=== PATIENT | male | born 1950 | race Caucasian/White ===

== ENCOUNTER 2020-02-07 01:49 | Outpatient (CLI) | payer MEDICARE, SELFPAY ==
[2020-02-07 20:39] LABS: SARS-CoV-2 RNA PCR Negative
== END 2020-02-07 01:50 | disposition home or self-care (01) ==
LOC: ANHCOVIDDT 01:51
PROVIDERS: PCP Family Medicine; Visit Provider Internal Medicine Critical Care Medicine
DX: Z20.828 Contact with and (suspected) exposure to other viral communicable diseases (principal)
CPT/HCPCS: 87635; C9803; U0003

== ENCOUNTER 2020-02-09 07:35 | Outpatient (CLI) | payer MEDICARE, SELFPAY ==
--- NOTE | 2020-03-09 19:42 | WPDSLEEPSTUD ---
Sleep Study Date of Study: 02/09/20 Ordering Provider: Agustin Christian MD Interpreting Physician: Vanesa Gomez MD Sleep Study Type: Polysomnogram Height: 1.88 m Weight: 133.81 kg Body Mass Index: 37.8 Neck Circumference: 45.72 cm [place]: 1 Reason for Sleep Study large right ventricle, shortness of breath Sleep History Víctor Ballesteros is a 69 yo man with a history of frequent loud snoring, right ventricular enlargement with infrequent chest pressure and shortness of breath. He wakes during the night and in the administrative dietitian hours. He has excessively sweating at night, frequent palpitations, rarely falling asleep in the day, rarely involuntarily, never while driving. He does not have muscle weakness with strong emotion. He denies problems in the daytime due to excessive sleepiness. He does not feel paralyzed on waking or falling asleep, and does not have vivid dreams on waking or falling asleep. He is not afraid to go to sleep, and does not have nightmares. He rarely remembers his dreams. He occasionally has racing thoughts. He rarely feels sad or depressed. He occasionally has anxiety. He rarely has muscular tension or notices parts of his body jerking. He rarely has crawling and aching feelings in his legs at night. Rarely has leg pain at night. He does not have morning jaw pain. He rarely is bothered by pain during the day, rarely awaken by pain at night. He rarely wakes up feeling stiff in the morning with sore or achy muscles or pain in the neck. Has memory problems. He has lost 25 lb in the last year. Normal bedtime is between 8 and 9:00 p.m. taking 15-30 minutes to fall asleep. He typically wakes up 1-4 times at night and while awake stays awake for 30-60 minutes. He wakes up between 3:00 am and 5:00 a.m. He does not take naps. He often feels refreshed in the morning. Habits: Smoked 31 years ago. Caffeine, 1 cup a day. Alcohol once a month. PMH: Hypertension, diabetes. Mild pulmonary hypertension. [facility] Past Medical History Medical History (Updated 03/09/20 @ 20:57 by Vanesa Gomez MD) Diabetes Hyperlipidemia Hypertension Pulmonary hypertension Right ventricular enlargement Social History Social History (Updated 03/09/20 @ 19:57 by Vanesa Gomez MD) Social History: quit 31 years ago, quit 1990 Smoking status: Former smoker Alcohol intake: current Alcohol use details: once a month Medications Medications: metformin 1000 mg glipizide 10 mg pioglitazone 25 mg atorvastatin 20 mg a day cetirizine 10 mg a day quinapril 20 mg a day baby aspirin 81 mg a day Sleep Procedure This test was performed using the [employer] multiple channel system including EOG, EEG, submental EMG, EKG, nasal and oral airflow using thermistors and nasal pressure sensors, chest and abdominal belts for body position data, and pulse oximetry. Video monitoring was also performed. The study was scored using [facility] guidelines. Sleep Architecture The recording time was 418.6 minutes. The sleep time was 127.5 minutes. The sleep efficiency was 30.5%. The sleep latency was 32.3 minutes, prolonged. The REM latency was 346 minutes. He had a long sleep latency, slept for an hour then woke and stayed awake for 3 hours before falling asleep again and ending the night with a REM episode. He wanted to leave the sleep lab when he woke the first time, and decided to stay to complete the study. Respiratory Analysis The AHI was 16.9. There was no supine REM. In non-supine REM, he had 13 obstructive apneas, 1 obstructive hypopnea with an AHI of 56. In supine NON-REM he had 4 obstructive apneas and 4 obstructive hypopneas for an ANI of 7.6. In non-supine NREM he had 14 obstructive apneas for an AHI of 17.1. Supine index is 7.6, nonsupine index is 26.3. Arousals There were 41 arousals for an index of 5.9. There were 4 apneas for an AHI of 0.6, 2 hyoopneas with an index of 0.3, 35 spontaneous arousals for an index of 5. Periodic Limb Mov
[2020-03-09 21:06] VITALS: BMI 37.8
== END 2020-02-09 07:36 | disposition home or self-care (01) ==
LOC: ANHCSM 07:35
PROVIDERS: PCP Family Medicine; Visit Provider Internal Medicine Cardiovascular Disease
DX: G47.33 Obstructive sleep apnea (adult) (pediatric) (principal); G47.10 Hypersomnia, unspecified; I51.7 Cardiomegaly; R06.83 Snoring; I27.20 Pulmonary hypertension, unspecified; Z87.891 Personal history of nicotine dependence; E11.9 Type 2 diabetes mellitus without complications; E78.5 Hyperlipidemia, unspecified; I10 Essential (primary) hypertension
CPT/HCPCS: 95810

== ENCOUNTER → 2021-06-04 10:33 | Outpatient (CLI) | payer MEDICARE, SELFPAY ==
--- NOTE | ~2021-06-04 | MR_ITS ---
. EXAMINATION: MR brain IAC wo/w con DATE: 06/04/2021 12:07 INDICATION: Right-sided tinnitus, sudden hearing loss. TECHNIQUE: Magnetic resonance imaging (MRI) of the brain, brainstem, and internal auditory canals was performed with 20 mL MultiHance intravenous contrast. Sequences included sagittal and axial T1-weigh orly FSE, axial diffusion-weighted FS EPI, axial T2*-weighted GRE, axial T2-weighted FLAIR Propeller, axial T2-weighted Propeller, small wfkux-oo-vuom coronal FIESTA, small ngews-wi-vcqs coronal T1-weigh orly FSE, and small kiifp-mz-dyet axial T1-weighted SPGR. Postcontrast sequences included axial T1-jorje ghted FSE, small fpgrl-ko-xdct coronal T1-weighted FSE, and small pskqg-bq-lrcq axial T1-weighted SPG R. Apparent diffusion coefficient (ADC) maps were created. COMPARISON: None. FINDINGS: There are scattered areas of nonspecific increased T2-weighted signal intensity in the cere bral white matter and guy. There is no intracranial hemorrhage, acute infarction, or abnormal intrac ranial mass lesion. The ventricles are normal in size. There are likely changes of left ocular lens r eplacement surgery. The internal auditory canals and inner and middle ears are normal. There is a sma ll left mastoid effusion. There is mild mucosal thickening in the paranasal sinuses. IMPRESSION: 1. Moderate nonspecific cerebral white matter disease and pontine disease, which likely represents ch ronic small vessel ischemic disease. Reviewed, dictated and finalized at location A. MEASURES ABSTRACTOR IMPRESSION: 1. Moderate nonspecific cerebral white matter disease and pontine disease, whic h likely represents chronic small vessel ischemic disease.
[2021-06-04 11:24] LABS: Estimated Glomerular Filt Rate > 60
== END ==
PROVIDERS: PCP Family Medicine; Visit Provider Otolaryngology
DX: H93.11 Tinnitus, right ear (principal); H91.21 Sudden idiopathic hearing loss, right ear; R90.82 White matter disease, unspecified
CPT/HCPCS: 70553; A9577

== ENCOUNTER 2022-08-04 08:56 | Emergency (ER) | payer MEDICARE, SELFPAY ==
--- NOTE | ~2022-08-04 | XR_ITS ---
EXAMINATION: XR chest 2V DATE: 08/04/2022 09:24 INDICATION: Chest pain. TECHNIQUE: Frontal and lateral views of the chest were obtained. COMPARISON: None. FINDINGS: There is mild atelectasis at the lung bases. No pleural effusion or pneumothorax. The heart size is normal. IMPRESSION: 1. Mild atelectasis at the lung bases. Reviewed, dictated and finalized at location A.
[2022-08-04 09:05] VITALS: BP 138/62; PULSE 87; RESP 20; TEMP 36.1; O2SAT 99
--- NOTE | 2022-08-04 09:06 | ED.GENADULT ---
HPI - General Adult General Chief complaint: Back Pain/Injury Stated complaint: Chest Pain Time Seen by Provider: 08/04/22 08:59 Source: patient Mode of arrival: ambulatory Limitations: no limitations History of Present Illness HPI narrative: 71-year-old male patient presents to the [facility] with complaints of left-sided chest/ rib pain. Patient states that he was fishing last weekend and fell forward onto the dock but states it really did not cause him a lot of pain until recently this past Friday. Patient states he has had a lot of pain to the left upper chest it is reproducible on palpation. Patient denies any shortness of breath but states the pain is increased when taking a deep breath in. Denies any coughing. Patient states he has been taking ibuprofen and feels like it has not been helping. Patient states he has also been using a Randal wrap around the chest. Related Data Home Medications Medication Instructions Recorded Confirmed cetirizine 5 mg tablet 5 mg PO DAILY PRN Allergic Symptoms 03/21/20 08/04/22 glipizide 5 mg tablet 5 mg PO DAILY 03/21/20 08/04/22 multivitamin 1 tablet PO DAILY 03/21/20 08/04/22 atorvastatin 20 mg tablet 20 mg PO DAILY 06/25/22 08/04/22 diphenhydramine HCl 25 mg capsule 25 mg PO QHS PRN sleep 06/25/22 08/04/22 (Benadryl) metformin 1,000 mg tablet 1,000 mg PO BID 06/25/22 08/04/22 metformin 500 mg tablet 500 mg PO BID 06/25/22 08/04/22 pioglitazone 45 mg tablet 45 mg PO DAILY 06/25/22 08/04/22 quinapril 20 mg tablet 20 mg PO DAILY 06/25/22 08/04/22 Allergies Allergy/AdvReac Type Severity Reaction Status Date / Time NKDA Allergy Unknown unk Uncoded 08/04/22 08:58 Review of Systems Review of Systems: CONSTITUTIONAL: Denies fever, chills, or sweats. EYES: Denies visual changes, redness, or discharge. ENT: Denies rhinorrhea, congestion, sore throat, or otalgia. CARDIOVASCULAR: Positive left upper chest pain, denies palpitations, or edema. RESPIRATORY: Denies cough or dyspnea. GASTROINTESTINAL: Denies abdominal pain, nausea, vomiting, or diarrhea. GENITOURINARY: Denies dysuria or hematuria. SKIN: Denies rash or itching. MUSCULOSKELETAL: Denies back pain, joint pain, or myalgia. NEUROLOGIC: Denies headache, numbness, or weakness. PSYCHIATRIC: Denies anxiety or depression. [facility] Past Medical History Medical History Diabetes Hypertension Morbid obesity Pulmonary hypertension Pure hypercholesterolemia, unspecified Right ventricular enlargement Social History Social History Social History: quit 31 years ago, quit 1988 Smoking status: Former smoker Tobacco type: cigarettes Second hand tobacco smoke exposure: No Alcohol intake: current Alcohol use details: once a month Substance use: never Substance use type: does not use Lack of Transportation: No Lack of Food: Never True Current Housing: I Have Housing Concerned About Future Housing: No Difficulty Paying Gas/Electric Bills: No Difficulty Paying for Meds: No Currently Unemployed: No Difficulty w/ Childcare or Family Care: No Living arrangements: with family Occupation/Education: retired Gender identity (if verbalized by the patient): Male Sexual Orientation (if Verbalized by the Patient): Straight or Heterosexual Spiritual care concerns: No Comments At the time of my signature I agree with nursing past medical history, surgical, social, and family history. There is no relevant family history pertinent to the presenting complaint. Exam Narrative: GENERAL: Well-appearing, well-nourished, and in no acute distress. HEAD: Normocephalic, atraumatic. EYES: PERRLA and EOMI. ENT: Nares clear, no rhinorrhea or epistaxis. Mucous membranes moist. NECK: Supple. No lymphadenopathy CHEST: Clear to auscultation. No respiratory distress. patient does have a small bruise noted to t
--- NOTE | 2022-08-04 10:05 | ECG_ITS ---
Measurements Intervals [place] Rate: 78 P: 14 VA: 167 QRS: 14 QRSD: 97 T: -3 QT: 371 QTc: 424 Interpretive Statements SINUS RHYTHM MINIMAL Q WAVES- INFERIOR LEADS BASELINE ARTIFACT- I, II, III, AVR BORDERLINE ECG NO PREVIOUS ECG AVAILABLE FOR COMPARISON Electronically Signed On 08-04-2022 12:55:39 CDT by Gunnar Acevedo D.O.
== END 2022-08-04 09:53 | disposition home or self-care (01) ==
PROVIDERS: Emergency Provider Nurse Practitioner Family; PCP Family Medicine
DX: R07.89 Other chest pain (principal); Z87.891 Personal history of nicotine dependence; E11.9 Type 2 diabetes mellitus without complications; Z79.84 Long term (current) use of oral hypoglycemic drugs; I10 Essential (primary) hypertension; E78.00 Pure hypercholesterolemia, unspecified; E66.01 Morbid (severe) obesity due to excess calories; Z68.38 Body mass index [BMI] 38.0-38.9, adult
CPT/HCPCS: 71046; 93005; 99213; G0463

== ENCOUNTER 2024-07-12 09:17 | Outpatient (CLI) | payer MEDICARE, SELFPAY ==
--- NOTE | ~2024-07-12 | XR_ITS ---
CHEST RADIOGRAPH, PA AND LATERAL CLINICAL HISTORY: R06.02 - Shortness of breath . COMPARISON: 08/04/2022 TECHNIQUE: PA and lateral views of the chest. Examination is limited by patient rotation (towards the patient's left) FINDINGS Interval development of a large left-sided pleural effusion, when compared with previous study. Rounded pleural-based mass is also detected within the lateral margin of the superior segment of the left lower lobe. Infiltrate is noted within the superior segment of the left lower lobe, possibly postobstructive. The cardiomediastinal silhouette is partially obscured. Retrosternal extension of the thyroid gland is also suspected. IMPRESSION: Findings within the left hemithorax for which cross-sectional imaging (preferably contrast-enhanced C T examination of the chest) is recommended. If patient is unable, noncontrast enhanced imaging may also be performed. Reviewed, dictated and finalized at location A. IMPRESSION: Findings within the left hemithorax for which cross-sectional imaging (preferab ly contrast-enhanced CT examination of the chest) is recommended. If patient is unable, noncontrast enhanced imaging may also be performed.
== END 2024-07-12 09:18 | disposition home or self-care (01) ==
PROVIDERS: PCP Family Medicine; Visit Provider Family Medicine
DX: R06.02 Shortness of breath (principal)
CPT/HCPCS: 71046

== ENCOUNTER 2024-07-19 08:05 | Outpatient (CLI) | payer MEDICARE, SELFPAY ==
--- NOTE | ~2024-07-19 | CT_ITS ---
Clinical Indication: Shortness of breath CT Scan of the Chest with Contrast: Technique: Contiguous sections were acquired throughout the chest after intravenous administration of 75 cc of Omnipaque 350. Dose reduction technique was used on this scan by utilizing automated exposu re control and iterative reconstruction technique. The dose-length product (DLP) was 417.47 mGy-cm. Findings: There is no evidence of any significant mediastinal, hilar or axillary lymphadenopathy. There is no f illing defect in the pulmonary arterial tree to suggest pulmonary embolus. There is no evidence of ao rtic dissection or aneurysm. No pericardial effusion. There is small to moderate left pleural effusion, likely chronic, with thickening of pleural lining. There is left-sided volume loss with consolidation at the peripheral left lower lobe and lingula, lik kishore representing atelectasis. Right lung is relatively hyperinflated but clear. Images through the upper abdomen reveal no abnormalities. Impression: Small to moderate chronic left pleural effusion with thickened pleural lining. Left-sided volume loss with peripheral consolidation of the lingula and left lower lobe, likely repre senting atelectasis. Correlate clinically for pneumonia. Right lung relatively hyperinflated but clear. Reviewed, dictated and finalized at location . Impression: Small to moderate chronic left pleural effusion with thickened pleural lining. Left-sided volume loss with peripheral consolidation of the lingula and left lo wer lobe, likely representing atelectasis. Correlate clinically for pneumonia. Right lung relatively hyperinflated but clear.
--- OUTSIDE RECORDS SUMMARY | 2024-07-19 08:30 | XMS_ITS | Clinical Summary ---
Author Organization [facility] [address] Address [address] [place] [address] Care Team Providers Care Hot Header Operator Name Role Phone Tej Sen MD Primary Care Provider [phone] Allergies No known active allergies Medications atorvastatin (LIPITOR) 20 mg tablet 12/21/2019 Active metFORMIN (GLUCOPHAGE) 1,000 mg tablet 12/21/2019 Act evelio pioglitazone (ACTOS) 45 mg tablet 12/21/2019 Active cetirizine (ZyrTEC) 10 mg tablet Take 1 tablet (10 mg total) by mouth daily Active multivitamin capsule Take 1 capsule by mouth daily Active glipiZIDE (GLUCOTROL) 5 mg tablet 06/19/2021 Active lisinopriL (PRINIVIL,ZESTR IL) 20 mg tablet 1 tablet (20 mg total) 03/10/2023 Active magnesium gluconate 200 mg tabletIndicatio ns:hypomagnesem ia 1 tablet (200 mg total) Active melatonin 5 mg tablet Active Active Problems Problem Noted Date Diagnosed Date Impacted cerumen of right ear 05/16/2023 Tinnitus of right ear 05/10/2021 Sudden right hearing loss 05/10/2021 Hyperlipidemia associated with type 2 diabetes m ellitus 06/02/2020 TESHA (obstructive sleep apnea) 02/15/2020 Pulmonary hypertension 01/17/2020 Hypersomnolence 01/17/2020 Hypertension associated with diabetes 01/17/2020 Chest pressure 01/17/2020 MCGARRY (dyspnea on exertion) 01/17/2020 Snoring 01/17/2020 Right ventricular enlargement 01/17/2020 Hyperlipidemia 01/17/2020 Resolved Problems Problem Noted Date Diagnosed Date Resolved Date Morbid obesity with BMI of 40.0-44.9, adult 01/17/2020 02/15/2020 Surgical History Surgery Date Site/Laterality Comments CATARACT EXTRACTION Medical History Medical History Date Comments Hypertension Diabetes mellitus (HCC) Allergic rhinitis HL (hearing loss) Tinnitus Family History Medical History Relation Name Comments Cancer Father Heart disease Father Alzheimer's disease Mother Cancer Other Allergies Sister Relation Name Status Comments Brother Alive Father Mother Alive Other Sister Alive Social History Tobacco Use Types Packs/Day Years Used Date Smoking Tobacco: Former Cigarettes 04 21 Smokeless Tobacco: Never Alcohol Use Standard Drinks/Week Comments Not Currently 0 (1 standard drink = 0.6 oz pur e alcohol) Sex and Gender Information Value Date Recorded Sex Assigned at Not on file Legal Sex Male 11:15 AM CDT Gender Identity Male 01/20/2020 9:35 AM CDT Sexual Orientation Straight 01/20/2020 9: 35 AM CDT Obstetrics History Last Filed Vital Signs Vital Sign Reading Time Taken Comments Blood Pressure 131/61 03/05/2023 3:42 PM RUG TOUCH UP PAINTER Pulse 60 12/08/2020 10:42 AM CDT Temperature 36.1 C (96.9 F) 05/10/2021 8:37 AM RUG TOUCH UP PAINTER Respiratory Rate 18 03/12/2024 9:57 AM RUG TOUCH UP PAINTER Oxygen Saturation 97% 12/08/2020 10:42 AM CDT Inhaled Oxygen Concentration - - Weight 127 kg (280 lb) 03/12/2024 9:57 AM RUG TOUCH UP PAINTER Height 188 cm (6' 2 ) 03/12/2024 9:57 AM RUG TOUCH UP PAINTER Body Mass Index 35.95 03/12/2024 9:57 AM RUG TOUCH UP PAINTER Plan of Treatment Health Maintenance Due Date Last Done Comments Albumin Creatinine Ratio, Urine 1948 Colon Cancer Screening-Colonoscopy 1948 Depression Screening 1948 Hemoglobin A1C 1948 Hepatitis C Screening 1948 eGFR 1948 Dilated Eye Exam 1948 Foot Exam 1948 DTaP/Tdap/Td Vaccine (1 - Tdap) 11/20/1959 Hepatitis B Screening 1966 Zoster Vaccine (1 of 2) 1998 Abdominal Aortic Aneurysm (A AA) Screen 2013 Well Visit 65+ 2013 Fall Risk Assessment 01/16/2021 01/17/2020 Lipid Panel 12/08/2021 12/08/2020, 05/29, 01/17/2020 Influenza Vaccine (#1) 2023 , 12/23/2018, 12/26/2017, Additional history exists Pneumococcal vaccine 65+ Completed 07/22/2017, 0406/2016 Procedures Procedure Name Priority Date/Time Associated Diagnosis Comments POCT LIPID PANEL Routine 12/08/2020 1:11 PM CDT Hyperlipidemia associated with type 2 diabetes mellitus (HCC) from Last 3 Months or Most Recently Relevant to Health Maintenance Results * POCT lipid panel (12/08/2020 1:11 PM CDT) Cholesterol, POC 135 mg/dL HDL, POC 36 mg/dL Triglycerides, POC 57 mg/dL LDL Cholesterol POC 87 mg/dL Chol/HDL Ratio, POC 3.7 Non-HDL Cholesterol, POC 98 mg/dL Cholesterol Total, POC 135 mg/dL Capillary blood 12/08/2020 1 :11 PM CDT David Christian MD POINT OF CARE TEST ORDERA BLES Final Result from Last 3 Months or Most Recently Relevant to Health Maintenance Insurance MEDICARE AD[facility]ANTAGE [facility] MEDIC[facility] Address: [address] [address] [facility] MEDICARE UHC MEDICARE ADVANTAGE [facility] MEDIC[facility] Address: [address] [address] [place] [address] Care Teams Hot Header Operator Relationship Specialty Start Date End Date Tej Sen MD [address] [place] [id number] PCP - General Family Medicine 12/23/19
--- OUTSIDE RECORDS SUMMARY | 2024-07-19 08:30 | XMS_ITS | Referral Summary ---
Author Organization [facility] [address] Address [address] [place] [address] Care Team Providers Care Mill Attendant Name Role Phone Tej Sen MD Primary Care Provider [phone] Allergies No known active allergies Medications atorvastatin [...] with BMI of 40.0-44.9, adult 01/17/2020 02/15/2020 Social History Tobacco Use Types Packs/Day Years Used Date Smoking Tobacco: Former Cigarettes 1 22 Smokeless Tobacco: Never Alcohol Use Standard Drinks/Week Comments Not Currently 0 (1 standard drink = 0.6 oz pur e alcohol) Sex and Gender Information Value Date Recorded Sex Assigned at Not on file Legal Sex Male 11:15 AM CDT Gender Identity Male 01/20/2020 9:35 AM CDT Sexual Orientation Straight 01/20/2020 9: 35 AM CDT Last Filed Vital Signs Vital Sign Reading Time Taken Comments Blood Pressure 131/61 03/05/2023 3:42 PM DEPOT AGENT Pulse 60 12/08/2020 10:42 AM CDT Temperature 36.1 C (96.9 F) 05/10/2021 8:37 AM DEPOT AGENT Respiratory Rate 18 03/12/2024 9:57 AM DEPOT AGENT Oxygen Saturation 97% 12/08/2020 10:42 AM CDT Inhaled Oxygen Concentration - - Weight 127 kg (280 lb) 03/12/2024 9:57 AM DEPOT AGENT Height 188 cm (6' 2 ) 03/12/2024 9:57 AM DEPOT AGENT Body Mass Index 35.95 03/12/2024 9:57 AM DEPOT AGENT Plan of Treatment Not on file Procedures Procedure Name Priority Date/Time Associated Diagnosis [...] Capillary blood 12/08/2020 1 :11 PM CDT us David Christian MD POINT OF CARE TEST ORDERA BLES Final Result from Last 3 Months or Most Recently Relevant to Health Maintenance Insurance [facility] MEDICARE ADVANTAGE [facility] MEDIC[facility] Address: [address] [address] [place] [address] [employer] MEDICARE UHC MEDICARE ADVANTAGE [facility] MEDICARE Address: [address] [address] [place] [address] Care Teams Mill Attendant Relationship Specialty Start Date End Date Tej Sen MD [address] [place] [id number] PCP - General Family Medicine 12/23/19
--- OUTSIDE RECORDS SUMMARY | 2024-07-19 08:30 | XMS_ITS | Continuity of Care Document ---
Author Organization [facility] Address [address] [place] [address] [place] [address] Phone Care Team Providers Care Aircraft Electrician Name Role Phone Francois Foster Unavailable Unavailable Procedures Procedure Date Office/outpatient Visit, Est Office/outpatient Visit, Est Post-op Follow-up Visit Post-op Follow-up Visit Post-op Follow-up Visit Remove Cataract, Insert Lens Presbyopia Correcting IOL Eye Exam & Treatment IOLMaster Eye Exam & Treatment Advance Directives Directive Yes / No Effective Date File Name No Information Encounters Encounter Description Practice Location Reason(s) For Visit Diagnoses Date Provider Providers Copied on Encounter Office/outpa tient Visit, [facility], [address] [place] [address] [address], [place], [place], [id number], [place] tel:[phone] [facility] No Information 0 Wangishnasamy Francois. [address] [facility] [place] [address], [place], [address], [place]. tel:[phone] Office/outpa tient Visit, [facility], [address] [place] [address] [address], [place], [place], [id number], [place] tel:[phone] [facility] No Information 0 Krishnasamy Francois. [address] [facility] [address], [place], [place], [facility][note 3], [place]. tel:[phone] [facility], [id number] [place] [address] [address], [place], [place], [id number], [place] tel:[phone] [place] [address] No Information Nov-0 6-200 9 Krishnasamy Francois. [address] [facility] [address], [place], [place], [facility][note 3], [place]. tel:[phone] [facility], [address] [place] [address] [address], [place], [place], [id number], [place] tel:[phone] [place] [address] No Information Oct-1 6-200 9 Krishnasamy Francois. [address] [facility], [place], [place], [facility][note 3], [place]. tel:[phone] [facility], [address] [place] [address] [address], [place], [place], [id number], [place] tel:[phone] [place] [address] No Information Oct-0 9-200 9 Krishnasamy Francois. [facility], [place], [place], [facility][note 3], [place]. tel:[phone] [facility], [id number] [place] [address] [address], [place], [place], [id number], [place] tel:[phone] [facility] No Information Oct-0 8-200 9 Krishnasamy Francois. [address] [facility] [address], [place], [place], [facility][note 3], [place]. tel:[phone] [facility], [address] [place] [address] [address], [place], [place], [id number], [place] tel:[phone] [facility] No Information Sep-0 4-200 9 Krishnasamy Francois. [address] [facility], [place], [place], [facility][note 3], [place]. tel:[phone] Referring Provider: Francois Foster, [address] [facility] [address], [place], [address]. tel:[phone] [facility], [address], [place], [place], [id number], [place] tel:[phone] [facility] No Information [address] Luisa Calabrese. [address] [facility], [address], [place], [place], [id number], [place]. tel:[phone] Referring Provider: Tej Sen MD, [address] [place], [address]. tel:[phone] Family History Family Member Type Diagnosis Age At Onset No Information Payers Payer name Insurance type Covered democrat ID Kenna sunshine(s) [facility] CI [id number] Social History Type Description Quantity Date Captured Comments Sex Male Smoking Status No Information Chief Complaint And Reason For Visit No Information Reason For Referral Reason For Referral No Information History Of Present Illness Encounter Date Complaint History Of Prese nt Illness No Information Functional Status Date Functional Assessmen t No Information Instructions Date Instruction Additional Infor mation No Information Assessments Type Assessment Date No Information Patient Care Teams Name Effective Dates (start - stop) Status Members No Information
[2024-07-19 08:31] LABS: Estimated Glomerular Filt Rate 49
== END 2024-07-19 08:06 | disposition home or self-care (01) ==
PROVIDERS: PCP Family Medicine; Visit Provider Family Medicine
DX: R91.8 Other nonspecific abnormal finding of lung field (principal); J90 Pleural effusion, not elsewhere classified; J92.9 Pleural plaque without asbestos; J84.09 Other alveolar and parieto-alveolar conditions; J98.4 Other disorders of lung
CPT/HCPCS: 71260; Q9967

== ENCOUNTER 2024-08-03 09:19 | Outpatient (CLI) | payer MEDICARE, SELFPAY ==
[2024-07-22 09:15] VITALS: BMI 34.0
--- NOTE | 2024-07-22 09:19 | PC.NURSE ---
Pre Radiology instructions Report to the outpatient fausto fisher on date __08/03/24___ at time __0930am for procedure Time: _1130 ___ YOU MAY BE MONITORED AT HOSPITAL FOR UP TO 4 HOURS AFTER YOUR PROCEDURE. A visitor will be allowed to accompany the patient into the hospital. You and your visitor will be asked to self-screen and do not enter if you have any COVID symptoms. A mask is OPTIONAL within the hospital. Patients are to have no food or drink 6 hours prior to procedure time Driving will be restricted after the procedure, you must have a person to drive you home. Labs will be drawn in preop area and once reviewed, you will be taken to radiology area for procedure. When the procedure is completed, you will be taken to outpatient where you will be monitored for several hours. You may have one visitor in this area. Other than holding anti-coagulants, patient may take other medication(s) as scheduled. Prior to your appointment date patients are instructed to hold anti-coagulants after discussing with ordering provider to stop. If unable to discontinue anti-coagulants please notify radiologist. ? No aspirin or warfarin (Coumadin) for 7 days prior to the procedure. ? No clopidogrel (Plavix), ticagrelor (Brilinta), prasugrel (Effient) or dabigatran (Pradaxa) for 5 days prior to the procedure. ? No rivaroxaban (Xarelto), apixaban (Eliquis), dipyridamole (Aggrenox or Persantine) or cilostazol (Pletal) for 2 days prior to the procedure. Medications to discontinue per physician: ____None ____ Date to take last dose: ____None Please leave all valuables, including medications, at home the day of procedure. The hospital will not accept responsibility for valuables. Wear comfortable, loose fitting clothing.? Follow any additional instructions given to you from ordering provider. Telephone instructions given to ___wife (Anjana) and asked if any additional questions and then verbalized understanding. Patient advised to call scheduling provider office or registration scheduling [phone] if any additional questions.
[2024-08-03] VITALS (7 sets, daily range): BP systolic 118–144; BP diastolic 62–76; PULSE 76–89; RESP 16–18; TEMP 36.4; O2SAT 99–100; BMI 31.8
--- NOTE | ~2024-08-03 | XR_ITS ---
EXAMINATION: [id number] DATE: 08/03/2024 11:14 INDICATION: Status post left thoracentesis TECHNIQUE: frontal view of the chest was obtained. COMPARISON: Chest CT dated 07/19/2024 FINDINGS: Residual blunting at the left costophrenic angle which could represent a residual very small left ple ural effusion versus pleural parenchymal scarring. Peripheral masslike opacity lateral left lower ethel g zone with appearance on prior CT favoring round atelectasis. Right lung remains clear with no pleur al effusion. No pulmonary edema or pneumothorax. The cardiomediastinal silhouette is normal. IMPRESSION: 1. Blunting at the left costophrenic angle which could represent a small residual pleural effusion ve rsus pleural parenchymal scarring. 2. Masslike opacity at the lateral left lower lung zone with appearance on prior CT favoring round at electasis. Reviewed, dictated and finalized at location A. IMPRESSION: 1. Blunting at the left costophrenic angle which could represent a small residu al pleural effusion versus pleural parenchymal scarring. 2. Masslike opacity at the lateral left lower lung zone with appearance on prio r CT favoring round atelectasis.
--- NOTE | ~2024-08-03 | US_ITS ---
EXAMINATION: US thoracentesis DATE: 08/03/2024 11:30 INDICATION: Left pleural effusion TECHNIQUE: The procedure and its risks and benefits were discussed with the patient. Potential risks discussed included bleeding, infection, and pneumothorax. The patient understood the risks and agreed to proceed. The skin was prepped and draped in sterile fashion. 1% lidocaine was used for local anes thesia. Under ultrasound guidance, a 5 Fr catheter with trochar was advanced into the left pleural ef fusion. Fluid was aspirated. The catheter was removed, and a dressing was applied. There were no imme diate complications. FINDINGS: Ultrasound images demonstrate a small left pleural effusion and the catheter within the fluid. IMPRESSION: 1. Successful ultrasound-guided thoracentesis yielding 250 mL of yellow fluid with slight reddish ti nge at the conclusion of the aspiration. Reviewed, dictated and finalized at location A. IMPRESSION: 1. Successful ultrasound-guided thoracentesis yielding 250 mL of yellow fluid with slight reddish tinge at the conclusion of the aspiration.
--- OUTSIDE RECORDS SUMMARY | 2024-08-03 09:49 | XMS_ITS | Clinical Summary ---
Author Organization [facility] [address] Address [address] [place] [address] Care Team Providers Care Exhibit Technician Name Role Phone Tej Sen MD Primary Care Provider [phone] Allergies No known active allergies Medications atorvastatin [...] Comments Blood Pressure 131/61 03/05/2023 3:42 PM BURIAL NEEDS SALESPERSON Pulse 60 12/08/2020 10:42 AM CDT Temperature 36.1 C (96.9 F) 05/10/2021 8:37 AM BURIAL NEEDS SALESPERSON Respiratory Rate 18 03/12/2024 9:57 AM BURIAL NEEDS SALESPERSON Oxygen Saturation 97% 12/08/2020 10:42 AM CDT Inhaled Oxygen Concentration - - Weight 127 kg (280 lb) 03/12/2024 9:57 AM BURIAL NEEDS SALESPERSON Height 188 cm (6' 2 ) 03/12/2024 9:57 AM BURIAL NEEDS SALESPERSON Body Mass Index 35.95 03/12/2024 9:57 AM BURIAL NEEDS SALESPERSON Plan of Treatment Health Maintenance Due Date [...] Relevant to Health Maintenance Insurance MEDICARE ADVANTAGE [facility] MEDICARE Address: [address] [address] [facility] MEDICARE UHC MEDICARE ADVANTAGE [facility] MEDICARE Address: [address] [address] [place] [address] Care Teams Exhibit Technician Relationship Specialty Start Date End Date Tej Sen MD [address] [place] [id number] PCP - General Family Medicine 12/23/19
--- OUTSIDE RECORDS SUMMARY | 2024-08-03 09:49 | XMS_ITS | Referral Summary ---
Author Organization [facility] [address] Address [address] [place] [address] Care Team Providers Care Pocket Closer Name Role Phone Tej Sen MD Primary Care Provider [phone] Allergies No known active allergies Medications atorvastatin [...] Comments Blood Pressure 131/61 03/05/2023 3:42 PM DESIZING PAD OPERATOR Pulse 60 12/08/2020 10:42 AM CDT Temperature 36.1 C (96.9 F) 05/10/2021 8:37 AM DESIZING PAD OPERATOR Respiratory Rate 18 03/12/2024 9:57 AM DESIZING PAD OPERATOR Oxygen Saturation 97% 12/08/2020 10:42 AM CDT Inhaled Oxygen Concentration - - Weight 127 kg (280 lb) 03/12/2024 9:57 AM DESIZING PAD OPERATOR Height 188 cm (6' 2 ) 03/12/2024 9:57 AM DESIZING PAD OPERATOR Body Mass Index 35.95 03/12/2024 9:57 AM DESIZING PAD OPERATOR Plan of Treatment Not on file Procedures [...] Most Recently Relevant to Health Maintenance Insurance [facility] MEDICARE ADVANTAGE [employer] MEDICARE UHC MEDICARE ADVANTAGE Care Teams Pocket Closer Relationship Specialty Start Date End Date Tej Sen MD [address] [place] [phone] PCP - General Family Medicine 12/23/19
[2024-08-03 10:21] LABS: Prothrombin Time 13.5 Seconds (11.1-14.7)
[2024-08-03 11:26] LABS: Glucose Point of Care 84 mg/dl (65-105)
[2024-08-03 13:52] LABS: Appearance Pleural Fluid Hazy (Clear); Color Pleural Fluid Yellow (Colorless); Lymphocytes Pleural Fluid 97 %; Macrophages Pleural Fluid 3 %; Nucleated Cell Pleural Fluid 1269 /uL (0-1000); Pleural fluid source Pleural fluid; RBC Pleural Fluid < 2000 /uL (0-10000)
[2024-08-06 19:48] LABS: Glucose Pleural Fluid 51 mg/dL; LDH Pleural Fluid 223 U/L; Total Protein Pleural Fluid <3.0 g/dL
== END 2024-08-03 13:04 | disposition home or self-care (01) ==
PROVIDERS: PCP Family Medicine; Referring Provider Family Medicine; Visit Provider Radiology Diagnostic Radiology
DX: R91.8 Other nonspecific abnormal finding of lung field (principal); J90 Pleural effusion, not elsewhere classified
CPT/HCPCS: 32555; 36415; 82945; 82948; 83615; 84157; 85610; 88108; 88305; 89051

== ENCOUNTER 2024-09-01 10:24 | Outpatient (CLI) | payer MEDICARE, SELFPAY ==
--- NOTE | ~2024-09-01 | CT_ITS ---
CT Scan of the Chest without Contrast: Clinical Indication: Pleural effusion Technique: Contiguous sections were acquired throughout the chest without intravenous contrast. Dose reduction technique was used on this scan by utilizing automated exposure control and iterative recon struction technique. The dose-length product (DLP) was 201.36 mGy-cm. COMPARISON: 07/19/2024 Findings: There is no evidence of any significant mediastinal, hilar or axillary lymphadenopathy. The mediastin al soft tissues appear normal. No pericardial effusion. No right pleural effusion. Right lung clear. Stable small, possibly loculated or chronic left pleural effusion with mild thickening of the pleural lining. Stable left basilar atelectasis and relative volume loss in the left hemithorax.. Images through the upper abdomen reveal no abnormalities. Impression: Stable small, possibly loculated or otherwise chronic left pleural effusion with left lung atelectati c change in left-sided relative volume loss. Reviewed, dictated and finalized at [facility]. Impression: Stable small, possibly loculated or otherwise chronic left pleural effusion wit h left lung atelectatic change in left-sided relative volume loss.
--- OUTSIDE RECORDS SUMMARY | 2024-09-01 10:31 | XMS_ITS | Referral Summary ---
Author Organization [facility] [address] Address [address] [place] [address] Care Team Providers Care Back Tender Fourdrinier Name Role Phone Tej Sen MD Primary Care Provider [phone] Encounters Date Type Department Care Team Description 08/27/2024 Orders Only [facility] Surgery [address] [facility] [address] [place] [address] Samir Charles MD Pulmonary hypertension (HCC) (Primary Dx) from Last 3 Months Allergies No known active allergies Medications atorvastatin [...] Comments Blood Pressure 131/61 03/05/2023 3:42 PM MANUFACTURING HELPER Pulse 60 12/08/2020 10:42 AM CDT Temperature 36.1 C (96.9 F) 05/10/2021 8:37 AM MANUFACTURING HELPER Respiratory Rate 18 03/12/2024 9:57 AM MANUFACTURING HELPER Oxygen Saturation 97% 12/08/2020 10:42 AM CDT Inhaled Oxygen Concentration - - Weight 127 kg (280 lb) 03/12/2024 9:57 AM MANUFACTURING HELPER Height 188 cm (6' 2) 03/12/2024 9:57 AM MANUFACTURING HELPER Body Mass Index 35.95 03/12/2024 9:57 AM MANUFACTURING HELPER Plan of Treatment Not on file Procedures [...] Most Recently Relevant to Health Maintenance Insurance UHC MEDICARE ADVANTAGE [employer] MEDICARE UHC MEDICARE ADVANTAGE Care Teams Back Tender Fourdrinier Relationship Specialty Start Date End Date Tej Sen MD [address] [place] [id number] PCP - General Family Medicine 12/23/19
--- OUTSIDE RECORDS SUMMARY | 2024-09-01 10:31 | XMS_ITS | Continuity of Care Document ---
Author Organization [facility] Address [address] [place] [address] [place] [address] Phone Care Team Providers Care Mobile Sales Technician Name Role Phone Francois Foster Unavailable Unavailable [...] Providers Copied on Encounter Office/outpa tient Visit, [facility], [address] [place] [address] [address], [place], [place], [id number], [place] tel:[phone] [facility] No Information 0 Wangishnasamy Francois. [address] [facility] [place] [address], [place], [address], [place]. tel:[phone] Office/outpa tient Visit, [facility], [address] [place] [address] [address], [place], [place], [id number], [place] tel:[phone] [facility] No Information 0 Krishnasamy Francois. [address] [facility] [address], [place], [place], [facility], [place]. tel:[phone] [facility] Eye [facility], [id number] [place] [address] [address], [place], [place], [id number], [place] tel:[phone] [place] [address] No Information Nov-0 6-200 9 Krishnasamy Francois. [address] [facility] [address], [place], [place], [facility], [place]. tel:[phone] [facility], [address] [place] [address] [address], [place], [place], [id number], [place] tel:[phone] [place] [address] No Information Oct-1 6-200 9 Krishnasamy Francois. [address] [facility] [address], [place], [place], [facility], [place]. tel:[phone] [facility] Eye [facility], [id number] [place] [address] [address], [place], [place], [id number], [place] tel:[phone] [place] [address] No Information Oct-0 9-200 9 Krishnasamy Francois. [facility] [address], [place], [place], [facility], [place]. tel:[phone] [facility], [address] [place] [address] [address], [place], [place], [id number], [place] tel:[phone] [facility] No Information Oct-0 8-200 9 Krishnasamy Francois. [address] [facility] [address], [place], [place], [facility], [place]. tel:[phone] [facility] Eye [facility], [address] [place] [address] [address], [place], [place], [id number], [place] tel:[phone] [facility] No Information Sep-0 4-200 9 Krishnasamy Francois. [address] [facility] [address], [place], [place], [facility], [place]. tel:[phone] Referring Provider: Francois Foster, [address] [facility] [address], [address]. tel:[phone] [facility] Eye [facility], [address], [place], [place], [id number], [place] tel:[phone] [facility] No Information 9200 7 Luisa Calabrese. [address] [facility], [address], [place], [place], [id number], [place]. tel:[phone] Referring Provider: Tej Sen MD, [address] [place], [address]. tel:[phone] Family History Family Member Type Diagnosis Age At Onset No Information Payers Payer name Insurance type Covered constitution party ID Kenna sunshine(s) [facility] CI [id number] Social History Type Description Quantity Date Captured [...]
--- OUTSIDE RECORDS SUMMARY | 2024-09-01 10:31 | XMS_ITS | Clinical Summary ---
Author Organization [facility] [address] Address [address] [place] [address] Care Team Providers Care Rough And Truing Machine Operator Name Role Phone Tej Sen MD Primary Care Provider [phone] Allergies No known active allergies Medications atorvastatin [...] with BMI of 40.0-44.9, adult 01/17/2020 02/15/2020 Encounters Date Type Department Care Team Description 08/27/2024 Orders Only [facility] Surgery [address] [facility] [address] [place] [address] Samir Charles MD Pulmonary hypertension (HCC) (Primary Dx) from Last 3 Months Surgical History Surgery Date Site/Laterality Comments CATARACT [...] Comments Blood Pressure 131/61 03/05/2023 3:42 PM VICE PRESIDENT PROCESS Pulse 60 12/08/2020 10:42 AM CDT Temperature 36.1 C (96.9 F) 05/10/2021 8:37 AM VICE PRESIDENT PROCESS Respiratory Rate 18 03/12/2024 9:57 AM VICE PRESIDENT PROCESS Oxygen Saturation 97% 12/08/2020 10:42 AM CDT Inhaled Oxygen Concentration - - Weight 127 kg (280 lb) 03/12/2024 9:57 AM VICE PRESIDENT PROCESS Height 188 cm (6' 2) 03/12/2024 9:57 AM VICE PRESIDENT PROCESS Body Mass Index 35.95 03/12/2024 9:57 AM VICE PRESIDENT PROCESS Plan of Treatment Health Maintenance Due Date [...] Assessment 01/16/2021 01/17/2020 Lipid Panel 12/08/2021 12/08/2020, 03/03/2020, 01/17/2020 Influenza Vaccine (Season Ended) 2024 12/21/2019, 12/23/2018, 12/26/2017, Additional history exists Pneumococcal vaccine 65+ Completed 07/22/2017, 06/2016 Procedures Procedure Name Priority Date/Time Associated Diagnosis [...] Most Recently Relevant to Health Maintenance Insurance [id number] MEDICARE ADVANTAGE [facility] MEDICARE UHC MEDICARE ADVANTAGE Care Teams Rough And Truing Machine Operator Relationship Specialty Start Date End Date Tej Sen MD [address] [place] [address] PCP - General Family Medicine 12/23/19
== END 2024-09-01 10:25 | disposition home or self-care (01) ==
PROVIDERS: PCP Family Medicine; Visit Provider Physician Assistant
DX: J90 Pleural effusion, not elsewhere classified (principal); J98.11 Atelectasis
CPT/HCPCS: 71250

== ENCOUNTER 2024-09-15 08:30 | Outpatient (CLI) | payer MEDICARE, SELFPAY ==
--- NOTE | 2024-09-15 08:36 | ECHO_ITS ---
Patient Info Name: Víctor Ballesteros Age: 73 years : 1950 Gender: Male Ht: 74 in Wt: 235 lbs BSA: 2.38 m2 HR: 98 bpm BP: 102 / 69 mmHg Heart Rhythm: Sinus Rhythm Technical Quality: Fair Exam Date: 09/15/2024 8:45 AM Patient Status: O Admit Date: 09/15/2024 Exam Type: CA echo doppler color flow Complete two-dimensional, color flow and Doppler transthoracic echocardiogram is performed. Tumbler Plater: Tori Matthews Attending Provider: Cynthia US Summary 1. Left ventricular chamber dimension is normal. 2. Left ventricular systolic function is normal, estimated at 55-60. 3. There is mildly increased left ventricular wall thickness. 4. The left ventricular diastolic function is grade I diastolic dysfunction. 5. Right ventricular systolic function is normal. 6. There is mild tricuspid valve regurgitation. 7. Estimated pulmonary arterial systolic pressure is 26 mmHg. Left Ventricle Left ventricular chamber dimension is normal. Left ventricular systolic function is normal, estimated at 55-60. There is mildly increased left ventricular wall thickness. The left ventricular diastolic function is grade I diastolic dysfunction. Right Ventricle Right ventricular chamber dimension is normal. Right ventricular systolic function is normal. Left Atria Left atrial chamber dimension is normal. Right Atria Right atrial chamber dimension is normal. Atrial Septum Intact interatrial septum visualized by color flow imaging. Aortic Valve The aortic valve is trileaflet. There is no aortic valve stenosis. There is no aortic valve regurgitation. There is mild aortic valve calcification. Pulmonic Valve The pulmonic valve is not well visualized. There is trace pulmonic regurgitation. Mitral Valve There is trace mitral valve regurgitation. Tricuspid Valve There is mild tricuspid valve regurgitation. Estimated pulmonary arterial systolic pressure is 26 mmHg. Pericardium/Pleural The pericardium appears epicardial fat pad. There is no pericardial effusion. Inferior Vena Cava Normal inferior vena cava with >50% collapse upon inspiration consistent with normal right atrial pressure, 3 mmHg. Aorta The aortic root size at the sinus of Valsalva is normal. Left Ventricular Outflow Tract Name Value Normal LVOT 2D LVOT Diameter 2.0 cm LVOT Doppler LVOT Peak Velocity 94 cm/s LVOT Peak Gradient 4 mmHg LVOT Mean Gradient 2 mmHg LVOT VTI 16 cm LVOT VTI/AV VTI Ratio 1.0 LVOT Stroke Volume 52 ml LVOT CO 4.4 l/min LVOT CI 1.8 l/min/m2 Pulmonic Valve Name Value Normal RVOT Doppler RVOT Peak Velocity 71 cm/s RVOT Peak Gradient 2 mmHg PV Doppler PV Peak Velocity 143 cm/s PV Peak Gradient 8 mmHg Mitral Valve Name Value Normal MV Diastolic Function MV E Peak Velocity 44 cm/s MV A Peak Velocity 81 cm/s MV E/A 0.5 MV Decel Time (PW) 137 ms MV Annular TDI MV E/e' (Septal) 10.1 MV E/e' (Lateral) 9.6 MV E/e' (Average) 9.9 Tricuspid Valve Name Value Normal TV Regurgitation Doppler TR Peak Velocity 238 cm/s TR Peak Gradient 15 mmHg Estimated PAP/RSVP RA Pressure 3 mmHg <=5 PA Systolic Pressure 26 mmHg <36 RV Systolic Pressure 26 mmHg <36 TV Annular TDI TV Lateral Dede s' Velocity 11.6 cm/s >=9.5 Aorta Name Value Normal Ascending Aorta Ao Root Diameter (MM) 3.5 cm Ao Root Diam Index (MM) 1.5 cm/m2 Aortic Valve Name Value Normal AV Doppler AV Peak Velocity 120 cm/s AV Peak Gradient 6 mmHg AV Mean Gradient 3 mmHg AV VTI 16 cm AV Area (Cont Eq VTI) 3.2 cm2 >=3.0 AV Area (Cont Eq Elías) 2.5 cm2 AV DI (Elías) 0.79 AV Regurgitation 2D LVOT Area 3.2 cm2 Ventricles Name Value Normal LV Dimensions 2D/MM IVS Diastolic Thickness (2D) 1.2 cm 0.6-1.0 LVID Diastole (2D) 4.5 cm 4.2-5.8 LVIW Diastolic Thickness (2D) 1.1 cm 0.6-1.0 LVID Systole (2D) 3.2 cm 2.5-4.0 LVOT Diameter 2.0 cm LV Mass (2D Cubed) 180.92 g 88.00-224.00 LV Mass Index (2D Cubed) 76 g/m2 49-115 Relative Wall Thickness (2D) 0.47 <=0.42 LV Fractional Shortening/Ejection Fraction 2D/MM LV Fractional Shortening (2D) 29 % 25-43 LV EF (2D Teichholz) 56 % LV Diastolic Volume (4C MOD) 79 ml LV EF (4C MOD) 69 % LV Diastolic Volume (2C MOD) 47 ml LV EF (2C MOD) 56 % LV Diastolic Volume (BP MOD) 64 ml 62-150 LV Diastolic Volume Index (BP MOD) 27 ml/m2 34-74 LV Systolic Volume (BP MOD) 23 ml 21-61 LV Systolic Volume Index (BP MOD) 10 ml/m2 11-31 LV EF (BP MOD) 64 % 52-72 LV Diastolic Length (4C) 7.5 cm LV Systolic Length (4C) 5.8 cm LV Stroke Volume (4C MOD) 55 ml Atria Name Value Normal LA Dimensions LA Dimension (MM) 5.0 cm 3.0-4.0 LA Volume (4C A-L) 26 ml LA Volume (BP A-L) 35 ml RA Dimensions RA Systolic Major [place] Length (4C) 4.9 cm 2.1-2.7 RA Area (4C) 17.8 cm2 <=18.0 Report Signatures
--- OUTSIDE RECORDS SUMMARY | 2024-09-15 08:51 | XMS_ITS | Referral Summary ---
Author Organization [facility] [address] [facility] [address] Address [address] [place] [address] Care Team Providers Care Millwright Name Role Phone Tej Sen MD Primary Care Provider Vanesa Gomez MD Unavailable [phone] Encounters Date Type Department Care Team Description 09/14/2024 8:00 AM CDT Pre-Admission Testing [facility] PreAdmission Testing [address] [place] [address] Preop examination (Primary Dx); Pre-op testing; Type 2 diabetes mellitus without complication, without long-term current use of insulin (HCC) 09/09/2024 Telephone [facility] [address] [facility] Floor 5 [place] [address] [place], [place] 09/08/2024 Orders Only [facility] [address] [facility] 8th [place] [address] [place] [address] Merline Thomas NP Pleural effusion (Primary Dx) 09/07/2024 Orders Only [facility] Surgery [address] [facility] [address] [place] [address] Merline Thomas NP 09/06/2024 1:30 PM CDT - 09/06/2024 11:59 PM CDT Hospital Encounter [facility] ([place], [place] MOB 1 DIAG IMG [address] [place], [place] [id number] Pulmonary hypertension (HCC) Discharge Disposition: Discharge to home or self care 09/06/2024 2:15 PM CDT Office Visit [facility] Surgery [address] [place] [address] [address] [place] [address] Samir Charles MD Pleural effusion exudative (Primary Dx); Pleural effusion 09/03/2024 11:28 AM CDT - 09/03/2024 11:59 PM CDT Hospital Encounter [facility] [address] [place] [address] Discharge Disposition: Discharge to home or self care 09/02/2024 8:59 AM CDT - 09/02/2024 11:59 PM CDT Hospital Encounter [facility] [address] [place] [address] Discharge Disposition: Discharge to home or self care 08/27/2024 Orders Only [facility] Surgery [address] [place] [address] [place] [phone] Samir Charles MD Pulmonary hypertension (HCC) (Primary Dx) from Last 3 Months Allergies No known active allergies Medications atorvastatin (LIPITOR) 20 mg tablet Take 1 tablet (20 mg total) by mouth nightly 0 Active metFORMIN (GLUCOPHAGE) 1,000 mg tablet Take 1 tablet (1,000 mg total) by mouth 2 (two) times a day with meals 0 Active cetirizine (ZyrTEC) 10 mg tablet Take 1 tablet (10 mg total) by mouth daily Active multivitamin tablet Take 1 tablet by mouth daily Active lisinopriL (PRINIVIL,ZESTR IL) 20 mg tablet Take 1 tablet (20 mg total) by mouth daily 3 Active MAGNESIUM ORALIndications :hypomagnesemia Take 250 mg by mouth daily Active chlorhexidine (PERIDEX) 0.12 % oral rinseIndication s:Postoperative pneumonia prevention Swish and spit 15 mL 3 (three) times a day for 5 days Lyon teeth three times daily. After brushing teeth, swish solution in mouth for 30 seconds and then spit out. Do not rinse mouth, eat, or drink for 1 hour after using. 225 mL 5 09/23/19 Active OneTouch Delica Plus Lancet 30 gauge misc USE TO CHECK BLOOD SUGAR DAILY 5 Active tirzepatide (MOUNJARO) 7.5 mg/0.5 mL pen injector injection Inject 0.5 mL (7.5 mg total) under the skin once a week 5 Active diphenhydrAMINE HCL 25 mg tablet,disinteg rating Take 1 tablet by mouth nightly Active lisinopriL (PRINIVIL,ZESTR IL) 5 mg tablet Take 1 tablet (5 mg total) by mouth daily Active pioglitazone (ACTOS) 45 mg tablet 0 09/15/19 Discontinu ed(Therapy completed) glipiZIDE (GLUCOTROL) 5 mg tablet 2 09/15/19 Discontinu ed(Therapy completed) melatonin 5 mg tablet 09/15/19 Discontinu ed(Therapy completed) Active Problems Patient Care Coordination No te Formatting of this note migh t be different from the original. Merline Thomas, RAJ 09/01/2024 1327 This is a 73-year-old male patient presenting to the clinic today in consultation for a pleural effusion. He was referred to the clinic by Dr. Gomez. He has a past medical history significant for diabetes mellitus, hypertension, and tinnitus. He is a former pack per day smoker times 22 years. Patient was last seen in Dr. Gomez's office on 08/16/2024 by MAGEN Tamayo. At which point the decision was made for a CT surgery consult due to a chronic pleural effusion and shortness of breath. Patient underwent a thoracentesis on 08/03/2024 yielding 250 mL of yellow fluid with blood tinge which was found to be negative for malignancy. He underwent a CT chest on 07/19/2024 at [facility] which reveals: Small to moderate chronic left effusion with thickened pleura lining. Left-sided volume loss with peripheral consolidation of the lingula and left lower lobe, likely representing atelectasis. Correlate clinically for pneumonia. Right lung relatively hyperinflated but clear. He underwent an ultrasound-guided thoracentesis on 08/03/2024 with 250 mL of fluid obtained. He also underwent a chest x-ray status post thoracentesis on 08/03/2024 [facility] which reveals: Blunting at the left costophrenic angle which could represent a small residual pleural effusion versus pleural parenchymal scarring. Masslike opacity at the lateral left lung zone with the appearance on prior CT favoring round atelectasis. He is scheduled for a two-view chest x-ray prior to his appointment today. All imaging available on file for review. He is here for further surgical evaluation and discussion. Problem Noted Date Diagnosed Date Exudative pleural effusion 09/07/2024 Pleural effusion exudative 09/06/2024 Impacted cerumen of right ear 05/16/2023 Tinnitus [...] Former Cigarettes 1 22 Smokeless Tobacco: Never Tobacco Cessation:Counseling Given: Not Answered Alcohol Use Standard Drinks/Week Comments Not Currently 0 (1 standard drink = 0.6 oz pur e alcohol) AUDIT-C Answer Date Recorded Q1: How often do you have a drink containing alc ohol? Monthly or less 09/14/2024 Q2: How many drinks containi ng alcohol do you have on a typical day when you are drinking? 1 or 2 09/14/2024 Q3: How often do you have si x or more drinks on one occasion? Never 09/14/2024 Personal Safety Answer Date Recorded Have you ever been in or are you currently in a harmful physical or emotional relationship or is someone making you feel afraid or unsafe? Denies 09/14/2024 Sex and Gender Information Value Date Recorded Sex Assigned at Not on file Legal Sex Male 11:15 AM CDT Gender Identity Male 01/20/2020 9:35 AM CDT Sexual Orientation Straight 01/20/2020 9: 35 AM CDT Last Filed Vital Signs Vital Sign Reading Time Taken Comments Blood Pressure 98/66 09/14/2024 9:04 AM CDT Pulse 83 09/14/2024 8:00 AM CDT Temperature 36.4 C (97.6 F) 09/14/2024 8:00 AM CDT Respiratory Rate 16 09/14/2024 8:00 AM CDT Oxygen Saturation 99% 09/14/2024 8:00 AM CDT Inhaled Oxygen Concentration - - Weight 108.2 kg (238 lb 9.6 oz) 09/14/2024 8:00 AM CDT Height 188 cm (6' 2) 09/14/2024 8:00 AM CDT Body Mass Index 30.63 09/14/2024 8:00 AM CDT Plan of Treatment Upcoming Encounters Date Type Department Care Team (Latest Contact Info) Description 09/22/2024 11:35 AM CDT Hospital Encounter [facility] [address] [place] [id number] Samir Charles MD [address] [facility] [id number] [place] [address] 09/22/2024 11:35 AM CDT Anesthesia Event [facility] [address] [place] [address] Zoe Caballero, DISTRIBUTION OPERATION SUPERVISOR [address] [place] [address] 09/22/2024 11:35 AM CDT - 09/22/2024 2:15 PM CDT Surgery [facility] [address] [place] [address] Samir Charles MD [address] [facility] [id number] [place] [address] Left VIDEO ASSISTED THORACIC SURGERY with pleural biopsies and possible decortication Scheduled Procedures Name Priority Associated Diagnoses Date/Ti or VIDEO-ASSISTED THORACIC SURGERY Exudative pleural effusion 09/22/2024 11:35 AM CDT Procedures Procedure Name Priority Date/Time Associated Diagnosis Comments EGFR Routine 09/14/2024 7:54 AM CDT Pre-op testing DIFFERENTIAL AUTO Routine 09/14/2024 7:5 4 AM CDT Pre-op testing ANTIBODY SCREEN Routine 09/14/2024 7:54 AM CDT Pre-op testing ABO/RH Routine 09/14/2024 7:54 AM CDT Pre-op testing COMPREHENSIVE METABOLIC PANEL Routine 09/14/2024 7:54 AM CDT Pre-op testing HEMOGLOBIN A1C Routine 09/14/2024 7:54 AM CDT Pre-op testing Type 2 diabetes mellitus without complication, without long-term current use of insulin (HCC) CBC WITH AUTO DIFFERENTIAL Routine 09/14/2024 7:54 AM CDT Pre-op testing TYPE AND SCREEN 14 DAY Routine 09/14/2024 7:54 AM CDT Pre-op testing ECG 12-LEAD Routine 09/14/2024 7:46 AM CDT Preop examination XR CHEST PA LATERAL 2 VIEWS Schedule Routine, Read Routine (OP Routine) 09/06/2024 1:38 PM CDT Pulmonary hypertension (HCC) CT BODY OUTSIDE REFERENCE Routine 09/03/2024 11:[address] BODY OUTSIDE REFERENCE Routine 09/02/2024 8:59 AM CDT POCT LIPID PANEL Routine 12/08/2020 1:11 PM CDT Hyperlipidemia associated with type 2 diabetes mellitus (HCC) from Last 3 Months or Most Recently Relevant to Health Maintenance Results * (ABNORMAL) eGFR (09/14/2024 7:54 AM CDT) [facility] Signature eGFR 55(L) >=60 mL/min/1. 73 m2 Comment: Interpretive Data Reference Interval Normal >/= 90 mL/min/1.73m2 Mildly decreased* 60 - 89 mL/min/1.73m2 Mildly to moderately decreased 45 - 59 mL/min/1.73m2 Moderately to severely decreased 30 - 44 mL/min/1.73m2 Severely decreased 15 - 29 mL/min/1.73m2 Kidney Failure < 15 mL/min/1.73m2 *Relative to young adult level Estimated glomerular filtration rate is determined by the 2020 CKD-EPI equation recommended by the National Kidney Foundation (A Unifying Approach to GFR Estimation: Recommendations of the NKF-ASK Task Force on Reassessing the Inclusion of Race in Diagnosing Kidney Disease, JASN 2020). The CKD-EPI equation should not be used for patients with unstable renal function and has not been validated in children and those over 70. Current interpretive data was last reviewed 2021. Blood 09/14/2024 7:54 AM CDT 09/14/2024 7:59 AM CDT us Merline Thomas NP LAB BLOOD ORDERABLES Final Result [place] [id number] [facility] [place] [address] * (ABNORMAL) Differential, auto (09/14/2024 7:54 AM CDT) Pathologist [facility] Neutrophil abs 4.78 1.50 - 6.50 K/cumm Imm gran abs 0.05 0.00 - 0.10 K/cumm [facility] Lymphocyte abs 1.13 0.80 - 3.30 K/cumm [facility] Monocyte abs 0.61 0.20 - 0.80 K/cumm [facility] Eosinophil abs 0.59(H) 0.00 - 0.50 K/cumm [facility] Basophil abs 0.05 0.00 - 0.10 K/cumm [facility] Neutrophil pct 66.2 % [facility] Comment: Interpretive Data Percent cell count reference ranges are not reported, since discordance with absolute values may lead to misinterpretation of CBC data. Current Interpretive Data was last revised on 2017. Imm gran pct 0.7 % [facility] Comment: Interpretive Data Percent cell count reference ranges are not reported, since discordance with absolute values may lead to misinterpretation of CBC data. Current Interpretive Data was last revised on 2017. Lymphocyte pct 15.7 % [facility] Comment: Interpretive Data Percent cell count reference ranges are not reported, since discordance with absolute values may lead to misinterpretation of CBC data. Current Interpretive Data was last revised on 2017. Monocyte pct 8.5 % [facility] Comment: Interpretive Data Percent cell count reference ranges are not reported, since discordance with absolute values may lead to misinterpretation of CBC data. Current Interpretive Data was last revised on 2017. Eosinophil pct 8.2 % [facility] Comment: Interpretive Data Percent cell count reference ranges are not reported, since discordance with absolute values may lead to misinterpretation of CBC data. Current Interpretive Data was last revised on 2017. Basophil pct 0.7 % [facility] Comment: Interpretive Data Percent cell count reference ranges are not reported, since discordance with absolute values may lead to misinterpretation of CBC data. Current Interpretive Data was last revised on 2017. Blood 09/14/2024 7:54 AM CDT 09/14/2024 7:59 AM CDT us Merline Thomas DISTRIBUTION OPERATION SUPERVISOR LAB BLOOD ORDERABLES Final Result [facility] [address] [facility] [place] [address] * (ABNORMAL) CBC with auto differential (09/14/2024 7:54 AM CDT) WBC 7.21 3.80 - 9.90 K/cumm Hgb 13.2 13.0 - 17.5 g/dL [facility] Hct 40.6 38.9 - 50.3 % [facility] Plt 358 150 - 400 K/cumm [facility] MPV 8.8(L) 9.1 - 12.3 fL [facility] RBC 4.41 4.30 - 5.80 M/cumm [facility] MCV 92.1 81.3 - 96.4 fL [facility] MCH 29.9 27.1 - 33.3 pg [facility] MCHC 32.5 32.3 - 35.7 g/dL [facility] RDW CV 14.5 11.1 - 14.9 % [facility] RDW SD 48.4(H) 35.7 - 48.1 fL [facility] NRBC abs 0.00 0.00 - 0.01 K/cumm [facility] Blood 09/14/2024 7:54 AM CDT 09/14/2024 7:59 AM CDT Merline Thomas NP LAB BLOOD ORDERABLES Final Result Performing Organization Address [facility] de Phone Number [address] [email or web address] [address] * ABO/Rh (09/14/2024 7:54 AM CDT) Pathologist [facility] ABO/Rh O Positive Blood 09/14/2024 7:54 AM CDT 09/14/2024 7:59 AM CDT Narrative [facility] - 09/14/2024 9:03 AM CDT Is this test being ordered in advance for a procedure?->Yes Expected date of procedure:->09/22/24 Has the patient been transfused in the past 3 months?->No Merline Thomas NP LAB BLOOD BANK TEST ORDERA BLES Final Result Performing Organization Address [facility] Co de Phone Number [address] [email or web address] [address] * Antibody screen (09/14/2024 7:54 AM CDT) Josefina, indirect, Gel Interpretation Negative ABSC Blood 09/14/2024 7:54 AM CDT 09/14/2024 7:59 AM CDT Narrative [facility] - 09/14/2024 9:03 AM CDT Is this test being ordered in advance for a procedure?->Yes Expected date of procedure:->09/22/24 Has the patient been transfused in the past 3 months?->No Merline Thomas NP LAB BLOOD BANK TEST ORDERA BLES Final Result Performing Organization Address [facility] de Phone Number RUFINO [address] [address] * (ABNORMAL) Hemoglobin A1c (09/14/2024 7:54 AM CDT) [facility] Hgb A1C 6.3(H) 4.0 - 5.6 % Estimated Average Glucose 134 mg/dL [facility] Comment: The ADA recommends reporting an estimated Average Glucose (eAG) with all Hemoglobin A1c results using the equation derived from a study of 507 normal and diabetic adults. Minority populations were underrepresented and children were not included. (Diabetes Care 31:7642-4643, 2008). The eAG is not equivalent to a fasting glucose. Blood 09/14/2024 7:54 AM CDT 09/14/2024 7:59 AM CDT Merline Thomas NP LAB BLOOD ORDERABLES Final Result Performing Organization Address [facility] de Phone Number RUFINO [address] [address] * (ABNORMAL) Comprehensive metabolic panel (09/14/2024 7:54 AM CDT) [facility] Sodium 134(L) 135 - 145 mmol/L Potassium, pl 4.7 3.3 - 4.9 mmol/L [facility] Chloride 99 97 - 110 mmol/L [facility] CO2 24 22 - 32 mmol/L [facility] Anion gap 11 2 - 15 mmol/L [facility] BUN 17 6 - 25 mg/dL [facility] Creatinine 1.35(H) 0.80 - 1.30 mg/dL [facility] Glucose 123 70 - 199 mg/dL [facility] Comment: Interpretive Data Fasting glucose >/= 126 mg/dl is diagnostic for diabetes. Fasting is defined as no caloric intake for at least 8 hours. Fasting glucose between 100 mg/dl to 125 mg/dl is diagnostic of prediabetes. In a patient with classic symptoms of hyperglycemia or hyperglycemic crisis, a random glucose >/= 200 mg/dl is diagnostic for diabetes. In the absence of unequivocal hyperglycemia, results should be confirmed by repeat testing. The classification and Diagnosis of Diabetes Diabetes Care 2021; 46: S19-S40. Current interpretive data was last revised 2022. Calcium 8.8 8.5 - 10.3 mg/dL [facility] Bilirubin, total 0.5 0.1 - 1.2 mg/dL [facility] Protein, pl 6.8 6.5 - 8.5 g/dL [facility] Albumin 3.4(L) 3.5 - 5.0 g/dL [facility] Alk phos 112 40 - 130 Units/L [facility] ALT 10 7 - 55 Units/L [facility] AST 20 10 - 50 Units/L [facility] Blood 09/14/2024 7:54 AM CDT 09/14/2024 7:59 AM CDT Merline Thomas NP LAB BLOOD ORDERABLES Final Result [place] [address] [facility] [place] [address] * ECG 12 lead (09/14/2024 7:46 AM CDT) Pathologist [facility] Ventricular Rate EKG/Min 79 BPM [facility] Atrial Rate 79 BPM [facility] WY-Interval (MSEC) 166 ms [facility] QRS-Interval (MSEC) 84 ms [facility] QT-Interval (MSEC) 372 ms [facility] QTc 426 ms [facility] P [employer] 57 degrees [facility] R [employer] 98 degrees [facility] T [employer] 55 degrees [facility] Diagnosis Normal sinus rhythm Rightward axis Low voltage QRS No previous ECGs available Confirmed by SULTAN RICHEY M.D. ([id number]) on 09/14/2024 6:08:51 PM [facility] 09/14/2024 7:46 AM CDT 09/14/2024 6:08 PM CDT us Zoe Lam Ada DISTRIBUTION OPERATION SUPERVISOR ECG ORDERABLES Catalina marshall Result [facility] * XR Chest Pa Lateral 2 Views (09/06/2024 1:38 PM CDT) Anatomical Region Laterality Modality Body, Chest N/A Computed Radiogr aphy 09/09/2024 4:38 PM CDT Narrative 09/09/2024 4:39 PM CDT EXAM DESCRIPTION: XR CHEST PA LATERAL 2 VIEWS REASON FOR STUDY: plural effusion Shortness of breath for a while, pt states he had fluid drained from lung 3-4 weeks ago TECHNIQUE: Frontal and lateral radiographic views of the chest were acquired. COMPARISON: CT 09/01/2024 FINDINGS: LUNGS/PLEURA: Moderate left pleural effusion. Atelectasis and or infiltrate left lung base. Right lung clear. HEART/MEDIASTINUM: The heart size is normal. Normal mediastinal and hilar contours. LINES/TUBES: None. BONES: No acute findings. OTHER: No other significant finding. IMPRESSION: 1. Moderate left pleural effusion. Atelectasis and or infiltrate left lung base. THIS IS AN ELECTRONICALLY VERIFIED FINAL REPORT 09/09/2024 4:39 PM - Electronically signed by Pradeep Ventura M.D. RW: HIRO Report ID: [id number] Reading Location: [id number] Procedure Note Pradeep Ventura MD - 09/09/2024 EXAM DESCRIPTION: XR CHEST PA LATERAL 2 VIEWS REASON FOR STUDY: plural effusion Shortness of breath for a while, pt states he had fluid drained from lung3-4 weeks ago TECHNIQUE: Frontal and lateral radiographic views of the chest wereacquired. COMPARISON: CT 09/01/2024 FINDINGS: LUNGS/PLEURA: Moderate left pleural effusion. Atelectasis andor infiltrate left lung base. Right lung clear. HEART/MEDIASTINUM: The heart size is normal. Normal mediastinal and hilar contours. LINES/TUBES: None. BONES: No acute findings. OTHER: No other significant finding. IMPRESSION: 1. Moderate left pleural effusion. Atelectasis and or infiltrate leftlung base. THIS IS AN ELECTRONICALLY VERIFIED FINAL REPORT 09/09/2024 4:39 PM - Electronically signed by Pradeep Ventura M.D. RW: HIRO Report ID: [id number] Reading Location: [place] [address] Samir Charles MD IMG XR PROCEDURES Final Resul t * CT Body Outside Reference (09/03/2024 11:28 AM CDT) Impressions [facility] - 09/03/2024 11:28 AM CDT These images are for Reference purposes only and have not been reviewed by [facility]. There will be no report generated by a [facility] Radiologist. Narrative [facility] - 09/03/2024 11:28 AM CDT EXAMINATION: Images For Reference Purposes Only Samir Charles MD IMG CT PROCEDURES Final Resul t Performing Organization Address [facility] Co de Phone Number [email or web address] * CT Body Outside Reference (09/02/2024 8:59 AM CDT) Impressions [facility] - 09/02/2024 8:59 AM CDT These images are for Reference purposes only and have not been reviewed by [facility]. There will be no report generated by a [facility] Radiologist. Narrative [facility] - 09/02/2024 8:59 AM CDT EXAMINATION: Images For Reference Purposes Only Samir Charles MD IM CT PROCEDURES Final Resul t Performing Organization Address City/[facility]/ZIP Co de Phone Number [email or web address] * POCT lipid panel (12/08/2020 1:11 PM [...] Most Recently Relevant to Health Maintenance Insurance [employer] MEDICARE Advance Directives For more information, please contact: [phone] Documents on File Type Date Recorded Patient Life Science Research Assistant Expl anation ADVANCE DIRECTIVE 09/14/2024 8:45 AM Jigna larkin [facility] Care Teams Millwright Relationship Specialty Start Date End Date Tej Sen MD [address] [place] [address] PCP - General Family Medicine 12/23/19 Vanesa Gomez MD [address] [place] [address] Consulting Physician Critical Care Med 09/06/24
--- OUTSIDE RECORDS SUMMARY | 2024-09-15 08:51 | XMS_ITS | Clinical Summary ---
Author Organization [facility] [address] [place] [address] Care Team Providers Care Electric Motor Analyst Name Role Phone Tej Sen MD Primary Care Provider [phone] Vanesa Gomez MD Unavailable Allergies No known active allergies Medications atorvastatin [...] (three) times a day for 5 days Marshall teeth three times daily. After brushing teeth, swish solution in mouth for 30 seconds and then spit out. Do not rinse mouth, eat, or drink for 1 hour after using. 225 mL 5 09/23/19 25 Active OneTouch Delica Plus Lancet 30 gauge [...] pioglitazone (ACTOS) 45 mg tablet 0 09/15/19 25 Discontinu ed(Therapy completed) glipiZIDE (GLUCOTROL) 5 mg tablet 2 09/15/19 25 Discontinu ed(Therapy completed) melatonin 5 mg tablet 09/15/19 Discontinu ed(Therapy completed) Active Problems Patient Care Coordination No te Formatting of this note migh t be different from the original. Merline Thomas NP 09/01/2024 1327 This is a 73-year-old male [...] underwent a CT chest on 07/19/2024 at [facility] which reveals: Small to moderate chronic left effusion with thickened pleura lining. Left-sided volume loss with peripheral consolidation of the lingula and left lower lobe, likely representing atelectasis. Correlate clinically for pneumonia. Right lung relatively hyperinflated but clear. He underwent an ultrasound-guided thoracentesis on 08/03/2024 with 250 mL of fluid obtained. He also underwent a chest x-ray status post thoracentesis on 08/03/2024 [facility] which reveals: Blunting at the left costophrenic [...] with type 2 diabetes m ellitus 06/02/2020 TESAH (obstructive sleep apnea) 02/15/2020 Pulmonary hypertension 01/17/2020 Hypersomnolence 01/17/2020 Hypertension associated with diabetes 01/17/2020 Chest pressure 01/17/2020 MCGARRY (dyspnea on exertion) 01/17/2020 Snoring 01/17/2020 Right ventricular enlargement 01/17/2020 Hyperlipidemia 01/17/2020 Resolved Problems Problem Noted Date Diagnosed Date Resolved Date Morbid obesity with BMI of 40.0-44.9, adult 01/17/2020 02/15/2020 Encounters Date Type Department Care Team Description 09/14/2024 8:00 AM CDT Pre-Admission Testing [facility] PreAdmission Testing [facility] [place] [address] Preop examination (Primary Dx); Pre-op testing; Type 2 diabetes mellitus without complication, without long-term current use of insulin (HCC) 09/09/2024 Telephone [facility] [address] [facility] Floor 5 [place] [address] Alisa Kimbrough MA 09/08/2024 Orders Only [facility] Advanced Medicine 8th [place] [address] [place] [address] Merline Thomas, RAJ Pleural effusion (Primary Dx) 09/07/2024 Orders Only [facility] [address] [place] [address] [address] [place] [address] Merline Thomas, RAJ 09/06/2024 2:15 PM CDT Office Visit [facility] [address] [place] [address] [address] [place] [id number] Samir Charles MD Pleural effusion exudative (Primary Dx); Pleural effusion 09/06/2024 1:30 PM CDT - 09/06/2024 11:59 PM CDT Hospital Encounter [facility] MOB 1 DIAG IMG [address] [place] [address] Pulmonary hypertension (HCC) Discharge Disposition: Discharge to home or self care 09/03/2024 11:28 AM CDT - 09/03/2024 11:59 PM CDT Hospital Encounter [facility] ([facility] [address] [place] [address] Discharge Disposition: Discharge to home or self care 09/02/2024 8:59 AM CDT - 09/02/2024 11:59 PM CDT Hospital Encounter [facility] ([facility]) [address] [place] [address] Discharge Disposition: Discharge to home or self care 08/27/2024 Orders Only [facility] [address] [facility] [address] [place] [address] Samir Charles MD Pulmonary hypertension (HCC) (Primary Dx) from Last 3 Months Surgical History Surgery Date Site/Laterality Comments CATARACT EXTRACTION 03/31/2008 - 03/30/2009 Left THORACENTESIS 07/29/2024 - 08/28/2024 Yielding 250 mL of yellow fluid with blood tinge which was found to be negative for malignancy. Medical History Medical History Date Comments Hypertension Diabetes mellitus (HCC) Allergic rhinitis HL (hearing loss) Tinnitus Pleural effusion exudative Pulmonary hypertension (HCC) SOB (shortness of breath) States unless sitting completely still, he gets so SOB that he gets lightheaded. Cannot perform some ADLS without getting completely worn out. Type 2 diabetes mellitus (HCC) Family History Medical History Relation Name Comments [...] Description 09/22/2024 11:35 AM CDT Hospital Encounter [facility] [place] [address] [place] [address] Samir Charles MD [id number] [place] [address] 09/22/2024 11:35 AM CDT Anesthesia Event [address] [address] Zoe Caballero NP [address] [place] [address] [place] [address] 09/22/2024 11:35 AM CDT - 09/22/2024 2:15 PM CDT Surgery [facility] OR [address] [place] [address] Samir Charles MD [id number] [place] [address] Left VIDEO ASSISTED THORACIC SURGERY with pleural biopsies and possible decortication Scheduled Procedures Name Priority Associated Diagnoses Date/Ti me VIDEO-ASSISTED THORACIC SURGERY Exudative pleural effusion 09/22/2024 11:35 AM CDT Health Maintenance Due Date Last Done Comments Albumin Creatinine Ratio, Urine 1950 Colon Cancer Screening-Colonoscopy 1948 Depression Screening 1948 Hepatitis C Screening 1950 Dilated Eye Exam 1948 Foot Exam 1948 DTaP/Tdap/Td Vaccine (1 - Tdap) 11/20/1959 Hepatitis B Screening 1966 Zoster Vaccine (1 of 2) 1998 Abdominal Aortic Aneurysm (A AA) Screen 2013 Well Visit 65+ 2013 Lipid Panel 12/08/2021 12/08/2020, 0303/2020, 01/17/2020 Influenza Vaccine (Season Ended) 2024 12/21/2019, 12/23/2018, 12/26/2017, Additional history exists Hemoglobin A1C 03/16/2025 09/14/2024 Fall Risk Assessment 09/14/2025 09/14/2024, 01/17/20 20 eGFR 09/14/2025 09/14/2024 Pneumococcal vaccine 65+ Completed 07/22/2017, 06/2016 Procedures [...] * (ABNORMAL) eGFR (09/14/2024 7:54 AM CDT) eGFR 55(L) >=60 mL/min/1. 73 m2 Comment: [...] Thomas NP LAB BLOOD ORDERABLES Final Result [place] [id number] [facility] Department of Laboratories [place], [place] [id number] * (ABNORMAL) Differential, auto (09/14/2024 7:54 AM CDT) Neutrophil abs 4.78 1.50 - 6.50 K/cumm Imm gran abs 0.05 0.00 - 0.10 K/cumm [facility] Lymphocyte abs 1.13 0.80 - 3.30 K/cumm [facility] Monocyte abs 0.61 0.20 - 0.80 K/cumm [facility] Eosinophil abs 0.59(H) 0.00 - 0.50 K/cumm [facility] Basophil abs 0.05 0.00 - 0.10 K/cumm [facility] Neutrophil pct 66.2 % [facility] Comment: Interpretive Data Percent cell count reference ranges are not reported, since discordance with absolute values may lead to misinterpretation of CBC data. Current Interpretive Data was last revised on 2017. Imm gran pct 0.7 % [facility] Comment: Interpretive Data Percent cell count reference ranges are not reported, since discordance with absolute values may lead to misinterpretation of CBC data. Current Interpretive Data was last revised on 2017. Lymphocyte pct 15.7 % [facility] Comment: Interpretive Data Percent cell count reference ranges are not reported, since discordance with absolute values may lead to misinterpretation of CBC data. Current Interpretive Data was last revised on 2017. Monocyte pct 8.5 % [facility] Comment: Interpretive Data Percent cell count reference ranges are not reported, since discordance with absolute values may lead to misinterpretation of CBC data. Current Interpretive Data was last revised on 2017. Eosinophil pct 8.2 % [facility] Comment: Interpretive Data Percent cell count reference ranges are not reported, since discordance with absolute values may lead to misinterpretation of CBC data. Current Interpretive Data was last revised on 2017. Basophil pct 0.7 % [facility] Comment: Interpretive Data Percent cell count reference ranges are not reported, since discordance with absolute values may lead to misinterpretation of CBC data. Current Interpretive Data was last revised on 2017. Blood 09/14/2024 7:54 AM CDT 09/14/2024 7:59 AM CDT Merline Thomas SEWING MACHINE OPERATOR LAB BLOOD ORDERABLES Final Result [facility] [address] [facility] [place] [address] * (ABNORMAL) CBC with auto differential (09/14/2024 7:54 AM CDT) WBC 7.21 3.80 - 9.90 K/cumm Hgb 13.2 13.0 - 17.5 g/dL [facility] Hct 40.6 38.9 - 50.3 % [facility] Plt 358 150 - 400 K/cumm [facility] MPV 8.8(L) 9.1 - 12.3 fL [facility] RBC 4.41 4.30 - 5.80 M/cumm [facility] MCV 92.1 81.3 - 96.4 fL [facility] MCH 29.9 27.1 - 33.3 pg [facility] MCHC 32.5 32.3 - 35.7 g/dL [facility] RDW CV 14.5 11.1 - 14.9 % [facility] RDW SD 48.4(H) 35.7 - 48.1 fL [facility] NRBC abs 0.00 0.00 - 0.01 K/cumm [facility] Blood 09/14/2024 7:54 AM CDT 09/14/2024 7:59 AM CDT Merline Thomas SEWING MACHINE OPERATOR LAB BLOOD ORDERABLES Final Result Performing Organization Address [facility] de Phone Number [address] [place] [address] * ABO/Rh (09/14/2024 7:54 AM CDT) ABO/Rh O Positive Blood 09/14/2024 7:54 AM CDT 09/14/2024 7:59 AM CDT Narrative [facility] - 09/14/2024 9:03 AM CDT Is this test being ordered in advance for a procedure?->Yes Expected date of procedure:->09/22/24 Has the patient been transfused in the past 3 months?->No Merline Thomas SEWING MACHINE OPERATOR LAB BLOOD BANK TEST ORDERA BLES Final Result Performing Organization Address [facility] de Phone Number [address] [place] [address] * Antibody screen (09/14/2024 7:54 AM CDT) Josefina, indirect, Gel Interpretation Negative ABSC Blood 09/14/2024 7:54 AM CDT 09/14/2024 7:59 AM CDT Narrative [facility] - 09/14/2024 9:03 AM CDT Is this test being ordered in advance for a procedure?->Yes Expected date of procedure:->09/22/24 Has the patient been transfused in the past 3 months?->No Merline Thomas SEWING MACHINE OPERATOR LAB BLOOD BANK TEST ORDERA BLES Final Result Performing Organization Address [facility] de Phone Number [address] [place] [address] * (ABNORMAL) Hemoglobin A1c (09/14/2024 7:54 AM CDT) Hgb A1C 6.3(H) 4.0 - 5.6 % Estimated Average Glucose 134 mg/dL [facility] Comment: The ADA recommends reporting an estimated Average Glucose (eAG) with all Hemoglobin A1c results using the equation derived from a study of 507 normal and diabetic adults. Minority populations were underrepresented and children were not included. (Diabetes Care 31:0856-4178, 2008). The eAG is not equivalent to a fasting glucose. Blood 09/14/2024 7:54 AM CDT 09/14/2024 7:59 AM CDT Merline Thomas NP LAB BLOOD ORDERABLES Final Result [facility] [address] [facility] Department [place] [address] * (ABNORMAL) Comprehensive metabolic panel (09/14/2024 7:54 AM CDT) Sodium 134(L) 135 - 145 mmol/L Potassium, pl 4.7 3.3 - 4.9 mmol/L [facility] Chloride 99 97 - 110 mmol/L [facility] CO2 24 22 - 32 mmol/L [facility] Anion gap 11 2 - 15 mmol/L [facility] BUN 17 6 - 25 mg/dL [facility] Creatinine 1.35(H) 0.80 - 1.30 mg/dL [facility] Glucose 123 70 - 199 mg/dL [facility] Comment: Interpretive Data Fasting glucose >/= 126 [...] classification and Diagnosis of Diabetes Diabetes Care 202; 46: S19-S40. Current interpretive data was last revised 2022. Calcium 8.8 8.5 - 10.3 mg/dL [facility] Bilirubin, total 0.5 0.1 - 1.2 mg/dL [facility] Protein, pl 6.8 6.5 - 8.5 g/dL [facility] Albumin 3.4(L) 3.5 - 5.0 g/dL [facility] Alk phos 112 40 - 130 Units/L [facility] ALT 10 7 - 55 Units/L [facility] AST 20 10 - 50 Units/L [facility] Blood 09/14/2024 7:54 AM CDT 09/14/2024 7:59 AM CDT Merline Thomas SEWING MACHINE OPERATOR LAB BLOOD ORDERABLES Final Result Performing Organization Address City/[facility]/ZIP Co de Phone Number [facility] [address] [facility] Department [place] [address] * ECG 12 lead (09/14/2024 7:46 AM CDT) Pathologist [facility] Ventricular Rate EKG/Min 79 BPM [facility] Atrial Rate 79 BPM [facility] AK-Interval (MSEC) 166 ms [facility] QRS-Interval (MSEC) 84 ms [facility] QT-Interval (MSEC) 372 ms [facility] QTc 426 ms [facility] P Hawks 57 degrees [facility] R Hawks 98 degrees [facility] T Hawks 55 degrees [facility] Diagnosis Normal sinus rhythm Rightward axis Low voltage QRS No previous ECGs available Confirmed by SULTAN RICHEY M.D. ([id number]) on 09/14/2024 6:08:51 PM [facility] 09/14/2024 7:46 AM CDT 09/14/2024 6:08 PM CDT Zoe Caballero SEWING MACHINE OPERATOR ECG ORDERABLES Catalina l Result Performing Organization Address City/[facility]/ZIP Co de Phone Number [facility] * XR Chest Pa Lateral 2 Views [...] Pradeep Ventura M.D. RW: HIRO Report ID: [id number] Reading Location: [id number] Procedure Note Pradeep Ventura MD - 09/09/2024 [...] Pradeep Ventura M.D. RW: HIRO Report ID: [id number] Reading Location: [id number] Samir Charles MD IMG XR PROCEDURES Final Resul t * CT Body Outside Reference (09/03/2024 11:28 AM CDT) Impressions [facility] - 09/03/2024 11:28 AM CDT These images are for Reference purposes only and have not been reviewed by [facility]. There will be no report generated by a [facility] Radiologist. Narrative [facility] - 09/03/2024 11:28 AM CDT EXAMINATION: Images For Reference Purposes Only Samir Charles MD IMG CT PROCEDURES Final Resul t Performing Organization Address [facility] Co de Phone Number [email or web address] * CT Body Outside Reference (09/02/2024 8:59 AM CDT) Impressions [facility] - 09/02/2024 8:59 AM CDT These images are for Reference purposes only and have not been reviewed by [facility]. There will be no report generated by a [facility] Radiologist. Narrative [facility] - 09/02/2024 8:59 AM CDT EXAMINATION: Images For Reference Purposes Only Samir Charles MD IM CT PROCEDURES Final Resul t Performing Organization Address [facility] Co de Phone Number [email or web address] * POCT [...] Most Recently Relevant to Health Maintenance Insurance [facility] MEDICARE [employer] MEDICARE Advance Directives For more information, please contact: [phone] Documents on File Type Date Recorded Patient Multi Care Technician Expl anation ADVANCE DIRECTIVE 09/14/2024 8:45 AM Jigna larkin [facility] Care Teams Electric Motor Analyst Relationship Specialty Start Date End Date Tej Sen MD [address] [place] [address] PCP - General Family Medicine 12/23/19 Vanesa Gomez MD [address] [id number] [address] [place] [address] Consulting Physician Critical Care Med 09/06/24
--- OUTSIDE RECORDS SUMMARY | 2024-09-15 08:51 | XMS_ITS | Encounter Summary ---
Author Organization [facility] Address [address] [place] [address] Care Team Providers Care Applications Support Lead Name Role Phone Tej Sen MD Primary Care Provider [phone] Vanesa Gomez MD Unavailable [phone] Reason for Referral * Cardiology (Routine) - Authorized Specialty Diagnoses / Procedures Referred By Contac t Referred To Contact Diagnoses Preop examination Procedures ECG 12 lead Zoe Caballero NP [address] [place] [address] Phone: tel: fax: [address] [phone] Referral ID Status Reason Start Date Expiration Date V isits Requested Visits Authorized [id number] Authorized 09/08/2024 10/08/2025 1 1 Encounter Details Date Type Department Care Team (Latest Contact Info) Description 09/14/2024 8:00 AM CDT Pre-Admission Testing [facility] PreAdmission Testing [address] [place] [id number] Preop examination (Primary Dx); Pre-op testing; Type 2 diabetes mellitus without complication, without long-term current use of insulin (HCC) Anesthesia Record Procedure Summary Procedure Name Responsible Anesthesiologist Anesthesia Start Time Anesthesia Stop Time Left VIDEO ASSISTED THORACIC SURGERY with pleural biopsies and possible decortication (Left: Chest) Events No events on file. Meds * Agents No agents on file. * Blood No blood administrations on file. Lines, Drains, and Airways No LDAs on file. documented in this encounter Social History Tobacco Use Types Packs/Day Years Used Date Smoking Tobacco: Former Cigarettes 04 21 Smokeless Tobacco: Never Tobacco Cessation:Counseling Given: Not [...] Orientation Straight 01/20/2020 9: 35 AM CDT documented as of this encounter Last Filed Vital Signs Vital Sign Reading [...] Mass Index 30.63 09/14/2024 8:00 AM CDT documented in this encounter Functional Status * Audit-C Score Answer Date of Assessment Author 1 09/14/2024 8:38 AM CDT Guicho Greenwood RN * Question Answer Date of Assessment Author Q1: How often do you have a drink containing alcohol? Monthly or less 09/14/2024 8:38 AM CDT Dotty Greenwood RN Q2: How many drinks containing alcohol do you have on a typical day when you are drinking? 1 or 2 09/14/2024 8:38 AM CDT Dotty Greenwood RN Q3: How often do you have six or more drinks on one occasion? Never 09/14/2024 8:38 AM CDT Dotty Greenwood RN documented as of this encounter Miscellaneous Notes * Perioperative Nursing Note - Dotty Greenwood RN - 09/14/2024 8:00 AM CDT Images from the original note were not included. Pre Anesthesia Testing Perioperative Nursing Note In-Person Preoperative Evaluation - [facility] Date: 09/14/24 PAT RN completed assessment with the patient. Víctor Ballesteros is a 73 y.o. male Left VIDEO ASSISTED THORACIC SURGERY with pleural biopsies and possible decortication (Left: Chest) Pre-Op Diagnosis Codes: * Exudative pleural effusion [J90] Vitals: 09/14/24 0800 09/14/24 0801 09/14/24 0904 BP: 94/62 91/57 98/66 Pulse: 83 Resp: 16 Temp: 36.4 ??C (97.6 ??F) SpO2: 99% Weight: 108.2 kg (238 lb 9.6 oz) Height: 188 cm (6' 2) Social History Tobacco Use Smoking Status Former Current packs/day: 1.00 Average packs/day: 1 pack/day for 22.0 years (22.0 ttl pk-yrs) Types: Cigarettes Smokeless Tobacco Never Substance and Sexual Activity Drug Use Never Types: Alcohol Alcohol Use Q1: How often do you have a drink containing alcohol?: Monthly or less Q2: How many drinks containing alcohol do you have on a typical day when you are drinking?: 1 or 2 Q3: How often do you have six or more drinks on one occasion?: Never Past Medical History: Diagnosis Date Allergic rhinitis Diabetes mellitus (HCC) HL (hearing loss) Hypertension Pleural effusion exudative Pulmonary hypertension (HCC) SOB (shortness of breath) States unless sitting completely still, he gets so SOB that he gets lightheaded. Cannot perform some ADLS without getting completely worn out. Tinnitus Type 2 diabetes mellitus (HCC) Past Surgical History: Procedure Laterality Date CATARACT EXTRACTION Left 2008 THORACENTESIS 07/2024 Yielding 250 mL of yellow fluid with blood tinge which was found to be negative for malignancy. No Known Allergies CURRENT MEDICATIONS Taking? Last Dose Start Date End Date Provider atorvastatin (LIPITOR) 20 mg tablet -- 12/21/19 -- Tawana Diamond MD cetirizine (ZyrTEC) 10 mg tablet -- -- -- Tawana Diamond MD chlorhexidine (PERIDEX) 0.12 % oral rinse -- 09/17/24 09/22/24 Merline Thomas NP Swish and spit 15 mL 3 (three) times a day for 5 days [place] teeth three times daily. After brushingteeth, swish solution in mouth for 30 seconds and then spit out. Do not rinse mouth, eat, or drink for 1 hour after using. diphenhydrAMINE HCL 25 mg tablet,disintegrating -- -- -- Tawana Diamond MD lisinopriL (PRINIVIL,ZESTRIL) 20 mg tablet -- 03/10/23 -- Tawana Diamond MD MAGNESIUM ORAL -- -- -- Tawana Diamond MD metFORMIN (GLUCOPHAGE) 1,000 mg tablet -- 12/21/19 -- Tawana Diamond MD multivitamin tablet -- -- -- Tawana Diamond MD OneTouch Deljessica Plus Lancet 30 gauge misc -- 08/22/24 -- Tawana Diamond MD tirzepatide (MOUNJARO) 7.5 mg/0.5 mL pen injector injection -- 07/14/24 -- Tawana Diamond MD -- -- -- Implants No active implants to display in this view. TRAVEL/EXPOSURE SCREENINGS Barker Fall Risk Score (Score >= 45 places fall precaution order) : 40 Functional screening questions Demonstrates difficulty with ADL?: Yes Demonstrates difficulty communicating needs?: No Demonstrates difficulty with mobility?: No Self care- no restrictions: Yes Needs Total care: No Have you ever been in or are you currently in a harmful physical or emotional relationship or is someone making you feel afraid or unsafe?: Denies NUTRITION PATIENT CARE PLANNING Advance Directives (For Healthcare) Have you reviewed your Advance Directive and is it valid for this stay?: Yes Advance Directive: Patient has advance directive, copy in chart Type of Healthcare Directive: Living will Discharge Planning Type of Residence: Private residence Living Arrangements: Spouse/significant other Support Systems: Spouse/significant other Patient expects to be discharged to: Private residence ADDITIONAL COMMENTS/ FOLLOW UP * Perioperative Nursing Note - Valeri Del Cid RN - 09/14/2024 8:00 AM CDT Pt called stating that he spoke with his PCP and they decreased his Lisinopril to 5mg daily d/t hypotension. Noted in chart and notified RAJ Enriquez * Pre-Procedure Instructions - Dotty Greenwood RN - 09/14/2024 8:00 AM CDT Images from the original note were not included. [place] [address] Surgery Reminder Checklist: Please arrive to [facility] for scheduled surgery on 09/22/24 at 9:30 am. If the surgeon's office tells you to arrive at a different time after we have given you instructions, please follow their instructions. (Please have your phone available on the day of surgery in case your procedure is moved up and Outpatient Surgery needs you to arrive at an earlier time) Please use Entrance A also known as [facility], then follow the signs for OutpatientSurgery. ONE - TWO WEEKS BEFORE YOUR PROCEDURE You may take TYLENOL (ACETAMINOPHEN) as needed for pain. PLEASE FOLLOW YOUR SURGEON'S GUIDELINES REGARDING ASPIRIN, IBUPROFEN, ALEVE, MULTIVITAMINS, HERBAL SUPPLEMENTS, FISH OIL AND VITAMIN E. YOU MAY BE REQUIRED TO TO HOLD THESE FOR 1-2 WEEKS BEFORE SURGERY. PLEASE HOLD MULTIVITAMIN FROM NOW UNTIL AFTER SURGERY. FIVE DAYS BEFORE YOUR PROCEDURE: THIS BEGINS ON 09/16/24. EVENING BEFORE YOUR PROCEDURE Shower with Antibacterial soap followed by Hibiclens OR Chlorhexidine soap the evening before your surgery. After showering, do not apply any hair products, lotions, colognes, oils, deodorant, powder, or make-up. Antibacterial Soap Examples: Dial or Safeguard. DO NOT eat after midnight (this includes food, gum, mints, hard candy, and chewable antacids). MORNING OF YOUR PROCEDURE May have clear liquids up until 7:30 AM. This includes, Water, Apple Juice, Gatorade, Black Coffee or Sprite. (NO Dairy, Milk Products, Creamer, Red Gatorade or Jordan Juice) Nothing by mouth the 4 hours prior to your procedure, NOT EVEN WATER. [place] your teeth morning of procedure. Use mouth wash if available. Do not swallow any liquids whencleansing your mouth. Shower with Antibacterial soap followed by Hibiclens OR Chlorhexidine soap. After showering, do notapply any hair products, lotions, colognes, oils, deodorant, powder, or make-up. Expect to remove wigs, dentures/partials, contact lenses, piercings, hearing aids, and prostheses before surgery. Do not wear jewelry to the hospital on the day of surgery. Bring glasses and hearing aids (with cases for both), inhalers, and CPAP/BiPAP machine day of surgery. If you will be admitted to the hospital after surgery, feel free to bring a toiletry bag. ONLY TAKE THE FOLLOWING MEDICATIONS MORNING OF SURGERY: (you may take your medications with enough water to safely swallow them) cetirizine (ZyrTEC) MEDICATION HOLD INSTRUCTIONS: DO NOT TAKE MOUNJARO, LISINOPRIL (PRINIVIL,ZESTRIL), OR METFORMIN (GLUCOPHAGE) MORNING OF 09/22/24. VISITOR POLICY Patients in outpatient/surgical settings may have 2 dedicated visitors; children may be permitted as one of the 2 visitors, provided they are accompanied by a caregiver as the second visitor. Children can not be left unattended in the hospital setting. GENERAL INSTRUCTIONS: Please call us with any new prescriptions that were not discussed during your Pretesting Phone Call/Visit so that we can give you appropriate pre op instructions. DO NOT drink alcohol, smoke cigarettes/vapes/e-cigarettes during the 12 hours prior to your surgery. DO NOT use marijuana for 3 days prior to surgery. DO NOT take illicit/illegal drugs of any kind for 7 days prior to surgery. Arrange for a friend or family member to pick you up from the hospital, drive you home, and assist you if necessary. You will not be allowed to drive home. NO non-medical transport services (buses, taxis, etc.) allowed. A responsible adult must be with you for 24 hours after your procedure. Call your surgeon if you develop a rash, wound or open area near the operative site, fever, cold, or any other signs/symptoms of infection prior to surgery. You must call your surgeon if you have signs or symptoms of COVID or FLU. If someone in your home tests positive for COVID please call your surgeon. Your surgery may need to be postponed. MORNING OF SURGERY PLEASE BRING: Photo ID, Insurance card. Any questions/concerns, please call Admission and Testing Center at [phone]. Morning of surgery question/concerns, please call Outpatient Surgery at [phone]. Thank You for choosing [facility]'s Surgery department! documented in this encounter Plan of Treatment Upcoming Encounters Date Type Department Care Team (Latest Contact Info) Description 09/22/2024 11:35 AM CDT Hospital Encounter [facility] OR [address] [place] [address] Samir Charles MD [id number] [place] [address] 09/22/2024 11:35 AM CDT Anesthesia Event [facility] OR [address] [place] [address] Zoe Caballero NP [address] [place] [address] 09/22/2024 11:35 AM CDT - 09/22/2024 2:15 PM CDT [facility] [address] [address] Samir Charles MD [id number] [place] [address] Left VIDEO ASSISTED THORACIC SURGERY with pleural biopsies and possible decortication Scheduled Procedures Name Priority Associated Diagnoses Date/Ti in VIDEO-ASSISTED THORACIC SURGERY Exudative pleural effusion 09/22/2024 11:35 AM CDT documented as of this encounter Procedures Procedure Name Priority Date/Time Associated Diagnosis Comments TYPE AND SCREEN 14 DAY Routine 7:54 AM CDT Pre-op testing EGFR Routine 09/14/2024 7:54 AM CDT Pre-op testing DIFFERENTIAL AUTO Routine 09/14/2024 7:5 4 AM CDT Pre-op testing CBC WITH AUTO DIFFERENTIAL Routine 09/14/2024 7:54 AM CDT Pre-op testing ABO/RH Routine 09/14/2024 7:54 AM CDT Pre-op testing ANTIBODY SCREEN Routine 09/14/2024 7:54 AM CDT Pre-op testing HEMOGLOBIN A1C Routine 09/14/2024 7:54 AM CDT Pre-op testing Type 2 diabetes mellitus without complication, without long-term current use of insulin (HCC) COMPREHENSIVE METABOLIC PANEL Routine 09/14/2024 7:54 AM CDT Pre-op testing ECG 12-LEAD Routine 09/14/2024 7:46 AM CDT Preop examination documented in this encounter Results * (ABNORMAL) eGFR (09/14/2024 7:54 AM CDT) Pathologist [facility] eGFR 55(L) >=60 mL/min/1. 73 m2 Comment: [...] CDT 09/14/2024 7:59 AM CDT Merline Thomas CLAY DRY PRESS OPERATOR LAB BLOOD ORDERABLES Final Result [facility] [address] [facility] Department [place] [address] * (ABNORMAL) Differential, auto (09/14/2024 7:54 AM [...] [facility] Neutrophil pct 66.2 % [facility] Comment: Interpretive Data Percent cell count reference ranges are not reported, since discordance with absolute values may lead to misinterpretation of CBC data. Current Interpretive Data was last revised on 2017. Imm gran pct 0.7 % [facility] Comment: Interpretive Data Percent cell count reference [...] CDT 09/14/2024 7:59 AM CDT Merline Thomas CLAY DRY PRESS OPERATOR LAB BLOOD ORDERABLES Final Result Performing Organization Address [facility] de Phone Number [facility] [address] [facility] Department [place] [address] * Antibody screen (09/14/2024 7:54 AM CDT) Josefina, indirect, Gel Interpretation Negative ABSC Blood 09/14/2024 7:54 AM CDT 09/14/2024 7:59 AM CDT [facility]ative [facility] 09/14/2024 9:03 AM CDT Is this test being ordered in advance for a procedure?->Yes Expected date of procedure:->09/22/24 Has the patient been transfused in the past 3 months?->No Merline Thomas CLAY DRY PRESS OPERATOR LAB BLOOD BANK TEST ORDERA BLES Final Result Performing Organization Address [facility]/ZIP Co de Phone Number [facility] [address] [facility] [place] [address] * ABO/Rh (09/14/2024 7:54 AM CDT) [facility] ABO/Rh O Positive Blood 09/14/2024 7:54 AM CDT 09/14/2024 7:59 AM CDT [facility] - 09/14/2024 9:03 AM CDT Is this test being ordered in advance for a procedure?->Yes Expected date of procedure:->09/22/24 Has the patient been transfused in the past 3 months?->No Merline Thomas LAB BLOOD BANK TEST ORDERA BLES Final Result [place] [id number] [facility] [place] [address] * (ABNORMAL) Comprehensive metabolic panel (09/14/2024 7:54 AM CDT) [facility] Sodium 134(L) 135 - 145 mmol/L Potassium, [...] BLOOD ORDERABLES Final Result Performing Organization Address [facility] de Phone Number [address] [place] [address] * (ABNORMAL) Hemoglobin A1c (09/14/2024 7:54 AM CDT) [facility] Hgb A1C 6.3(H) 4.0 - 5.6 % Estimated Average Glucose 134 mg/dL [facility] Comment: The ADA recommends reporting an estimated Average Glucose (eAG) with all Hemoglobin A1c results using the equation derived from a study of 507 normal and diabetic adults. Minority populations were underrepresented and children were not included. (Diabetes Care 31:2976-1946, 2008). The eAG is not equivalent to a fasting glucose. Blood 09/14/2024 7:54 AM CDT 09/14/2024 7:59 AM CDT Merline Thomas CLAY DRY PRESS OPERATOR LAB BLOOD ORDERABLES Final Result Performing Organization Address [facility] Co de Phone Number [address] [place] [address] * (ABNORMAL) CBC with auto differential (09/14/2024 7:54 AM CDT) [facility] WBC 7.21 3.80 - 9.90 K/cumm Hgb [...] CDT 09/14/2024 7:59 AM CDT Merline Thomas CLAY DRY PRESS OPERATOR LAB BLOOD ORDERABLES Final Result Performing Organization Address [facility] de Phone Number [facility] [address] [facility] Department [place] [address] * ECG 12 lead (09/14/2024 7:46 AM CDT) Pathologist [facility] Ventricular Rate EKG/Min 79 BPM [facility] Atrial Rate 79 BPM [facility] WA-Interval (MSEC) 166 ms [facility] QRS-Interval (MSEC) 84 ms [facility] QT-Interval (MSEC) 372 ms [facility] QTc 426 ms [facility] P Acme 57 degrees [facility] R Acme 98 degrees [facility] T Acme 55 degrees [facility] Diagnosis Normal sinus rhythm Rightward axis Low voltage QRS No previous ECGs available Confirmed by SULTAN RICHEY M.D. ([id number]) on 09/14/2024 6:08:51 PM [facility] 09/14/2024 7:46 AM CDT 09/14/2024 6:08 PM CDT Zoe Caballero CLAY DRY PRESS OPERATOR ECG ORDERABLES [place] l Result Performing Organization Address [facility]/ZIP Co de Phone Number [facility] documented in this encounter Visit Diagnoses Diagnosis Exudative pleural effusion- Primary Unspecified pleural effusion Preop examination- Primary Unspecified pre-operative examination Pre-op testing Unspecified pre-operative examination Type 2 diabetes mellitus without complication, without long-term current use of insulin (HCC) Exudative pleural effusion Unspecified pleural effusion documented in this encounter Historical Medications * This list may reflect changes made after this encounter. lisinopriL (PRINIVIL,ZESTRIL ) 5 mg tablet Take 1 tablet (5 mg total) by mouth daily tirzepatide (MOUNJARO) 7.5 mg/0.5 mL pen injector injection Inject 0.5 mL (7.5 mg total) under the skin once a week 07/14/2024 OneTouch Delica Plus Lancet 30 gauge misc USE TO CHECK BLOOD SUGAR DAILY 08/22/2024 added in this encounter Care Teams Applications Support Lead Relationship Specialty Start Date End Date Tej Sen MD [address] [place] [address] PCP - General Family Medicine 12/23/19 Vanesa Gomez MD [address] [facility] [address] [place] [address] Consulting Physician Critical Care Med 09/06/24 documented as of this encounter
--- OUTSIDE RECORDS SUMMARY | 2024-09-15 08:51 | XMS_ITS | Encounter Summary ---
Author Organization [facility] Address [address] [place] [address] Phone Care Team Providers Care Slubber Tender Name Role Phone Tej Sen MD Primary Care Provider [phone] Vanesa Gomez MD Unavailable [phone] Encounter Details Date Type Department Care Team (Late st Contact Info) Description 09/09/2024 Telephone [facility] Surgery [facility] Floor [address] [place] [address] Alisa Kimbrough MA Social History Tobacco Use Types Packs/Day Years [...] AM CDT documented as of this encounter Miscellaneous Notes * Telephone Encounter - Alisa Kimbrough MA - 09/09/2024 10:46 AM CDT Spoke with patient who provided me his primary care team's fax number [phone] to send his recent imaging results to. I informed him they are not yet released but I will do so once they become available. documented in this encounter Plan of Treatment Upcoming Encounters Date Type Department Care Team (Latest Contact Info) Description 09/22/2024 11:35 AM CDT Hospital Encounter [facility] OR [address] [place] [address] Samir Charles MD [address] [facility] [id number] [place] [address] 09/22/2024 11:35 AM CDT Anesthesia Event [facility] OR [address] [place] [address] Zoe Caballero NP [address] [place] [address] 09/22/2024 11:35 AM CDT - 09/22/2024 2:15 PM CDT Surgery [facility] OR [address] [place] [address] Samir Charles MD [address] [facility] [id number] [place] [address] Left VIDEO ASSISTED THORACIC SURGERY with pleural biopsies and possible decortication Scheduled Procedures Name Priority Associated Diagnoses Date/Ti in VIDEO-ASSISTED THORACIC SURGERY Exudative pleural effusion 09/22/2024 11:35 AM CDT documented as of this encounter Visit Diagnoses Not on filedocumented in this encounter Care Teams Slubber Tender Relationship Specialty Start Date End Date Tej Sen MD [address] [place] [address] PCP - General Family Medicine 12/23/19 Vanesa Gomez MD [address] [address] Consulting Physician Critical Care Med 09/06/24 documented as of this encounter
--- OUTSIDE RECORDS SUMMARY | 2024-09-15 08:51 | XMS_ITS | Continuity of Care Document ---
Author Organization [facility] Address [address] [place] [address] [place] [address] Phone Care Team Providers Care Cotton Roll Packer Name Role Phone Francois Foster Unavailable Unavailable [...] Providers Copied on Encounter [place]/out[place], [facility] [address] [place] [address] [address], [place], [place], [id number], [place] tel:[phone] [facility] No Information 0 Wangishnasamy Francois. [address] [place] [address], [place], [address], [place]. tel:[phone] Office/outpa [place], [facility] [address] [place] [address] [address], [place], [place], [id number], [place] tel:[phone] [facility] No Information 0 Krishnasamy Francois. [address] [facility], [place], [place], [facility], [place]. tel:[phone] [facility], [id number] [place] [address] [address], [place], [place], [id number], [place] tel:[phone] [place] [address] No Information Nov-0 6-200 9 Krishnasamy Francois. [address] [facility], [place], [facility], [place]. tel:[phone] [facility], [address] [place] [address] [address], [place], [place], [id number], [place] tel:[phone] [place] [address] No Information Oct-1 6-200 9 Krishnasamy Francois. [address] [facility], [place], [facility], [place]. tel:[phone] [facility], [address] [place] [address] [address], [place], [place], [id number], [place] tel:[phone] [place] [address] No Information Oct-0 9-200 9 Krishnasamy Francois. [facility], [place], [facility], [place]. tel:[phone] [facility], [address] [place] [address] [address], [place], [place], [id number], [place] tel:[phone] [facility] No Information Oct-0 8-200 9 Krishnasamy Francois. [address] [facility], [place], [facility], [place]. tel:[phone] [facility], [address] [place] [address] [address], [place], [place], [id number], [place] tel:[phone] [facility] No Information Sep-0 4-200 9 Krishnasamy Francois. [address] [facility], [place], [facility], [place]. tel:[phone] Referring Provider: Francois Foster, [address] [facility] [address], [address]. tel:[phone] [facility], [address], [place], [place], [id number], [place] tel:[phone] [facility] No Information 9200 7 Luisa Calabrese. [address] [facility], [address], [place], [place], [id number], [place]. tel:[phone] Referring Provider: Tej Sen MD, [address] [place], [address]. tel:[phone] Family History Family Member Type Diagnosis Age At Onset No Information Payers Payer name Insurance type Covered libertarian ID Kenna sunshine(s) [facility] CI [id number] Social History Type Description Quantity Date Captured [...]
== END 2024-09-15 08:31 | disposition home or self-care (01) ==
PROVIDERS: PCP Family Medicine; Visit Provider Physician Assistant
DX: I27.20 Pulmonary hypertension, unspecified (principal); J90 Pleural effusion, not elsewhere classified; G47.33 Obstructive sleep apnea (adult) (pediatric); I50.30 Unspecified diastolic (congestive) heart failure; I07.1 Rheumatic tricuspid insufficiency
CPT/HCPCS: 93306

== ENCOUNTER 2025-02-15 09:57 | Observation (INO) | payer MEDICARE, SELFPAY ==
[2025-02-15] VITALS (16 sets, daily range): BP systolic 107–152; BP diastolic 55–94; PULSE 69–91; RESP 14–20; TEMP 36.4–36.7; O2SAT 97–100; BMI 29.9
--- NOTE | ~2025-02-15 | CT_ITS ---
EXAM/PROCEDURE: CT chest abdomen pelvis wo con HISTORY: eval pleural effusion, back and hip pain COMPARISON: September 01, 2024 TECHNIQUE: Noncontrast enhanced CT of the chest abdomen and pelvis performed. FINDINGS: CHEST CT: Small loculated appearing left pleural effusion with mild pleural thickening similar to the previous exam. Borderline cardiomegaly with no significant pericardial effusion or bulky lymphadenopathy. No thoracic aneurysm/dissection. Right lung is clear. Central and large airways are patent. Bones appear intact. ABDOMEN AND PELVIS CT: The bowel gas pattern is nonobstructive with no free air free fluid or pneumatosis seen. No hydronephrosis, AAA or gross CT evidence of cholecystitis or pancreatitis. Liver spleen adrenal glands pancreas and stomach appear stable for technique. Urinary bladder is unopacified and nondistended but appears grossly normal. Moderate amount of stool in the rectal vault with moderate amount extending to the cecal region. No grossly inflamed appendix. No AAA. Prostate borderline enlarged. Small fat-containing inguinal hernias. Extra peritoneal soft tissues within the field of view appear grossly stable. Diffuse degenerative changes throughout the bones with possible spinal canal stenosis at L3-4 and L4-5. IMPRESSION: Directed noncontrast exam demonstrating no significant interval change in loculated appearing left pleural effusion and mild pleural thickening. No acute surgical abnormality identified. Several other chronic appearing findings as above. Reviewed, dictated and finalized at location A. L MEDICINE SPECIALIST IMPRESSION: Directed noncontrast exam demonstrating no significant interval change in locul ated appearing left pleural effusion and mild pleural thickening. No acute surg ical abnormality identified. Several other chronic appearing findings as above.
--- NOTE | ~2025-02-15 | XR_ITS ---
EXAMINATION: XR chest 1V portable DATE: 02/16/2025 14:38 INDICATION: Pleural effusion TECHNIQUE: A single frontal view of the chest was obtained. COMPARISON: August 03, 2024 FINDINGS: Moderate size left base effusion has developed/increased with patchy infiltrative changes in the left lower lung field. The right lung is clear. Heart shadow normal in size. No pneumothorax or subphrenic free air seen. IMPRESSION: 1. Moderate-sized left base effusion with atelectatic and probably consolidative changes as well. Reviewed, dictated and finalized at location A. UCE WRAPPER IMPRESSION: 1. Moderate-sized left base effusion with atelectatic and probably consolidativ e changes as well.
--- NOTE | 2025-02-15 13:06 | ED_ITS ---
HPI - General Adult General Chief complaint: Extremity Injury, Lower Stated complaint: R leg weak x several mos Time Seen by Provider: 02/15/25 10:24 History of Present Illness HPI narrative: 74-year-old male present to the emergency department for evaluation after having a fall while trying to get to his house. Patient has had extensive issues with physical deconditioning. Patient has had extensive follow-up with pulmonology with a previous thoracentesis. Patient does also had a recent MRI of his brain and lower back. Patient has had multiple rounds of physical therapy and patient continues to have a physical decline. Family and patient are concerned about his fall risk and feel that he would benefit from inpatient rehab. Related Data Home Medications ?Medication ?Instructions ?Recorded ?Confirmed ?Last Taken ?Type cetirizine 5 mg tablet 5 mg PO DAILY PRN Allergic S ymptoms 03/21/20 02/04/25 Unknown History multivitamin 1 tablet PO DAILY 03/21/20 1 04/06/24 Unknown History soluble corn fiber-inulin 2 gram tablet PO 11/19/24 Unknown History chewable tablet (Benefiber (inulin-corn fiber)) [place] Probiotic 10 strains 1 cap PO DAILY 10/3002/04/25 Unknown History 10 billion polyethylene glycol 3350 17 17 g PO DAILY 12/20/2410/22 Unknown History gram/dose oral powder (Miralax) magnesium 200 mg tablet 200 mg PO DAILY 02/04/2510/22 Unknown History Allergies Allergy/AdvReac Type Severity Reaction Status Date / Time No Known Allergies Allergy Verified 02/15/25 10:11 Review of Systems 2 Review of Systems: All systems reviewed & are unremarkable except as noted in HPI and below PMFSH Past Medical History Medical History Pleural effusion, left Obstructive sleep apnea (~01/2020) Morbid obesity Right ventricular enlargement Pure hypercholesterolemia, unspecified Diabetes Pulmonary hypertension Hypertension Surgical History Surgical History History of video-assisted thoracoscopic surgery (VATS) 09/22/2024 Social History Social History Social History: quit 31 years ago, quit 1988 Smoking status: Former smoker Tobacco type: cigarettes Second hand tobacco smoke exposure: No Alcohol intake: current Alcohol use details: once a month Substance use: never Substance use type: does not use Do You Feel Safe in your Home?: Yes Lack of Transportation: No Lack of Food: Never True Current Housing: I Have Housing Concerned About Future Housing: No Difficulty Paying Gas/Electric Bills: No Difficulty Paying for Meds: No Currently Unemployed: No Difficulty w/ Childcare or Family Care: No Living arrangements: with family Occupation/Education: retired Gender identity (if verbalized by the patient): Male Sexual Orientation (if Verbalized by the Patient): Straight or Heterosexual Spiritual care concerns: No Exam 2 Narrative: APPEARANCE: No acute distress HEAD: normocephalic, atraumatic. EYES: PERRLA/EOMI, conjunctivae clear. NOSE: Normal no drainage EARS:TMS clear with good light reflex. THROAT: Pharynx clear, no exudate. NECK: Supple. No adenopathy, no masses. RESPIRATORY: Airway patent, respirations nonlabored. Clear to auscultation bilaterally, no rales, rhonchi, wheezing. CARDIOVASCULAR: Regular rate and rhythm without murmurs rubs or gallops. ABDOMINAL: Soft, nontender, nondistended, normal bowel sounds MUSCULOSKELETAL: Moves all extremities. Strength/ROM intact, No edema, No calf tenderness. NEURO: Alert. Cranial nerves II through XII intact. Good gait. Good coordination SKIN: Warm, dry. Normal Color Course Vital Signs Vital signs: Vital Signs Temperature 97.6 F 02/15/25 09:58 Pulse Rate 75 02/15/25 09:58 Respiratory Rate 15 02/15/25 09:58 Blood Pressure 114/94 H 02/15/25 09:58 Pulse Oximetry 100 02/15/25 09:58 Oxygen Delivery Room Air 02/15/25 09:58 Temperature 97.6 F 02/15/25 09:58 Pulse Rate 91 02/15/25 18:01 Respiratory Rate 15 02/15/25 18:01 Blood Pressure 150/69 H 02/15/25 18:01 Pulse Oximetry 100 02/15/25 18:01 Oxygen Delivery Room Air 02/15/25 09:58 Medical Decision Making [facility] Narrative Medical decision making narrative: 74-year-old male presents emergency department for evaluation for worsening physical deconditioning. Patient did have a ground level fall today and was complaining of worsened chronic lower back pain. Patient denies any recent illnesses but does report generalized fatigue that has been worsening. Patient is currently afebrile with no leukocytosis hemoglobin of 12.5. Patient's INR is 1.0. Patient has no acute abnormalities on his CMP UA was negative for infection. Patient had CT of chest to evaluate for potential worsening pleural effusion and CT of back to evaluate for acute fracture or injury from the fall. Both were negative for acute findings. Pain patient was requesting placement into a rehab facility. Care coordination was involved and was not able to secure placement. PTT was able to give their evaluation but OT was not. Patient will need to be admitted for the OT evaluation. Care coordination felt that placement into [facility] would be likely tomorrow. Differential Diagnosis Differential Diagnosis: Pleural effusion, pelvic fracture, back fracture, physical conditioning, COVID, RSV, influenza, UTI Vital Signs Vital Signs: Vital Signs Temperature 97.6 F 02/15/25 09:58 Pulse Rate 75 02/15/25 09:58 Respiratory Rate 15 02/15/25 09:58 Blood Pressure 114/94 H 02/15/25 09:58 Pulse Oximetry 100 02/15/25 09:58 Oxygen Delivery Room Air 02/15/25 09:58 Temperature 97.6 F 02/15/25 09:58 Pulse Rate 91 02/15/25 18:01 Respiratory Rate 15 02/15/25 18:01 Blood Pressure 150/69 H 02/15/25 18:01 Pulse Oximetry 100 02/15/25 18:01 Oxygen Delivery Room Air 02/15/25 09:58 Lab Data Lab results reviewed: Yes I reviewed the patient's lab results. 02/15/25 13:04 02/15/25 13:04 Labs: Lab Results 02/15/25 Range/Units 13:04 WBC 6.5 (4.5-10.0) K/mm3 RBC 4.10 L (4.6-6.20) M/mm3 Hgb 12.5 L (14.0-18.0) g/dL Hct 38.8 L (42.0-52.0) % MCV 94.6 (80-100) fl MCH 30.5 (26-34) pg MCHC 32.2 (32-36) g/dl RDW 15.4 H (11.5-14.5) % Plt Count 257 (150-375) k/mm3 MPV 9.0 (7.4-10.4) fl Immature Gran % (Auto) 0.3 (0-0.5) % Neut % (Auto) 71.0 (45.5-73.1) % Lymph % (Auto) 17.6 L (18.3-44.2) % Castro % (Auto) 9.7 H (2.6-8.5) % Eos % (Auto) 0.8 (0-4.4) % Baso % (Auto) 0.6 (0.2-1.2) % Lymph # (Auto) 1.15 (0.9-3.2) K/mm3 [place] # (Auto) 0.6 (0.1-0.6) K/mm3 Eos # (Auto) 0.1 (0-0.3) K/mm3 Baso # (Auto) 0.0 (0.0-0.1) K/mm3 Abs Immat Gran (auto) 0.02 (0.00-0.031) K/mm3 Absolute Neuts (auto) 4.6 (1.3-6.7) K/mm3 Absolute Nucleated RBC 0.000 (0.0-0.012) K/mm3 Nucleated RBC % 0.0 (0.0-0.2) % PT 13.0 (11.1-14.7) Seconds INR 1.0 APTT 31.6 (22.3-36.8) Seconds Sodium 136 L (137-145) mmol/L Potassium 4.0 (3.4-5.0) mmol/L Chloride 100 (98-107) mmol/L Carbon Dioxide 28 (22-30) mmol/L Anion Gap 8 (4-12) mmol/L BUN 31 H (9-20) mg/dL Creatinine 0.96 (0.7-1.3) mg/dL Estim Creat Clear Calc 75 ml/min Estimated GFR > 60 (59 - ) Glucose 128 H (65-110) mg/dL Calcium 8.8 (8.4-10.2) mg/dL Total Bilirubin 0.5 (0.2-1.3) mg/dL AST 35 (17-59) U/L ALT 20 (6-50) U/L Alkaline Phosphatase 109 (38-126) U/L Total Protein 6.7 (6.3-8.2) g/dL Albumin 3.6 (3.5-5.1) g/dL Urine Color Yellow (Yellow) Urine Appearance Clear (Clear) Urine pH 7.0 (5.0-9.0) Ur Specific [place] 1.027 (1.001-1.035) Urine Protein 1+ H (Negative) mg/dL Urine Glucose (UA) Negative (Negative) mg/dL Urine Ketones Trace H (Negative) mg/dL Ur Blood (Man) Negative (Negative) Urine Nitrate Negative (Negative) Urine Bilirubin Negative (Negative) Urine Urobilinogen 1.0 (<2.0) mg/dL Leukocyte Esterase Rfl Negative (Negative) MORAIMA/UL Urine RBC 0-2 (0-2) /hpf Urine WBC 0-5 (0-3) /hpf Ur Squamous Epith Cells None seen (Few) /hpf Urine Bacteria None seen /hpf Urine Casts 0-2 Imaging Data Radiologist's impression: Impressions Chest/Abdomen/Pelvis CT 02/15/25 13:41 IMPRESSION: Directed noncontrast exam demonstrating no significant interval change in loculated appearing left pleural effusion and mild pleural thickening. No acute surgical abnormality identified. Several other chronic appearing findings as above. Discharge Plan Discharge Clinical Impression: Adult failure to thrive, Chronic low back pain, Right leg weakness Patient Disposition: Still a Patient Condition: Stable
[2025-02-15 13:14] LABS: Hematocrit 38.8 % (42.0-52.0); Hemoglobin 12.5 g/dL (14.0-18.0); Immature Granulocyte Percent A 0.3 % (0-0.5); Lymphocytes Absolute Auto 1.15 K/mm3 (0.9-3.2); Mean Corpuscular HGB Conc 32.2 g/dl (32-36); Mean Corpuscular Hemoglobin 30.5 pg (26-34); Mean Corpuscular Volume 94.6 fl (80-100); Nucleated Red Blood Cells Absolute Auto 0.000 K/mm3 (0.0-0.012); Nucleated Red Blood Cells Perc 0.0 % (0.0-0.2); Platelet Count Result 257 k/mm3 (150-375); Red Blood Count 4.10 M/mm3 (4.6-6.20); White Blood Count 6.5 K/mm3 (4.5-10.0)
[2025-02-15 13:25] LABS: Alanine Aminotransferase 20 U/L (6-50); Albumin Level 3.6 g/dL (3.5-5.1); Alkaline Phosphatase 109 U/L (38-126); Anion Gap 8 mmol/L (4-12); Aspartate Amino Transferase 35 U/L (17-59); Bilirubin,Total 0.5 mg/dL (0.2-1.3); Blood Urea Nitrogen 31 mg/dL (9-20); Calcium 8.8 mg/dL (8.4-10.2); Carbon Dioxide 28 mmol/L (22-30); Chloride 100 mmol/L (98-107); Estimated CRCL calculation 75 ml/min; Estimated Glomerular Filt Rate > 60; Glucose 128 mg/dL (65-110); Potassium 4.0 mmol/L (3.4-5.0); Sodium 136 mmol/L (137-145); Total Protein 6.7 g/dL (6.3-8.2)
[2025-02-15 13:26] LABS: Add Urine Microscopic? YES; Appearance Urine Clear (Clear); Glucose Urine UA Negative (Negative); INR 1.0; Leukocyte Esterase Ur Negative LEU/UL (Negative); Nitrate Urine Negative (Negative); Non Pathogenic Casts 0-2; Prothrombin Time 13.0 Seconds (11.1-14.7); Specific Grav Ur 1.027 (1.001-1.035)
[2025-02-15 13:27] LABS: Partial Thromboplastin Time 31.6 Seconds (22.3-36.8)
--- NOTE | 2025-02-15 16:17 | PM.IMHP ---
H&P: HPI History of Present Illness Date/Time: 02/15/25 16:17 Chief Complaint: R Leg Weakness Narrative: 74 y/o M with PMH of DM, pulmonary HTN, HTN, loculated plueral effusion s/p VATS 08/[address] surgery, and TESHA presents here with R leg weakness and fall. The patient presents here from home via EMS on 02/15 for further evaluation of right leg weakness. The patient has had ongoing right leg weakness for some time that he has undergone 6 weeks of physical therapy for. He reports the weakness initially started over last winter but became more significant/required therapy starting after a fishing tournament in May of 2024 and again worsened after a second tournament in June of 2024. Recently had follow-up with his PCP on 02/04/2025 for the same issue. At that time he did report some associated right lower back pain. Some improvement with ibuprofen use. Continue to report some weakness with lifting his leg such as going up the stairs or getting into the car. He has previously underwent a brain MRI which showed no acute/recent infarction, chronic lacunar infarctions, chronic microvascular ischemic type white matter changes and a lumbar XR which showed spondylosis and degenerative disc disease of the lumbar spine. MRI of the lumbar spine was ordered and completed today which showed [id number] lumbar degenerative changes, hearing degrees of bilateral neural foraminal stenosis, STIR hyperintense spinal along the posterior paraspinal soft tissues of the lumbar spine and nonspecific lower thoracic spine and sacrum could reflect strain or myositis in the proper clinical scenario. After his MRI was completed while he was trying to get back into his house he sustained a ground level fall. He reports the fall was to his chronic right lower extremity weakness. He denies LOC or head strike. He is not on anticoagulation. in the patient now concerned that he is not safe to be home due to the further reduction in his mobility. Initial VS at presentation: 97.6? F, HR 75, RR 15, 14/94, and 100% on RA. ED workup showed: No leukocytosis, hemoglobin 12.5, normal coags, no significant electrolyte derangements, creatinine 0.96 and GFR >60, glucose 128, UA showed 1+ protein/trace ketones otherwise unremarkable. CT of the chest/abdomen/pelvis showed no significant interval change in the loculated appearing left pleural effusion and mild pleural thickening, no acute surgical abnormality identified, several other chronic appearing findings noted. Review of Systems Review of Systems: All systems reviewed & are unremarkable except as noted in HPI and below [facility] Past Medical History Medical History Pleural effusion, left Obstructive sleep apnea (~01/2020) Morbid obesity Right ventricular enlargement Pure hypercholesterolemia, unspecified Diabetes Pulmonary hypertension Hypertension Surgical History Surgical History History of video-assisted thoracoscopic surgery (VATS) 09/22/2024 Social History Social History Social History: quit 31 years ago, quit 1988 Smoking status: Former smoker Tobacco type: cigarettes Second hand tobacco smoke exposure: No Alcohol intake: current Alcohol use details: once a month Substance use: never Substance use type: does not use Do You Feel Safe in your Home?: Yes Lack of Transportation: No Lack of Food: Never True Current Housing: I Have Housing Concerned About Future Housing: No Difficulty Paying Gas/Electric Bills: No Difficulty Paying for Meds: No Currently Unemployed: No Difficulty w/ Childcare or Family Care: No Living arrangements: with family Occupation/Education: retired Gender identity (if verbalized by the patient): Male Sexual Orientation (if Verbalized by the Patient): Straight or Heterosexual Spiritual care concerns: No Meds Home Medications and Allergies Home Medications ?Medication ?Instructions ?Recorded ?Confirmed ?Type cetirizine 5 mg tablet 5 mg PO DAILY PRN Allergic Symptoms 03/21/20 02/04/25 History multivitamin 1 tablet PO DAILY 03/21/20 02/04/25 History pioglitazone 45 mg tablet 45 mg PO DAILY #90 tabs 01/20/24 02/04/25 Rx blood sugar diagnostic (OneTouch #100 ea 05/26/24 11/19/24 Rx Ultra Test strips) blood-glucose meter (OneTouch #1 ea 05/26/24 11/19/24 Rx Ultra2 Meter) lancets 30 gauge (Onetouch Delica #100 ea 05/26/24 11/19/24 Rx Safety Lancet) atorvastatin 20 mg tablet 20 mg PO DAILY #90 tabs 11/08/24 02/04/25 Rx soluble corn fiber-inulin 2 gram tablet PO 11/19/24 02/04/25 History chewable tablet (Benefiber (inulin-corn fiber)) [place] Probiotic 10 strains 1 cap PO DAILY 11/24/24 02/04/25 History 10 billion lisinopril 5 mg tablet 5 mg PO DAILY #90 tabs 11/24/24 02/04/25 Rx polyethylene glycol 3350 17 17 g PO DAILY 12/20/24 02/04/25 History gram/dose oral powder (Miralax) magnesium 200 mg tablet 200 mg PO DAILY 02/04/25 02/04/25 History Allergies Allergy/AdvReac Type Severity Reaction Status Date / Time No Known Allergies Allergy Verified 02/15/25 10:11 Vital Signs Vital Signs - 24 hr 02/15/25 09:58 02/15/25 10:31 02/15/25 11:01 Temperature 97.6 F Pulse Rate 75 78 69 Respiratory Rate 15 14 15 Blood Pressure 114/94 H 129/62 141/66 H Pulse Oximetry 100 100 97 Oxygen Delivery Room Air 02/15/25 11:31 02/15/25 12:01 02/15/25 12:31 Temperature Pulse Rate 74 71 81 Respiratory Rate 20 19 18 Blood Pressure 124/66 143/74 H 140/71 Pulse Oximetry 100 100 100 Oxygen Delivery 02/15/25 13:01 Temperature Pulse Rate 75 Respiratory Rate 17 Blood Pressure 152/66 H Pulse Oximetry 99 Oxygen Delivery Exam Const: General: comfortable and no acute distress Other: , male, nontoxic appearance HENMT: Face/Nose/Sinus: Normal nares present Mouth: Yes moist mucous membranes Eyes: General: appearance normal, both eyes and all related structures Sclera: sclerae normal Pupils: Equal, round and reactive pupils present EOM: EOMs intact bilaterally Resp: Effort & Inspection: normal respiratory effort Other: Absent/diminished in the left base. Cardio: Rate: regular rate Rhythm: regular rhythm Other: S1-S2 present without murmur, rub, ectopy GI: Other: Abdomen soft, nondistended, nontender. Normoactive bowel sounds in all quadrants. Skin: General skin exam: normal color and no rashes or lesions noted Wounds: no wounds Neuro: Speech: normal speech Sensory Exam: normal sensation Other: A&O x4. Plantar flexion of the bilateral lower extremities +5 and symmetric. However patient having difficulty lifting the right lower extremity off of the bed or lifting leg to bend at the knee due to weakness. Asymmetric compared to the left lower extremity. Extrem: General: normal to inspection Psych: Mental Status: mental status grossly normal Affect: normal affect Other: A&O x4 H&P: Results Labs Labs: Short CBC 02/15/25 Range/Units 13:04 WBC 6.5 (4.5-10.0) K/mm3 Hgb 12.5 L (14.0-18.0) g/dL Hct 38.8 L (42.0-52.0) % Plt Count 257 (150-375) k/mm3 BMP 02/15/25 13:04 Sodium 136 L Potassium 4.0 Chloride 100 Carbon Dioxide 28 BUN 31 H Creatinine 0.96 Glucose 128 H Calcium 8.8 Liver Function 02/15/25 Range/Units 13:04 Total Bilirubin 0.5 (0.2-1.3) mg/dL AST 35 (17-59) U/L ALT 20 (6-50) U/L Alkaline Phosphatase 109 (38-126) U/L Albumin 3.6 (3.5-5.1) g/dL Urine 02/15/25 Range/Units 13:04 Urine Color Yellow (Yellow) Urine Appearance Clear (Clear) Urine pH 7.0 (5.0-9.0) Ur Specific [place] 1.027 (1.001-1.035) Urine Protein 1+ H (Negative) mg/dL Urine Glucose (UA) Negative (Negative) mg/dL Assessment and Plan Assessment and plan (1) Right leg weakness: Code(s): R29.898 - Other symptoms and signs involving the musculoskeletal system Status: Acute Assessment and Plan: Right lower extremity weakness has been chronic/present since May of 2024, no significant rapid progression, acute spinal cord compression/high-grade stenosis on MRI. Symptoms consistent with chronic from renal stenosis in deconditioning. Will need outpatient referral to Neurosurgery at discharge. Has previously completed 6 weeks of outpatient physical therapy. Now has had some modest progression and caused a ground level fall with no loss of consciousness or head strike. Feels he is no longer able to safely care for himself home due to his mobility issues due to the weakness. Admitted for PT/OT evaluation and treatment and care coordination for acute rehab. - lumbar XR, 12/31/2024: Spondylosis and degenerative disc disease of the lumbar spine. - brain MRI WO contrast, 12/31/2024: 1. No acute/recent infarction. 2. Chronic lacunar infarction, chronic microvascular ischemic type white matter changes and other findings as above. 3. Previous imaging studies are not available for comparison. - lumbar MRI WO contrast, 02/15/2025: 1. Eifm-zp-gzixksuu lumbar degenerative changes as described above, no high-grade spinal canal stenosis. 2. Pain degrees of bilateral neural foraminal stenosis other findings as above. 3. STIR hypertense signal along the posterior paraspinal soft tissues of the lumbar spine, image lower thoracic spine and sacrum is nonspecific and could reflect strain or myositis in the proper clinical scenario. - PT/OT eval and treatment - care coordination consulted for acute rehab placement - fall precautions - will need outpatient referral to neurosurgery at discharge (2) Adult failure to thrive: Code(s): R62.7 - Adult failure to thrive Status: Acute Assessment and Plan: - see above (3) Hypertension: Qualifiers: Hypertension type: primary hypertension Qualified Code(s): I10 - Essential (primary) hypertension Code(s): I10 - Essential (primary) hypertension Status: Chronic Assessment and Plan: - chronic, currently 152/66, stable. - continue home medications - monitor (4) Diabetes: Qualifiers: Diabetes mellitus complication status: without complication Diabetes mellitus terminal supervisor insulin use: without penitentiary use Diabetes mellitus type: type 2 Qualified Code(s): E11.9 - Type 2 diabetes mellitus without complications Code(s): E11.9 - Type 2 diabetes mellitus without complications Status: Chronic Assessment and Plan: - hypoglycemia protocol - POC blood glucose ACHS - home medication: hold pioglitazone - correct regimen ordered - low dose TIDWM, based off TDD - A1C 5.6% on 11/17/2024 (5) Obstructive sleep apnea: Onset Date: ~01/2020 Code(s): G47.33 - Obstructive sleep apnea (adult) (pediatric) Status: Chronic Assessment and Plan: - continue home CPAP Plan Diet: diabetic GI Prophylaxis: n/a DVT Prophylaxis: SCDs IV fluids: none Lines/Tubes: peripheral IV Code Status: full code Quality VTE Prophylaxis VTE prophylaxis: mechanical ordered Hospitalist [facility] Advance Care Plan I have confirmed that the patient's Advanced Care Plan is present, code status is documented, or surrogate decision maker is listed in patient medical record.: Yes Medication Reconciliation I have utilized all available resources to obtain, update and review the patients current medications (includes all prescriptions, OTC, herbals, cannabis, and nutritional supplements).: Yes
--- NOTE | 2025-02-15 17:20 | PCCCNOTE ---
1430: Called to the ED to speak with the pt. and his Anjana about inpatient therapy. They would like to go to [facility] if at all possible. Referral was sent to [facility]. They do not have a bed today, potentially will tomorrow. Call placed to PT lead, unable to do the OT evaluation today. They will get to her PT and OT tomorrow. Faxed the pt.'s information to [facility] and let het know that the PT/OT eval will come tomorrow. Pasrr is completed and pt. does not require a level 2 evaluation. Pt. and his have no further questions at this time. Pt will be admitted.
--- NOTE | 2025-02-15 18:22 | WPCEDHO ---
ED Hand Off Checklist All vitals saved: yes IV Site documented: yes All med administrations documented: yes Triage Note Triage Note pt to ED from home via [facility] 02/15/25 09:58 for c/o R leg weakness. pt reports he was walking into his house when he fell due to his chronic R leg weakness. pt says today is leg weakness got worse than normal and now its difficult to walk. pt has seen his PCP for this. EMS reports no blood thinners, no LOC, not hitting his head. EMS got a BG of 182. pt is A&OX4 Allergies No Known Allergies Allergy (Verified 02/15/25 10:11) Active Medications including assessments/comments Insulin Aspart (Insulin Aspart (*Bkc) 100 Units/Ml) 2 - 5 units SUB-Q TIDWM STEPHEN; Protocol Last Admin: 02/15/25 17:26 Dose: Not Given Documented By: JAY Non-Admin Reason: No Dose Required MAR Blood Glucose Document 02/15/25 17:26 LDD (Rec: 02/15/25 17:27 LDD [id number]) Bedside Glucose Verified Glucose Results Yes Verified Notes 02/15/25 17:20 Care Coordination Note by Garima Kelly 1430: Called to the ED to speak with the pt. and his Anjana about inpatient therapy. They would like to go to [facility] if at all possible. Referral was sent to [facility]. They do not have a bed today, potentially will tomorrow. Call placed to PT lead, unable to do the OT evaluation today. They will get to her PT and OT tomorrow. Faxed the pt.'s information to [facility] and let het know that the PT/OT eval will come tomorrow. Pasrr is completed and pt. does not require a level 2 evaluation. Pt. and his have no further questions at this time. Pt will be admitted. Initialized on 02/15/25 17:20 - END OF NOTE Interventions/Assessments IV / Saline Lock, Insert Start: 02/15/25 09:52 Freq: Status: Active Protocol: Document 02/15/25 13:10 LDD (Rec: 02/15/25 13:10 LDD [id number]) IV Assessment Peripheral Access Left Antecubital IV Catheter Access Initiated Before Arrival IV Insertion Date 11/18/25 Catheter Gauge 20 IV Site Assessment WNL IV Care and WNL Maintenance Last Vital Signs Temperature 97.6 F 02/15/25 09:58 Pulse Rate 91 02/15/25 18:01 Respiratory Rate 15 02/15/25 18:01 Pulse Oximetry 100 02/15/25 18:01 Blood Pressure 150/69 H 02/15/25 18:01 Blood Pressure Mean 92 02/15/25 18:01 Blood Pressure Position Sitting 02/15/25 09:58 Oxygen Delivery Room Air 02/15/25 09:58 Weight 107.9 kg 02/15/25 09:58 Last Result - Abnormals Only RBC 4.10 M/mm3 (4.6-6.20) L 02/15/25 13:04 Hgb 12.5 g/dL (14.0-18.0) L 02/15/25 13:04 Hct 38.8 % (42.0-52.0) L 02/15/25 13:04 RDW 15.4 % (11.5-14.5) H 02/15/25 13:04 Lymph % (Auto) 17.6 % (18.3-44.2) L 02/15/25 13:04 [place] % (Auto) 9.7 % (2.6-8.5) H 02/15/25 13:04 Sodium 136 mmol/L (137-145) L 02/15/25 13:04 BUN 31 mg/dL (9-20) H 02/15/25 13:04 Glucose 128 mg/dL (65-110) H 02/15/25 13:04 POC Capillary Glucose 137 mg/dl (65-105) H 02/15/25 17:09 Urine Protein 1+ mg/dL (Negative) H 02/15/25 13:04 Urine Ketones Trace mg/dL (Negative) H 02/15/25 13:04 Most Recent Suicide Severity Rating Suicide Severity Rating NO RISK INDICATED 02/15/25 09:58
--- NOTE | 2025-02-15 19:00 | ADMGEN ---
This patient, Víctor Ballesteros, was admitted to Medical Room 255-. Patient/family oriented to hospital policies and general routines including ID bracelet, bed and alarms, visiting hours, pain management, procedures, bathroom and other care routines, personal items, smoking policy, room service/diet, and visiting hours. Information on how to activate the Rapid Response Team has been discussed. Patient/Family are encouraged to report perceived risks to care and to ask questions if they do not understand what they are told or what they should do.
[2025-02-16 04:18] VITALS: BP 139/60; PULSE 76; RESP 16; TEMP 36.8; O2SAT 98
--- NOTE | 2025-02-16 08:20 | PM.IMPN ---
Progress Note: A&P Assessment and Plan (1) Right leg weakness: Code(s): R29.898 - Other symptoms and signs involving the musculoskeletal system Status: Acute Assessment and Plan: Right lower extremity weakness has been chronic/present since May of 2024, no significant rapid progression, acute spinal cord compression/high-grade stenosis on MRI. Symptoms consistent with chronic from renal stenosis in deconditioning. Will need outpatient referral to Neurosurgery at discharge. Has previously completed 6 weeks of outpatient physical therapy. Now has had some modest progression and caused a ground level fall with no loss of consciousness or head strike. Feels he is no longer able to safely care for himself home due to his mobility issues due to the weakness. Admitted for PT/OT evaluation and treatment and care coordination for acute rehab. - lumbar XR, 12/31/2024: Spondylosis and degenerative disc disease of the lumbar spine. - brain MRI WO contrast, 12/31/2024: 1. No acute/recent infarction. 2. Chronic lacunar infarction, chronic microvascular ischemic type white matter changes and other findings as above. 3. Previous imaging studies are not available for comparison. - lumbar MRI WO contrast, 02/15/2025: 1. [id number] lumbar degenerative changes as described above, no high-grade spinal canal stenosis. 2. Pain degrees of bilateral neural foraminal stenosis other findings as above. 3. STIR hypertense signal along the posterior paraspinal soft tissues of the lumbar spine, image lower thoracic spine and sacrum is nonspecific and could reflect strain or myositis in the proper clinical scenario. - PT/OT eval and treatment - care coordination consulted for acute rehab placement - fall precautions - will need outpatient referral to neurosurgery at discharge (2) Adult failure to thrive: Code(s): R62.7 - Adult failure to thrive Status: Acute Assessment and Plan: - see above (3) Hypertension: Qualifiers: Hypertension type: primary hypertension Qualified Code(s): I10 - Essential (primary) hypertension Code(s): I10 - Essential (primary) hypertension Status: Chronic Assessment and Plan: - chronic, currently 152/66, stable. 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 use Diabetes mellitus type: type 2 Qualified Code(s): E11.9 - Type 2 diabetes mellitus without complications Code(s): E11.9 - Type 2 diabetes mellitus without complications Status: Chronic Assessment and Plan: - hypoglycemia protocol - POC blood glucose ACHS - home medication: hold pioglitazone - correct regimen ordered - low dose TIDWM, based off TDD - A1C 5.6% on 11/17/2024 (5) Obstructive sleep apnea: Onset Date: ~01/2020 Code(s): G47.33 - Obstructive sleep apnea (adult) (pediatric) Status: Chronic Assessment and Plan: - continue home CPAP Plan Diet: diabetic GI Prophylaxis: n/a DVT Prophylaxis: SCDs IV fluids: none Lines/Tubes: peripheral IV Code Status: full code Time Spent With Patient Time with patient: 25 - 35 minutes Subjective Date/time seen: 02/16/25 08:20 Interval history: 74 y/o M with PMH of DM, pulmonary HTN, HTN, loculated pleural effusion s/p VATS 08/[address] surgery, and TESHA presents here with R leg weakness and fall. Pt is seen and examined. He still reports SOB with any exertion. Working with PT/OT. Review of Systems Review of Systems: All systems reviewed & are unremarkable except as noted in HPI and below Exam Const: General: comfortable and no acute distress Other: , male, nontoxic appearance HENMT: Face/Nose/Sinus: Normal nares present Mouth: Yes moist mucous membranes Eyes: General: appearance normal, both eyes and all related structures Sclera: sclerae normal Pupils: Equal, round and reactive pupils present EOM: EOMs intact bilaterally Resp: Effort & Inspection: normal respiratory effort Other: Absent/diminished in the left base. Cardio: Rate: regular rate Rhythm: regular rhythm Other: S1-S2 present without murmur, rub, ectopy GI: Other: Abdomen soft, nondistended, nontender. Normoactive bowel sounds in all quadrants. Skin: General skin exam: normal color and no rashes or lesions noted Wounds: no wounds Neuro: Cranial nerves: Yes Equal, round and reactive pupils present Speech: normal speech Sensory Exam: normal sensation Other: A&O x4. Plantar flexion of the bilateral lower extremities +5 and symmetric. However patient having difficulty lifting the right lower extremity off of the bed or lifting leg to bend at the knee due to weakness. Asymmetric compared to the left lower extremity. Extrem: General: normal to inspection Psych: Mental Status: mental status grossly normal Affect: normal affect Other: A&O x4 Objective Data Vital Signs Vital Signs: Vital Signs - 24 hr 02/15/25 09:58 02/15/25 10:31 02/15/25 11:01 Temperature 97.6 F Pulse Rate 75 78 69 Respiratory Rate 15 14 15 Blood Pressure 114/94 H 129/62 141/66 H Pulse Oximetry 100 100 97 Oxygen Delivery Room Air 02/15/25 11:31 02/15/25 12:01 02/15/25 12:31 Temperature Pulse Rate 74 71 81 Respiratory Rate 20 19 18 Blood Pressure 124/66 143/74 H 140/71 Pulse Oximetry 100 100 100 Oxygen Delivery 02/15/25 13:01 02/15/25 15:14 02/15/25 15:31 Temperature Pulse Rate 75 78 80 Respiratory Rate 17 15 15 Blood Pressure 152/66 H 107/73 141/72 H Pulse Oximetry 99 100 99 Oxygen Delivery 02/15/25 16:01 02/15/25 16:31 02/15/25 17:01 Temperature Pulse Rate 74 77 76 Respiratory Rate 18 15 16 Blood Pressure 140/81 149/74 H 149/69 H Pulse Oximetry 100 100 100 Oxygen Delivery 02/15/25 17:31 02/15/25 18:01 02/15/25 19:41 Temperature 98.0 F Pulse Rate 87 91 76 Respiratory Rate 17 15 16 Blood Pressure 130/70 150/69 H 135/55 L Pulse Oximetry 100 100 97 Oxygen Delivery 02/15/25 20:00 02/16/25 04:18 02/16/25 07:42 Temperature 98.2 F Pulse Rate 76 76 Respiratory Rate 16 16 Blood Pressure 139/60 Pulse Oximetry 97 98 Oxygen Delivery Room Air Room Air Intake/Output Intake/Output: Intake & Output 02/13/25 02/14/25 02/15/25 02/16/25 23:59 23:59 23:59 23:59 Intake Total 200 Output Total 300 Balance -100 Meds/Results Medications: Active Medications Generic Name Dose Route Start Last Admin Trade Name Freq PRN Reason Stop Dose Admin Dextrose 12.5 gm 02/15/25 16:43 Dextrose 50% 25 Gm/50 Ml Syringe IV PUSH PRN PRN Hypoglycemia Protocol Glucagon 1 mg 02/15/25 16:43 Glucagon For Inj 1 Mg Vial IM PRN PRN Hypoglycemia Protocol Glucose 15 gm 02/15/25 16:43 Glucose Oral Gel 15 Gm Of Glucse In 37.5 Gm Tube PO PRN PRN Hypoglycemia Protocol Dextrose 1,000 mls @ 100 mls/hr 02/15/25 16:43 Dextrose 5% 1,000 Ml IVPB PRN PRN Hypoglycemia Protocol Insulin Aspart 2 - 5 units 02/15/25 17:00 02/16/25 08:10 Insulin Aspart (*Bkc) 100 Units/Ml SUB-Q Not Given TIDWM STEPHEN Protocol Radiology Results: ITS Impressions Chest/Abdomen/Pelvis CT 02/15/25 13:41 IMPRESSION: Directed noncontrast exam demonstrating no significant interval change in loculated appearing left pleural effusion and mild pleural thickening. No acute surgical abnormality identified. Several other chronic appearing findings as above. Labs Labs: Laboratory Results - last 24 hr 02/15/25 02/15/25 02/15/25 13:04 17:09 19:40 WBC 6.5 RBC 4.10 L Hgb 12.5 L Hct 38.8 L MCV 94.6 MCH 30.5 MCHC 32.2 RDW 15.4 H Plt Count 257 MPV 9.0 Immature Gran % (Auto) 0.3 Neut % (Auto) 71.0 Lymph % (Auto) 17.6 L [place] % (Auto) 9.7 H Eos % (Auto) 0.8 Baso % (Auto) 0.6 Lymph # (Auto) 1.15 [place] # (Auto) 0.6 Eos # (Auto) 0.1 Baso # (Auto) 0.0 Abs Immat Gran (auto) 0.02 Absolute Neuts (auto) 4.6 Absolute Nucleated RBC 0.000 Nucleated RBC % 0.0 PT 13.0 INR 1.0 APTT 31.6 Sodium 136 L Potassium 4.0 Chloride 100 Carbon Dioxide 28 Anion Gap 8 BUN 31 H Creatinine 0.96 Estim Creat Clear Calc 75 Estimated GFR > 60 Glucose 128 H POC Capillary Glucose 137 H 129 H Calcium 8.8 Total Bilirubin 0.5 AST 35 ALT 20 Alkaline Phosphatase 109 Total Protein 6.7 Albumin 3.6 Urine Color Yellow Urine Appearance Clear Urine pH 7.0 Ur Specific [place] 1.027 Urine Protein 1+ H Urine Glucose (UA) Negative Urine Ketones Trace H Ur Blood (Man) Negative Urine Nitrate Negative Urine Bilirubin Negative Urine Urobilinogen 1.0 Leukocyte Esterase Rfl Negative Urine RBC 0-2 Urine WBC 0-5 Ur Squamous Epith Cells None seen Urine Bacteria None seen Urine Casts 0-2 02/16/25 07:56 WBC RBC Hgb Hct MCV MCH MCHC RDW Plt Count MPV Immature Gran % (Auto) Neut % (Auto) Lymph % (Auto) [place] % (Auto) Eos % (Auto) Baso % (Auto) Lymph # (Auto) [place] # (Auto) Eos # (Auto) Baso # (Auto) Abs Immat Gran (auto) Absolute Neuts (auto) Absolute Nucleated RBC Nucleated RBC % PT INR APTT Sodium Potassium Chloride Carbon Dioxide Anion Gap BUN Creatinine Estim Creat Clear Calc Estimated GFR Glucose POC Capillary Glucose 129 H Calcium Total Bilirubin AST ALT Alkaline Phosphatase Total Protein Albumin Urine Color Urine Appearance Urine pH Ur Specific [place] Urine Protein Urine Glucose (UA) Urine Ketones Ur Blood (Man) Urine Nitrate Urine Bilirubin Urine Urobilinogen Leukocyte Esterase Rfl Urine RBC Urine WBC Ur Squamous Epith Cells Urine Bacteria Urine Casts Quality VTE Prophylaxis VTE prophylaxis: mechanical ordered
[2025-02-16] MEDS: ACETAMINOPHEN 325 MG TABLET 650 MG PO ×2 (09:34→22:11)
[2025-02-16] MEDS: MAGNESIUM OXIDE 200 MG TABLET PO (09:35)
[2025-02-16] MEDS: MULTIVITAMINS THERAPEUTIC TAB (*BKC) 1 TABLET PO (09:35)
[2025-02-16] MEDS: ATORVASTATIN 20 MG TABLET PO (09:35)
[2025-02-16] MEDS: PSYLLIUM POWDER PACKET 1 PACKET BY MOUTH (09:38)
[2025-02-16] MEDS: IBUPROFEN 200 MG TABLET PO (12:32)
[2025-02-16 13:58] VITALS: BP 136/71; PULSE 83; RESP 18; TEMP 36.4; O2SAT 100
[2025-02-16 19:38] VITALS: BP 127/62; PULSE 70; RESP 16; TEMP 36.4; O2SAT 97
[2025-02-17 04:22] VITALS: BP 140/59; PULSE 85; RESP 16; TEMP 36.4; O2SAT 99
[2025-02-17 05:15] LABS: Hematocrit 41.2 % (42.0-52.0); Hemoglobin 12.9 g/dL (14.0-18.0); Mean Corpuscular HGB Conc 31.3 g/dl (32-36); Mean Corpuscular Hemoglobin 29.9 pg (26-34); Mean Corpuscular Volume 95.6 fl (80-100); Platelet Count Result 275 k/mm3 (150-375); Red Blood Count 4.31 M/mm3 (4.6-6.20); White Blood Count 5.8 K/mm3 (4.5-10.0)
[2025-02-17 05:41] LABS: Alanine Aminotransferase 25 U/L (6-50); Albumin Level 3.9 g/dL (3.5-5.1); Alkaline Phosphatase 112 U/L (38-126); Anion Gap 9 mmol/L (4-12); Aspartate Amino Transferase 46 U/L (17-59); Bilirubin,Total 0.7 mg/dL (0.2-1.3); Blood Urea Nitrogen 22 mg/dL (9-20); Calcium 8.7 mg/dL (8.4-10.2); Carbon Dioxide 27 mmol/L (22-30); Chloride 100 mmol/L (98-107); Estimated CRCL calculation 67 ml/min; Estimated Glomerular Filt Rate > 60; Glucose 126 mg/dL (65-110); Potassium 3.4 mmol/L (3.4-5.0); Sodium 136 mmol/L (137-145); Total Protein 7.3 g/dL (6.3-8.2)
[2025-02-17] MEDS: IBUPROFEN 200 MG TABLET PO (06:39)
[2025-02-17] MEDS: SIMETHICONE 80 MG TAB.CHEW PO ×2 (06:39→09:13)
[2025-02-17] MEDS: MAGNESIUM OXIDE 200 MG TABLET PO (09:13)
[2025-02-17] MEDS: MULTIVITAMINS THERAPEUTIC TAB (*BKC) 1 TABLET PO (09:13)
[2025-02-17] MEDS: ATORVASTATIN 20 MG TABLET PO (09:13)
[2025-02-17] MEDS: INSULIN ASPART (*BKC) 100 UNITS/ML SUB-Q (12:15)
--- NOTE | 2025-02-17 13:27 | PM.DS ---
DS: Admitting Diagnosis Discharge Date 02/17 Admitting Diagnosis weakness DS: Discharge Diagnosis Discharge Diagnosis (1) Right leg weakness: Code(s): R29.898 - Other symptoms and signs involving the musculoskeletal system Status: Acute (2) Adult failure to thrive: Code(s): R62.7 - Adult failure to thrive Status: Acute (3) Hypertension: Qualifiers: Hypertension type: primary hypertension Qualified Code(s): I10 - Essential (primary) hypertension Code(s): I10 - Essential (primary) hypertension Status: Chronic (4) Diabetes: Qualifiers: Diabetes mellitus complication status: without complication Diabetes mellitus longterm insulin use: without longterm use Diabetes mellitus type: type 2 Qualified Code(s): E11.9 - Type 2 diabetes mellitus without complications Code(s): E11.9 - Type 2 diabetes mellitus without complications Status: Chronic (5) Obstructive sleep apnea: Onset Date: ~01/2020 Code(s): G47.33 - Obstructive sleep apnea (adult) (pediatric) Status: Chronic DS: Summary Hospital Course Hospital Course: 74 y/o M with PMH of DM, pulmonary HTN, HTN, loculated pleural effusion s/p VATS 08/[address] surgery, and TESHA presents here with R leg weakness and fall. Right lower extremity weakness has been chronic/present since May of 2024, no significant rapid progression, acute spinal cord compression/high-grade stenosis on MRI. Symptoms consistent with chronic from renal stenosis in deconditioning. Will need outpatient referral to Neurosurgery at discharge. Has previously completed 6 weeks of outpatient physical therapy. Now has had some modest progression and caused a ground level fall with no loss of consciousness or head strike. Feels he is no longer able to safely care for himself home due to his mobility issues due to the weakness. Admitted for PT/OT evaluation and treatment and care coordination for acute rehab. - lumbar XR, 12/31/2024: Spondylosis and degenerative disc disease of the lumbar spine. - brain MRI WO contrast, 12/31/2024: 1. No acute/recent infarction. 2. Chronic lacunar infarction, chronic microvascular ischemic type white matter changes and other findings as above. 3. Previous imaging studies are not available for comparison. - lumbar MRI WO contrast, 02/15/2025: 1. [id number] lumbar degenerative changes as described above, no high-grade spinal canal stenosis. 2. Pain degrees of bilateral neural foraminal stenosis other findings as above. 3. STIR hypertense signal along the posterior paraspinal soft tissues of the lumbar spine, image lower thoracic spine and sacrum is nonspecific and could reflect strain or myositis in the proper clinical scenario. - PT/OT eval and treatment - care coordination consulted for acute rehab placement - fall precautions - pt is to f/u with neurosurgery at discharge # Hypertension: - chronic, currently 152/66, stable. - continue home medications- no changes # Diabetes: - hypoglycemia protocol - POC blood glucose ACHS - home medication: hold pioglitazone - correct regimen ordered - low dose TIDWM, based off TDD - A1C 5.6% on 11/17/2024 # Obstructive sleep apnea: - continue home CPAP Status at Discharge Functional status at discharge: uses cane/walker Overall status at discharge: patient is progressing back to baseline Time Spent with Patient Time attestation: Total time spent providing and/or coordinating discharge services: Time spent: Greater than 30 minutes Exam Const: General: comfortable and no acute distress Other: , male, nontoxic appearance HENMT: Face/Nose/Sinus: Normal nares present Mouth: Yes moist mucous membranes Eyes: General: appearance normal, both eyes and all related structures Sclera: sclerae normal Pupils: Equal, round and reactive pupils present EOM: EOMs intact bilaterally Resp: Effort & Inspection: normal respiratory effort Other: Absent/diminished in the left base. Cardio: Rate: regular rate Rhythm: regular rhythm Other: S1-S2 present without murmur, rub, ectopy GI: Other: Abdomen soft, nondistended, nontender. Normoactive bowel sounds in all quadrants. Skin: General skin exam: normal color and no rashes or lesions noted Wounds: no wounds Neuro: Cranial nerves: Yes Equal, round and reactive pupils present Speech: normal speech Sensory Exam: normal sensation Other: A&O x4. Plantar flexion of the bilateral lower extremities +5 and symmetric. However patient having difficulty lifting the right lower extremity off of the bed or lifting leg to bend at the knee due to weakness. Asymmetric compared to the left lower extremity. Extrem: General: normal to inspection Psych: Mental Status: mental status grossly normal Affect: normal affect Other: A&O x4 DS: Data Data Completed and Pending Labs on day of discharge: Labs from last 24 hours 02/17/25 02/17/25 02/17/25 11:59 07:17 04:23 WBC 5.8 RBC 4.31 L Hgb 12.9 L Hct 41.2 L MCV 95.6 MCH 29.9 MCHC 31.3 L RDW 15.2 H Plt Count 275 MPV 9.0 Sodium 136 L Potassium 3.4 Chloride 100 Carbon Dioxide 27 Anion Gap 9 BUN 22 H Creatinine 0.96 Estim Creat Clear Calc 67 Estimated GFR > 60 Glucose 126 H POC Capillary Glucose 205 H 191 H Calcium 8.7 Total Bilirubin 0.7 AST 46 ALT 25 Alkaline Phosphatase 112 Total Protein 7.3 Albumin 3.9 02/16/25 02/16/25 19:40 17:08 WBC RBC Hgb Hct MCV MCH MCHC RDW Plt Count MPV Sodium Potassium Chloride Carbon Dioxide Anion Gap BUN Creatinine Estim Creat Clear Calc Estimated GFR Glucose POC Capillary Glucose 128 H 146 H Calcium Total Bilirubin AST ALT Alkaline Phosphatase Total Protein Albumin Discharge Plan Discharge Attending physician on discharge: Oscar Everett Discharging Clinician: Lillie Swenson Patient Disposition: Other Activity: may shower Diet: heart healthy Discharge Instructions: Please make an ric with neurosurgery as soon as you are discharged. Work with PT/OT. Patient Instructions: Antibiotic Form Patient Language: Ukrainian Stand Alone Forms: General Discharge Information Follow-up/Referrals: Tej Sen MD [Primary Care Provider, [facility]] - 2 Weeks Discharge Medications: New lidocaine [Lidoderm] 5 % Adhesive Patch,Medicated 1 patch transdermal DAILY Qty: 10 0RF Continued cetirizine 5 mg tablet 5 mg PO DAILY PRN (Reason: Allergic Symptoms) multivitamin Tablet 1 tablet PO DAILY Benefiber (inulin-corn fiber) 2 gram tablet,chewable 1 tablet PO DAILY polyethylene glycol 3350 [Miralax] 17 gram/dose powder 17 g PO DAILY Kathryn Probiotic 10 strains 10 billion capsule 1 cap PO DAILY lisinopril 5 mg tablet 5 mg PO DAILY Qty: 90 1RF magnesium 200 mg tablet 200 mg PO DAILY ibuprofen [Addaprin] 200 mg tablet 200 mg PO TID PRN (Reason: pain) pioglitazone 45 mg tablet 45 mg PO DAILY Qty: 90 1RF (DME) blood-glucose meter [Evisors Ultra2 Meter] Misc See Rx Instructions .Route Qty: 1 0RF Rx Instructions: Use to check blood sugar once a day (DME) OneTouch Ultra Test Strip See Rx Instructions .Route Qty: 100 3RF Rx Instructions: Use to check blood sugar once a day (DME) lancets [Onetouch Delica Safety Lancet] 30 gauge misc See Rx Instructions .Route Qty: 100 3RF Rx Instructions: use to check blood sugar once a day atorvastatin 20 mg tablet 20 mg PO DAILY Qty: 90 1RF Date of admission: 02/15/25 16:17 Primary Care Provider: Tej Sen Admitting Provider: Malick Harris Attending physician on admission: Malick Harris Condition: Stable Quality VTE Prophylaxis VTE prophylaxis: mechanical ordered Hospitalist MIPS Heart Failure (Exclusion) Patient has history of Heart Transplant or Left Ventricular Assistive Device?: No IF YES, STOP HERE Heart Failure (Qualifier) Patient has current or prior documentation of LVEF less than or equal to 40%, or mod/servere depressed LVSF?: No IF NO, STOP HERE
[2025-02-17 13:49] VITALS: BP 138/69; PULSE 62; RESP 16; TEMP 36.9; O2SAT 98
[2025-02-17] MEDS: LIDOCAINE 5% PATCH 1 PATCH TRANSDERM (15:14)
== END 2025-02-17 15:30 ==
LOC: ANHED 14:08 → ANH3MEDSUR 18:22 → ANH2MED 18:58
PROVIDERS: Admitting Provider Internal Medicine; Emergency Provider Emergency Medicine; PCP Family Medicine; Visit Provider Nurse Practitioner
DX: R29.898 Other symptoms and signs involving the musculoskeletal system (principal); W18.30XA Fall on same level, unspecified, initial encounter; R62.7 Adult failure to thrive; Z68.30 Body mass index [BMI] 30.0-30.9, adult; M54.50 Low back pain, unspecified; G89.29 Other chronic pain; Z87.891 Personal history of nicotine dependence; E11.9 Type 2 diabetes mellitus without complications; I10 Essential (primary) hypertension; E78.00 Pure hypercholesterolemia, unspecified; Z79.84 Long term (current) use of oral hypoglycemic drugs; G47.33 Obstructive sleep apnea (adult) (pediatric); Z99.89 Dependence on other enabling machines and devices
CPT/HCPCS: 36415; 71045; 71250; 74176; 80053; 81001; 82948; 85025; 85027; 85610; 85730; 97110; 97162; 97166; 97530; 97535; 99285; A9270; G0378; J1815

== ENCOUNTER 2025-03-15 17:43 | Emergency (ER) | payer MEDICARE, SELFPAY ==
[2025-03-15] VITALS (33 sets, daily range): BP systolic 110–151; BP diastolic 59–114; PULSE 76–104; RESP 11–29; TEMP 36.4–36.8; O2SAT 94–100
--- NOTE | ~2025-03-15 | CT_ITS ---
CT diagnostic chest wo con HISTORY:further characterize effusion/consolidation COMPARISON: None. TECHNIQUE: Axial images of the chest were obtained without infusion of intravenous contrast. Dose optimization technique was utilized. FINDINGS: The examination demonstrates chronic loculated left pleural effusion stable. There are pleural base nodular opacities within the lingula measuring 12.9 x 19 mm increase since previous study. There is rounded atelectasis at the left lung base. Right lung is clear. Cardiac size and mediastinal configuration are normal in appearance. No hilar or mediastinal lymphadenopathy is seen. The thoracic aorta is normal in caliber. Osseous structures are intact. IMPRESSION: Loculated left pleural effusion is stable. There is a pleural-based nodule in the lingula measuring [address] abdomen pelvis wo con INDICATION:further characterize effusion/consolidation . COMPARISON: None. TECHNIQUE: Axial 2.5 mm images of the abdomen were obtained without IV or oral contrast. Diagnostic sensitivity is limited due to lack of IV contrast. FINDINGS: The lung bases are clear. The liver parenchyma is unremarkable. No intrahepatic mass or ductal dilatation is evident. The gallbladder is unremarkable. The pancreas and spleen are normal in appearance. The adrenal glands are symmetric in size. The kidneys are unremarkable. No intrarenal stones are noted. There is no hydronephrosis. Evaluation of the stomach and bowel loops are limited due to lack of oral contrast. The bladder and rectum are normal. No free intraperitoneal fluid or air is evident. There is no significant retroperitoneal lymphadenopathy. The aorta, visceral vessels and renal arteries demonstrate normal caliber. The lower thoracic and lumbar vertebrae are in normal alignment. IMPRESSION: No acute abnormality is noted in the abdomen and pelvis. All CT scans at this facility are performed using low dose modulation techniques as appropriate to perform exam including the following: automated exposure control; use of iterative reconstruction technique; adjustment of the mA and/or kV according to patient size (this includes techniques or standardized protocols for targeted exams where dose is matched to indication/reason for exam). Reviewed, dictated and finalized at location S. NER SCHEDULER IMPRESSION: Loculated left pleural effusion is stable. There is a pleural-based nodule in the lingula measuring [address] abdomen pelvis wo con INDICATION:further characterize effusion/consolidation . COMPARISON: None. TECHNIQUE: Axial 2.5 mm images of the abdomen were obtained without IV or oral contrast. Diagnostic sensitivity is limited due to lack of IV contrast. FINDINGS: The lung bases are clear. The liver parenchyma is unremarkable. No intrahepatic mass or ductal dilatation is evident. The gallbladder is unremarkable. The pancreas and spleen are nelly l in appearance. The adrenal glands are symmetric in size. The kidneys are unremarkable. No intrarenal stones are noted. There is no hyd ronephrosis. Evaluation of the stomach and bowel loops are limited due to lack of oral contr ast. The bladder and rectum are normal. No free intraperitoneal fluid or air is evid ent. There is no significant retroperitoneal lymphadenopathy. The aorta, visceral vessels and renal arteries demonstrate normal caliber. The lower thoracic and lumbar vertebrae are in normal alignment. IMPRESSION: No acute abnormality is noted in the abdomen and pelvis. All CT scans at this facility are performed using low dose modulation techniqu es as appropriate to perform exam including the following: automated exposure c ontrol; use of iterative reconstruction technique; adjustment of the mA and/or kV according to patient size (this includes techniques or standardized protocol s for targeted exams where dose is matched to indication/reason for exam).
--- NOTE | ~2025-03-15 | XR_ITS ---
XR chest 1V portable INDICATION:shortness of breath . REFERENCE: 02/16/2025 FINDINGS: A single AP of the chest demonstrates normal heart size. There is stable left pleural effusion. There is atelectasis and consolidation within the left lower lobe. IMPRESSION: Left pleural effusion with atelectasis and consolidation in the left lower lobe. Reviewed, dictated and finalized at location S. NG BENDER IMPRESSION: Left pleural effusion with atelectasis and consolidation in the left lower lobe .
--- NOTE | 2025-03-15 17:51 | ED.SOB ---
HPI - SOB/Dyspnea General Chief Complaint: Shortness of Breath/Dyspnea Stated Complaint: SOB, URI sx Time Seen by Provider: 03/15/25 17:44 Source: patient and EMS Mode of arrival: EMS Limitations: no limitations History of Present Illness HPI Narrative: This is a 74-year-old male with history of diabetes hypertension, pulmonary hypertension, ALS who presents to the ED for shortness of breath. Patient states that in the last few weeks he was diagnosed with ALS Rees. He was just discharged last week after admission for a fall and subsequent diagnosis of the LS. He reports that for the past day or so he has been having a nasal congestion. He states that today he has been having shortness of breath prompting him to call EMS. He denies chest pain, nausea vomiting, fevers, chills. He is not on any steroids at this time. Related Data Home Medications ?Medication ?Instructions ?Recorded ?Confirmed ?Last Taken ?Type cetirizine 5 mg tablet 5 mg PO DAILY PRN Allergic Symptoms 03/21/20 02/15/25 Unknown History multivitamin 1 tablet PO DAILY 03/21/20 02/15/25 Unknown History soluble corn fiber-inulin 2 gram 1 tablet PO DAILY 11/19/24 02/15/25 Unknown History chewable tablet (Benefiber (inulin-corn fiber)) [place] Probiotic 10 strains 1 cap PO DAILY 11/24/24 02/15/25 Unknown History 10 billion polyethylene glycol 3350 17 17 g PO DAILY 12/20/24 02/15/25 Unknown History gram/dose oral powder (Miralax) magnesium 200 mg tablet 200 mg PO DAILY 02/04/25 02/15/25 Unknown History ibuprofen 200 mg tablet (Addaprin) 200 mg PO TID PRN pain 02/15/25 02/15/25 Unknown History Allergies Allergy/AdvReac Type Severity Reaction Status Date / Time No Known Allergies Allergy Verified 02/15/25 20:15 Review of Systems Review of Systems: Gen.: Denies fevers or chills Eyes: Denies eye pain or visual change ENT: As per HPI Respiratory: As per HPI CV: Denies chest pain or palpitations GI: Denies abdominal pain nausea, emesis or diarrhea denies burning, urgency, frequency or hematuria Musculoskeletal: Denies back pain or muscle pain Neuro: Denies numbness, tingling, weakness or focal weakness Skin: Denies rash Except as documented, all other systems reviewed and negative [facility] Past Medical History Medical History Pleural effusion, left Obstructive sleep apnea (~01/2020) Morbid obesity Right ventricular enlargement Pure hypercholesterolemia, unspecified Diabetes Pulmonary hypertension Hypertension Surgical History Surgical History History of video-assisted thoracoscopic surgery (VATS) 09/22/2024 Social History Social History Social History: quit 31 years ago, quit 1988 Smoking packs per day: 2 Smoking cigarettes per day: 40.0 Years smoked: 22 Smoking pack-years: 44.00 Smoking status: Former smoker Second hand tobacco smoke exposure: No Alcohol intake: current Alcohol use details: once a month Substance use: never Substance use type: does not use Lack of Transportation: No Lack of Food: Never True Current Housing: I Have Housing Concerned About Future Housing: No Difficulty Paying Gas/Electric Bills: No Difficulty Paying for Meds: No Currently Unemployed: No Education: Bachelor's Degree Difficulty w/ Childcare or Family Care: No Living arrangements: with family Occupation/Education: retired Gender identity (if verbalized by the patient): Male Sexual Orientation (if Verbalized by the Patient): Straight or Heterosexual Spiritual care concerns: No Exam Narrative: APPEARANCE: No acute distress, nontoxic, resting in bed EYES: EOMI HEENT: Normocephalic, atraumatic, OMM RESPIRATORY: Some accessory muscle use noted. Clear to auscultation bilaterally with no rhonchi wheezing or rales. CARDIOVASCULAR: Regular rate and rhythm without murmurs rubs or gallops. ABDOMINAL: Soft, nontender, nondistended, no rebound or guarding MUSCULOSKELETAl: Moves all extremities. No clubbing, cyanosis or edema. NEURO: Awake and alert. Following commands, speech normal, no focal deficits SKIN:: Warm, dry. No rashes lesions or abrasions PSYCHIATRIC: Normal affect/mood, Course Vital Signs Vital signs: Vital Signs Temperature 98.3 F 03/15/25 17:50 Pulse Rate 104 H 03/15/25 17:50 Respiratory Rate 20 03/15/25 17:50 Blood Pressure 151/67 H 03/15/25 17:50 Pulse Oximetry 97 03/15/25 17:50 Oxygen Delivery Room Air 03/15/25 17:50 Temperature 98.3 F 03/15/25 17:50 Pulse Rate 104 H 03/15/25 17:50 Respiratory Rate 20 03/15/25 17:50 Blood Pressure 151/67 H 03/15/25 17:50 Pulse Oximetry 97 03/15/25 17:52 Oxygen Delivery Room Air 03/15/25 17:52 [facility] MDM Narrative Medical decision making narrative: 74-year-old male Presenting for cough and shortness of breath. On initial evaluation patient was in no acute distress afebrile, hemodynamic stable. Differentials include but are not limited to: ACS, CHF Exacerbation, COPD exacerbation, PE, PNA, PTX, bronchitis, viral syndrome Notable exam findings: Heart and lungs clear. I personally reviewed the patient's lab result. Notable lab findings: CBC without significant abnormalities. Mild hyponatremia at 1:33 a.m. remaining CMP without significant abnormalities. COVID/flu/RSV negative. Chest x-ray showed a left pleural effusion with possible consolidation. CT chest was obtained for further elucidation which did reveal a loculated left pleural effusion. After further discussion with the patient and further review of records, this does seem stable it has already been evaluated and received VATS by thoracic surgery at [facility]. I personally reviewed the patient's EKGs: Sinus rhythm with frequent PVCs, normal axis, normal intervals, no acute ST or T-wave changes No evidence of a new pulmonary pathology at this time. Suspect that the patient does have a viral URI that he is having some mild difficulty clearing his mucus. He has been stable since he got here and does feel better. He is already on Zyrtec and nasal saline spray. He will also be given a prescription for Flonase. He was advised follow-up with his PCP in the next week for re-evaluation. Patient and family were agreeable to this plan. Given strict return precautions. Differential Diagnosis Differential Diagnosis: ACS, CHF Exacerbation, COPD exacerbation, PE, PNA, PTX, bronchitis, viral syndrome Lab Data 03/15/25 18:05 03/15/25 18:05 Labs: Lab Results 03/15/25 03/15/25 Range/Units 18:05 19:10 WBC 7.2 (4.5-10.0) K/mm3 RBC 4.41 L (4.6-6.20) M/mm3 Hgb 13.8 L (14.0-18.0) g/dL Hct 41.8 L (42.0-52.0) % MCV 94.8 (80-100) fl MCH 31.3 (26-34) pg MCHC 33.0 (32-36) g/dl RDW 14.8 H (11.5-14.5) % Plt Count 303 (150-375) k/mm3 MPV 8.5 (7.4-10.4) fl Immature Gran % (Auto) 0.3 (0-0.5) % Neut % (Auto) 74.0 H (45.5-73.1) % Lymph % (Auto) 13.9 L (18.3-44.2) % [place] % (Auto) 9.3 H (2.6-8.5) % Eos % (Auto) 2.1 (0-4.4) % Baso % (Auto) 0.4 (0.2-1.2) % Lymph # (Auto) 1.00 (0.9-3.2) K/mm3 [place] # (Auto) 0.7 H (0.1-0.6) K/mm3 Eos # (Auto) 0.2 (0-0.3) K/mm3 Baso # (Auto) 0.0 (0.0-0.1) K/mm3 Abs Immat Gran (auto) 0.02 (0.00-0.031) K/mm3 Absolute Neuts (auto) 5.3 (1.3-6.7) K/mm3 Absolute Nucleated RBC 0.000 (0.0-0.012) K/mm3 Nucleated RBC % 0.0 (0.0-0.2) % Sodium 133 L (137-145) mmol/L Potassium 4.5 (3.4-5.0) mmol/L Chloride 96 L (98-107) mmol/L Carbon Dioxide 30 (22-30) mmol/L Anion Gap 7 (4-12) mmol/L BUN 31 H (9-20) mg/dL Creatinine 0.94 (0.7-1.3) mg/dL Estim Creat Clear Calc 65 ml/min Estimated GFR > 60 (59 - ) Glucose 150 H (65-110) mg/dL Calcium 9.3 (8.4-10.2) mg/dL Total Bilirubin 0.5 (0.2-1.3) mg/dL AST 39 (17-59) U/L ALT 34 (6-50) U/L Alkaline Phosphatase 127 H (38-126) U/L Troponin I < 0.012 (0.000-0.034) ng/mL Total Protein 7.4 (6.3-8.2) g/dL Albumin 3.9 (3.5-5.1) g/dL Influenza A (RT-PCR) Negative (Negative) Influenza B (RT-PCR) Negative (Negative) RSV (RT-PCR) Negative (Negative) SARS-CoV-2 RNA (RT-PCR) Negative (Negative) Imaging Data Radiologist's impression: ITS Impressions Chest X-Ray 03/15/25 19:03 IMPRESSION: Left pleural effusion with atelectasis and consolidation in the left lower lobe. Chest CT 03/15/25 20:14 IMPRESSION: Loculated left pleural effusion is stable. There is a pleural-based nodule in the lingula measuring [address] abdomen pelvis wo con INDICATION:further characterize effusion/consolidation . COMPARISON: None. TECHNIQUE: Axial 2.5 mm images of the abdomen were obtained without IV or oral contrast. Diagnostic sensitivity is limited due to lack of IV contrast. FINDINGS: The lung bases are clear. The liver parenchyma is unremarkable. No intrahepatic mass or ductal dilatation is evident. The gallbladder is unremarkable. The pancreas and spleen are normal in appearance. The adrenal glands are symmetric in size. The kidneys are unremarkable. No intrarenal stones are noted. There is no hydronephrosis. Evaluation of the stomach and bowel loops are limited due to lack of oral contrast. The bladder and rectum are normal. No free intraperitoneal fluid or air is evident. There is no significant retroperitoneal lymphadenopathy. The aorta, visceral vessels and renal arteries demonstrate normal caliber. The lower thoracic and lumbar vertebrae are in normal alignment. IMPRESSION: No acute abnormality is noted in the abdomen and pelvis. All CT scans at this facility are performed using low dose modulation techniques as appropriate to perform exam including the following: automated exposure control; use of iterative reconstruction technique; adjustment of the mA and/or kV according to patient size (this includes techniques or standardized protocols for targeted exams where dose is matched to indication/reason for exam). Discharge Plan Discharge Clinical Impression: Upper respiratory infection, viral, ALS (amyotrophic lateral sclerosis) Patient Disposition: Home Condition: Stable Instructions: Antibiotic Form, Upper Respiratory Infection (ED) Additional Instructions: Continue to take Zyrtec and nasal saline as previously prescribed your given a prescription for Flonase to take this as prescribed. Follow-up with your PCP in the next week for re-evaluation. Continue to follow-up with your neurologist as scheduled. Return to the ED for any new or worsening symptoms. Patient Language: Cameroonian Prescriptions: New fluticasone propionate [Flonase Allergy Relief] 50 mcg/actuation spray,suspension 1 spray intranasal DAILY Qty: 16 0RF Rx Instructions: administer into each nostril No Action cetirizine 5 mg tablet 5 mg PO DAILY PRN (Reason: Allergic Symptoms) multivitamin Tablet 1 tablet PO DAILY Benefiber (inulin-corn fiber) 2 gram tablet,chewable 1 tablet PO DAILY polyethylene glycol 3350 [Miralax] 17 gram/dose powder 17 g PO DAILY [place] Probiotic 10 strains 10 billion capsule 1 cap PO DAILY lisinopril 5 mg tablet 5 mg PO DAILY Qty: 90 1RF magnesium 200 mg tablet 200 mg PO DAILY ibuprofen [Addaprin] 200 mg tablet 200 mg PO TID PRN (Reason: pain) lidocaine [Lidoderm] 5 % Adhesive Patch,Medicated 1 patch transdermal DAILY Qty: 10 0RF pioglitazone 45 mg tablet 45 mg PO DAILY Qty: 90 1RF (DME) blood-glucose meter [OneTouch Ultra2 Meter] Misc See Rx Instructions .Route Qty: 1 0RF Rx Instructions: Use to check blood sugar once a day (DME) OneTouch Ultra Test Strip See Rx Instructions .Route Qty: 100 3RF Rx Instructions: Use to check blood sugar once a day (DME) lancets [Onetouch Delica Safety Lancet] 30 gauge misc See Rx Instructions .Route Qty: 100 3RF Rx Instructions: use to check blood sugar once a day atorvastatin 20 mg tablet 20 mg PO DAILY Qty: 90 1RF Follow-up/Referrals: Tej Sen MD [Primary Care Provider, Family Practice]
[2025-03-15 18:10] LABS: Hematocrit 41.8 % (42.0-52.0); Hemoglobin 13.8 g/dL (14.0-18.0); Immature Granulocyte Percent A 0.3 % (0-0.5); Lymphocytes Absolute Auto 1.00 K/mm3 (0.9-3.2); Mean Corpuscular HGB Conc 33.0 g/dl (32-36); Mean Corpuscular Hemoglobin 31.3 pg (26-34); Mean Corpuscular Volume 94.8 fl (80-100); Nucleated Red Blood Cells Absolute Auto 0.000 K/mm3 (0.0-0.012); Nucleated Red Blood Cells Perc 0.0 % (0.0-0.2); Platelet Count Result 303 k/mm3 (150-375); Red Blood Count 4.41 M/mm3 (4.6-6.20); White Blood Count 7.2 K/mm3 (4.5-10.0)
[2025-03-15 18:22] LABS: Alanine Aminotransferase 34 U/L (6-50); Albumin Level 3.9 g/dL (3.5-5.1); Alkaline Phosphatase 127 U/L (38-126); Anion Gap 7 mmol/L (4-12); Aspartate Amino Transferase 39 U/L (17-59); Bilirubin,Total 0.5 mg/dL (0.2-1.3); Blood Urea Nitrogen 31 mg/dL (9-20); Calcium 9.3 mg/dL (8.4-10.2); Carbon Dioxide 30 mmol/L (22-30); Chloride 96 mmol/L (98-107); Estimated CRCL calculation 65 ml/min; Estimated Glomerular Filt Rate > 60; Glucose 150 mg/dL (65-110); Potassium 4.5 mmol/L (3.4-5.0); Sodium 133 mmol/L (137-145); Total Protein 7.4 g/dL (6.3-8.2)
[2025-03-15 18:32] LABS: Troponin I < 0.012 ng/mL (0.000-0.034)
--- OUTSIDE RECORDS SUMMARY | 2025-03-15 18:39 | XMS_ITS | Clinical Summary ---
Author Organization [facility] [place] [address] Address [address] [place] [address] Care Team Providers Care Driver Name Role Phone Tej Sen MD Primary Care Provider [phone] Vanesa Gomez MD Unavailable [phone] Allergies No known active allergies Medications OneTouch Delica Plus Lancet 30 gauge misc USE TO CHECK BLOOD SUGAR DAILY 08/23/19 25 Active lisinopriL (PRINIVIL,ZEST RIL) 5 mg tablet Take 1 tablet (5 mg total) by mouth daily Active pioglitazone (ACTOS) 45 mg tablet Take 1 tablet (45 mg total) by mouth daily 01/20/20 24 Active polyethylene glycol (MIRALAX) 17 gram/dose bulk powderIndicati ons:constipati on Take 17 g by mouth daily 02/27/20 25 025 Active senna-docusate (PERICOLACE) 8.6-50 mg Take 1 tablet by mouth 2 (two) times a day 02/27/20 25 Active aspirin 81 mg enteric coated tablet Take 1 tablet (81 mg total) by mouth daily 02/27/20 25 025 Active atorvastatin (LIPITOR) 40 mg tablet Take 1 tablet (40 mg total) by mouth daily 02/27/20 25 025 Active cyanocobalamin (Vitamin B-12) 1,000 mcg tablet Take 1 tablet (1,000 mcg total) by mouth daily 02/27/20 25 025 Active multivitamin tablet Take 1 tablet by mouth daily 02/27/20 25 Active atorvastatin (LIPITOR) 20 mg tablet Take 1 tablet (20 mg total) by mouth nightly 12/21/19 Discontinued metFORMIN (GLUCOPHAGE) 1,000 mg tablet Take 1 tablet (1,000 mg total) by mouth 2 (two) times a day with meals 12/21/19 Discontinued cetirizine (ZyrTEC) 10 mg tablet Take 1 tablet (10 mg total) by mouth daily Discontinued(St op Taking at Discharge) multivitamin tablet Take 1 tablet by mouth daily Discontinued MAGNESIUM ORAL Take 250 mg by mouth daily Discontinued(St op Taking at Discharge) tirzepatide (MOUNJARO) 7.5 mg/0.5 mL pen injector injection Inject 0.5 mL (7.5 mg total) under the skin once a week 07/15/19 Discontinued diphenhydrAMIN E HCL 25 mg tablet,disinte grating Take 1 tablet by mouth nightly Discontinued(St op Taking at Discharge) gabapentin (NEURONTIN) 100 mg capsuleIndicat ions:Postopera tive Acute Pain Take 1 capsule (100 mg total) by mouth 3 (three) times a day for 15 days 45 capsule 10/19/19 Discontinued aspirin 81 mg enteric coated tablet Take 1 tablet (81 mg total) by mouth daily 30 tablet 02/25/20 025 Discontinued cyanocobalamin (Vitamin B-12) 1,000 mcg tablet Take 1 tablet (1,000 mcg total) by mouth daily 30 tablet 02/25/20 025 Discontinued atorvastatin (LIPITOR) 20 mg tablet Take 2 tablets (40 mg total) by mouth nightly 60 tablet 02/25/20 025 Discontinued(St op Taking at Discharge) atorvastatin (LIPITOR) 40 mg tablet Take 1 tablet (40 mg total) by mouth daily 30 tablet 02/25/20 Discontinued oxyCODONE (ROXICODONE) 5 mg immediate release tabletIndicati ons:Pain Take 1 tablet (5 mg total) by mouth every 6 (six) hours as needed for pain for up to 7 days 02/27/20 025 Active Problems Patient Care Coordination No te [...] underwent a CT chest on 07/19/2024 at [facility] which reveals: Small to moderate chronic left effusion with thickened pleura lining. Left-sided volume loss with peripheral consolidation of the lingula and left lower lobe, likely representing atelectasis. Correlate clinically for pneumonia. Right lung relatively hyperinflated but clear. He underwent an ultrasound-guided thoracentesis on 08/03/2024 with 250 mL of fluid obtained. He also underwent a chest x-ray status post thoracentesis on 08/03/2024 [facility] which reveals: Blunting at the left [...] and discussion. Problem Noted Date Diagnosed Date Constipation 02/24/2025 Assessment & Plan (02/26/2025 9:47 AM GM VIDEO): No BM since last Friday. No abdominal pain. KUB ordered to assess stool burden. Resolved with one time mag citrate - Miralax and senna scheduled Assessment & Plan (02/25/2025 10:10 AM GM VIDEO): No BM since last Jonathan. No abdominal pain. KUB ordered to assess stool burden. Resolved with one time mag citrate - Miralax and senna scheduled Assessment & Plan (02/24/2025 9:38 AM GM VIDEO): No BM since last Friday. No abdominal pain. - KUB ordered to assess stool burden - Miralax and senna scheduled Shortness of breath 02/22/2025 Assessment & Plan (02/26/2025 9:47 AM GM VIDEO): Reports weeks-months SOB on exertion and intermittent short episode chest pain that is pressure like. Unclear etiology. Work-up -TTE with EF 60% G1DD -Trop negative on admit. EKG with initially concern for possibly Q in V1-V3 but unclear, pending cards input. -CTA chest negative for PE but detail does mention multi vessel coronary artery disease, similar to before L pleural thickening and loculated L pleural effusion, and new small L anterior pneumothorax. PLAN -repeat CXR 02/22: stable small left pneumothorax. Mild cardiomegaly, similar prior. -telemetry and continuous pulse ox -sat well on room air consistently since admit -will hold off on pulm consult as repeat CXR is stable -cardiology consult - Current symptoms do not align with cardiac etiology of CP/SOB and are more likely related to chronic pleural effusions - ASA 81 daily and atorva 40 to target LDL <70 - CPAP Assessment & Plan (02/25/2025 7:40 AM GM VIDEO): Reports weeks-months SOB on exertion and intermittent short episode chest pain that is pressure like. Unclear etiology. Work-up -TTE with EF 60% G1DD -Trop negative on admit. EKG with initially concern for possibly Q in V1-V3 but unclear, pending cards input. -CTA chest negative for PE but detail does mention multi vessel coronary artery disease, similar to before L pleural thickening and loculated L pleural effusion, and new small L anterior pneumothorax. PLAN -repeat CXR 02/22: stable small left pneumothorax. Mild cardiomegaly, similar prior. -telemetry and continuous pulse ox -sat well on room air consistently since admit -will hold off on pulm consult as repeat CXR is stable -cardiology consult - Current symptoms do not align with cardiac etiology of CP/SOB and are more likely related to chronic pleural effusions - ASA 81 daily and atorva 40 to target LDL <70 - CPAP Assessment & Plan (02/24/2025 9:53 AM GM VIDEO): Reports weeks-months SOB on exertion and intermittent short episode chest pain that is pressure like. Unclear etiology. Work-up -TTE with EF 60% G1DD -Trop negative on admit. EKG with initially concern for possibly Q in V1-V3 but unclear, pending cards input. -CTA chest negative for PE but detail does mention multi vessel coronary artery disease, similar to before L pleural thickening and loculated L pleural effusion, and new small L anterior pneumothorax. PLAN -repeat CXR 02/22: stable small left pneumothorax. Mild cardiomegaly, similar prior. -telemetry and continuous pulse ox -sat well on room air consistently since admit -will hold off on pulm consult as repeat CXR is stable -cardiology consult - Current symptoms do not align with cardiac etiology of CP/SOB and are more likely related to chronic pleural effusions - ASA 81 daily and atorva 40 to target LDL <70 - CPAP Assessment & Plan (02/23/2025 8:22 AM GM VIDEO): Reports weeks-months SOB on exertion and intermittent short episode chest pain that is pressure like. Unclear etiology. Work-up -TTE with EF 60% G1DD -Trop negative on admit. EKG with initially concern for possibly Q in V1-V3 but unclear, pending cards input. -CTA chest negative for PE but detail does mention multi vessel coronary artery disease, similar to before L pleural thickening and loculated L pleural effusion, and new small L anterior pneumothorax. PLAN -repeat CXR 02/22: stable small left pneumothorax. Mild cardiomegaly, similar prior. -telemetry and continuous pulse ox -sat well on room air consistently since admit -will hold off on pulm consult as repeat CXR is stable -cardiology consult - Current symptoms do not align with cardiac etiology of CP/SOB and are more likely related to chronic pleural effusions - ASA 81 daily and atorva 40 to target LDL <70, will restart on discharge - CPAP Assessment & Plan (02/22/2025 1:22 PM GM VIDEO): Reports weeks-months SOB on exertion and intermittent short episode chest pain that is pressure like. Unclear etiology. Work-up -TTE with EF 60% G1DD -Trop negative on admit. EKG with initially concern for possibly Q in V1-V3 but unclear, pending cards input. -CTA chest negative for PE but detail does mention multi vessel coronary artery disease, similar to before L pleural thickening and loculated L pleural effusion, and new small L anterior pneumothorax. PLAN -repeat CXR 02/22: stable small left pneumothorax. Mild cardiomegaly, similar prior. -telemetry and continuous pulse ox -sat well on room air consistently since admit -will hold off on pulm consult as repeat CXR is stable -cardiology consult - Current symptoms do not align with cardiac etiology of CP/SOB and are more likely related to chronic pleural effusions - ASA 81 daily and atorva 40 to target LDL <70, will restart on discharge - CPAP Assessment & Plan (02/22/2025 12:53 AM GM VIDEO): Reports weeks-months SOB on exertion and intermittent short episode chest pain that is pressure like. Unclear etiology. Work-up -TTE with EF 60% G1DD -Trop negative on admit. EKG with initially concern for possibly Q in V1-V3 but unclear, pending cards input. -CTA chest negative for PE but detail does mention multi vessel coronary artery disease, similar to before L pleural thickening and loculated L pleural effusion, and new small L anterior pneumothorax. PLAN -repeat CXR tomorrow morning -telemetry and continuous pulse ox -sat well on room air consistently since admit -need pulm consult tomorrow for Pneumothorax -cardiology consult -discuss with neuro tomorrow regarding if this could be part of the same etiology as the R leg Chest pain 02/22/2025 Assessment & Plan (02/26/2025 9:47 AM GM VIDEO): Reports weeks-months SOB on exertion and intermittent short episode chest pain that is pressure like. Unclear etiology. Work-up -TTE with EF 60% G1DD -Trop negative on admit. EKG with initially concern for possibly Q in V1-V3 but unclear, pending cards input. -CTA chest negative for PE but detail does mention multi vessel coronary artery disease, similar to before L pleural thickening and loculated L pleural effusion, and new small L anterior pneumothorax. PLAN -repeat CXR 02/22: stable small left pneumothorax. Mild cardiomegaly, similar prior. -telemetry and continuous pulse ox -sat well on room air consistently since admit -will hold off on pulm consult as repeat CXR is stable -cardiology consult - Current symptoms do not align with cardiac etiology of CP/SOB and are more likely related to chronic pleural effusions - ASA 81 daily and atorva 40 to target LDL <70 - CPAP Assessment & Plan (02/25/2025 7:40 AM GM VIDEO): Reports weeks-months SOB on exertion and intermittent short episode chest pain that is pressure like. Unclear etiology. Work-up -TTE with EF 60% G1DD -Trop negative on admit. EKG with initially concern for possibly Q in V1-V3 but unclear, pending cards input. -CTA chest negative for PE but detail does mention multi vessel coronary artery disease, similar to before L pleural thickening and loculated L pleural effusion, and new small L anterior pneumothorax. PLAN -repeat CXR 02/22: stable small left pneumothorax. Mild cardiomegaly, similar prior. -telemetry and continuous pulse ox -sat well on room air consistently since admit -will hold off on pulm consult as repeat CXR is stable -cardiology consult - Current symptoms do not align with cardiac etiology of CP/SOB and are more likely related to chronic pleural effusions - ASA 81 daily and atorva 40 to target LDL <70 - CPAP Assessment & Plan (02/24/2025 9:53 AM GM VIDEO): Reports weeks-months SOB on exertion and intermittent short episode chest pain that is pressure like. Unclear etiology. Work-up -TTE with EF 60% G1DD -Trop negative on admit. EKG with initially concern for possibly Q in V1-V3 but unclear, pending cards input. -CTA chest negative for PE but detail does mention multi vessel coronary artery disease, similar to before L pleural thickening and loculated L pleural effusion, and new small L anterior pneumothorax. PLAN -repeat CXR 02/22: stable small left pneumothorax. Mild cardiomegaly, similar prior. -telemetry and continuous pulse ox -sat well on room air consistently since admit -will hold off on pulm consult as repeat CXR is stable -cardiology consult - Current symptoms do not align with cardiac etiology of CP/SOB and are more likely related to chronic pleural effusions - ASA 81 daily and atorva 40 to target LDL <70 - CPAP Assessment & Plan (02/23/2025 8:22 AM GM VIDEO): Reports weeks-months SOB on exertion and intermittent short episode chest pain that is pressure like. Unclear etiology. Work-up -TTE with EF 60% G1DD -Trop negative on admit. EKG with initially concern for possibly Q in V1-V3 but unclear, pending cards input. -CTA chest negative for PE but detail does mention multi vessel coronary artery disease, similar to before L pleural thickening and loculated L pleural effusion, and new small L anterior pneumothorax. PLAN -repeat CXR 02/22: stable small left pneumothorax. Mild cardiomegaly, similar prior. -telemetry and continuous pulse ox -sat well on room air consistently since admit -will hold off on pulm consult as repeat CXR is stable -cardiology consult - Current symptoms do not align with cardiac etiology of CP/SOB and are more likely related to chronic pleural effusions - ASA 81 daily and atorva 40 to target LDL <70, will restart on discharge - CPAP Assessment & Plan (02/22/2025 1:22 PM GM VIDEO): Reports weeks-months SOB on exertion and intermittent short episode chest pain that is pressure like. Unclear etiology. Work-up -TTE with EF 60% G1DD -Trop negative on admit. EKG with initially concern for possibly Q in V1-V3 but unclear, pending cards input. -CTA chest negative for PE but detail does mention multi vessel coronary artery disease, similar to before L pleural thickening and loculated L pleural effusion, and new small L anterior pneumothorax. PLAN -repeat CXR 02/22: stable small left pneumothorax. Mild cardiomegaly, similar prior. -telemetry and continuous pulse ox -sat well on room air consistently since admit -will hold off on pulm consult as repeat CXR is stable -cardiology consult - Current symptoms do not align with cardiac etiology of CP/SOB and are more likely related to chronic pleural effusions - ASA 81 daily and atorva 40 to target LDL <70, will restart on discharge - CPAP Assessment & Plan (02/22/2025 12:53 AM GM VIDEO): Reports weeks-months SOB on exertion and intermittent short episode chest pain that is pressure like. Unclear etiology. Work-up -TTE with EF 60% G1DD -Trop negative on admit. EKG with initially concern for possibly Q in V1-V3 but unclear, pending cards input. -CTA chest negative for PE but detail does mention multi vessel coronary artery disease, similar to before L pleural thickening and loculated L pleural effusion, and new small L anterior pneumothorax. PLAN -repeat CXR tomorrow morning -telemetry and continuous pulse ox -sat well on room air consistently since admit -need pulm consult tomorrow for Pneumothorax -cardiology consult -discuss with neuro tomorrow regarding if this could be part of the same etiology as the R leg Pneumothorax 02/22/2025 Assessment & Plan (02/26/2025 9:47 AM GM VIDEO): Reports weeks-months SOB on exertion and intermittent short episode chest pain that is pressure like. Unclear etiology. Work-up -TTE with EF 60% G1DD -Trop negative on admit. EKG with initially concern for possibly Q in V1-V3 but unclear, pending cards input. -CTA chest negative for PE but detail does mention multi vessel coronary artery disease, similar to before L pleural thickening and loculated L pleural effusion, and new small L anterior pneumothorax. PLAN -repeat CXR 02/22: stable small left pneumothorax. Mild cardiomegaly, similar prior. -telemetry and continuous pulse ox -sat well on room air consistently since admit -will hold off on pulm consult as repeat CXR is stable -cardiology consult - Current symptoms do not align with cardiac etiology of CP/SOB and are more likely related to chronic pleural effusions - ASA 81 daily and atorva 40 to target LDL <70 - CPAP Assessment & Plan (02/25/2025 7:40 AM GM VIDEO): Reports weeks-months SOB on exertion and intermittent short episode chest pain that is pressure like. Unclear etiology. Work-up -TTE with EF 60% G1DD -Trop negative on admit. EKG with initially concern for possibly Q in V1-V3 but unclear, pending cards input. -CTA chest negative for PE but detail does mention multi vessel coronary artery disease, similar to before L pleural thickening and loculated L pleural effusion, and new small L anterior pneumothorax. PLAN -repeat CXR 02/22: stable small left pneumothorax. Mild cardiomegaly, similar prior. -telemetry and continuous pulse ox -sat well on room air consistently since admit -will hold off on pulm consult as repeat CXR is stable -cardiology consult - Current symptoms do not align with cardiac etiology of CP/SOB and are more likely related to chronic pleural effusions - ASA 81 daily and atorva 40 to target LDL <70 - CPAP Assessment & Plan (02/24/2025 9:53 AM GM VIDEO): Reports weeks-months SOB on exertion and intermittent short episode chest pain that is pressure like. Unclear etiology. Work-up -TTE with EF 60% G1DD -Trop negative on admit. EKG with initially concern for possibly Q in V1-V3 but unclear, pending cards input. -CTA chest negative for PE but detail does mention multi vessel coronary artery disease, similar to before L pleural thickening and loculated L pleural effusion, and new small L anterior pneumothorax. PLAN -repeat CXR 02/22: stable small left pneumothorax. Mild cardiomegaly, similar prior. -telemetry and continuous pulse ox -sat well on room air consistently since admit -will hold off on pulm consult as repeat CXR is stable -cardiology consult - Current symptoms do not align with cardiac etiology of CP/SOB and are more likely related to chronic pleural effusions - ASA 81 daily and atorva 40 to target LDL <70 - CPAP Assessment & Plan (02/23/2025 8:22 AM GM VIDEO): Reports weeks-months SOB on exertion and intermittent short episode chest pain that is pressure like. Unclear etiology. Work-up -TTE with EF 60% G1DD -Trop negative on admit. EKG with initially concern for possibly Q in V1-V3 but unclear, pending cards input. -CTA chest negative for PE but detail does mention multi vessel coronary artery disease, similar to before L pleural thickening and loculated L pleural effusion, and new small L anterior pneumothorax. PLAN -repeat CXR 02/22: stable small left pneumothorax. Mild cardiomegaly, similar prior. -telemetry and continuous pulse ox -sat well on room air consistently since admit -will hold off on pulm consult as repeat CXR is stable -cardiology consult - Current symptoms do not align with cardiac etiology of CP/SOB and are more likely related to chronic pleural effusions - ASA 81 daily and atorva 40 to target LDL <70, will restart on discharge - CPAP Assessment & Plan (02/22/2025 1:22 PM GM VIDEO): Reports weeks-months SOB on exertion and intermittent short episode chest pain that is pressure like. Unclear etiology. Work-up -TTE with EF 60% G1DD -Trop negative on admit. EKG with initially concern for possibly Q in V1-V3 but unclear, pending cards input. -CTA chest negative for PE but detail does mention multi vessel coronary artery disease, similar to before L pleural thickening and loculated L pleural effusion, and new small L anterior pneumothorax. PLAN -repeat CXR 02/22: stable small left pneumothorax. Mild cardiomegaly, similar prior. -telemetry and continuous pulse ox -sat well on room air consistently since admit -will hold off on pulm consult as repeat CXR is stable -cardiology consult - Current symptoms do not align with cardiac etiology of CP/SOB and are more likely related to chronic pleural effusions - ASA 81 daily and atorva 40 to target LDL <70, will restart on discharge - CPAP Assessment & Plan (02/22/2025 12:53 AM GM VIDEO): Reports weeks-months SOB on exertion and intermittent short episode chest pain that is pressure like. Unclear etiology. Work-up -TTE with EF 60% G1DD -Trop negative on admit. EKG with initially concern for possibly Q in V1-V3 but unclear, pending cards input. -CTA chest negative for PE but detail does mention multi vessel coronary artery disease, similar to before L pleural thickening and loculated L pleural effusion, and new small L anterior pneumothorax. PLAN -repeat CXR tomorrow morning -telemetry and continuous pulse ox -sat well on room air consistently since admit -need pulm consult tomorrow for Pneumothorax -cardiology consult -discuss with neuro tomorrow regarding if this could be part of the same etiology as the R leg Generalized weakness 02/19/2025 Assessment & Plan (02/26/2025 10:57 AM GM VIDEO): Presented with worsening generalized weakness and severe right lower extremity weakness for 1 year, worsened over the last month. Painless and sensation intact. Unclear etiology but there is concern posibly ALS or multiple level polyradiculopathy based on EMG. Work-up -MRI lumbar spine wo c 02/15 that showed STIR hyperintense signal along the posterior paraspinal soft tissues of the lumbar spine, image lower thoracic spine and sacrum is nonspecific and could reflect a strain or myositis in the proper clinical scenario. -CK 238, CRP 2.7, ESR 31. -TATO 1:320 -SSA, SSB, Bethany-1, SHIPPING AND RECEIVING ASSOCIATE negative -ANCA: indeterminate -TSH wnl -B12 200, repleating -C3, C4 wnl -KELLY negative -vitamin D normal, folate normal -HIV, hepatitis C negative -A1c 7.3 - MRI C/T spine wo (02/23): Mild degenerative changes in the cervical spine. No high-grade spinal canal or neural foraminal stenosis at any level. Heterogeneous bone marrow signal, which may be due to osteopenia. No definitive cord signal change in the cervical and thoracic spine. - NIF: -50, FVC: 1.39, 1.68, 1.72 PLAN -f/u SPEP/BPEP, aldolase, vitamin E, zinc, copper -consulted neuro: EMG with concern for possible ALS - Vitamin E, Zinc, Copper levels - ALS genetic testing: swab obtained 02/22 - Started B12 supplement - F/u motor neuropathy panel - F/u with [facility] clinic, will prescribe riluzole in outpatient setting - f/u rheum - PT/OT: IPR - Resumed statin 02/24 - fall precaution Assessment & Plan (02/25/2025 7:40 AM GM VIDEO): Presented with worsening generalized weakness and severe right lower extremity weakness for 1 year, worsened over the last month. Painless and sensation intact. Unclear etiology but there is concern posibly ALS or multiple level polyradiculopathy based on EMG. Work-up -MRI lumbar spine wo c 02/15 that showed STIR hyperintense signal along the posterior paraspinal soft tissues of the lumbar spine, image lower thoracic spine and sacrum is nonspecific and could reflect a strain or myositis in the proper clinical scenario. -CK 238, CRP 2.7, ESR 31. -TATO 1:320 -SSA, SSB, Bethany-1, SHIPPING AND RECEIVING ASSOCIATE negative -ANCA: indeterminate -TSH wnl -B12 200, repleating -C3, C4 wnl -KELLY negative -vitamin D normal, folate normal -HIV, hepatitis C negative -A1c 7.3 - MRI C/T spine wo (02/23): Mild degenerative changes in the cervical spine. No high-grade spinal canal or neural foraminal stenosis at any level. Heterogeneous bone marrow signal, which may be due to osteopenia. No definitive cord signal change in the cervical and thoracic spine. - NIF: -50, FVC: 1.39, 1.68, 1.72 PLAN -f/u SPEP/BPEP, aldolase, vitamin E, zinc, copper -consulted neuro: EMG with concern for possible ALS - Vitamin E, Zinc, Copper levels - ALS genetic testing: swab obtained 02/22 - Started B12 supplement - F/u motor neuropathy panel - F/u with [facility] clinic, will prescribe riluzole in outpatient setting - Swallow study: Speech at next level of care (pending further work up/diagnosis). If ALS, consider OP QUARTER INSPECTOR for voice banking and ongoing assessment of dysphagia. - f/u rheum - PT/OT: IPR - Resumed statin 02/24 - fall precaution Assessment & Plan (02/24/2025 9:53 AM GM VIDEO): Presented with worsening generalized weakness and severe right lower extremity weakness for 1 year, worsened over the last month. Painless and sensation intact. Unclear etiology but there is concern posibly ALS or multiple level polyradiculopathy based on EMG. Work-up -MRI lumbar spine wo c 02/15 that showed STIR hyperintense signal along the posterior paraspinal soft tissues of the lumbar spine, image lower thoracic spine and sacrum is nonspecific and could reflect a strain or myositis in the proper clinical scenario. -CK 238, CRP 2.7, ESR 31. -TATO 1:320 -SSA, SSB, Bethany-1, SHIPPING AND RECEIVING ASSOCIATE negative -ANCA: indeterminate -TSH wnl -B12 200, repleating -C3, C4 wnl -KELLY negative -vitamin D normal, folate normal -HIV, hepatitis C negative -A1c 7.3 - MRI C/T spine wo (02/23): Mild degenerative changes in the cervical spine. No high-grade spinal canal or neural foraminal stenosis at any level. Heterogeneous bone marrow signal, which may be due to osteopenia. No definitive cord signal change in the cervical and thoracic spine. - NIF: -50, FVC: 1.39, 1.68, 1.72 PLAN -f/u SPEP/BPEP, aldolase, vitamin E, zinc, copper -consulted neuro: EMG with concern for possible ALS - Vitamin E, Zinc, Copper levels - ALS genetic testing: swab obtained 02/22 - Started B12 supplement - F/u motor neuropathy panel - F/u with [facility], will prescribe riluzole in outpatient setting - Swallow study: Speech at next level of care (pending further work up/diagnosis). If ALS, consider OP QUARTER INSPECTOR for voice banking and ongoing assessment of dysphagia. - f/u rheum - PT/OT: IPR - Resumed statin 02/24 - fall precaution Assessment & Plan (02/23/2025 12:36 PM GM VIDEO): Presented with worsening generalized weakness and severe right lower extremity weakness for 1 year, worsened over the last month. Painless and sensation intact. Unclear etiology but there is concern posibly ALS or multiple level polyradiculopathy based on EMG. Work-up -MRI lumbar spine wo c 02/15 that showed STIR hyperintense signal along the posterior paraspinal soft tissues of the lumbar spine, image lower thoracic spine and sacrum is nonspecific and could reflect a strain or myositis in the proper clinical scenario. -CK 238, CRP 2.7, ESR 31. -TATO 1:320 -SSA, SSB, Bethany-1, SHIPPING AND RECEIVING ASSOCIATE negative -ANCA: indeterminate -TSH wnl -B12 200, repleating -C3, C4 wnl -KELLY negative -vitamin D normal, folate normal -HIV, hepatitis C negative -A1c 7.3 PLAN -f/u SPEP/BPEP, aldolase, vitamin E, zinc, copper -consulted neuro: EMG with concern for possible ALS - MRI C/T spine noncontrast - NIF: -50, FVC: 1.39, 1.68, 1.72 - Vitamin E, Zinc, Copper levels - ALS genetic testing: swab obtained 02/22 - Started B12 supplement - F/u motor neuropathy panel - F/u with [facility] clinic - Swallow study: Speech at next level of care (pending further work up/diagnosis). If ALS, consider OP QUARTER INSPECTOR for voice banking and ongoing assessment of dysphagia. - f/u rheum - PT/OT: IPR - Hold atorvastatin - fall precaution Assessment & Plan (02/22/2025 2:07 PM GM VIDEO): Presented with worsening generalized weakness and severe right lower extremity weakness for 1 year, worsened over the last month. Painless and sensation intact. Unclear etiology but there is concern posibly ALS or multiple level polyradiculopathy based on EMG. Work-up -MRI lumbar spine wo c 02/15 that showed STIR hyperintense signal along the posterior paraspinal soft tissues of the lumbar spine, image lower thoracic spine and sacrum is nonspecific and could reflect a strain or myositis in the proper clinical scenario. -CK 238, CRP 2.7, ESR 31. -TATO 1:320 -SSA, SSB, Bethany-1, SHIPPING AND RECEIVING ASSOCIATE negative -TSH wnl -B12 200 -C3, C4 wnl -KELLY negative -vitamin D normal, folate normal -HIV, hepatitis C negative -A1c 7.3 PLAN -f/u ANCA, SPEP/BPEP -consulted neuro: EMG with concern for possible ALS MRI C/T spine noncontrast PFT - will try again tomorrow NIF/FVC Swallow study Vitamin E, Zinc, Copper levels They will arrange for ALS genetic testing Started B12 supplement F/u motor neuropathy panel F/u in 1 month with [facility] - f/u rheum - PT/OT - Hold atorvastatin - fall precaution Assessment & Plan (02/22/2025 12:53 AM GM VIDEO): Presented with worsening generalized weakness and severe right lower extremity weakness for 1 year, worsened over the last month. Painless and sensation intact. Unclear etiology but there is concern posibly ALS based on EMG. Work-up -MRI lumbar spine wo c 02/15 that showed STIR hyperintense signal along the posterior paraspinal soft tissues of the lumbar spine, image lower thoracic spine and sacrum is nonspecific and could reflect a strain or myositis in the proper clinical scenario. -CK 238, CRP 2.7, ESR 31. -TATO 1:320 -SSA, SSB, Bethany-1, SHIPPING AND RECEIVING ASSOCIATE negative -TSH wnl -B12 200 -C3, C4 wnl -KELLY negative -vitamin D normal, folate normal -HIV, hepatitis C negative -A1c 7.3 PLAN -f/u ANCA, SPEP/BPEP -consulted neuro: EMG with concern for possible ALS Check MRI C/T spine noncontrast No need for repeat PFT, had one 08/2024 Swallow study Vitamin E, Zinc, Copper levels They will arrange for ALS genetic testing Start B12 supplement F/u motor neuropathy panel F/u in 1 month with [facility] - f/u rheum - PT/OT - Hold atorvastatin - fall precaution Assessment & Plan (02/20/2025 8:58 PM GM VIDEO): Presented with worsening generalized weakness and severe right lower extremity weakness for 1 year, worsened over the last month. MRI lumbar spine 02/15 that showed STIR hyperintense signal along the posterior paraspinal soft tissues of the lumbar spine, image lower thoracic spine and sacrum is nonspecific and could reflect a strain or myositis in the proper clinical scenario. CK 238, CRP 2.7, ESR 31. Patient takes atorvastatin for lifelong. - consult neuro - consult rheum - PT/OT - Pain control with Tylenol, ibuprofen PRN - Follow TATO, Bethany 1 antibody, Anca - Vitamin D, folate, B12,TSH, A1c, lipid panel, SPEP/UPEP, HIV, Hep C, aldolase, LDH, Ro/SSA, SHIPPING AND RECEIVING ASSOCIATE (normal CK, TSH, vitamin D). Does have vitamin B12 mild deficiency. Elevated aldolase and LDH. - Check echo - Hold atorvastatin - fall precaution Assessment & Plan (02/19/2025 11:04 PM GM VIDEO): Presented with worsening generalized weakness and severe right lower extremity weakness for 1 year, worsened over the last month. MRI lumbar spine 02/15 that showed STIR hyperintense signal along the posterior paraspinal soft tissues of the lumbar spine, image lower thoracic spine and sacrum is nonspecific and could reflect a strain or myositis in the proper clinical scenario. CK 238, CRP 2.7, ESR 31. Patient takes atorvastatin for lifelong. - Neurology evaluation in a.m. for EMG? +/- rheum (biopsy?) - PT/OT - Pain control with Tylenol, ibuprofen PRN - Follow TATO, Bethany 1 antibody, Anca - Vitamin D, folate, B12,TSH, A1c, lipid panel, SPEP/UPEP, HIV, Hep C, aldolase, LDH, Ro/SSA, SHIPPING AND RECEIVING ASSOCIATE, - Check echo - Hold atorvastatin DM2 (diabetes mellitus, type 2) 02/19/2025 Assessment & Plan (02/26/2025 10:57 AM GM VIDEO): History of type 2 diabetes, takes Actos. Sliding scale while inpatient. Assessment & Plan (02/25/2025 7:40 AM GM VIDEO): History of type 2 diabetes, takes Actos. Sliding scale while inpatient. Assessment & Plan (02/24/2025 7:42 AM GM VIDEO): History of type 2 diabetes, takes Actos. Sliding scale while inpatient. Assessment & Plan (02/23/2025 8:22 AM GM VIDEO): History of type 2 diabetes, takes Actos. Sliding scale while inpatient. Assessment & Plan (02/22/2025 8:31 AM GM VIDEO): History of type 2 diabetes, takes Actos. Sliding scale while inpatient. Assessment & Plan (02/22/2025 12:06 AM GM VIDEO): History of type 2 diabetes, takes Actos. Sliding scale while inpatient. Assessment & Plan (02/20/2025 8:58 PM GM VIDEO): History of type 2 diabetes, takes Actos. Sliding scale while inpatient. Assessment & Plan (02/19/2025 11:04 PM GM VIDEO): History of type 2 diabetes, takes Actos. Sliding scale while inpatient. Dehydration 09/24/2024 Hypotension due to hypovolemia 09/24/2024 S/P video-assisted thoracoscopic surgery (VATS) 09/22/2024 Echocardiogram shows left ventricular diastolic dysfunction 09/22/2024 Pleural effusion 09/16/2024 Exudative pleural effusion 09/07/2024 Pleural effusion exudative 09/06/2024 Impacted cerumen of right ear 05/16/2023 Tinnitus of right ear 05/10/2021 Sudden right hearing loss 05/10/2021 Hyperlipidemia associated with type 2 diabetes m ellitus 06/02/2020 TESHA (obstructive sleep apnea) 02/15/2020 Pulmonary hypertension 01/17/2020 Overview (09/22/2024): Mild pulmonary hypertension based on right ventricular systolic pressure. Estimated peak RVSP is 35-40 mmHg. Mild tricuspid regurgitation Hypersomnolence 01/17/2020 HTN (hypertension) 01/17/2020 Assessment & Plan (02/26/2025 10:57 AM GM VIDEO): History high blood pressure: Continued home lisinopril Assessment & Plan (02/25/2025 7:40 AM GM VIDEO): History high blood pressure: Continue home lisinopril Assessment & Plan (02/24/2025 7:42 AM GM VIDEO): History high blood pressure: Continue home lisinopril Assessment & Plan (02/23/2025 8:22 AM GM VIDEO): History high blood pressure: Continue home lisinopril Assessment & Plan (02/22/2025 8:31 AM GM VIDEO): History high blood pressure: Continue home lisinopril Assessment & Plan (02/22/2025 12:06 AM GM VIDEO): History high blood pressure: Continue home lisinopril Assessment & Plan (02/20/2025 8:58 PM GM VIDEO): History high blood pressure: Continue home lisinopril Assessment & Plan (02/19/2025 11:04 PM GM VIDEO): History high blood pressure: Continue home lisinopril Chest pressure 01/17/2020 MCGARRY (dyspnea on exertion) 01/17/2020 Snoring 01/17/2020 Right ventricular enlargement 01/17/2020 Overview (09/22/2024): Mild pulmonary hypertension based on right ventricular systolic pressure. Estimated peak RVSP is 35-40 mmHg. Mild tricuspid regurgitation Hyperlipidemia 01/17/2020 Resolved Problems Problem Noted Date Diagnosed Date Resolved Date Morbid obesity with BMI of 40.0-44.9, adult 01/17/2020 02/15/2020 Encounters Date Type Department Care Team Description 03/07/2025 Orders Only [facility] [phone] Unknown, Notinfile 03/04/2025 Telephone [facility] Medicine Neuro Muscle [address] [place] [address] Fabiola Toussaint DC 02/28/2025 Telephone [facility] Medicine Neuro Muscle [address] [place] [address] Ayla Mckeon, MYRON 02/28/2025 Documentation [facility] Medicine Neuro Muscle [address] [place] [address] Fabiola Toussaint DC 02/28/2025 Orders Only [facility] [phone] Unknown, Notinfile 02/22/2025 Documentation [facility] Medicine Neuro Muscle [address] [place] [address] Fabiola Toussaint DC 02/21/2025 11:59 PM GM VIDEO Hospital Encounter [facility] Medicine Neuromuscle [address] [place] [phone] Discharge Disposition: Discharge to home or self care 02/19/2025 3:08 PM GM VIDEO - 02/26/2025 2:00 PM GM VIDEO Hospital Encounter [facility] [address] [place] [address] Rubén Lan MD Morgan, Zachary A., MD Yu, Tong, MD Patel, Saira Prieto MD Generalized weakness (Primary Dx); Right leg weakness; Shortness of breath; S/P video-assisted thoracoscopic surgery (VATS); Pulmonary hypertension (HCC); Myositis of right thigh, unspecified myositis type Discharge Disposition: Discharge to an IP Rehab facility 02/15/2025 7:15 AM GM VIDEO - 02/15/2025 11:59 PM GM VIDEO Hospital Encounter [place] [id number] Radiculopathy, lumbar region; Other symptoms and signs involving the musculoskeletal system Discharge Disposition: Discharge to home or self care 12/31/2024 1:35 PM CDT - 12/31/2024 11:59 PM CDT [place] [address] Other symptoms and signs involving the musculoskeletal system Discharge Disposition: Discharge to home or self care 12/31/2024 1:34 PM CDT - 12/31/2024 11:59 PM CDT Hospital Encounter [place] [facility] [id number] Dorsalgia, unspecified; Other chronic pain Discharge Disposition: Discharge to home or self care from Last 3 Months Surgical History Surgery Date Site/Laterality Comments CATARACT EXTRACTION 03/31/2008 - 03/30/2009 Left THORACENTESIS 07/29/2024 - 08/28/2024 Yielding 250 mL of yellow fluid with blood tinge which was found to be negative for malignancy. Medical History Medical History Date Comments Hypertension Diabetes mellitus Allergic rhinitis HL (hearing loss) Tinnitus Pleural effusion exudative Pulmonary hypertension (HCC) SOB (shortness of breath) States unless sitting completely still, he gets so SOB that he gets lightheaded. Cannot perform some ADLS without getting completely worn out. Type 2 diabetes mellitus Family History Medical History Relation Name Comments [...] drink = 0.6 oz pur e alcohol) [facility] Utilities Answer Date Recorded In the past 12 months has [employer], gas, oil, or water [employer] threatened to shut off services in your home? No 09/23/2024 Social Connection and Isolation Panel Answer Date Recorded In a typical week, how many times do you talk on the phone with family, friends, or neighbors? More than three times a week 09/23/2024 How often do you get togethe r with friends or relatives? More than three times a week 09/23/2024 How often do you attend chur ch or jewish services? 1 to 4 times per year 09/23/2024 Do you belong to any clubs o r organizations such as mormonism groups, unions, fraternal or athletic groups, or school groups? No 09/23/2024 How often do you attend meet ings of the clubs or organizations you belong to? Never 09/23/2024 Are you , , di vorced, , never , or living with a partner? 09/23/2024 AUDIT-C Answer Date Recorded Q1: How often do you have a drink containing alc ohol? Monthly or less 09/14/2024 Q2: How many drinks containi ng alcohol do you have on a typical day when you are drinking? 1 or 2 09/14/2024 Q3: How often do you have si x or more drinks on one occasion? Never 09/14/2024 Overall Financial Resource Strain (CARDIA) Answe r Date Recorded How hard is it for you to pa y for the very basics like food, housing, medical care, and heating? Not very hard 09/23/2024 Hunger Vital Sign Answer Date Recorded Within the past 12 months, y ou worried that your food would run out before you got the money to buy more. Never true 09/24/19 25 Within the past 12 months, t he food you bought just didn't last and you didn't have money to get more. Never true 09/23/2024 PRAPARE - Transportation Answer Date Re corded In the past 12 months, has l ack of transportation kept you from medical appointments or from getting medications? No 08/30 In the past 12 months, has l ack of transportation kept you from meetings, work, or from getting things needed for daily living? No 09/23/2024 Housing Stability Vital Sign Answer Steven e Recorded In the last 12 months, was t here a time when you were not able to pay the mortgage or rent on time? No 09/23/2024 In the past 12 months, how m any times have you moved where you were living? 0 09/23/2024 At any time in the past 12 m [facility], were you homeless or living in a snf (including now)? No 09/23/2024 Personal Safety Answer Date Recorded Have you ever been in or are you currently in a harmful physical or emotional relationship or is someone making you feel afraid or unsafe? Denies 02/19/2025 Sex and Gender Information Value Date Recorded Sex Assigned at Not on file Legal Sex Male 11:15 AM CDT Gender Identity Male 01/20/2020 9:35 AM CDT Sexual Orientation Straight 01/20/2020 9: 35 AM CDT Last Filed Vital Signs Vital Sign Reading Time Taken Comments Blood Pressure 128/60 02/26/2025 1:28 PM GM VIDEO Pulse 82 02/26/2025 1:28 PM GM VIDEO Temperature 36.5 C (97.7 F) 02/26/2025 11:35 AM GM VIDEO Respiratory Rate 18 02/26/2025 1:28 PM GM VIDEO Oxygen Saturation 100% 02/26/2025 1:28 PM GM VIDEO Inhaled Oxygen Concentration - - Weight 99.9 kg (220 lb 3.8 oz) 02/23/2025 5:27 A M GM VIDEO Height 188 cm (6' 2.02) 02/20/2025 12:53 AM GM VIDEO Body Mass Index 28.26 02/20/2025 12:53 AM GM VIDEO Plan of Treatment Health Maintenance Due Date Last Done Comments Albumin Creatinine Ratio, Urine 1948 Depression Screening 1950 Dilated Eye Exam 1948 Foot Exam 1948 DTaP/Tdap/Td Vaccine (1 - Tdap) 11/20/1959 Hepatitis B Screening 1966 Abdominal Aortic Aneurysm (A AA) Screen 2013 Well Visit 65+ 2013 Hemoglobin A1C 08/20/2025 02/20/2025, 09/14/2024 Lipid Panel 02/20/2026 02/20/2025, 11/29, 06/08/2020, Additional history exists Fall Risk Assessment 02/26/2026 02/26/2025, 01/17/20 20 eGFR 03/07/2026 03/07/2025, 1203/2024, 02/24/2025, Additional history exists Pneumococcal vaccine 65+ Completed 07/22/2017, 06/2016 Zoster Vaccine Completed 04/22/2022, 02/25/2022 Influenza Vaccine Completed 12/20/2024, , 01/30/2023, Additional history exists Hepatitis C Screening Completed 02/20/2025 Procedures Procedure Name Priority Date/Time Associated Diagnosis Comments EGFR Routine 03/07/2025 6:40 AM GM VIDEO COMPREHENSIVE METABOLIC PANEL Routine 03/07/2025 6:40 AM GM VIDEO DIFFERENTIAL AUTO Routine 03/07/2025 6:4 0 AM GM VIDEO CBC WITH AUTO DIFFERENTIAL Routine 03/07/2025 6:40 AM GM VIDEO EGFR Routine 02/28/2025 5:10 AM GM VIDEO COMPREHENSIVE METABOLIC PANEL Routine 02/28/2025 5:10 AM GM VIDEO DIFFERENTIAL AUTO Routine 02/28/2025 5:1 0 AM GM VIDEO CBC WITH AUTO DIFFERENTIAL Routine 02/28/2025 5:10 AM GM VIDEO POCT GLUCOSE DEVICE Routine 02/26/2025 11:35 AM GM VIDEO INFECTION PREVENTION JANNET AURIS PCR, SURVEILLANCE Routine 02/26/2025 11:05 AM GM VIDEO POCT GLUCOSE DEVICE Routine 02/26/2025 7 :19 AM GM VIDEO POCT GLUCOSE DEVICE Routine 02/25/2025 8 :43 PM GM VIDEO POCT GLUCOSE DEVICE Routine 02/25/2025 5 :01 PM GM VIDEO POCT GLUCOSE DEVICE Routine 02/25/2025 12:03 PM GM VIDEO POCT GLUCOSE DEVICE Routine 02/25/2025 7 :34 AM GM VIDEO POCT GLUCOSE DEVICE Routine 02/24/2025 8 :10 PM GM VIDEO POCT GLUCOSE DEVICE Routine 02/24/2025 6 :42 PM GM VIDEO POCT GLUCOSE DEVICE Routine 02/24/2025 11:50 AM GM VIDEO XR ABDOMEN AP 1 VIEW ED Urgent/IP Urgent 02/24/2025 9:50 AM GM VIDEO POCT GLUCOSE DEVICE Routine 02/24/2025 7 :46 AM GM VIDEO EGFR Routine 02/24/2025 1:21 AM GM VIDEO DIFFERENTIAL AUTO Routine 02/24/2025 1:2 1 AM GM VIDEO CBC WITH AUTO DIFFERENTIAL Routine 02/24/2025 1:21 AM GM VIDEO BASIC METABOLIC PANEL Routine 02/24/2025 1:21 AM GM VIDEO HEPATIC FUNCTION PANEL Routine 02/24/2025 1:21 AM GM VIDEO COPPER, SERUM Routine 02/24/2025 1:21 AM GM VIDEO ZINC Routine 02/24/2025 1:21 AM GM VIDEO POCT GLUCOSE DEVICE Routine 02/23/2025 9 :23 PM GM VIDEO MRI SPINE CERVICAL THORACIC WO CONTRAST IP Routine 02/23/2025 8:45 PM GM VIDEO POCT GLUCOSE DEVICE Routine 02/23/2025 5 :21 PM GM VIDEO POCT GLUCOSE DEVICE Routine 02/23/2025 12:39 PM GM VIDEO RPR Routine 02/23/2025 9:59 AM GM VIDEO POCT GLUCOSE DEVICE Routine 02/23/2025 7 :44 AM GM VIDEO EGFR Routine 02/22/2025 9:15 PM GM VIDEO DIFFERENTIAL AUTO Routine 02/22/2025 9:1 5 PM GM VIDEO ALDOLASE Routine 02/22/2025 9:15 PM GM VIDEO CREATINE KINASE (CK), TOTAL Routine 02/22/2025 9:15 PM GM VIDEO COPPER, SERUM Routine 02/22/2025 9:15 PM GM VIDEO ZINC Routine 02/22/2025 9:15 PM GM VIDEO VITAMIN E Routine 02/22/2025 9:15 PM GM VIDEO CBC WITH AUTO DIFFERENTIAL Routine 02/22/2025 9:15 PM GM VIDEO BASIC METABOLIC PANEL Routine 02/22/2025 9:15 PM GM VIDEO HEPATIC FUNCTION PANEL Routine 02/22/2025 9:15 PM GM VIDEO POCT GLUCOSE DEVICE Routine 02/22/2025 8 :41 PM GM VIDEO ALDOLASE Routine 02/22/2025 3:19 PM GM VIDEO CREATINE KINASE (CK), TOTAL Routine 02/22/2025 3:19 PM GM VIDEO INSPIRATORY FORCE / LUNG MECHANICS Routine 02/22/2025 2:06 PM GM VIDEO POCT GLUCOSE DEVICE Routine 02/22/2025 2 :04 PM GM VIDEO IMMUNOFIXATION, URINE Timed 02/22/2025 11:45 AM GM VIDEO VOLUME AND PERIOD, URINE, 24 HOUR Timed 02/22/2025 11:45 AM GM VIDEO PROTEIN ELECTROPHORESIS, URINE, 24 HOUR RESULT Timed 02/22/2025 11:45 AM GM VIDEO PROTEIN ELECTROPHORESIS, URINE, 24 HOUR WITH IMMUNOFIXATION Timed 02/22/2025 11:45 AM GM VIDEO QUARTER INSPECTOR EVALUATE AND TREAT Routine 02/22/2025 10:50 AM GM VIDEO XR CHEST 1 VIEW Timed 02/22/2025 8:17 AM GM VIDEO POCT GLUCOSE DEVICE Routine 02/22/2025 7 :44 AM GM VIDEO EGFR Routine 02/21/2025 9:01 PM GM VIDEO DIFFERENTIAL AUTO Routine 02/21/2025 9:0 1 PM GM VIDEO CBC WITH AUTO DIFFERENTIAL Routine 02/21/2025 9:01 PM GM VIDEO BASIC METABOLIC PANEL Routine 02/21/2025 9:01 PM GM VIDEO HEPATIC FUNCTION PANEL Routine 02/21/2025 9:01 PM GM VIDEO POCT GLUCOSE DEVICE Routine 02/21/2025 7 :[address] CHEST PE W CONTRAST IP Routine 02/21/2025 5:34 PM GM VIDEO TRANSTHORACIC ECHO (TTE) COMPLETE W DOPPLER/CF W CONTRAST Routine 02/21/2025 3:55 PM GM VIDEO POCT GLUCOSE DEVICE Routine 02/21/2025 12:13 PM GM VIDEO PRO B-TYPE NATRIURETIC PEPTIDE Timed 02/21/2025 11:58 AM GM VIDEO EGFR Timed 02/21/2025 11:58 AM GM VIDEO DIFFERENTIAL AUTO Timed 02/21/2025 11:58 AM GM VIDEO COMPREHENSIVE METABOLIC PANEL Timed 02/21/2025 11:58 AM GM VIDEO CBC WITH AUTO DIFFERENTIAL Timed 02/21/2025 11:58 AM GM VIDEO PROTEIN ELECTROPHORESIS, WITH REFLEX, SERUM Timed 02/21/2025 11:58 AM GM VIDEO C4 COMPLEMENT Timed 02/21/2025 11:58 AM GM VIDEO C3 COMPLEMENT Timed 02/21/2025 11:58 AM GM VIDEO NEUROMUSCULAR SPECIMEN TRACKING INPATIENT STAT 02/21/2025 11:58 AM GM VIDEO POCT GLUCOSE DEVICE Routine 02/21/2025 8 :02 AM GM VIDEO POCT GLUCOSE DEVICE Routine 02/20/2025 8 :40 PM GM VIDEO POCT GLUCOSE DEVICE Routine 02/20/2025 4 :39 PM GM VIDEO POCT GLUCOSE DEVICE Routine 02/20/2025 12:25 PM GM VIDEO INFECTION PREVENTION JANNET AURIS PCR, SURVEILLANCE Routine 02/20/2025 11:19 AM GM VIDEO POCT GLUCOSE DEVICE Routine 02/20/2025 7 :31 AM GM VIDEO FOLATE STAT 02/20/2025 6:43 AM GM VIDEO ALDOLASE STAT 02/20/2025 6:43 AM GM VIDEO ALDOLASE STAT 02/20/2025 12:18 AM GM VIDEO FOLATE STAT 02/20/2025 12:18 AM GM VIDEO HEMOGLOBIN A1C STAT 02/20/2025 12:18 AM GM VIDEO LACTATE DEHYDROGENASE STAT 02/20/2025 12:18 AM GM VIDEO LIPID PANEL STAT 02/20/2025 12:18 AM GM VIDEO SHIPPING AND RECEIVING ASSOCIATE ANTIBODIES STAT 02/20/2025 12:18 AM GM VIDEO SJOGRENS SYNDROME-A ANTIBODY STAT 02/20/2025 12:18 AM GM VIDEO SJOGRENS SYNDROME-B ANTIBODY STAT 02/20/2025 12:18 AM GM VIDEO TSH STAT 02/20/2025 12:18 AM GM VIDEO VITAMIN B12 STAT 02/20/2025 12:18 AM GM VIDEO VITAMIN D 25 HYDROXY STAT 02/20/2025 12:18 AM GM VIDEO HEPATITIS C ANTIBODY STAT 02/20/2025 12:18 AM GM VIDEO HIV 1/2 ANTIBODY PLUS P24 ANTIGEN STAT 02/20/2025 12:18 AM GM VIDEO NEUROMUSCULAR TESTING STAT 02/20/2025 12:00 AM GM VIDEO POCT GLUCOSE DEVICE Routine 02/19/2025 11:55 PM GM VIDEO TROPONIN I HIGH-SENSITIVITY 2-HOUR Timed 02/19/2025 6:26 PM GM VIDEO URINALYSIS, MICROSCOPIC ONLY STAT 02/19/2025 5:55 PM GM VIDEO URINALYSIS AND REFLEX TO MICROSCOPIC AND CULTURE STAT 02/19/2025 5:55 PM GM VIDEO XR CHEST 1 VIEW ED 02/19/2025 4:20 PM GM VIDEO ECG 12-LEAD Routine 02/19/2025 4:12 PM GM VIDEO MYELOPEROXIDASE ANTIBODY Routine 02/19/2025 4:11 PM GM VIDEO PROTEINASE-3 ANTIBODY Routine 02/19/2025 4:11 PM GM VIDEO ANTI-NEUTROPHILIC CYTOPLASMIC ANTIBODY (ANCA) WITH REFLEX TO MPO AND PR3 ABS Routine 02/19/2025 4:11 PM GM VIDEO BETHANY-1 ANTIBODY STAT 02/19/2025 4:11 PM GM VIDEO TATO QUALITATIVE WITH REFLEX TO TATO QUANTITATIVE STAT 02/19/2025 4:11 PM GM VIDEO EGFR STAT 02/19/2025 3:53 PM GM VIDEO DIFFERENTIAL AUTO STAT 02/19/2025 3:5 3 PM GM VIDEO CRP (ACUTE PHASE) STAT 02/19/2025 3:5 3 PM GM VIDEO ERYTHROCYTE SEDIMENTATION RATE STAT 02/19/2025 3:53 PM GM VIDEO GAMMA GT STAT 02/19/2025 3:53 PM GM VIDEO CREATINE KINASE (CK), TOTAL STAT 02/19/2025 3:53 PM GM VIDEO PRO B-TYPE NATRIURETIC PEPTIDE STAT 02/19/2025 3:53 PM GM VIDEO TROPONIN I HIGH-SENSITIVITY SERIES (BASELINE, 2HR, 4HR, 6HR) STAT 02/19/2025 3:53 PM GM VIDEO PHOSPHORUS STAT 02/19/2025 3:53 PM GM VIDEO MAGNESIUM STAT 02/19/2025 3:53 PM GM VIDEO COMPREHENSIVE METABOLIC PANEL STAT 02/19/2025 3:53 PM GM VIDEO CBC WITH AUTO DIFFERENTIAL STAT 02/19/2025 3:53 PM GM VIDEO MRI LUMBAR SPINE WO CONTRAST Schedule Routine, Read Routine (OP Routine) 02/15/2025 8:10 AM GM VIDEO Radiculopathy, lumbar region Other symptoms and signs involving the musculoskeletal system MRI BRAIN WO CONTRAST Schedule Routine, Read Routine (OP Routine) 12/31/2024 2:26 PM CDT Other symptoms and signs involving the musculoskeletal system XR SPINE LUMBAR 2 OR 3 VIEWS Schedule Routine, Read Routine (OP Routine) 12/31/2024 1:50 PM CDT Dorsalgia, unspecified Other chronic pain from Last 3 Months Results * eGFR (03/07/2025 6:40 AM GM VIDEO) eGFR 89 >=60 mL/min/1. 73 m2 RUFINO PEREZ Comment: Interpretive Data Reference Interval Normal >/= [...] Current interpretive data was last reviewed 2021. Testing performed by: [address] [address] Blood 03/07/2025 6:40 AM GM VIDEO 03/07/2025 8:30 AM GM VIDEO us Notinfile Unknown LAB BLOOD ORDERABLES Final Res ult RUFINO [address] [facility] Department of Laboratories [place], [place] [id number] * Differential, auto (03/07/2025 6:40 AM GM VIDEO) Neutrophil abs 3.66 1.50 - 6.50 K/cumm RUFINO PEREZ Comment:Testing performed by : [address] [address] Imm gran abs 0.02 0.00 - 0.10 K/cumm RUFINO PEREZ Comment:Testing performed by : [address] [address] Lymphocyte abs 0.90 0.80 - 3.30 K/cumm RUFINO PEREZ Comment:Testing performed by : [address] [address] Monocyte abs 0.57 0.20 - 0.80 K/cumm [facility] Comment:Testing performed by : [address] [address] Eosinophil abs 0.11 0.00 - 0.50 K/cumm [facility] Comment:Testing performed by : [address], [place]., [address] Basophil abs 0.03 0.00 - 0.10 K/cumm [facility] Comment:Testing performed by : [address] [address] Neutrophil pct 69.1 % [facility] Comment: Interpretive Data Percent cell count reference ranges are not reported, since discordance with absolute values may lead to misinterpretation of CBC data. Current Interpretive Data was last revised on 2017. Testing performed by: [address] [address] Imm gran pct 0.4 % [facility] Comment: Interpretive Data Percent cell count reference ranges are not reported, since discordance with absolute values may lead to misinterpretation of CBC data. Current Interpretive Data was last revised on 2017. Testing performed by: [address] [address] Lymphocyte pct 17.0 % [facility] Comment: Interpretive Data Percent cell count reference ranges are not reported, since discordance with absolute values may lead to misinterpretation of CBC data. Current Interpretive Data was last revised on 2017. Testing performed by: [address] [address] Monocyte pct 10.8 % [facility] Comment: Interpretive Data Percent cell count reference ranges are not reported, since discordance with absolute values may lead to misinterpretation of CBC data. Current Interpretive Data was last revised on 2017. Testing performed by: [address] [address] Eosinophil pct 2.1 % [facility] Comment: Interpretive Data Percent cell count reference ranges are not reported, since discordance with absolute values may lead to misinterpretation of CBC data. Current Interpretive Data was last revised on 2017. Testing performed by: [address] [address] Basophil pct 0.6 % RUFINO PEREZ Comment: Interpretive Data Percent cell count reference ranges are not reported, since discordance with absolute values may lead to misinterpretation of CBC data. Current Interpretive Data was last revised on 2017. Testing performed by: [address] [address] Blood 03/07/2025 6:40 AM GM VIDEO 03/07/2025 8:30 AM GM VIDEO us Notinfile Unknown LAB BLOOD ORDERABLES Final Res ult RUFINO PEREZ [facility]0 [facility] [place] [address] * (ABNORMAL) CBC with auto differential (03/07/2025 6:40 AM GM VIDEO) WBC 5.29 3.80 - 9.90 K/cumm RUFINO PEREZ Comment:Testing performed by : [address] [address] Hgb 12.6(L) 13.0 - 17.5 g/dL RUFINO PEREZ Comment:Testing performed by : [address] [address] Hct 38.5(L) 38.9 - 50.3 % RUFINO PEREZ Comment:Testing performed by : [address] [address] Plt 307 150 - 400 K/cumm RUFINO PEREZ Comment:Testing performed by : [address] [address] MPV 9.0(L) 9.1 - 12.3 fL RUFINO PEREZ Comment:Testing performed by : [address] [address] RBC 4.08(L) 4.30 - 5.80 M/cumm RUFINO PEREZ Comment:Testing performed by : [address] [address] MCV 94.4 81.3 - 96.4 fL RUFINO PEREZ Comment:Testing performed by : [address] [address] MCH 30.9 27.1 - 33.3 pg RUFINO PEREZ Comment:Testing performed by : [address] [address] MCHC 32.7 32.3 - 35.7 g/dL RUFINO PEREZ Comment:Testing performed by : [address] [address] RDW CV 15.1(H) 11.1 - 14.9 % [facility]FINO PEREZ Comment:Testing performed by : [address] [address] RDW SD 52.7(H) 35.7 - 48.1 fL RUFINO PEREZ Comment:Testing performed by : [address] [address] NRBC abs 0.00 0.00 - 0.01 K/cumm RUFINO PEREZ Comment:Testing performed by : [address] [address] Blood 03/07/2025 6:40 AM GM VIDEO 03/07/2025 8:30 AM GM VIDEO us Notinfile Unknown LAB BLOOD ORDERABLES Final Res ult RUFINO [facility]0 [facility] Department of Laboratories [place], [place] [id number] * (ABNORMAL) Comprehensive metabolic panel (03/07/2025 6:40 AM GM VIDEO) Sodium 133(L) 135 - 145 mmol/L RUFINO PEREZ Comment:Testing performed by : [address] [address] Potassium, pl 4.8 3.3 - 4.9 mmol/L RUFINO PEREZ Comment:Testing performed by : [address] [address] Chloride 97 97 - 110 mmol/L RUFINO PEREZ Comment:Testing performed by : [address] [address] CO2 29 22 - 32 mmol/L RUFINO Comment:Testing performed by : [address] [address] Anion gap 7 2 - 15 mmol/L RUFINO Comment:Testing performed by : [address] [address] BUN 19 6 - 25 mg/dL RUFINO Comment:Testing performed by : [address], [place]., [address] Creatinine 0.90 0.80 - 1.30 mg/dL RUFINO Comment:Testing performed by : [address] [address] Glucose 142 70 - 199 mg/dL [facility] Comment: Interpretive Data Fasting glucose >/= 126 [...] Current interpretive data was last revised 2022. Testing performed by: [address] [address] Calcium 9.0 8.5 - 10.3 mg/dL RUFINO Comment:Testing performed by : [address] [address] Bilirubin, total 0.3 0.1 - 1.2 mg/dL RUFINO Comment:Testing performed by : [address] [address] Protein, pl 6.1(L) 6.5 - 8.5 g/dL RUFINO Comment:Testing performed by : [address] [address] Albumin 3.4(L) 3.5 - 5.0 g/dL RUFINO Comment:Testing performed by : [address] [address] Alk phos 107 40 - 130 Units/L RUFINO PEREZ Comment:Testing performed by : [facility], [address] [place] [address]., [address] ALT 21 7 - 55 Units/L RUFINO PEREZ Comment:Testing performed by : [address] [address] AST 24 10 - 50 Units/L RUFINO PEREZ Comment:Testing performed by : [address] [address] Blood 03/07/2025 6:40 AM GM VIDEO 03/07/2025 8:30 AM GM VIDEO us Notinfile Unknown LAB BLOOD ORDERABLES Final Res ult RUFINO PEREZ [address] [facility] Department [place] [address] * eGFR (02/28/2025 5:10 AM GM VIDEO) eGFR 78 >=60 mL/min/1. 73 m2 RUFINO PEREZ Comment: Interpretive Data Reference Interval Normal >/= [...] Current interpretive data was last reviewed 2021. Testing performed by: [address] [address] Blood 02/28/2025 5:10 AM GM VIDEO 02/28/2025 8:18 AM GM VIDEO us Notinfile Unknown LAB BLOOD ORDERABLES Final Res ult RUFINO 45[address] [facility] Department [place] [address] * Differential, auto (02/28/2025 5:10 AM GM VIDEO) Neutrophil abs 4.34 1.50 - 6.50 K/cumm RUFINO Comment:Testing performed by : [address] [address] Imm gran abs 0.01 0.00 - 0.10 K/cumm RUFINO Comment:Testing performed by : [address] [address] Lymphocyte abs 1.14 0.80 - 3.30 K/cumm RUFINO Comment:Testing performed by : [address] [address] Monocyte abs 0.67 0.20 - 0.80 K/cumm RUFINO Comment:Testing performed by : [address] [address] Eosinophil abs 0.11 0.00 - 0.50 K/cumm RUFINO Comment:Testing performed by : [address] [address] Basophil abs 0.05 0.00 - 0.10 K/cumm RUFINO Comment:Testing performed by : [address] [address] Neutrophil pct 68.7 % RUFINO Comment: Interpretive Data Percent cell count reference ranges are not reported, since discordance with absolute values may lead to misinterpretation of CBC data. Current Interpretive Data was last revised on 2017. Testing performed by: [address] [address] Imm gran pct 0.2 % RUFINO Comment: Interpretive Data Percent cell count reference ranges are not reported, since discordance with absolute values may lead to misinterpretation of CBC data. Current Interpretive Data was last revised on 2017. Testing performed by: [address] [address] Lymphocyte pct 18.0 % RUFINO Comment: Interpretive Data Percent cell count reference ranges are not reported, since discordance with absolute values may lead to misinterpretation of CBC data. Current Interpretive Data was last revised on 2017. Testing performed by: [address] [address] Monocyte pct 10.6 % RUFINO Comment: Interpretive Data Percent cell count reference ranges are not reported, since discordance with absolute values may lead to misinterpretation of CBC data. Current Interpretive Data was last revised on 2017. Testing performed by: [address] [address] Eosinophil pct 1.7 % RUFINO Comment: Interpretive Data Percent cell count reference ranges are not reported, since discordance with absolute values may lead to misinterpretation of CBC data. Current Interpretive Data was last revised on 2017. Testing performed by: [address] [address] Basophil pct 0.8 % RUFINO Comment: Interpretive Data Percent cell count reference ranges are not reported, since discordance with absolute values may lead to misinterpretation of CBC data. Current Interpretive Data was last revised on 2017. Testing performed by: [address] [address] Blood 02/28/2025 5:10 AM GM VIDEO 02/28/2025 8:18 AM GM VIDEO us Notinfile Unknown LAB BLOOD ORDERABLES Final Res ult RUFINO 0[address] [facility] Department [place] [address] * (ABNORMAL) CBC with auto differential (02/28/2025 5:10 AM GM VIDEO) WBC 6.32 3.80 - 9.90 K/cumm RUFINO Comment:Testing performed by : [address] [address] Hgb 12.8(L) 13.0 - 17.5 g/dL RUFINO PEREZ Comment:Testing performed by : [address] [place] [address] Hct 38.5(L) 38.9 - 50.3 % RUFINO Comment:Testing performed by : [address], [address] Plt 277 150 - 400 K/cumm RUFINO Comment:Testing performed by : [address], [address] MPV 9.4 9.1 - 12.3 fL RUFINO Comment:Testing performed by : [address], [address] RBC 4.08(L) 4.30 - 5.80 M/cumm RUFINO Comment:Testing performed by : [address], [address] MCV 94.4 81.3 - 96.4 fL RUFINO Comment:Testing performed by : [address], [address] MCH 31.4 27.1 - 33.3 pg RUFINO Comment:Testing performed by : [address], [address] MCHC 33.2 32.3 - 35.7 g/dL RUFINO Comment:Testing performed by : [address], [address] RDW CV 15.1(H) 11.1 - 14.9 % RUFINO Comment:Testing performed by : [address], [address] RDW SD 52.3(H) 35.7 - 48.1 fL RUFINO Comment:Testing performed by : [address], [address] NRBC abs 0.00 0.00 - 0.01 K/cumm RUFINO Comment:Testing performed by : [address], [address] Blood 02/28/2025 5:10 AM GM VIDEO 02/28/2025 8:18 AM GM VIDEO us Notinfile Unknown LAB BLOOD ORDERABLES Final Res ult RUFINO 45[address] [facility] Department [place] [address] * (ABNORMAL) Comprehensive metabolic panel (02/28/2025 5:10 AM GM VIDEO) Sodium 134(L) 135 - 145 mmol/L RUFINO Comment:Testing performed by : [address] [address] Potassium, pl 4.8 3.3 - 4.9 mmol/L RUFINO Comment:Testing performed by : [address], [place]., [address] Chloride 99 97 - 110 mmol/L RUFINO Comment:Testing performed by : [address] [address] CO2 28 22 - 32 mmol/L RUFINO Comment:Testing performed by : [address] [address] Anion gap 7 2 - 15 mmol/L RUFINO Comment:Testing performed by : [address] [address] BUN 25 6 - 25 mg/dL RUFINO Comment:Testing performed by : [address] [address] Creatinine 1.00 0.80 - 1.30 mg/dL RUFINO Comment:Testing performed by : [address] [address] Glucose 157 70 - 199 mg/dL RUFINO Comment: Interpretive Data Fasting glucose >/= 126 [...] Current interpretive data was last revised 2022. Testing performed by: [address] [address] Calcium 9.2 8.5 - 10.3 mg/dL RUFINO Comment:Testing performed by : [address], [address] Bilirubin, total 0.4 0.1 - 1.2 mg/dL RUFINO Comment:Testing performed by : [address] [address] Protein, pl 6.2(L) 6.5 - 8.5 g/dL RUFINO Comment:Testing performed by : [address], [address] Albumin 3.3(L) 3.5 - 5.0 g/dL RUFINO Comment:Testing performed by : [address], [address] Alk phos 106 40 - 130 Units/L RUFINO Comment:Testing performed by : [address], [address] ALT 30 7 - 55 Units/L RUFINO Comment:Testing performed by : [address], [address] AST 34 10 - 50 Units/L RUFINO Comment:Testing performed by : [address], [address] Blood 02/28/2025 5:10 AM GM VIDEO 02/28/2025 8:18 AM GM VIDEO Notinfile Unknown LAB BLOOD ORDERABLES Final Res ult Performing Organization Address City/[facility]/ZIP Co de Phone Number RUFINO 97[address] [facility] [place] [address] * POCT glucose (02/26/2025 11:35 AM GM VIDEO) Glucose, POC 162 70 - 199 mg/dL Blood 02/26/2025 11:3 5 AM GM VIDEO 02/26/2025 11:35 AM GM VIDEO Saira Robles MD LAB POCT ORDERABLES - DEVICE Final Result Performing Organization Address City/[facility]/ZIP Co de Phone Number RUFINO [facility] [place] [address] * Infection Prevention Jannet auris PCR, surveillance Axilla/Groin (02/26/2025 11:05 AM GM VIDEO) Jannet auris DNA Not Detected Not Detected [facility] Comment: Interpretive Data Testing performed by [facility]ious Disease [facility] using the Arian tj 6800 Jannet auris assay. This assay detects DNA from Jannet auris using Real-Time PCR. This assay is laboratory developed and is not cleared by the [place] Food and Drug Administration. The performance characteristics have been verified by the [facility] Infectious Disease [facility]. Axilla/Groin 02/26/2025 11:0 5 AM GM VIDEO 02/26/2025 12:26 PM GM VIDEO Narrative [facility] - 02/27/2025 12:48 PM GM VIDEO Order placed by [facility] due to ring surveillance. us Instant Order Generic Provider LAB MICROBIOLOGY - GENER[place] [address] [facility] * POCT glucose (02/26/2025 7:19 AM GM VIDEO) Glucose, POC 132 70 - 199 mg/dL Blood 02/26/2025 7:19 AM GM VIDEO 02/26/2025 7:19 AM GM VIDEO us Saira Robles MD LAB POCT ORDERABLES - [place] [address] * POCT glucose (02/25/2025 8:43 PM GM VIDEO) Glucose, POC 159 70 - 199 mg/dL Blood 02/25/2025 8:43 PM GM VIDEO 02/25/2025 8:43 PM GM VIDEO us Saira Robles MD LAB POCT ORDERABLES - DEVICE Final Result Performing Organization Address [facility] de Phone Number [facility] [address] [place] [address] * (ABNORMAL) POCT glucose (02/25/2025 5:01 PM GM VIDEO) Glucose, POC 201(H) 70 - 199 mg/dL Blood 02/25/2025 5:01 PM GM VIDEO 02/25/2025 5:01 PM GM VIDEO us Saira Robles MD LAB POCT ORDERABLES - DEVICE Final Result Performing Organization Address [facility] Phone Number [facility] [place] [place] [address] * POCT glucose (02/25/2025 12:03 PM GM VIDEO) Glucose, POC 153 70 - 199 mg/dL Blood 02/25/2025 12:0 3 PM GM VIDEO 02/25/2025 12:03 PM GM VIDEO us Saira Robles MD LAB POCT ORDERABLES - DEVICE Final Result Performing Organization Address [facility] de Phone Number [facility] [place] [place] [address] * POCT glucose (02/25/2025 7:34 AM GM VIDEO) Glucose, POC 145 70 - 199 mg/dL Blood 02/25/2025 7:34 AM GM VIDEO 02/25/2025 7:34 AM GM VIDEO us Saira Robles MD LAB POCT ORDERABLES - DEVICE Final Result Performing Organization Address [facility] Co de Phone Number [facility] [place] [place] [address] * POCT glucose (02/24/2025 8:10 PM GM VIDEO) Glucose, POC 156 70 - 199 mg/dL Blood 02/24/2025 8:10 PM GM VIDEO 02/24/2025 8:10 PM GM VIDEO Saira Robles MD LAB POCT ORDERABLES - DEVICE Final Result Performing Organization Address [facility] [place] [address] * POCT glucose (02/24/2025 6:42 PM GM VIDEO) Glucose, POC 185 70 - 199 mg/dL Blood 02/24/2025 6:42 PM GM VIDEO 02/24/2025 6:42 PM GM VIDEO us Saira Robles MD LAB POCT ORDERABLES - DEVICE Final Result Performing Organization Address [facility] Co de Phone Number [facility] [place] [place] [address] * POCT glucose (02/24/2025 11:50 AM GM VIDEO) Glucose, POC 187 70 - 199 mg/dL Blood 02/24/2025 11:5 0 AM GM VIDEO 02/24/2025 11:50 AM GM VIDEO us Saira Robles MD LAB POCT ORDERABLES - DEVICE Final Result Performing Organization Address [facility] Co de Phone Number [facility] [place] [place] [address] * XR Abdomen Ap 1 Vw (02/24/2025 9:50 AM GM VIDEO) Anatomical Region Laterality Modality Body, Abdomen N/A Computed Radiogr aphy 02/25/2025 8:04 AM GM VIDEO Impressions 02/25/2025 8:04 AM GM VIDEO Moderate amount of stool seen within the ascending, transverse and upper descending colon. Normal gas pattern. Some mottling in the right hemiabdomen favored to represent stool. Small left pleural effusion with atelectasis. Electronically signed by: Lachelle Brewer M.D. Narrative 02/25/2025 8:04 AM GM VIDEO EXAMINATION: Abdomen, one view. HISTORY: Constipation COMPARISON: None Procedure Note Lachelle Brewer MD - 02/25/2025 EXAMINATION: Abdomen, one view. HISTORY: Constipation COMPARISON: None IMPRESSION: Moderate amount of stool seen within the ascending, transverse and upper descending colon. Normal gas pattern. Some mottling in the right hemiabdomen favored to represent stool. Small left pleural effusion with atelectasis. Electronically signed by: Lachelle Brewer M.D. Saira Robles MD IMG XR PROCEDURES Fin al Result * POCT glucose (02/24/2025 7:46 AM GM VIDEO) Glucose, POC 153 70 - 199 mg/dL Blood 02/24/2025 7:46 AM GM VIDEO 02/24/2025 7:46 AM GM VIDEO Saira Robles MD LAB POCT ORDERABLES - DEVICE Final Result RUFINO [facility] [place] [address] * eGFR (02/24/2025 1:21 AM GM VIDEO) eGFR 65 >=60 mL/min/1. 73 m2 Comment: Interpretive Data [...] interpretive data was last reviewed 2021. Blood 02/24/2025 1:21 AM GM VIDEO 02/24/2025 2:33 AM GM VIDEO Dm Matthews MD LAB BLOOD ORDERABLES Final Resul t [facility] Department [place] [address] * Differential, auto (02/24/2025 1:21 AM GM VIDEO) Neutrophil abs 3.37 1.50 - 6.50 K/cumm Imm gran abs 0.03 0.00 - 0.10 K/cumm [facility] Lymphocyte abs 1.69 0.80 - 3.30 K/cumm [facility] Monocyte abs 0.70 0.20 - 0.80 K/cumm [facility] Eosinophil abs 0.14 0.00 - 0.50 K/cumm [facility] Basophil abs 0.04 0.00 - 0.10 K/cumm [facility] Neutrophil pct 56.5 % [facility] Comment: Interpretive Data Percent cell count reference ranges are not reported, since discordance with absolute values may lead to misinterpretation of CBC data. Current Interpretive Data was last revised on 2017. Imm gran pct 0.5 % [facility] Comment: Interpretive Data Percent cell count reference ranges are not reported, since discordance with absolute values may lead to misinterpretation of CBC data. Current Interpretive Data was last revised on 2017. Lymphocyte pct 28.3 % [facility] Comment: Interpretive Data Percent cell count reference ranges are not reported, since discordance with absolute values may lead to misinterpretation of CBC data. Current Interpretive Data was last revised on 2017. Monocyte pct 11.7 % [facility] Comment: Interpretive Data Percent cell count reference ranges are not reported, since discordance with absolute values may lead to misinterpretation of CBC data. Current Interpretive Data was last revised on 2017. Eosinophil pct 2.3 % [facility] Comment: Interpretive Data Percent cell count reference ranges are not reported, since discordance with absolute values may lead to misinterpretation of CBC data. Current Interpretive Data was last revised on 2017. Basophil pct 0.7 % [facility] Comment: Interpretive Data Percent cell count reference ranges are not reported, since discordance with absolute values may lead to misinterpretation of CBC data. Current Interpretive Data was last revised on 2017. Blood 02/24/2025 1:21 AM GM VIDEO 02/24/2025 2:33 AM GM VIDEO Dm Matthews MD LAB BLOOD ORDERABLES Final Resul t [facility] Department [place] [address] * (ABNORMAL) CBC with auto differential (02/24/2025 1:21 AM GM VIDEO) WBC 5.97 3.80 - 9.90 K/cumm Hgb 12.5(L) 13.0 - 17.5 g/dL [facility] Hct 38.0(L) 38.9 - 50.3 % [facility] Plt 295 150 - 400 K/cumm [facility] MPV 9.6 9.1 - 12.3 fL [facility] RBC 4.08(L) 4.30 - 5.80 M/cumm [facility] MCV 93.1 81.3 - 96.4 fL [facility] MCH 30.6 27.1 - 33.3 pg [facility] MCHC 32.9 32.3 - 35.7 g/dL [facility] RDW CV 15.2(H) 11.1 - 14.9 % [facility] RDW SD 51.7(H) 35.7 - 48.1 fL [facility] NRBC abs 0.00 0.00 - 0.01 K/cumm [facility] Blood 02/24/2025 1:21 AM GM VIDEO 02/24/2025 2:33 AM GM VIDEO us Dm Matthews MD LAB BLOOD ORDERABLES Final Resul t Performing Organization Address City/[facility]/ZIP Co de Phone Number [facility] [place] [address] * Copper, serum (02/24/2025 1:21 AM GM VIDEO) Copper 108 73 - 129 mcg/dL [facility] Comment: ADDITIONAL INFORMATION This test was developed and its performance characteristics determined by [facility] in a manner consistent with CLIA requirements. This test has not been cleared or approved by the [place].S. Food and Drug Administration. Test Performed by: [facility] [place] [address] Crude Unit Operator: Agustín Sherman Ph.D.; CLIA# [id number] Blood 02/24/2025 1:21 AM GM VIDEO 02/24/2025 2:31 AM GM VIDEO us Saira Robles MD LAB BLOOD ORDERABLES Final Result [facility] [employer] [place], [place] [id number] [facility] * Zinc (02/24/2025 1:21 AM GM VIDEO) Zinc 68 60 - 106 mcg/dL [facility] Comment: ADDITIONAL INFORMATION This test was developed and its performance characteristics determined by [facility] in a manner consistent with CLIA requirements. This test has not been cleared or approved by the [place].S. Food and Drug Administration. Test Performed by: [facility] - [facility] [address] [place] [address] Crude Unit Operator: Agustín Sherman Ph.D.; CLIA# [id number] Blood 02/24/2025 1:21 AM GM VIDEO 02/24/2025 2:31 AM GM VIDEO Saira Robles MD LAB BLOOD ORDERABLES Final Result Performing Organization Address [facility] [facility] Co de Phone Number [facility] [address] [place] [address] [facility] * (ABNORMAL) Hepatic function panel (02/24/2025 1:21 AM GM VIDEO) Bilirubin, total 0.4 0.1 - 1.2 mg/dL Bilirubin, direct <0.2 0.1 - 0.3 mg/dL [facility] Protein, pl 6.4(L) 6.5 - 8.5 g/dL [facility] Albumin 3.6 3.5 - 5.0 g/dL [facility] Alk phos 99 40 - 130 Units/L [facility] ALT 28 7 - 55 Units/L [facility] AST 38 10 - 50 Units/L [facility] Blood 02/24/2025 1:21 AM GM VIDEO 02/24/2025 2:33 AM GM VIDEO us Dm Matthews MD LAB BLOOD ORDERABLES Final Resul t Performing Organization Address City/[facility]/ZIP Co de Phone Number [facility] [address] [place] [address] * Basic metabolic panel (02/24/2025 1:21 AM GM VIDEO) Sodium 138 135 - 145 mmol/L Potassium, pl 3.9 3.3 - 4.9 mmol/L [facility] Chloride 100 97 - 110 mmol/L [facility] CO2 28 22 - 32 mmol/L [facility] Anion gap 10 2 - 15 mmol/L [facility] BUN 20 6 - 25 mg/dL [facility] Creatinine 1.16 0.80 - 1.30 mg/dL [facility] Glucose 133 70 - 199 mg/dL [facility] Comment: Interpretive Data Fasting glucose >/= 126 [...] 2022. Calcium 8.8 8.5 - 10.3 mg/dL [facility] Blood 02/24/2025 1:21 AM GM VIDEO 02/24/2025 2:33 AM GM VIDEO us Dm Matthews MD LAB BLOOD ORDERABLES Final Resul t Performing Organization Address City/[facility]/ZIP Co de Phone Number [facility] Department [place] [address] [place] [address] * POCT glucose (02/23/2025 9:23 PM GM VIDEO) Glucose, POC 192 70 - 199 mg/dL Blood 02/23/2025 9:23 PM GM VIDEO 02/23/2025 9:23 PM GM VIDEO us Saira Robles MD LAB POCT ORDERABLES - DEVICE Final Result Performing Organization Address City/[facility]/ZIP Co de Phone Number [facility] Department [place] [address] [place] [address] * MRI Spine Cervical and Thoracic WO Contrast (02/23/2025 8:45 PM GM VIDEO) Anatomical Region Laterality Modality Spine N/A Magnetic Resonan ce 02/23/2025 9:25 PM GM VIDEO Impressions 02/23/2025 10:13 PM GM VIDEO 1. Mild degenerative changes in the cervical spine. No high-grade spinal canal or neural foraminal stenosis at any level. Heterogeneous bone marrow signal, which may be due to osteopenia. 2. No definitive cord signal change in the cervical and thoracic spine. 3. Partially imaged left pleural effusion. Dictated by: Julia Whittaker M.D. The radiology attending physician has personally reviewed this study, and had reviewed and/or edited this written report and agrees with it. Electronically signed by: Hugo Mcgee MD, PhD Narrative 02/23/2025 10:13 PM GM VIDEO EXAMINATION: 1. Magnetic resonance imaging (MRI) of the cervical spine without contrast 2. Magnetic resonance imaging (MRI) of the thoracic spine without contrast HISTORY: Concern for ALS. TECHNIQUE: Multiplanar multi-weighted MRI of the cervical spine was performed without intravenous contrast using the standard protocol. Multiplanar multi-weighted MRI of the thoracic spine was performed without intravenous contrast using the standard protocol. COMPARISON: None Available. FINDINGS: CERVICAL SPINE: The alignment of the cervical spine is normal. Vertebral bodies demonstrate heterogeneous signal intensity on all sequences. No acute fracture is identified. The craniocervical junction is normal. The visualized portions of the skull base and the posterior fossa are normal. The spinal cord demonstrates normal signal intensity on all sequences. Multilevel disc desiccation with loss of normal disc height and signal. There are no annular fissures identified. No soft tissue abnormality is identified. Normal signal voids are present in the vertebral arteries. Posterior disc osteophyte complexes from C3-4 to C5-C6 level causing mild spinal canal stenosis. Uncovertebral and facet joint hypertrophy causing varying degrees of neural foramen stenosis, severe on the left side at C4-5 level and moderate bilaterally at C5-C6 level. THORACIC SPINE: The alignment of the thoracic spine is normal. Heterogeneous marrow signal. Schmorl's node inferior endplate of T7 vertebra. Small hemangiomas in multiple thoracic vertebrae, with largest in T12 vertebra. There are no compression fractures. The spinal cord demonstrates normal signal intensity on all sequences. Bibasal atelectasis. Small left pleural effusion.. The aorta is normal. Paraspinal muscle atrophy. Partially visualized left pleural effusion. Multilevel disc desiccation. No high-grade spinal canal or neural foramen stenosis. Procedure Note Hugo Mcgee MD PhD - 02/23/2025 EXAMINATION: 1. Magnetic resonance imaging (MRI) of the cervical spine without contrast 2. Magnetic resonance imaging (MRI) of the thoracic spine without contrast HISTORY: Concern for ALS. TECHNIQUE: Multiplanar multi-weighted MRI of the cervical spine was performed without intravenous contrast using the standard protocol. Multiplanar multi-weighted MRI of the thoracic spine was performed without intravenous contrast using the standard protocol. COMPARISON: None Available. FINDINGS: CERVICAL SPINE: The alignment of the cervical spine is normal. Vertebral bodies demonstrate heterogeneous signal intensity on all sequences. No acute fracture is identified. The craniocervical junction is normal. The visualized portions of the skull base and the posterior fossa are normal. The spinal cord demonstrates normal signal intensity on all sequences. Multilevel disc desiccation with loss of normal disc height and signal. There are no annular fissures identified. No soft tissue abnormality is identified. Normal signal voids are present in the vertebral arteries. Posterior disc osteophyte complexes from C3-4 to C5-C6 level causing mild spinal canal stenosis. Uncovertebral and facet joint hypertrophy causing varying degrees of neural foramen stenosis, severe on the left side at C4-5 level and moderate bilaterally at C5-C6 level. THORACIC SPINE: The alignment of the thoracic spine is normal. Heterogeneous marrow signal. Schmorl's node inferior endplate of T7 vertebra. Small hemangiomas in multiple thoracic vertebrae, with largest in T12 vertebra. There are no compression fractures. The spinal cord demonstrates normal signal intensity on all sequences. Bibasal atelectasis. Small left pleural effusion.. The aorta is normal. Paraspinal muscle atrophy. Partially visualized left pleural effusion. Multilevel disc desiccation. No high-grade spinal canal or neural foramen stenosis. IMPRESSION: 1. Mild degenerative changes in the cervical spine. No high-grade spinal canal or neural foraminal stenosis at any level. Heterogeneous bone marrow signal, which may be due to osteopenia. 2. No definitive cord signal change in the cervical and thoracic spine. 3. Partially imaged left pleural effusion. Dictated by: Julia Whittaker M.D. The radiology attending physician has personally reviewed this study, and had reviewed and/or edited this written report and agrees with it. Electronically signed by: Hugo Mcgee MD, PhD us Dm Matthews MD IMG MRI PROCEDURES Final Result * POCT glucose (02/23/2025 5:21 PM GM VIDEO) Glucose, POC 166 70 - 199 mg/dL Blood 02/23/2025 5:21 PM GM VIDEO 02/23/2025 5:21 PM GM VIDEO us Saira Robles MD LAB POCT ORDERABLES - DEVICE Final Result Performing Organization Address [facility] de Phone Number [facility] Department [place] [address] * POCT glucose (02/23/2025 12:39 PM GM VIDEO) Glucose, POC 153 70 - 199 mg/dL Blood 02/23/2025 12:3 9 PM GM VIDEO 02/23/2025 12:39 PM GM VIDEO us Saira Robles MD LAB POCT ORDERABLES - DEVICE Final Result Performing Organization Address [facility] de Phone Number [facility] Department [place] [address] * RPR Blood (02/23/2025 9:59 AM GM VIDEO) RPR Nonreactive Nonreactive Blood 02/23/2025 9:59 AM GM VIDEO 02/23/2025 10:38 AM GM VIDEO us Saira Robles MD LAB MICROBIOLOGY - GE NERAL ORDERABLES Final Result Performing Organization Address [facility] Co de Phone Number [facility] [place] [address] [place] [address] * POCT glucose (02/23/2025 7:44 AM GM VIDEO) Glucose, POC 125 70 - 199 mg/dL Blood 02/23/2025 7:44 AM GM VIDEO 02/23/2025 7:44 AM GM VIDEO us Saira Robles MD LAB POCT ORDERABLES - DEVICE Final Result Performing Organization Address City/[facility]/ZIP [place] [address] * eGFR (02/22/2025 9:15 PM GM VIDEO) eGFR 80 >=60 mL/min/1. 73 m2 Comment: Interpretive Data [...] interpretive data was last reviewed 2021. Blood 02/22/2025 9:15 PM GM VIDEO 02/22/2025 9:59 PM GM VIDEO us Dm Matthews MD LAB BLOOD ORDERABLES Final Resul t Performing Organization Address City/[facility]/ZIP Co de Phone Number [facility] [place] [address] [place] [address] * Differential, auto (02/22/2025 9:15 PM GM VIDEO) Neutrophil abs 3.57 1.50 - 6.50 K/cumm Imm gran abs 0.02 0.00 - 0.10 K/cumm [facility] Lymphocyte abs 1.19 0.80 - 3.30 K/cumm [facility] Monocyte abs 0.63 0.20 - 0.80 K/cumm [facility] Eosinophil abs 0.12 0.00 - 0.50 K/cumm [facility] Basophil abs 0.05 0.00 - 0.10 K/cumm [facility] Neutrophil pct 63.9 % [facility] Comment: Interpretive Data Percent cell count reference ranges are not reported, since discordance with absolute values may lead to misinterpretation of CBC data. Current Interpretive Data was last revised on 2017. Imm gran pct 0.4 % [facility] Comment: Interpretive Data Percent cell count reference ranges are not reported, since discordance with absolute values may lead to misinterpretation of CBC data. Current Interpretive Data was last revised on 2017. Lymphocyte pct 21.3 % [facility] Comment: Interpretive Data Percent cell count reference ranges are not reported, since discordance with absolute values may lead to misinterpretation of CBC data. Current Interpretive Data was last revised on 2017. Monocyte pct 11.3 % [facility] Comment: Interpretive Data Percent cell count reference ranges are not reported, since discordance with absolute values may lead to misinterpretation of CBC data. Current Interpretive Data was last revised on 2017. Eosinophil pct 2.2 % [facility] Comment: Interpretive Data Percent cell count reference ranges are not reported, since discordance with absolute values may lead to misinterpretation of CBC data. Current Interpretive Data was last revised on 2017. Basophil pct 0.9 % [facility] Comment: Interpretive Data Percent cell count reference ranges are not reported, since discordance with absolute values may lead to misinterpretation of CBC data. Current Interpretive Data was last revised on 2017. Blood 02/22/2025 9:15 PM GM VIDEO 02/22/2025 9:59 PM GM VIDEO Dm Matthews MD LAB BLOOD ORDERABLES Final Resul t Performing Organization Address City/[facility]/ZIP Co de Phone Number [facility] Department [place] [address] * (ABNORMAL) CBC with auto differential (02/22/2025 9:15 PM GM VIDEO) Pathologist [facility] WBC 5.58 3.80 - 9.90 K/cumm Hgb 11.3(L) 13.0 - 17.5 g/dL [facility] Hct 34.1(L) 38.9 - 50.3 % [facility] Plt 248 150 - 400 K/cumm [facility] MPV 9.5 9.1 - 12.3 fL [facility] RBC 3.68(L) 4.30 - 5.80 M/cumm [facility] MCV 92.7 81.3 - 96.4 fL [facility] MCH 30.7 27.1 - 33.3 pg [facility] MCHC 33.1 32.3 - 35.7 g/dL [facility] RDW CV 15.0(H) 11.1 - 14.9 % [facility] RDW SD 50.7(H) 35.7 - 48.1 fL [facility] NRBC abs 0.00 0.00 - 0.01 K/cumm [facility] Blood 02/22/2025 9:15 PM GM VIDEO 02/22/2025 9:59 PM GM VIDEO Dm Matthews MD LAB BLOOD ORDERABLES Final Resul t Performing Organization Address [facility]/ZIP Co de Phone Number [facility] Department [place] [address] * Copper, serum (02/22/2025 9:15 PM GM VIDEO) Copper 97 73 - 129 mcg/dL [facility] Comment: ADDITIONAL INFORMATION This test was developed and its performance characteristics determined by [facility] in a manner consistent with CLIA requirements. This test has not been cleared or approved by the U.S. Food and Drug Administration. Test Performed by: [place] [address] Crude Unit Operator: Agustín Sherman Ph.D.; CLIA# [id number] Blood 02/22/2025 9:15 PM GM VIDEO 02/22/2025 10:10 PM GM VIDEO Janice Leon MD LAB BLOOD ORDERABLES Final Result Performing Organization Address City/[facility] Co de Phone Number [facility] [place] [address] [facility] * (ABNORMAL) Zinc (02/22/2025 9:15 PM GM VIDEO) Zinc 53(L) 60 - 106 mcg/dL [facility] Comment: ADDITIONAL INFORMATION This test was developed and its performance characteristics determined by [facility] in a manner consistent with CLIA requirements. This test has not been cleared or approved by the U.S. Food and Drug Administration. Test Performed by: [facility] [place] [address] Crude Unit Operator: Agustín Sherman Ph.D.; CLIA# [id number] Blood 02/22/2025 9:15 PM GM VIDEO 02/22/2025 10:10 PM GM VIDEO Janice Leon MD LAB BLOOD ORDERABLES Final Result Performing Organization Address City/[facility] Co de Phone Number [facility] [place] [address] [facility] * (ABNORMAL) Aldolase (02/22/2025 9:15 PM GM VIDEO) Aldolase 8.4(H) 0.1 - 8.0 Units/L Comment:Reviewed Blood 02/22/2025 9:15 PM GM VIDEO 02/22/2025 9:59 PM GM VIDEO Janice Leon MD LAB BLOOD ORDERABLES Final Result Performing Organization Address [facility] de Phone Number [facility] [place] [address] * Vitamin E (02/22/2025 9:15 PM GM VIDEO) Pathologist [facility] Tocopherol (Vit E) 8.7 5.5 - 17.0 mg/L [facility] Comment: ADDITIONAL INFORMATION This test was developed and its performance characteristics determined by [facility] in a manner consistent with CLIA requirements. This test has not been cleared or approved by the U.S. Food and Drug Administration. Test Performed by: [facility] [place] [facility] [address] [place] [address] Crude Unit Operator: Agustín Sherman Ph.D.; CLIA# [id number] Blood 02/22/2025 9:15 PM GM VIDEO 02/22/2025 10:15 PM GM VIDEO Janice Leon MD LAB BLOOD ORDERABLES Final Result Performing Organization Address [facility] Co de Phone Number [facility] [place] [address] [place] [address] [facility] * Creatine kinase (CK), total (02/22/2025 9:15 PM GM VIDEO) [facility] Signature CK 235 40 - 300 Units/L Blood 02/22/2025 9:15 PM GM VIDEO 02/22/2025 9:59 PM GM VIDEO Janice Leon MD LAB BLOOD ORDERABLES Final Result Performing Organization Address [facility] Co de Phone Number [facility] Department [place] [address] * (ABNORMAL) Hepatic function panel (02/22/2025 9:15 PM GM VIDEO) Bilirubin, total 0.4 0.1 - 1.2 mg/dL Bilirubin, direct <0.2 0.1 - 0.3 mg/dL [facility] Protein, pl 6.1(L) 6.5 - 8.5 g/dL [facility] Albumin 3.0(L) 3.5 - 5.0 g/dL [facility] Alk phos 90 40 - 130 Units/L [facility] ALT 25 7 - 55 Units/L [facility] AST 34 10 - 50 Units/L [facility] Blood 02/22/2025 9:15 PM GM VIDEO 02/22/2025 9:59 PM GM VIDEO Dm Matthews MD LAB BLOOD ORDERABLES Final Resul t Performing Organization Address [facility] Co de Phone Number [facility] Department [place] [address] * Basic metabolic panel (02/22/2025 9:15 PM GM VIDEO) [facility] Sodium 135 135 - 145 mmol/L Potassium, pl 4.0 3.3 - 4.9 mmol/L [facility] Chloride 101 97 - 110 mmol/L [facility] CO2 26 22 - 32 mmol/L [facility] Anion gap 8 2 - 15 mmol/L [facility] BUN 18 6 - 25 mg/dL [facility] Creatinine 0.98 0.80 - 1.30 mg/dL [facility] Glucose 131 70 - 199 mg/dL [facility] Comment: Interpretive Data Fasting glucose >/= 126 [...] interpretive data was last revised 2022. Calcium 8.7 8.5 - 10.3 mg/dL [facility] Blood 02/22/2025 9:15 PM GM VIDEO 02/22/2025 9:59 PM GM VIDEO Dm Matthews MD LAB BLOOD ORDERABLES Final Resul t Performing Organization Address [facility] Co de Phone Number [facility] [place] [address] [place] [address] * POCT glucose (02/22/2025 8:41 PM GM VIDEO) Glucose, POC 142 70 - 199 mg/dL Blood 02/22/2025 8:41 PM GM VIDEO 02/22/2025 8:41 PM GM VIDEO Saira Robles MD LAB POCT ORDERABLES - DEVICE Final Result Performing Organization Address [facility] Phone Number [facility] Department [place] [place] [address] * Aldolase (02/22/2025 3:19 PM GM VIDEO) Aldolase See Comment 0.1 - 8.0 Units/L Comment: Credited; Hemolyzed Specimen Telephone report made to: ALESHA Meng on 02/22/2025 16:42:56 GM VIDEO by SO . Blood 02/22/2025 3:19 PM GM VIDEO 02/22/2025 4:08 PM GM VIDEO Saira Robles MD LAB BLOOD ORDERABLES Final Result Performing Organization Address [facility] Co de Phone Number [facility] Department [place] [place] [address] * Creatine kinase (CK), total (02/22/2025 3:19 PM GM VIDEO) CK 219 40 - 300 Units/L Blood 02/22/2025 3:19 PM GM VIDEO 02/22/2025 4:08 PM GM VIDEO Saira Robles MD LAB BLOOD ORDERABLES Final Result Performing Organization Address [facility] Co de Phone Number [facility] [place] [address] * POCT glucose (02/22/2025 2:04 PM GM VIDEO) Glucose, POC 160 70 - 199 mg/dL Blood 02/22/2025 2:04 PM GM VIDEO 02/22/2025 2:04 PM GM VIDEO Saira Robles MD LAB POCT ORDERABLES - DEVICE Final Result Performing Organization Address [facility] de Phone Number [facility] [place] [address] * Volume and period, urine, 24 hour (02/22/2025 11:45 AM GM VIDEO) Volume, ur 1,175 mL Period, Urine Collection 1,440 min [facility] Urine 02/22/2025 11:4 5 AM GM VIDEO 02/22/2025 1:31 PM GM VIDEO Dm Matthews MD LAB URINE ORDERABLES Final Resul t Performing Organization Address [facility] de Phone Number [facility] [place] [address] * Protein electrophoresis, urine, 24 hour (02/22/2025 11:45 AM GM VIDEO) Protein, ur, quant 12.2 mg/dL Comment:No reference range e stablished. Albumin, Ur No Protein Visible % [facility] Comment:No reference range e stablished. Alpha-1 globulin, Ur No Protein Visible % [facility] Comment:No reference range e stablished. Alpha-2 globulin, Ur No Protein Visible % [facility] Comment:No reference range e stablished. Beta globulin, Ur No Protein Visible % [facility] Comment:No reference range e stablished. Gamma globulin, Ur No Protein Visible % [facility] Comment:No reference range e stablished. UPEP interp Please see comment [facility] Comment: No apparent monoclonal peak No protein visible See immunofixation for further information Urine concentrated Reviewed and signed by Rebekah Lopez MD, PhD 02/25/2025 Protein, 24 hr, ur 143 1 - 150 mg/24H [facility] Urine 02/22/2025 11:4 5 AM GM VIDEO 02/22/2025 1:31 PM GM VIDEO Dm Matthews MD LAB URINE ORDERABLES Final Resul t Performing Organization Address City/[facility] Co de Phone Number [facility] Department [place] [address] * Immunofixation, urine with interpretation (02/22/2025 11:45 AM GM VIDEO) Immunofixation, Ur Please see comment Comment:NO PARAPROTEIN DETEC MATT Reviewed and signed by Rebekah Lopez MD, PhD 02/25/2025 Urine 02/22/2025 11:4 5 AM GM VIDEO 02/22/2025 1:31 PM GM VIDEO Dm Matthews MD LAB URINE ORDERABLES Final Resul t Performing Organization Address City/[facility] Co de Phone Number [facility] Department [place] [address] * QUARTER INSPECTOR Evaluation and Treatment (02/22/2025 10:50 AM GM VIDEO) Narrative Gem Hartman SLP - 02/22/2025 10:50 AM GM VIDEO Gem Hartman SLP 02/22/2025 12:17 PM Speech-Language Pathology: Clinical Bedside Swallow HPI/PMH HPI/PMH:74 y.o. male with past medical history of HTN, HLD, DM2, chronic pleuraleffusion (s/p VATS 08/2024) presented with generalized weakness and severe right lower extremity weakness Presented with worsening generalized weakness and severe right lower extremity weakness for 1 year, worsened over the last month. Painless and sensation intact. Unclear etiology but there is concern for ALS or multiple level polyradiculopathy based on EMG. Reports weeks-months SOB on exertion and intermittent short episode chest pain that is pressure like. Unclear etiolog Respiratory/Intubation Status: room air Imaging: CT Chest PE 02/21 Chronic left pleural thickening and loculated left pleural effusion with areas of adjacent round atelectasis are similar in appearance compared to prior. There is a small left anterior pneumothorax which is new compared to prior examination. The right lung is clear. No right pleural effusion or pneumothorax. MRI brain 12/31 1. No acute/recent infarction. 2. Chronic lacunar infarctions, chronic microvascular ischemic type white-matter changes Precautions: fall, TESHA Current Diet Order: regular Baseline Diet: regular General Information Mansoor Chirinoson 02/22/25 General Observations: present. Pt alert, oriented. Reports occasional globus sensation with food that readily clears with a drink. Endorses some trouble coughing up phlegm (such as when he wakes up in the morning) due to weak cough. Incentive spirometer at bedside. Otherwise, denies any dysphagia symptoms. Pain Score: 0 - No pain If pain >4, was RN notified? N/A Patient Stated Goal/Comments: none generated Clinical Impression & Professional Recommendations Diet Solids Recommendation: Regular Diet Liquids Recommendations: Thin/regular Recommended Form of Medications: As tolerated Compensatory Strategies/Modifications: Slow rate, Small bites, Single sips Postural Recommendations: Upright Assistance with feeding/swallowing: Setup only Specialty Instructions: oral care 2-3x/day Dysphagia Diagnosis: Oral-pharyngeal function appears WFL Overall Clinical Impression/Additional Information: Oral mechanism grossly intact. Weak cough. Self-fed PO trials thin water by straw, puree, and hard solids. Adequate mastication, full oral clearance. No overt signs of aspiration across numerous trials and all consistencies. Denies any globus sensation and voice was clear. Do not suspect dysphagia at this time. Education provided to pt and that, depending on further work up/diagnosis, swallow function may worsen over time if it is a progressive disease. Education provided on general aspiration precautions and when to call doctor/get QUARTER INSPECTOR referral. They verbalized understanding. Assessment Details & Results Consistencies Administered: Thin liquids, Purees, Solids MASA: Head Assessment of Swallowing Ability (MASA) Alertness: Alert Cooperation: Cooperative Auditory Comprehension: No abnormality detected Respiration: Chest clear Respiratory Rate (for swallow): Able to control breath rate for swallow Aphasia: No abnormality detected Apraxia: No abnormality detected Dysarthria: No abnormality detected Saliva: No abnormality detected Lip Seal: No abnormality detected Tongue Movement: Full range of motion Tongue Strength: No abnormality detected Tongue Coordination: No abnormality detected Gag: No gag (did not assess) Palate: No abnormality detected Cough Reflex: Weak reflexive cough Voluntary Cough: Attempt, inadequate Voice: No abnormality detected Trach: No trach Oral Preparation: No deficits noted Bolus Clearance: Fully cleared Oral Transit: No deficits noted Pharyngeal Phase: Immediate laryngeal elevation Pharyngeal Response: No deficits noted MASA Score: 189 Dysphagia: No dysphagia detected (178-200) Aspiration Risk: No aspiration risk (170-200) Plan QUARTER INSPECTOR Frequency of Services during current admission: One-time visit (Discharge from this service) QUARTER INSPECTOR Recommendation (Add'l Services): Other (No further QUARTER INSPECTOR at this time. QUARTER INSPECTOR at next level of care pending further work up/diagnosis) Further Assessment/Follow up Indicated: Recommendations: Speech at next level of care (pending further work up/diagnosis). If ALS, consider OP QUARTER INSPECTOR for voice banking and ongoing assessment of dysphagia. Next Visit Plan:No further ST warranted at this time Additional Referrals: no Please reference care plan for treatment goals, if indicated. Discharge Summary Statement If this is the last swallow therapy visit, this serves as the discharge summary. Dm Matthews MD QUARTER INSPECTOR ORDERABLES Final Result * XR Chest 1 View (02/22/2025 8:17 AM GM VIDEO) Anatomical Region Laterality Modality Body, Chest N/A Computed Radiogr aphy 02/22/2025 9:04 AM GM VIDEO Impressions 02/22/2025 9:41 AM GM VIDEO The current study is compared with the prior radiograph dated 02/19/2025. Stable small left pneumothorax. Mild cardiomegaly, similar prior. Basilar atelectasis. Obscuration of the left costophrenic angle. Dictated by: Beth Palacios M.D. The radiology attending physician has personally reviewed this study, and had reviewed and/or edited this written report and agrees with it. Electronically signed by: Padmini Matthews M.D. Narrative 02/22/2025 9:41 AM GM VIDEO EXAMINATION: 1 view chest radiograph Procedure Note Padmini Matthews MD - 02/22/2025 EXAMINATION: 1 view chest radiograph IMPRESSION: The current study is compared with the prior radiograph dated 02/19/2025. Stable small left pneumothorax. Mild cardiomegaly, similar prior. Basilar atelectasis. Obscuration of the left costophrenic angle. Dictated by: Beth Palacios M.D. The radiology attending physician has personally reviewed this study, and had reviewed and/or edited this written report and agrees with it. Electronically signed by: Padmini Matthews M.D. us Dm Matthews MD IMG XR PROCEDURES Final Result * POCT glucose (02/22/2025 7:44 AM GM VIDEO) [facility] Glucose, POC 118 70 - 199 mg/dL Blood 02/22/2025 7:44 AM GM VIDEO 02/22/2025 7:44 AM GM VIDEO us Saira Robles MD LAB POCT ORDERABLES - DEVICE Final Result [facility] Department [place] [address] * eGFR (02/21/2025 9:01 PM GM VIDEO) [facility] eGFR 84 >=60 mL/min/1. 73 m2 Comment: Interpretive Data [...] interpretive data was last reviewed 2021. Blood 02/21/2025 9:01 PM GM VIDEO 02/21/2025 9:31 PM GM VIDEO us Dm Matthews MD LAB BLOOD ORDERABLES Final Resul t [facility] Department [place] [address] * Differential, auto (02/21/2025 9:01 PM GM VIDEO) Neutrophil abs 3.44 1.50 - 6.50 K/cumm Imm gran abs 0.01 0.00 - 0.10 K/cumm [facility] Lymphocyte abs 1.18 0.80 - 3.30 K/cumm [facility] Monocyte abs 0.61 0.20 - 0.80 K/cumm [facility] Eosinophil abs 0.10 0.00 - 0.50 K/cumm [facility] Basophil abs 0.03 0.00 - 0.10 K/cumm [facility] Neutrophil pct 63.9 % [facility] Comment: Interpretive Data Percent cell count reference ranges are not reported, since discordance with absolute values may lead to misinterpretation of CBC data. Current Interpretive Data was last revised on 2017. Imm gran pct 0.2 % [facility] Comment: Interpretive Data Percent cell count reference ranges are not reported, since discordance with absolute values may lead to misinterpretation of CBC data. Current Interpretive Data was last revised on 2017. Lymphocyte pct 22.0 % [facility] Comment: Interpretive Data Percent cell count reference ranges are not reported, since discordance with absolute values may lead to misinterpretation of CBC data. Current Interpretive Data was last revised on 2017. Monocyte pct 11.4 % [facility] Comment: Interpretive Data Percent cell count reference ranges are not reported, since discordance with absolute values may lead to misinterpretation of CBC data. Current Interpretive Data was last revised on 2017. Eosinophil pct 1.9 % [facility] Comment: Interpretive Data Percent cell count reference ranges are not reported, since discordance with absolute values may lead to misinterpretation of CBC data. Current Interpretive Data was last revised on 2017. Basophil pct 0.6 % [facility] Comment: Interpretive Data Percent cell count reference ranges are not reported, since discordance with absolute values may lead to misinterpretation of CBC data. Current Interpretive Data was last revised on 2017. Blood 02/21/2025 9:01 PM GM VIDEO 02/21/2025 9:31 PM GM VIDEO us Dm Matthews MD LAB BLOOD ORDERABLES Final Resul t [facility] Department [place] [address] * (ABNORMAL) CBC with auto differential (02/21/2025 9:01 PM GM VIDEO) WBC 5.37 3.80 - 9.90 K/cumm Hgb 11.7(L) 13.0 - 17.5 g/dL [facility] Hct 34.0(L) 38.9 - 50.3 % [facility] Plt 262 150 - 400 K/cumm [facility] MPV 9.6 9.1 - 12.3 fL [facility] RBC 3.80(L) 4.30 - 5.80 M/cumm [facility] MCV 89.5 81.3 - 96.4 fL [facility] MCH 30.8 27.1 - 33.3 pg [facility] MCHC 34.4 32.3 - 35.7 g/dL [facility] RDW CV 15.2(H) 11.1 - 14.9 % [facility] RDW SD 49.2(H) 35.7 - 48.1 fL [facility] NRBC abs 0.00 0.00 - 0.01 K/cumm [facility] Blood 02/21/2025 9:01 PM GM VIDEO 02/21/2025 9:31 PM GM VIDEO Dm Matthews MD LAB BLOOD ORDERABLES Final Resul t Performing Organization Address City/[facility] Co de Phone Number [facility] Department [place] [address] * (ABNORMAL) Hepatic function panel (02/21/2025 9:01 PM GM VIDEO) Bilirubin, total 0.4 0.1 - 1.2 mg/dL Bilirubin, direct <0.2 0.1 - 0.3 mg/dL [facility] Protein, pl 6.1(L) 6.5 - 8.5 g/dL [facility] Albumin 3.3(L) 3.5 - 5.0 g/dL [facility] Alk phos 83 40 - 130 Units/L [facility] ALT 24 7 - 55 Units/L [facility] AST 40 10 - 50 Units/L [facility] Blood 02/21/2025 9:01 PM GM VIDEO 02/21/2025 9:31 PM GM VIDEO Dm Matthews MD LAB BLOOD ORDERABLES Final Resul t Performing Organization Address [facility] Co de Phone Number [facility] Department [place] [address] * (ABNORMAL) Basic metabolic panel (02/21/2025 9:01 PM GM VIDEO) Sodium 135 135 - 145 mmol/L Potassium, pl 4.3 3.3 - 4.9 mmol/L [facility] Chloride 99 97 - 110 mmol/L [facility] CO2 28 22 - 32 mmol/L [facility] Anion gap 8 2 - 15 mmol/L [facility] BUN 18 6 - 25 mg/dL [facility] Creatinine 0.94 0.80 - 1.30 mg/dL [facility] Glucose 168 70 - 199 mg/dL [facility] Comment: Interpretive Data Fasting glucose >/= 126 [...] interpretive data was last revised 2022. Calcium 8.4(L) 8.5 - 10.3 mg/dL [facility] Blood 02/21/2025 9:01 PM GM VIDEO 02/21/2025 9:31 PM GM VIDEO Dm Matthews MD LAB BLOOD ORDERABLES Final Resul t Performing Organization Address City/[facility]/ZIP Co de Phone Number [facility] [place] [place] [address] * POCT glucose (02/21/2025 7:44 PM GM VIDEO) Glucose, POC 167 70 - 199 mg/dL Blood 02/21/2025 7:44 PM GM VIDEO 02/21/2025 7:44 PM GM VIDEO Dm Matthews MD LAB POCT ORDERABLES - DEVICE Fin al Result Performing Organization Address [facility] Co de Phone Number [facility] [place] [place] [address] * CT Chest PE (CTA) W Contrast (02/21/2025 5:34 PM GM VIDEO) Anatomical Region Laterality Modality Body N/A Computed Tomogra phy 02/21/2025 6:36 PM GM VIDEO Impressions 02/21/2025 7:47 PM GM VIDEO 1. No evidence of acute pulmonary embolism. 2. New small left anterior pneumothorax. Dictated by: Rebecca Wilkerson MD The radiology attending physician has personally reviewed this study, and had reviewed and/or edited this written report and agrees with it. Electronically signed by: Bri Fuentes M.D. Narrative 02/21/2025 7:47 PM GM VIDEO EXAMINATION: CT CHEST PE (CTA) W CONTRAST HISTORY: Shortness of breath and chest pain TECHNIQUE: Computed tomographic images were acquired using a chest angiographic protocol optimized for pulmonary embolism. Contrast enhanced transaxial images were obtained following the intravenous administration of 90 ml of nonionic contrast. Multiplanar reformatted images and three-dimensional images were obtained on the 3-D workstation and sent to the PACS archival system. COMPARISON: Noncontrast CT 09/02/2023, CT chest with contrast 07/19/2024 FINDINGS: No acute pulmonary embolism. No supraclavicular, axillary, mediastinal or hilar adenopathy. Volume loss within the left hemithorax is unchanged. Chronic left pleural thickening and loculated left pleural effusion with areas of adjacent round atelectasis are similar in appearance compared to prior. There is a small left anterior pneumothorax which is new compared to prior examination. The right lung is clear. No right pleural effusion or pneumothorax. The heart is mildly enlarged, unchanged. No pericardial effusion. Multivessel coronary artery disease. The thoracic aorta is normal in caliber. No acute process identified within the imaged upper abdomen. No suspicious osseous lesion. Procedure Note Bri Fuentes MD - 02/21/2025 EXAMINATION: CT CHEST PE (CTA) W CONTRAST HISTORY: Shortness of breath and chest pain TECHNIQUE: Computed tomographic images were acquired using a chest angiographic protocol optimized for pulmonary embolism. Contrast enhanced transaxial images were obtained following the intravenous administration of 90 ml of nonionic contrast. Multiplanar reformatted images and three-dimensional images were obtained on the 3-D workstation and sent to the [employer] archival system. COMPARISON: Noncontrast CT 09/02/2023, CT chest with contrast 07/19/2024 FINDINGS: No acute pulmonary embolism. No supraclavicular, axillary, mediastinal or hilar adenopathy. Volume loss within the left hemithorax is unchanged. Chronic left pleural thickening and loculated left pleural effusion with areas of adjacent round atelectasis are similar in appearance compared to prior. There is a small left anterior pneumothorax which is new compared to prior examination. The right lung is clear. No right pleural effusion or pneumothorax. The heart is mildly enlarged, unchanged. No pericardial effusion. Multivessel coronary artery disease. The thoracic aorta is normal in caliber. No acute process identified within the imaged upper abdomen. No suspicious osseous lesion. IMPRESSION: 1. No evidence of acute pulmonary embolism. 2. New small left anterior pneumothorax. Dictated by: Rebecca Wilkerson MD The radiology attending physician has personally reviewed this study, and had reviewed and/or edited this written report and agrees with it. Electronically signed by: Bri Fuentes M.D. Dm Matthews MD IMG CT PROCEDURES Final Result * TRANSTHORACIC ECHO (TTE) COMPLETE W DOPPLER/CF W CONTRAST (02/21/2025 3:55 PM GM VIDEO) EF Mod BP 60 % CONS SCIMAGE Anatomical Region Laterality Modality Ultrasound 02/21/2025 3:04 PM GM VIDEO Narrative 02/21/2025 4:06 PM GM VIDEO [facility] [place] [address] Transthoracic Echocardiographic Report Patient Name: MANSOOR MIDDLETON R : 1950 (74y 3m) Sex: M Study Date: 02/21/2025 03:04:27 PM Ht(Inch): 74 Wt(Lb): 225.97 BSA: 2.29 Rotary Drill Operator Helper: Shea Peterson RDCS [facility] NETWORKMaryanne Location: [id number] Order Provider: AGUSTIN LOZADA Heart Rate: 69 BMI: 29.01 BP: 127 / 59 Ref Provider: AGUSTIN LOZADA PROCEDURES: Echocardiographic Report: Transthoracic complete echo with strain imaging and contrast, 2D, spectral and tissue Doppler, color flow Doppler, M-mode. Contrast: Contrast Enhancement was Employed: After initial imaging due to sub- optimal quality related to co-morbidity defined by patient's body habitus. 0.4 ml Optison Administered, (2.6 ml wasted). Technically difficult study due to: Poor acoustic windows. INDICATIONS: Shortness of breath. CONCLUSIONS: 1. Normal left ventricular size based on volume index. Concentric LV remodeling. Normal left ventricular systolic function. The Ejection Fraction (Amador's) is measured at 60 %. Grade I diastolic dysfunction (normal LA pressure). 2. Normal right ventricular size. Normal right ventricular systolic function. 3. There is no significant valvular heart disease. 4. Normal pericardium without pericardial effusion. 5. Normal aortic root. 6. IVC not visualized due to poor acoustic windows. 7. The Estimated PASP is : 21mmHg+RA pressure. ATTESTATION: I have personally reviewed and interpreted this study without fellow or resident. DISCLAIMER: The study images and the final report will be retained in the patient chart by the Echo Laboratory for the legally required time period. This chart constitutes the legal record of any testing performed. FINDINGS: Left Ventricle: Normal left ventricular size based on volume index. Concentric LV remodeling. Normal left ventricular systolic function. The Ejection Fraction (Amador's) is measured at 60 %. Grade I diastolic dysfunction (normal LA pressure). Right Ventricle: Normal right ventricular size. Normal right ventricular systolic function. Left Atrium: The left atrium is normal in size. Right Atrium: The right atrium is normal in size. Mitral Valve: Normal mitral valve structure. No mitral regurgitation. No stenosis present. The mean transmitral gradient is: 1 mmHg. Aortic Valve: Normal trileaflet aortic valve. No aortic regurgitation. No aortic valve stenosis. The mean transaortic gradient is 3 mmHg. The aortic valve area by the continuity equation (using VTI) is 4.3 cm2. Aortic valve dimensionless index is 0.95. Tricuspid Valve: Normal tricuspid valve structure. No tricuspid regurgitation. No tricuspid valve stenosis. Pulmonic Valve: Normal pulmonic valve structure. No pulmonic regurgitation. No pulmonic valve stenosis present. Pericardium: Normal pericardium without pericardial effusion. Aorta: Normal aortic root. IVC: IVC not visualized due to poor acoustic windows. PASP: The Estimated PASP is : 21+rap mmHg. MEASUREMENTS: 2D/MM Value Range Doppler Value Range LVIDd 2D 5.2 cm [ 4.2 - 5.8 ] AV Peak Elías 1.2 m/s [ 1.0 - 1.7 ] LVIDs 2D 3.0 cm [ 2.5 - 4.0 ] AV Peak PG 6 mmHg IVSd 2D 1.2 cm [ 0.6 - 1.0 ] AV Mean PG 3 mmHg LVPWd 2D 1.2 cm [ 0.6 - 1.0 ] AV VTI 20 cm LV Thickness Ratio 1.0 LVOT Peak Elías 0.9 m/s [ 0.7 - 1.1 ] LV FS 2D 41.88 % [ 25.00 - 43.00 ] LVOT Peak PG 3 mmHg LV Mass 2D 253.34 g LVOT Mean PG 2 mmHg LV Mass Index 2D 110.69 g/m2 LVOT VTI 19 cm RWT 0.46 LVOT Diam 2.4 cm EDV Mod BP 104 ml [ 62 - 150 ] LILI VTI 4.3 cm2 LV EDV Index 45 ml/m2 LVOT/AV VTI 0.95 - Dimensionless index (DVI) ESV Mod BP 42 ml [ 21 - 61 ] MV E Peak Elías 0.58 m/s [ 0.60 - 1.30 ] EF Mod BP 60 % [ 52 - 72 ] MV A Peak Elías 0.74 m/s [ 1.00 - 1.20 ] LA Length 4C 7.2 cm MV E/A 0.8 ratio [ 0.8 - 1.5 ] RV Base Dimen 2D 3.9 cm [ 2.5 - 4.2 ] MV Peak Elías 0.9 m/s RV ED Area 27 cm2 [ 10 - 24 ] MV Peak PG 3 mmHg RV ES Area 17 cm2 [ 3 - 15 ] MV Mean PG 1 mmHg TAPSE 3.1 cm [ 1.7 - 5.0 ] MV VTI 24 cm RA Volume 50 ml MV Decel Steuben 246 RA Volume Index 22 ml/m2 MV Decel Time 238 msec [ 104 - 258 ] AoR Diam 2D 3.7 cm [ 3.1 - 3.7 ] Med E` Elías 3.7 cm/sec [ 8.0 - 25.0 ] Ao Root Index 1.6 cm/m2 [ 1.0 - 2.0 ] Lat E` Elías 3.1 cm/sec [ 10.0 - 25.0 ] Asc Ao Diam 2D 3.7 cm Average E/E` 17 Asc Ao Index 1.6 cm/m2 RV S` 17.0 cm/sec TR Peak Elías 2.3 m/s [ 1.0 - 2.8 ] TR Peak PG 21 mmHg PV Peak Elías 1.0 m/s [ 0.4 - 0.8 ] PV Peak PG 4 mmHg Electronically Signed By: Eloy Hinton MD 02/21/2025 4:06:09 PM GM VIDEO Procedure Note Eloy Hinton MD - 02/21/2025 [facility] [place] [address] Transthoracic Echocardiographic Report Patient Name: MANSOOR MIDDLETON R : 1950 (74y 3m) Sex: M Study Date: 02/21/2025 03:04:27 PM Ht(Inch): 74 Wt(Lb): 225.97 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 Contrast: Contrast Enhancement was Employed: After initial imaging due tosub- optimal quality related to co-morbidity defined by patient's body habitus. 0.4 mlOptison Administered, (2.6 ml wasted). Technically difficult study due to: Poor acoustic windows. INDICATIONS: Shortness of breath. CONCLUSIONS: 1. Normal left ventricular size based on volume index. Concentric LVremodeling. Normal left ventricular systolic function. The Ejection Fraction (Amador's) ismeasured at 60 %. Grade I diastolic dysfunction (normal LA pressure). 2. Normal right ventricular size. Normal right ventricular systolicfunction. 3. There is no significant valvular heart disease. 4. Normal pericardium without pericardial effusion. 5. Normal aortic root. 6. IVC not visualized due to poor acoustic windows. 7. The Estimated PASP is : 21mmHg+RA pressure. ATTESTATION: I have personally reviewed and interpreted this study without fellow orresident. DISCLAIMER: The study images and the final report will be retained in the patientchart by the Echo Laboratory for the legally required time period. This chart constitutesthe legal record of any testing performed. FINDINGS: Left Ventricle: Normal left ventricular size based on volume index.Concentric LV remodeling. Normal left ventricular systolic function. The EjectionFraction (Amador's) is measured at 60 %. Grade I diastolic dysfunction (normal LA pressure). Right Ventricle: Normal right ventricular size. Normal right ventricularsystolic function. Left Atrium: The left atrium is normal in size. Right Atrium: The right atrium is normal in size. Mitral Valve: Normal mitral valve structure. No mitral regurgitation. Nostenosis present. The mean transmitral gradient is: 1 mmHg. Aortic Valve: Normal trileaflet aortic valve. No aortic regurgitation. Noaortic valve stenosis. The mean transaortic gradient is 3 mmHg. The aortic valve areaby the continuity equation (using VTI) is 4.3 cm2. Aortic valve dimensionlessindex is 0.95. Tricuspid Valve: Normal tricuspid valve structure. No tricuspidregurgitation. No tricuspid valve stenosis. Pulmonic Valve: Normal pulmonic valve structure. No pulmonicregurgitation. No pulmonic valve stenosis present. Pericardium: Normal pericardium without pericardial effusion. Aorta: Normal aortic root. IVC: IVC not visualized due to poor acoustic windows. PASP: The Estimated PASP is : 21+rap mmHg. MEASUREMENTS: 2D/MM Value Range DopplerValue Range LVIDd 2D 5.2 cm [ 4.2 - 5.8 ] AV Peak Vel1.2 m/s [ 1.0 - 1.7 ] LVIDs 2D 3.0 cm [ 2.5 - 4.0 ] AV Peak PG6 mmHg IVSd 2D 1.2 cm [ 0.6 - 1.0 ] AV Mean PG3 mmHg LVPWd 2D 1.2 cm [ 0.6 - 1.0 ] AV VTI20 cm LV Thickness Ratio 1.0 LVOT Peak Vel0.9 m/s [ 0.7 - 1.1 ] LV FS 2D 41.88 % [ 25.00 - 43.00 ] LVOT Peak PG3 mmHg LV Mass 2D 253.34 g LVOT Mean PG2 mmHg LV Mass Index 2D 110.69 g/m2 LVOT VTI19 cm RWT 0.46 LVOT Diam2.4 cm EDV Mod BP 104 ml [ 62 - 150 ] LILI VTI4.3 cm2 LV EDV Index 45 ml/m2 LVOT/AV VTI0.95 - Dimensionless index (DVI) ESV Mod BP 42 ml [ 21 - 61 ] MV E Peak Vel0.58 m/s [ 0.60 - 1.30 ] EF Mod BP 60 % [ 52 - 72 ] MV A Peak Vel0.74 m/s [ 1.00 - 1.20 ] LA Length 4C 7.2 cm MV E/A0.8 ratio [ 0.8 - 1.5 ] RV Base Dimen 2D 3.9 cm [ 2.5 - 4.2 ] MV Peak Vel0.9 m/s RV ED Area 27 cm2 [ 10 - 24 ] MV Peak PG3 mmHg RV ES Area 17 cm2 [ 3 - 15 ] MV Mean PG1 mmHg TAPSE 3.1 cm [ 1.7 - 5.0 ] MV VTI24 cm RA Volume 50 ml MV Decel [id number] RA Volume Index 22 ml/m2 MV Decel [id number] msec [ 104 - 258 ] AoR Diam 2D 3.7 cm [ 3.1 - 3.7 ] Med E` Vel3.7 cm/sec [ 8.0 - 25.0 ] Ao Root Index 1.6 cm/m2 [ 1.0 - 2.0 ] Lat E` Vel3.1 cm/sec [ 10.0 - 25.0 ] Asc Ao Diam 2D 3.7 cm Average E/E`17 Asc Ao Index 1.6 cm/m2 RV S`17.0 cm/sec TR Peak Elías 2.3 m/s [ 1.0 - 2.8 ] TR Peak PG 21 mmHg PV Peak Elías 1.0 m/s [ 0.4 - 0.8 ] PV Peak PG 4 mmHg Electronically Signed By: Eloy Hinton MD 02/21/2025 4:06:09 PM GM VIDEO Agustin Lozada MD CV ECHO PROCEDU RES Final Result * POCT glucose (02/21/2025 12:13 PM GM VIDEO) Glucose, POC 150 70 - 199 mg/dL Blood 02/21/2025 12:1 3 PM GM VIDEO 02/21/2025 12:13 PM GM VIDEO Dm Matthews MD LAB POCT ORDERABLES - DEVICE Fin al Result [facility] Department [place] [address] * Neuromuscular Specimen Tracking Inpatient Blood (02/21/2025 11:58 AM GM VIDEO) Blood 02/21/2025 11:5 8 AM GM VIDEO 02/21/2025 11:59 AM GM VIDEO Narrative [facility] - 02/21/2025 11:59 AM GM VIDEO Blood draw complete Dm Matthews MD LAB BLOOD ORDERABLES Final Resul t [facility] Department [place] [address] * eGFR (02/21/2025 11:58 AM GM VIDEO) Pathologist [facility] eGFR 86 >=60 mL/min/1. 73 m2 Comment: Interpretive Data [...] interpretive data was last reviewed 2021. Blood 02/21/2025 11:5 8 AM GM VIDEO 02/21/2025 12:32 PM GM VIDEO us Dm Matthews MD LAB BLOOD ORDERABLES Final Resul t RUFINO NICHOLSON [facility] Department [place] [address] * Differential, auto (02/21/2025 11:58 AM GM VIDEO) Pathologist [facility] Neutrophil abs 3.54 1.50 - 6.50 K/cumm Imm gran abs 0.01 0.00 - 0.10 K/cumm [facility] Lymphocyte abs 0.86 0.80 - 3.30 K/cumm [facility] Monocyte abs 0.49 0.20 - 0.80 K/cumm [facility] Eosinophil abs 0.04 0.00 - 0.50 K/cumm [facility] Basophil abs 0.04 0.00 - 0.10 K/cumm [facility] Neutrophil pct 71.1 % [facility] Comment: Interpretive Data Percent cell count reference ranges are not reported, since discordance with absolute values may lead to misinterpretation of CBC data. Current Interpretive Data was last revised on 2017. Imm gran pct 0.2 % [facility] Comment: Interpretive Data Percent cell count reference ranges are not reported, since discordance with absolute values may lead to misinterpretation of CBC data. Current Interpretive Data was last revised on 2017. Lymphocyte pct 17.3 % [facility] Comment: Interpretive Data Percent cell count reference ranges are not reported, since discordance with absolute values may lead to misinterpretation of CBC data. Current Interpretive Data was last revised on 2017. Monocyte pct 9.8 % [facility] Comment: Interpretive Data Percent cell count reference ranges are not reported, since discordance with absolute values may lead to misinterpretation of CBC data. Current Interpretive Data was last revised on 2017. Eosinophil pct 0.8 % [facility] Comment: Interpretive Data Percent cell count reference ranges are not reported, since discordance with absolute values may lead to misinterpretation of CBC data. Current Interpretive Data was last revised on 2017. Basophil pct 0.8 % [facility] Comment: Interpretive Data Percent cell count reference ranges are not reported, since discordance with absolute values may lead to misinterpretation of CBC data. Current Interpretive Data was last revised on 2017. Blood 02/21/2025 11:5 8 AM GM VIDEO 02/21/2025 12:33 PM GM VIDEO Dm Matthews MD LAB BLOOD ORDERABLES Final Resul t [facility] Department [place] [address] * C4 complement (02/21/2025 11:58 AM GM VIDEO) Complement C4 21.4 10.0 - 40.0 mg/dL Blood 02/21/2025 11:5 8 AM GM VIDEO 02/21/2025 12:32 PM GM VIDEO us Dm Matthews MD LAB BLOOD ORDERABLES Final Resul t Performing Organization Address City/[facility] Co de Phone Number [facility] Department [place] [address] * Pro B-type natriuretic peptide (02/21/2025 11:58 AM GM VIDEO) NT-proBNP 69 <=450 pg/mL Comment: Interpretive Comments: A. Dyspnea in Acute Care Setting All Ages: < 300 pg/ml, acute heart failure unlikely. < 50 yrs: 300 - 450 pg/ml, further investigation warranted. > 450 pg/ml, acute heart failure likely. 50 - 74 yrs: 300 - 900 pg/ml, further investigation warranted. > 900 pg/ml, acute heart failure likely . > or = 75 yrs: 450 - 1800 pg/ml, further investigation warranted. > 1800 pg/ml, acute heart failure likely. B. Non-acute Setting < 75 yrs < 125 pg/ml, rules out heart failure. > or = 125 pg/ml, further investigation warranted. > or = 75 yrs < 450 pg/ml, rules out heart failure. > or = 450 pg/ml, further investigation warranted. - Knowledge of each individual patient's NT-proBNP range may be more useful than using similar cut-points for every patient. Please note that marked elevations in NT-proBNP levels may be observed in state other than Left Ventricular Congestive Failure, including: acute coronary syndromes, right heart strain/failure (including pulmonary embolism and cor pulmonale), critical illness, renal failure, as well as advanced age. - References: 1. Boogie MEDEIROS et.al. Eur Heart J. 2006:27:330-337. 2. Joanne RW, Anders AM. J. AM Ridge Cardiol: Cardiovasc Imag. 2009;2: 216- 225. Interpretive Data Last Revised Date: 2017. Blood 02/21/2025 11:5 8 AM GM VIDEO 02/21/2025 12:32 PM GM VIDEO Dm Matthews MD LAB BLOOD ORDERABLES Final Resul t Performing Organization Address [facility] Co de Phone Number [facility] Department [place] [address] * (ABNORMAL) CBC with auto differential (02/21/2025 11:58 AM GM VIDEO) Pathologist [facility] WBC 4.98 3.80 - 9.90 K/cumm Hgb 12.2(L) 13.0 - 17.5 g/dL [facility] Hct 36.5(L) 38.9 - 50.3 % [facility] Plt 273 150 - 400 K/cumm [facility] MPV 9.5 9.1 - 12.3 fL [facility] RBC 4.04(L) 4.30 - 5.80 M/cumm [facility] MCV 90.3 81.3 - 96.4 fL [facility] MCH 30.2 27.1 - 33.3 pg [facility] MCHC 33.4 32.3 - 35.7 g/dL [facility] RDW CV 14.9 11.1 - 14.9 % [facility] RDW SD 49.4(H) 35.7 - 48.1 fL [facility] NRBC abs 0.00 0.00 - 0.01 K/cumm [facility] Blood 02/21/2025 11:5 8 AM GM VIDEO 02/21/2025 12:33 PM GM VIDEO Dm Matthews MD LAB BLOOD ORDERABLES Final Resul t Performing Organization Address City/[facility]/ZIP Co de Phone Number [facility] Department [place] [address] * C3 complement (02/21/2025 11:58 AM GM VIDEO) Pathologist [facility] Complement C3 120.0 90.0 - 180.0 mg/dL Blood 02/21/2025 11:5 8 AM GM VIDEO 02/21/2025 12:32 PM GM VIDEO Dm Matthews MD LAB BLOOD ORDERABLES Final Resul t Performing Organization Address City/[facility]/ZIP Co de Phone Number [facility] Department [place] [address] * (ABNORMAL) Protein electrophoresis with reflex, serum with interpretation (02/21/2025 11:58 AM GM VIDEO) [facility] Protein, sr 5.7(L) 6.2 - 8.2 g/dL Albumin 3.1(L) 3.2 - 5.0 g/dL [facility] Alpha-1 globulin 0.3 0.2 - 0.4 g/dL [facility] Alpha-2 globulin 0.7 0.5 - 1.0 g/dL [facility] Beta-1 globulin 0.3 0.3 - 0.6 g/dL [facility] Beta-2 globulin 0.4 0.2 - 0.6 g/dL [facility] Gamma globulin 0.9 0.5 - 1.7 g/dL [facility] SPEP interp Please see comment [facility] Comment: No apparent monoclonal peak Reviewed and signed by Rebekah Lopez MD, PhD 02/22/2025 Blood 02/21/2025 11:5 8 AM GM VIDEO 02/21/2025 12:32 PM GM VIDEO Dm Matthews MD LAB BLOOD ORDERABLES Final Resul t [facility] Department [place] [address] * (ABNORMAL) Comprehensive metabolic panel (02/21/2025 11:58 AM GM VIDEO) [facility] Sodium 136 135 - 145 mmol/L Potassium, pl 3.8 3.3 - 4.9 mmol/L [facility] Chloride 101 97 - 110 mmol/L [facility] CO2 27 22 - 32 mmol/L [facility] Anion gap 8 2 - 15 mmol/L [facility] BUN 20 6 - 25 mg/dL [facility] Creatinine 0.92 0.80 - 1.30 mg/dL [facility] Glucose 188 70 - 199 mg/dL [facility] Comment: Interpretive Data Fasting glucose >/= 126 [...] interpretive data was last revised 2022. Calcium 8.3(L) 8.5 - 10.3 mg/dL [facility] Bilirubin, total 0.4 0.1 - 1.2 mg/dL [facility] Protein, pl 5.9(L) 6.5 - 8.5 g/dL [facility] Albumin 3.3(L) 3.5 - 5.0 g/dL [facility] Alk phos 85 40 - 130 Units/L [facility] ALT 24 7 - 55 Units/L [facility] AST 33 10 - 50 Units/L [facility] Blood 02/21/2025 11:5 8 AM GM VIDEO 02/21/2025 12:32 PM GM VIDEO Dm Matthews MD LAB BLOOD ORDERABLES Final Resul t Performing Organization Address [facility] Co de Phone Number [facility] Department [place] [address] * POCT glucose (02/21/2025 8:02 AM GM VIDEO) Glucose, POC 129 70 - 199 mg/dL Blood 02/21/2025 8:02 AM GM VIDEO 02/21/2025 8:02 AM GM VIDEO Dm Matthews MD LAB POCT ORDERABLES - DEVICE Fin al Result Performing Organization Address City/[facility] Co de Phone Number [facility] Department [place] [address] * POCT glucose (02/20/2025 8:40 PM GM VIDEO) Glucose, POC 180 70 - 199 mg/dL Blood 02/20/2025 8:40 PM GM VIDEO 02/20/2025 8:40 PM GM VIDEO Dm Matthews MD LAB POCT ORDERABLES - DEVICE Fin al Result Performing Organization Address [facility] de Phone Number [facility] [place] [address] * POCT glucose (02/20/2025 4:39 PM GM VIDEO) Glucose, POC 140 70 - 199 mg/dL Blood 02/20/2025 4:39 PM GM VIDEO 02/20/2025 4:39 PM GM VIDEO Dm Matthews MD LAB POCT ORDERABLES - DEVICE Fin al Result Performing Organization Address [facility] de Phone Number [facility] Department [place] [address] * POCT glucose (02/20/2025 12:25 PM GM VIDEO) Pathologist [facility] Glucose, POC 154 70 - 199 mg/dL Blood 02/20/2025 12:2 5 PM GM VIDEO 02/20/2025 12:25 PM GM VIDEO Dm Matthews MD LAB POCT ORDERABLES - DEVICE Fin al Result Performing Organization Address [facility] de Phone Number [facility] [address] [place] [address] * Infection Prevention Jannet auris PCR, surveillance Axilla/Groin (02/20/2025 11:19 AM GM VIDEO) [facility] Jannet auris DNA Not Detected Not Detected [facility] Comment: Interpretive Data Testing performed by [facility] Molecular Infectious Disease [facility] using the Arian jt [id number] Jannet auris assay. This assay detects DNA from Jannet auris using Real-Time PCR. This assay is laboratory developed and is not cleared by the [place] Food and Drug Administration. The performance characteristics have been verified by the [facility] Infectious Disease [facility]. Axilla/Groin 02/20/2025 11:1 9 AM GM VIDEO 02/20/2025 2:18 PM GM VIDEO Narrative [facility] - 02/21/2025 1:00 PM GM VIDEO Order placed by [facility] due to ring surveillance. us Instant Order Generic Provider LAB MICROBIOLOGY - GENERAL ORDERABLES Final Result Performing Organization Address [facility] Co de Phone Number [facility] Department [place] [address] [facility] * POCT glucose (02/20/2025 7:31 AM GM VIDEO) Pathologist [facility] Glucose, POC 130 70 - 199 mg/dL Blood 02/20/2025 7:31 AM GM VIDEO 02/20/2025 7:31 AM GM VIDEO us Dm Matthews MD LAB POCT ORDERABLES - DEVICE Fin al Result Performing Organization Address [facility] de Phone Number [facility] Department [place] [address] * (ABNORMAL) Aldolase (02/20/2025 6:43 AM GM VIDEO) Pathologist [facility] Aldolase 10.2(H) 0.1 - 8.0 Units/L Comment:Reviewed Blood 02/20/2025 6:43 AM GM VIDEO 02/20/2025 7:24 AM GM VIDEO us Jeremi Vargas MD LAB BLOOD ORDERABLES Final Result Performing Organization Address [facility] de Phone Number [facility] Department [place] [address] * Folate (02/20/2025 6:43 AM GM VIDEO) Pathologist [facility] Folic acid >20.0 >=5.0 ng/mL Comment:Repeated and Verifie d Blood 02/20/2025 6:43 AM GM VIDEO 02/20/2025 7:24 AM GM VIDEO Jeremi Vargas MD LAB BLOOD ORDERABLES Final Result Performing Organization Address [facility] Co de Phone Number [facility] Department [place] [address] * SHIPPING AND RECEIVING ASSOCIATE abs (02/20/2025 12:18 AM GM VIDEO) SHIPPING AND RECEIVING ASSOCIATE ab <0.2 <=0.9 Ab Index Comment: Interpretive Data Negative: < 1.0 Ab Index Positive: > or = 1.0 Ab Index Current interpretive data was last revised on 2016. Blood 02/20/2025 12:1 8 AM GM VIDEO 02/20/2025 12:49 AM GM VIDEO Jeremi Vargas MD LAB BLOOD ORDERABLES Final Result Performing Organization Address [facility] de Phone Number [facility] [place] [place] [address] * HIV 1/2 Antibody plus p24 Antigen Blood (02/20/2025 12:18 AM GM VIDEO) HIV 1/2 ab + p24 ag Nonreactive Nonreactive Comment:Nonreactive for HIV- 1 antigen and HIV-1/HIV-2 antibodies. No laboratory evidence of HIV infection. If acute HIV infection is suspected, consider testing for HIV-1 RNA. Current interpretive data was last revised on 21. Blood 02/20/2025 12:1 8 AM GM VIDEO 02/20/2025 12:46 AM GM VIDEO Jeremi Vargas MD LAB MICROBIOLOGY - GENERAL ORDERABLES Final Result Performing Organization Address [facility] Co de Phone Number [facility] [place] [address] [place] [address] * Hepatitis C antibody Blood (02/20/2025 12:18 AM GM VIDEO) [facility] Hep C Ab Nonreactive Nonreactive Comment:Antibodies to HCV no t detected. Does NOT exclude the possibility of recent exposure to HCV. Current interpretive data was last revised on 21 Blood 02/20/2025 12:1 8 AM GM VIDEO 02/20/2025 12:46 AM GM VIDEO Jeremi Vargas MD LAB MICROBIOLOGY - GENERAL ORDERABLES Final Result [facility] [place] [address] * Aldolase (02/20/2025 12:18 AM GM VIDEO) [facility] Aldolase See Comment 0.1 - 8.0 Units/L Comment:Credited; Hemolyzed Specimen Blood 02/20/2025 12:1 8 AM GM VIDEO 02/20/2025 12:46 AM GM VIDEO Jeremi Vargas MD LAB BLOOD ORDERABLES Final Result Performing Organization Address City/[facility] Co de Phone Number [facility] Department [place] [place] [address] * Vitamin D 25 hydroxy (02/20/2025 12:18 AM GM VIDEO) [facility] Vitamin D 25-OH 35 30 - 80 ng/mL Blood 02/20/2025 12:1 8 AM GM VIDEO 02/20/2025 12:47 AM GM VIDEO Jeremi Vargas MD LAB BLOOD ORDERABLES Final Result Performing Organization Address City/[facility] Co de Phone Number [facility] [place] [address] * Sjogren's syndrome B ab (02/20/2025 12:18 AM GM VIDEO) Anti-KELLY, SS-B <0.2 <=0.9 Ab Index Comment: Interpretive Data Negative: < 1.0 Ab Index Positive: > or = 1.0 Ab Index Current interpretive data was last revised on 2016. Blood 02/20/2025 12:1 8 AM GM VIDEO 02/20/2025 12:46 AM GM VIDEO Jeremi Vargas MD LAB BLOOD ORDERABLES Final Result Performing Organization Address [facility] Co de Phone Number [facility] [address] [place] [address] * Sjogren's syndrome A ab (02/20/2025 12:18 AM GM VIDEO) Anti-KELLY, SS-A <0.2 <=0.9 Ab Index Comment: Interpretive Data Negative: < 1.0 Ab Index Positive: > or = 1.0 Ab Index Current interpretive data was last revised on 2016. Blood 02/20/2025 12:1 8 AM GM VIDEO 02/20/2025 12:46 AM GM VIDEO us Jeremi Vargas MD LAB BLOOD ORDERABLES Final Result Performing Organization Address [facility] Co de Phone Number [facility] [address] [place] [address] * TSH (02/20/2025 12:18 AM GM VIDEO) Thyroid Stimulating Hormone 3.51 0.30 - 4.20 mcIUnit/mL Blood 02/20/2025 12:1 8 AM GM VIDEO 02/20/2025 12:46 AM GM VIDEO us Jeremi Vargas MD LAB BLOOD ORDERABLES Final Result Performing Organization Address [facility] Co de Phone Number [facility] [address] [place] [address] * (ABNORMAL) Lactate dehydrogenase (LD) (02/20/2025 12:18 AM GM VIDEO) Lactate dehydrogenase (LDH) 268(H) 100 - 250 Units/L Comment:Hemolyzed; result ma y be falsely elevated Blood 02/20/2025 12:1 8 AM GM VIDEO 02/20/2025 12:46 AM GM VIDEO Jeremi Vargas MD LAB BLOOD ORDERABLES Final Result Performing Organization Address [facility] de Phone Number [facility] [address] [place] [address] * (ABNORMAL) Hemoglobin A1c (02/20/2025 12:18 AM GM VIDEO) [facility] Hgb A1C 7.3(H) 4.0 - 5.6 % Estimated Average Glucose 163 mg/dL [facility] Comment: The ADA recommends reporting an estimated Average Glucose (eAG) with all Hemoglobin A1c results using the equation derived from a study of 507 normal and diabetic adults. Minority populations were underrepresented and children were not included. (Diabetes Care 2020; 43(S1): S66-S76). The eAG is not equivalent to a fasting glucose. Blood 02/20/2025 12:1 8 AM GM VIDEO 02/20/2025 12:46 AM GM VIDEO Jeremi Vargas MD LAB BLOOD ORDERABLES Final Result Performing Organization Address [facility] de Phone Number [facility] [address] [place] [address] * Folate (02/20/2025 12:18 AM GM VIDEO) [facility] Folic acid See Comment >=5.0 ng/mL Comment:Credited; Hemolyzed Specimen Blood 02/20/2025 12:1 8 AM GM VIDEO 02/20/2025 12:46 AM GM VIDEO Jeremi Vargas MD LAB BLOOD ORDERABLES Final Result [facility] Department [place] [address] * (ABNORMAL) Vitamin B12 (02/20/2025 12:18 AM GM VIDEO) Vitamin B12 200(L) 230 - 1,250 pg/mL Blood 02/20/2025 12:1 8 AM GM VIDEO 02/20/2025 12:47 AM GM VIDEO Jeremi Vargas MD LAB BLOOD ORDERABLES Final Result Performing Organization Address [facility] Co de Phone Number [facility] Department [place] [address] * (ABNORMAL) Lipid panel (02/20/2025 12:18 AM GM VIDEO) Cholesterol 129 30 - 199 mg/dL Comment: Interpretive Data Ages < or = 19 years Acceptable: <170 mg/dL Borderline high: 170-199 mg/dL High: >or= 200 mg/dL Ages > or = 20 years Desirable: <200 mg/dL Borderline high: 200-239 mg/dL High: >or= 240 mg/dL Literature References: 1. Expert Panel on Integrated Guidelines for Cardiovascular Health and Risk Reduction in Children and Adolescents. Pediatrics 2011;128:S213 2. NCEP Expert Panel. Circulation 2004;110:227 Current Interpretive Data was last revised on 2017. Triglycerides 53 <=149 mg/dL [facility] Comment: Interpretive Data Ages < or = 9 years Acceptable: <75 mg/dL Borderline high: 75-99 mg/dL High: >or= 100 mg/dL Ages 10 to 20 years Acceptable: <90 mg/dL Borderline high: 90-129 mg/dL High: >or= 130 mg/dL Ages > or = 20 years Desirable: <150 mg/dL Borderline high: 150-199 mg/dL High: 200-499 mg/dL Very high: >or= 499 mg/dL Literature References: 1. Expert Panel on Integrated Guidelines for Cardiovascular Health and Risk Reduction in Children and Adolescents. Pediatrics 2011;128:S213 2. NCEP Expert Panel. Circulation 2004;110:227 Current Interpretive Data was last revised on 2017. HDL 36(L) >=40 mg/dL [facility] Comment: Interpretive Data Ages < or = 19 years Acceptable: >45 mg/dL Borderline low: 40-45 mg/dL Low: <40 mg/dL Ages > or = 20 years Desirable: >or= 60 mg/dL Low: <40 mg/dL Literature References: 1. Expert Panel on Integrated Guidelines for Cardiovascular Health and Risk Reduction in Children and Adolescents. Pediatrics 2011;128:S213 2. NCEP Expert Panel. Circulation 2004;110:227 Current Interpretive Data was last revised on 2017. LDL, calculated 81 <=129 mg/dL [facility] Comment: Interpretive Data Ages < or = 19 years Acceptable: <110 mg/dL Borderline high: 110-129 mg/dL High: >or= 130 mg/dL Ages > or = 20 years Optimal: <100 mg/dL Near optimal: 100-129 mg/dL Borderline high: 130-159 mg/dL High: >160 mg/dL Calculated using the Tomi LDL-C estimating equation. This equation was implemented on 2023. Prior to this date LDL-C was estimated using the Friedewald equation. Literature References: 1. Expert Panel on Integrated Guidelines for Cardiovascular Health and Risk Reduction in Children and Adolescents. Pediatrics 2011;128:S213 2. NCEP Expert Panel. Circulation 2004;110:227 3. Tomi Rojas et al. LESLY Cardiol. 2019July 29;5(5):540-548. doi: 10.1001/[email or web address].2020.0013 Current Interpretive Data was last revised on 2023. Non-HDL Cholesterol 93 mg/dL [facility] Comment: Interpretive Data Ages < or = 19 years Acceptable: <120 mg/dL Borderline high: 120-144 mg/dL High: >145 mg/dL Ages > or = 20 years When triglycerides are >200 mg/dL, Non-HDL cholesterol is a secondary target of therapy with treatment goals that are 30 mg/dL greater than the LDL cholesterol target. Literature References: 1. Expert Panel on Integrated Guidelines for Cardiovascular Health and Risk Reduction in Children and Adolescents. Pediatrics 2011;128:S213 2. NCEP Expert Panel. Circulation 2004;110:227 Current Interpretive Data was last revised on 2017. Chol/HDL ratio 4 [facility] Blood 02/20/2025 12:1 8 AM GM VIDEO 02/20/2025 12:46 AM GM VIDEO Result [facility] Jeremi Vargas MD LAB BLOOD ORDERABLES Final Result Performing Organization Address [facility] Co de Phone Number [facility] Department [place] [address] * Neuromuscular Testing Blood (02/20/2025 12:00 AM GM VIDEO) Blood (Serum) 02/20/2025 02/21/2025 Narrative [facility] - 03/01/2025 11:11 PM GM VIDEO Please click on the PDF link to view the report containing this result Result [facility] Dm Matthews MD LAB PATHOLOGY ORDERABLES Final R esult Performing Organization Address [facility] Co de Phone Number [facility] Room [address] [place] [id number] * POCT glucose (02/19/2025 11:55 PM GM VIDEO) Glucose, POC 132 70 - 199 mg/dL Blood 02/19/2025 11:5 5 PM GM VIDEO 02/19/2025 11:55 PM GM VIDEO Result [facility] Jeremi Vargas MD LAB POCT ORDERABLES - DEVIC E Final Result Performing Organization Address [facility] Co de Phone Number [facility] [address] [place] [address] * Troponin I high-sensitivity 2-hour (02/19/2025 6:26 PM GM VIDEO) Trop I hs 5 <=35 ng/L Comment: Interpretive Data For further [facility] resources including the diagnostic algorithm and an aid in interpretation, copy and paste this link: [email or web address] Current Interpretive Data last revised 2019. Trop I hs delta 0 ng/L [facility] Trop I hs interp Insignificant [facility] Blood 02/19/2025 6:26 PM GM VIDEO 02/19/2025 6:38 PM GM VIDEO us Woodrow Parkinson MD LAB BLOOD ORDERABLES Fi nal Result [facility] Department [place] [address] * (ABNORMAL) Urinalysis reflex to microscopic and culture Urine (02/19/2025 5:55 PM GM VIDEO) Color, ur Yellow Yellow Clarity, ur Clear Clear [facility] Specific gravity, ur 1.036(H) 1.003 - 1.030 [facility] pH, urine 6.0 [facility] Comment: Interpretive Data U rine pH is affected by diet, medications, systemic acid-base disturbances, and renal tubular function. pH may affect urinary stone formation. For example, urine pH below 6.0 may help reduce the tendency for calcium phosphate stones and pH greater than 6.0 may reduce the tendency for uric acid stone formation. Source: [facility] [employer] Current Interpretive Data was last revised on 2017 Protein, ur ql 1+(A) Negative [facility] Glucose, ur ql 2+(A) Negative [facility] Ketones, ur 1+(A) Negative [facility] Bilirubin, ur Negative Negative [facility] Blood, ur Negative Negative [facility] Urobilinogen, ur 2.0(A) <2.0 mg/dL [facility] Nitrite, ur Negative Negative [facility] Leukocyte esterase, ur Negative Negative [facility] UA reflex comment Reflex to microscopic UA will be performed. [facility] Urine 02/19/2025 5:55 PM GM VIDEO 02/19/2025 6:02 PM GM VIDEO us Woodrow Parkinson MD LAB MICROBIOLOGY - GENE RAL ORDERABLES Final Result Performing Organization Address [facility] Co de Phone Number [facility] [place] [address] * (ABNORMAL) Urinalysis, microscopic only (02/19/2025 5:55 PM GM VIDEO) WBC, ur 0-5 0 - 5 /HPF RBC, ur 0-2 0 - 2 /HPF [facility] Epithelial cells, squamous, ur 1-5 0 - 5 /HPF [facility] Mucous, ur Present(A) [facility] Culture Reflex Comment Reflex conditions for urine culture (WBC >10) not met. [facility] Urine 02/19/2025 5:55 PM GM VIDEO 02/19/2025 6:02 PM GM VIDEO us Woodrow Parkinson MD LAB URINE ORDERABLES Fi nal Result Performing Organization Address [facility] Co de Phone Number [facility] Department [place] [address] * XR Chest 1 View (02/19/2025 4:20 PM GM VIDEO) Anatomical Region Laterality Modality Body, Chest N/A Computed Radiogr aphy 02/19/2025 4:55 PM GM VIDEO Impressions 02/19/2025 4:58 PM GM VIDEO The current study is compared with the prior radiograph dated 10/18/[address] of the chest dated 09/01/2024. Low lung volumes with left greater than right basilar atelectasis. The cardiomediastinal silhouette is enlarged, unchanged with shifting to the left. There is obscuration of the left costophrenic angle. No right-sided pleural effusion. No pneumothorax. Reticular opacities within the bilateral lungs without focal pneumonia, particularly within the left lung apex could reflect areas of scarring. Dictated by: Esteban Guillory M.D. The radiology attending physician has personally reviewed this study, and had reviewed and/or edited this written report and agrees with it. Electronically signed by: Prince Cordova M.D. Narrative 02/19/2025 4:58 PM GM VIDEO EXAMINATION: 1 view chest radiograph Procedure Note Prince Cordova MD - 02/19/2025 EXAMINATION: 1 view chest radiograph IMPRESSION: The current study is compared with the prior radiograph dated 10/18/[address] of the chest dated 09/01/2024. Low lung volumes with left greater than right basilar atelectasis. The cardiomediastinal silhouette is enlarged, unchanged with shifting to the left. There is obscuration of the left costophrenic angle. No right-sided pleural effusion. No pneumothorax. Reticular opacities within the bilateral lungs without focal pneumonia, particularly within the left lung apex could reflect areas of scarring. Dictated by: Esteban Guillory M.D. The radiology attending physician has personally reviewed this study, and had reviewed and/or edited this written report and agrees with it. Electronically signed by: Prince Cordova M.D. Woodrow Parkinson MD IMG XR PROCEDURES Final Result * ECG 12-LEAD (02/19/2025 4:12 PM GM VIDEO) Narrative [facility] - 02/19/2025 4:12 PM GM VIDEO Rubén Lan MD 02/19/2025 4:12 PM ECG 12 lead Date/Time: 02/19/2025 4:12 PM Performed by: Rubén Lan MD Authorized by: Woodrow Parkinson MD Rate: ECG rate: 79 ECG rate assessment: normal Rhythm: Rhythm: sinus rhythm Ectopy: Ectopy: none QRS: QRS axis: Normal QRS intervals: Normal ST segments: ST segments: Normal T waves: T waves: non-specific Previous ECG: Previous ECG: Unavailable Interpretation: Interpretation: normal Recommended Follow-up: Recommended follow up: further workup in the ED Procedure Note Rubén Lan MD - 02/19/2025 4:12 PM CST Procedure ECG 12 lead Date/Time: 02/19/2025 4:12 PM Performed by: Rubén Lan MD Authorized by: Woodrow Parkinson MD Rate: ECG rate: 79 ECG rate assessment: normal Rhythm: Rhythm: sinus rhythm Ectopy: Ectopy: none QRS: QRS axis: Normal QRS intervals: Normal ST segments: ST segments: Normal T waves: T waves: non-specific Previous ECG: Previous ECG: Unavailable Interpretation: Interpretation: normal Recommended Follow-up: Recommended follow up: further workup in the ED Rubén Lan MD 02/19/25 1612 us Woodrow Parkinson MD ECG ORDERABLES Edited Result - Final [facility] * (ABNORMAL) TATO ab ql w/rflx to TATO qn (02/19/2025 4:11 PM GM VIDEO) TATO Positive( A) Comment: Interpretive Data Normal range for ATTO Qualitative Antibody = Negative. 1. TATO is performed using indirect immunofluorescence against HEp-2 cells 2. TATO titers are performed on all positive qualitative results. 3. A significantly positive TATO result is defined as a positive nuclear fluorescence at a titer of 1:80 or greater. 4. 15% of normal people above age 65 have significantly positive TATO results. 5% or less of normal people age 65 or under have significantly positive TATO results. Current interpretive data was last revised on 2019. TATO, quant 1:320 titer [facility] TATO, interp Homogeneo us(A) [facility] Blood 02/19/2025 4:11 PM GM VIDEO 02/19/2025 4:31 PM GM VIDEO us Woodrow Parkinson MD LAB BLOOD ORDERABLES Fi nal Result [facility] Department [place] [address] * Bethany-1 antibody (02/19/2025 4:11 PM GM VIDEO) Bethany 1 Antibody, IgG <0.2 <=0.9 Ab Index Comment: Interpretive Data Negative: < 1.0 Ab Index Positive: > or = 1.0 Ab Index Current interpretive data was last revised on 2016. Blood 02/19/2025 4:11 PM GM VIDEO 02/19/2025 4:31 PM GM VIDEO Woodrow Parkinson MD LAB BLOOD ORDERABLES Fi nal Result Performing Organization Address [facility] Co de Phone Number [facility] Department [place] [address] * PR3 - proteinase 3, Ab (02/19/2025 4:11 PM GM VIDEO) Proteinase 3 ab <0.2 <=0.9 Ab Index Comment: Interpretive Data Negative: <1 Ab Index Positive: > or = 1 Ab Index Current interpretive data was last revised on 2016. Blood 02/19/2025 4:11 PM GM VIDEO 02/19/2025 4:31 PM GM VIDEO Woodrow Parkinson MD LAB BLOOD ORDERABLES Fi nal Result Performing Organization Address [facility] Co de Phone Number [facility] Department [place] [address] * MPO - myeloperoxidase antibody (02/19/2025 4:11 PM GM VIDEO) Myeloperoxidase ab <0.2 <=0.9 Ab Index Comment: Interpretive Data Negative: <1 Ab Index Positive: > or = 1 Ab Index Current interpretive data was last revised on 2016. Blood 02/19/2025 4:11 PM GM VIDEO 02/19/2025 4:31 PM GM VIDEO Woodrow Parkinson MD LAB BLOOD ORDERABLES Fi nal Result Performing Organization Address City/[facility] Co de Phone Number [facility] Department [place] [address] * (ABNORMAL) Anti-Neutrophilic Cytoplasmic Antibody (ANCA) with Reflex to MPO and PR3 Abs (54:11 PM GM VIDEO) [facility] ANCA Indetermi devyn(A) Negative Comment:Indeterminate for P- ANCA - Results by antigen specific immunoassay (MPO & PR3) to follow. May indicate ulcerative colitis or Crohn's disease. Blood 02/19/2025 4:11 PM GM VIDEO 02/19/2025 4:31 PM GM VIDEO Woodrow Parkinson MD LAB BLOOD ORDERABLES Fi nal Result Performing Organization Address [facility] de Phone Number [facility] Department [place] [address] * Troponin I high-sensitivity series (baseline, 2hr, 4hr, 6hr) (02/19/2025 3:53 PM GM VIDEO) [facility] Trop I hs 5 <=35 ng/L Comment: Interpretive Data For further hscTnI resources including the diagnostic algorithm and an aid in interpretation, copy and paste this link: [email or web address] Current Interpretive Data last revised 2019. Blood 02/19/2025 3:53 PM GM VIDEO 02/19/2025 4:08 PM GM VIDEO Result [facility] Woodrow Parkinson MD LAB BLOOD ORDERABLES Fi nal Result Performing Organization Address [facility] de Phone Number [facility] Department [place] [address] * eGFR (02/19/2025 3:53 PM GM VIDEO) [facility] eGFR 76 >=60 mL/min/1. 73 m2 Comment: Interpretive Data [...] interpretive data was last reviewed 2021. Blood 02/19/2025 3:53 PM GM VIDEO 02/19/2025 4:08 PM GM VIDEO us Woodrow Parkinson MD LAB BLOOD ORDERABLES Fi nal Result [facility] Department [place] [address] * Differential, auto (02/19/2025 3:53 PM GM VIDEO) Neutrophil abs 4.64 1.50 - 6.50 K/cumm Imm gran abs 0.02 0.00 - 0.10 K/cumm [facility] Lymphocyte abs 0.99 0.80 - 3.30 K/cumm [facility] Monocyte abs 0.70 0.20 - 0.80 K/cumm [facility] Eosinophil abs 0.03 0.00 - 0.50 K/cumm [facility] Basophil abs 0.04 0.00 - 0.10 K/cumm [facility] Neutrophil pct 72.3 % [facility] Comment: Interpretive Data Percent cell count reference ranges are not reported, since discordance with absolute values may lead to misinterpretation of CBC data. Current Interpretive Data was last revised on 2017. Imm gran pct 0.3 % [facility] Comment: Interpretive Data Percent cell count reference ranges are not reported, since discordance with absolute values may lead to misinterpretation of CBC data. Current Interpretive Data was last revised on 2017. Lymphocyte pct 15.4 % [facility] Comment: Interpretive Data Percent cell count reference ranges are not reported, since discordance with absolute values may lead to misinterpretation of CBC data. Current Interpretive Data was last revised on 2017. Monocyte pct 10.9 % [facility] Comment: Interpretive Data Percent cell count reference ranges are not reported, since discordance with absolute values may lead to misinterpretation of CBC data. Current Interpretive Data was last revised on 2017. Eosinophil pct 0.5 % [facility] Comment: Interpretive Data Percent cell count reference ranges are not reported, since discordance with absolute values may lead to misinterpretation of CBC data. Current Interpretive Data was last revised on 2017. Basophil pct 0.6 % [facility] Comment: Interpretive Data Percent cell count reference ranges are not reported, since discordance with absolute values may lead to misinterpretation of CBC data. Current Interpretive Data was last revised on 2017. Blood 02/19/2025 3:53 PM GM VIDEO 02/19/2025 4:08 PM GM VIDEO Woodrow Parkinson MD LAB BLOOD ORDERABLES Fi nal Result [facility] Department [place] [address] * Pro B-type natriuretic peptide (02/19/2025 3:53 PM GM VIDEO) NT-proBNP 102 <=450 pg/mL Comment: Interpretive Comments: A. Dyspnea in Acute Care Setting All Ages: < 300 pg/ml, acute heart failure unlikely. < 50 yrs: 300 - 450 pg/ml, further investigation warranted. > 450 pg/ml, acute heart failure likely. 50 - 74 yrs: 300 - 900 pg/ml, further investigation warranted. > 900 pg/ml, acute heart failure likely . > or = 75 yrs: 450 - 1800 pg/ml, further investigation warranted. > 1800 pg/ml, acute heart failure likely. B. Non-acute Setting < 75 yrs < 125 pg/ml, rules out heart failure. > or = 125 pg/ml, further investigation warranted. > or = 75 yrs < 450 pg/ml, rules out heart failure. > or = 450 pg/ml, further investigation warranted. - Knowledge of each individual patient's NT-proBNP range may be more useful than using similar cut-points for every patient. Please note that marked elevations in NT-proBNP levels may be observed in state other than Left Ventricular Congestive Failure, including: acute coronary syndromes, right heart strain/failure (including pulmonary embolism and cor pulmonale), critical illness, renal failure, as well as advanced age. - References: 1. Boogie MEDEIROS et.al. Eur Heart J. 2006:27:330-337. 2. Joanne BOSCH, Anders SOLIS. J. [facility] Cardiol: Cardiovasc Imag. 2009;2: 216- 225. Interpretive Data Last Revised Date: 2017. Blood 02/19/2025 3:53 PM GM VIDEO 02/19/2025 4:08 PM GM VIDEO us Woodrow Parkinson MD LAB BLOOD ORDERABLES Fi nal Result [facility] Department [place] [address] * (ABNORMAL) CBC with auto differential (02/19/2025 3:53 PM GM VIDEO) WBC 6.42 3.80 - 9.90 K/cumm Hgb 13.1 13.0 - 17.5 g/dL [facility] Hct 38.9 38.9 - 50.3 % [facility] Plt 274 150 - 400 K/cumm [facility] MPV 9.3 9.1 - 12.3 fL [facility] RBC 4.27(L) 4.30 - 5.80 M/cumm [facility] MCV 91.1 81.3 - 96.4 fL [facility] MCH 30.7 27.1 - 33.3 pg [facility] MCHC 33.7 32.3 - 35.7 g/dL [facility] RDW CV 15.2(H) 11.1 - 14.9 % [facility] RDW SD 50.4(H) 35.7 - 48.1 fL [facility] NRBC abs 0.00 0.00 - 0.01 K/cumm [facility] Blood 02/19/2025 3:53 PM GM VIDEO 02/19/2025 4:08 PM GM VIDEO Woodrow Parkinson MD LAB BLOOD ORDERABLES Fi nal Result Performing Organization Address [facility] Co de Phone Number [facility] [place] [address] * (ABNORMAL) Erythrocyte sedimentation rate (02/19/2025 3:53 PM GM VIDEO) Erythrocyte sedimentation rate 31(H) 1 - 20 mm/hr Blood 02/19/2025 3:5 3 PM GM VIDEO 02/19/2025 4:08 PM GM VIDEO Result [facility] Woodrow Parkinson MD LAB BLOOD ORDERABLES Fi nal Result Performing Organization Address [facility] de Phone Number [facility] [place] [address] * CRP (acute phase) (02/19/2025 3:53 PM GM VIDEO) CRP 2.7 <=10.0 mg/L Blood 02/19/2025 3:53 PM GM VIDEO 02/19/2025 4:08 PM GM VIDEO Result [facility] Woodrow Parkinson MD LAB BLOOD ORDERABLES Fi nal Result Performing Organization Address [facility] [place] [address] * Phosphorus (02/19/2025 3:53 PM GM VIDEO) Phosphorus, pl 3.0 2.3 - 4.5 mg/dL Blood 02/19/2025 3:53 PM GM VIDEO 02/19/2025 4:08 PM GM VIDEO Woodrow Parkinson MD LAB BLOOD ORDERABLES Fi nal Result Performing Organization Address City/[facility] Co de Phone Number [facility] [place] [place] [address] * Magnesium (02/19/2025 3:53 PM GM VIDEO) [facility] Magnesium 1.7 1.4 - 2.5 mg/dL Blood 02/19/2025 3:53 PM GM VIDEO 02/19/2025 4:08 PM GM VIDEO Woodrow Parkinson MD LAB BLOOD ORDERABLES Fi nal Result Performing Organization Address [facility] [place] [address] * Gamma GT (02/19/2025 3:53 PM GM VIDEO) Pathologist [facility] GGT 16 10 - 50 Units/L Blood 02/19/2025 3:53 PM GM VIDEO 02/19/2025 4:08 PM GM VIDEO Woodrow Parkinson MD LAB BLOOD ORDERABLES Fi nal Result Performing Organization Address City/[facility] Co de Phone Number [facility] Department [place] [address] * Creatine kinase (CK), total (02/19/2025 3:53 PM GM VIDEO) [facility] CK 238 40 - 300 Units/L Blood 02/19/2025 3:53 PM GM VIDEO 02/19/2025 4:08 PM GM VIDEO Woodrow Parkinson MD LAB BLOOD ORDERABLES Fi nal Result Performing Organization Address City/[facility] [place] [address] * (ABNORMAL) Comprehensive metabolic panel (02/19/2025 3:53 PM GM VIDEO) Sodium 138 135 - 145 mmol/L Potassium, pl 4.2 3.3 - 4.9 mmol/L [facility] Chloride 101 97 - 110 mmol/L [facility] CO2 27 22 - 32 mmol/L [facility] Anion gap 10 2 - 15 mmol/L [facility] BUN 27(H) 6 - 25 mg/dL [facility] Creatinine 1.02 0.80 - 1.30 mg/dL [facility] Glucose 173 70 - 199 mg/dL [facility] Comment: Interpretive Data Fasting glucose >/= 126 [...] interpretive data was last revised 2022. Calcium 8.5 8.5 - 10.3 mg/dL [facility] Bilirubin, total 0.4 0.1 - 1.2 mg/dL [facility] Protein, pl 6.3(L) 6.5 - 8.5 g/dL [facility] Albumin 3.3(L) 3.5 - 5.0 g/dL [facility] Alk phos 96 40 - 130 Units/L [facility] ALT 24 7 - 55 Units/L [facility] AST 41 10 - 50 Units/L [facility] Blood 02/19/2025 3:53 PM GM VIDEO 02/19/2025 4:08 PM GM VIDEO us Woodrow Parkinson MD LAB BLOOD ORDERABLES Fi nal Result [facility] [place] [address] * MRI Lumbar Spine WO Contrast (02/15/2025 8:10 AM GM VIDEO) Anatomical Region Laterality Modality Spine N/A Magnetic Resonan ce 02/15/2025 8:40 AM GM VIDEO Impressions 02/15/2025 8:40 AM GM VIDEO 1. Mild to moderate lumbar degenerative changes as described. No high-grade spinal canal stenosis. 2. Varying degrees of bilateral neural foraminal stenosis and other findings as above. 3. STIR hyperintense signal along the posterior paraspinal soft tissues of the lumbar spine, image lower thoracic spine and sacrum is nonspecific and could reflect a strain or myositis in the proper clinical scenario. Electronically signed by: Sher Robles D.O. Narrative 02/15/2025 8:40 AM GM VIDEO EXAM DESCRIPTION:MRI LUMBAR SPINE WO CONTRAST REASON FOR STUDY:Radiculopathy bilat low back pain for undetermined time. Denies fall/trauma Unsteady gait , states his right leg is numbness. M554.16, R29.898 TECHNIQUE: Sagittal and Axial imaging includes T1, T2, STIR and gradient echo sequences. COMPARISON:Lumbar spine radiographs dated 12/31/2024 FINDINGS: SEGMENTATION: 5 nonrib-bearing lumbar-type vertebral bodies. ALIGNMENT: Anterior posterior alignment is maintained. VERTEBRAE: There is no acute compression fracture in the lumbar spine. Multilevel mild endplate degenerative changes. More pronounced mid to lower lumbar predominant facet arthropathy. Rounded T1 and T2 hyperintense foci in keeping with intraosseous hemangiomas and/or focal fatty marrow. Superior endplate of L4 focal tiny rounded T1 hypointense, STIR hyperintense signal is nonspecific and presumed to be a Schmorl's node with edema in a patient without history of malignancy. DISCS: Multilevel disc desiccation and height loss. HARDWARE: None in the spine. Conus: Borderline diminished anterior posterior dimension the bony spinal canal in keeping with congenitally shortened pedicles. The conus medullaris and cauda equina nerve roots are not well-visualized on the axial sequences due to imaging technique. LOWER THORACIC: Incompletely imaged. No high-grade spinal canal stenosis. INDIVIDUAL LEVELS: L1-L2: Minor disc bulge with thickened ligamentum flavum and facet arthropathy. No significant spinal canal or neural foraminal narrowing. L2-L3: Minor disc bulge with thickened ligamentum flavum and bilateral facet arthropathy. No significant spinal canal or neural foraminal narrowing. L3-L4: Disc bulge with thickened ligamentum flavum and bilateral facet arthropathy. Mild spinal canal stenosis. Mild to moderate left and mild inferior right neural foraminal narrowing. L4-L5: Disc bulge with thickened ligamentum flavum and bilateral facet arthropathy. No significant spinal canal stenosis. Left lateral recess narrowing with disc and thickened ligamentum flavum contacting the descending left L5 nerve root. Moderate proximal left and mild to moderate right neural foraminal narrowing. L5-S1: Minor disc bulge with bilateral facet arthropathy. No significant spinal canal stenosis. Mild right and no significant left neural foraminal narrowing. OTHER: There is partial fatty replacement/atrophy of the posterior paraspinal and imaged to assess musculature. Nonspecific FLAIR hyperintense signal throughout the bilateral posterior paraspinal soft tissues of the lumbar spine, image lower thoracic spine and overlying the sacrum. Procedure Note Sher Robles, DO - 02/15/2025 EXAM DESCRIPTION:MRI LUMBAR SPINE WO CONTRAST REASON FOR STUDY:Radiculopathy bilat low back pain for undetermined time. Denies fall/trauma Unsteady gait , states his right leg is numbness. M554.16, R29.898 TECHNIQUE: Sagittal and Axial imaging includes T1, T2, STIR and gradient echo sequences. COMPARISON:Lumbar spine radiographs dated 12/31/2024 FINDINGS: SEGMENTATION: 5 nonrib-bearing lumbar-type vertebral bodies. ALIGNMENT: Anterior posterior alignment is maintained. VERTEBRAE: There is no acute compression fracture in the lumbar spine. Multilevel mild endplate degenerative changes. More pronounced mid to lower lumbar predominant facet arthropathy. Rounded T1 and T2 hyperintense foci in keeping with intraosseous hemangiomas and/or focal fatty marrow. Superior endplate of L4 focal tiny rounded T1 hypointense, STIR hyperintense signal is nonspecific and presumed to be a Schmorl's node with edema in a patient without history of malignancy. DISCS: Multilevel disc desiccation and height loss. HARDWARE: None in the spine. Conus: Borderline diminished anterior posterior dimension the bony spinal canal in keeping with congenitally shortened pedicles. The conus medullaris and cauda equina nerve roots are not well-visualized on the axial sequences due to imaging technique. LOWER THORACIC: Incompletely imaged. No high-grade spinal canal stenosis. INDIVIDUAL LEVELS: L1-L2: Minor disc bulge with thickened ligamentum flavum and facet arthropathy. No significant spinal canal or neural foraminal narrowing. L2-L3: Minor disc bulge with thickened ligamentum flavum and bilateral facet arthropathy. No significant spinal canal or neural foraminal narrowing. L3-L4: Disc bulge with thickened ligamentum flavum and bilateral facet arthropathy. Mild spinal canal stenosis. Mild to moderate left and mild inferior right neural foraminal narrowing. L4-L5: Disc bulge with thickened ligamentum flavum and bilateral facet arthropathy. No significant spinal canal stenosis. Left lateral recess narrowing with disc and thickened ligamentum flavum contacting the descending left L5 nerve root. Moderate proximal left and mild to moderate right neural foraminal narrowing. L5-S1: Minor disc bulge with bilateral facet arthropathy. No significant spinal canal stenosis. Mild right and no significant left neural foraminal narrowing. OTHER: There is partial fatty replacement/atrophy of the posterior paraspinal and imaged to assess musculature. Nonspecific FLAIR hyperintense signal throughout the bilateral posterior paraspinal soft tissues of the lumbar spine, image lower thoracic spine and overlying the sacrum. IMPRESSION: 1. Mild to moderate lumbar degenerative changes as described. No high-grade spinal canal stenosis. 2. Varying degrees of bilateral neural foraminal stenosis and other findings as above. 3. STIR hyperintense signal along the posterior paraspinal soft tissues of the lumbar spine, image lower thoracic spine and sacrum is nonspecific and could reflect a strain or myositis in the proper clinical scenario. Electronically signed by: Sher Robles D.O. [facility] MRI PROCEDURES Final R esult * MRI Brain WO Contrast (12/31/2024 2:26 PM CDT) Anatomical Region Laterality Modality Head and Neck N/A Magnetic Resonan ce 12/31/2024 4:05 PM CDT Narrative 12/31/2024 4:16 PM CDT EXAM DESCRIPTION: MRI BRAIN WO CONTRAST REASON FOR STUDY: other symptoms and signs involving the musculoskeletal system C/o weakness in Left leg and lower back, began in March and has been progressively worsening, has had multiple falls recently TECHNIQUE: Multiplanar imaging includes non-contrasted T1, T2, FLAIR, and diffusion with ADC map sequences. Additional sequence(s) sensitive to blood products. Images stored on PACS. COMPARISON: None available. FINDINGS: There is no diffusion restriction to suggest acute/recent infarction. The bilateral basal ganglia susceptibility signal would be compatible with mineralization. There is bilateral cerebral and cerebellar parenchymal volume loss. No hydrocephalus. The basilar cisterns are maintained. The bilateral globus pallidus T2 hyperintense signal is nonspecific and can be seen with mineralization. Alternatively sequelae of prior infarctions or other toxic/metabolic insult can also have similar appearance in the proper clinical scenario. Chronic lacunar infarctions in the bilateral hunter radiata and basal ganglia. The subcortical and periventricular white matter T2/FLAIR hyperintense signal in the bilateral cerebral hemispheres is nonspecific compatible with chronic microvascular ischemic type change in a patient of this age. Similar signal alteration is seen in the guy. This routine whole brain MRI is not optimized for evaluation of the orbits and its contents. The apparent FLAIR hyperintense signal about the bilateral orbits, [id number]-[id number]-xfsp-left could just reflect incomplete fat saturation. If there is concern for orbital pathology then dedicated contrast-enhanced MRI can be obtained. Left eye cataract surgery. Mucosal thickening in the bilateral ethmoid air cells and maxillary sinus floors, mwib-sjunwrg-tazr-right. There is trace T2 hyperintense in the bilateral mastoid air cells. IMPRESSION: 1. No acute/recent infarction. 2. Chronic lacunar infarctions, chronic microvascular ischemic type white-matter changes and other findings as above. 3. Previous imaging studies are not available for comparison. THIS IS AN ELECTRONICALLY VERIFIED FINAL REPORT 12/31/2024 4:16 PM - Electronically signed by Sher AGUILAR T: Report ID: [id number] Reading Location: [id number] Procedure Note Sher Robles, DO - 01/01/2025 EXAM DESCRIPTION: MRI BRAIN WO CONTRAST REASON FOR STUDY: other symptoms and signs involving the musculoskeletal system C/o weakness in Left leg and lower back, began in March and has been progressively worsening, has had multiple falls recently TECHNIQUE: Multiplanar imaging includes non-contrasted T1, T2, FLAIR, and diffusion with ADC map sequences. Additional sequence(s) sensitive Likewise Software products. Images stored on PACS. COMPARISON: None available. FINDINGS: There is no diffusion restriction to suggest acute/recent infarction. The bilateral basal ganglia susceptibility signal would be compatible with mineralization. There is bilateral cerebral and cerebellar parenchymal volume loss. No hydrocephalus. The basilar cisterns are maintained. The bilateral globus pallidus T2 hyperintense signal is nonspecific andcan be seen with mineralization. Alternatively sequelae of prior infarctions or other toxic/metabolic insult can also have similar appearance in theproper clinical scenario. Chronic lacunar infarctions in the bilateral hunter radiata and basal ganglia. The subcortical and periventricular whitematter T2/FLAIR hyperintense signal in the bilateral cerebral hemispheres is nonspecific compatible with chronic microvascular ischemic type change julieta patient of this age. Similar signal alteration is seen in the guy. This routine whole brain MRI is not optimized for evaluation of the orbitsand its contents. The apparent FLAIR hyperintense signal about the bilateral orbits, vqphs-dpfmjdb-wami-left could just reflect incomplete fatsaturation. If there is concern for orbital pathology then dedicated contrast-enhancedMRI can be obtained. Left eye cataract surgery. Mucosal thickening in the bilateral ethmoid air cells and maxillary sinus floors, nyff-uvjyrvd-hngo-right. There is trace T2 hyperintense in the bilateral mastoid air cells. IMPRESSION: 1. No acute/recent infarction. 2. Chronic lacunar infarctions, chronic microvascular ischemic type white-matter changes and other findings as above. 3. Previous imaging studies are not available for comparison. THIS IS AN ELECTRONICALLY VERIFIED FINAL REPORT 12/31/2024 4:16 PM - Electronically signed by Sher AGUILAR T: Report ID: [id number] Reading Location: [place] [address] [facility] [place] MRI PROCEDURES Final R esult * XR Spine Lumbar 2 or 3 Views (12/31/2024 1:50 PM CDT) Anatomical Region Laterality Modality Spine N/A Computed Radiogr aphy 01/04/2025 9:25 AM CDT Narrative 01/04/2025 9:27 AM CDT EXAM DESCRIPTION: XR SPINE LUMBAR 2 OR 3 VIEWS REASON FOR STUDY: Chronic back pain with right leg weakness since June 2024. TECHNIQUE: 3 radiographic view(s) of the lumbar spine. COMPARISON: No prior imaging of the lumbar spine available at time of interpretation. FINDINGS: ALIGNMENT: Anatomic. VERTEBRAE: Diffuse osteopenia. No radiographic evidence of acute fracture. Vertebral body heights maintained. Spondylosis. DISCS: Multilevel variable loss of intervertebral disc height. SOFT TISSUES: Calcific atherosclerosis of the aorta and branch vasculature. IMPRESSION: Spondylosis and degenerative disc disease of the lumbar spine. THIS IS AN ELECTRONICALLY VERIFIED FINAL REPORT 01/04/2025 9:27 AM - Electronically signed by Gagandeep Gamez M.D. MARLENE T: Report ID: [id number] Reading Location: [id number] Procedure Note Gagandeep Gamez MD - 01/04/2025 EXAM DESCRIPTION: XR SPINE LUMBAR 2 OR 3 VIEWS REASON FOR STUDY: Chronic back pain with right leg weakness since June2024. TECHNIQUE: 3 radiographic view(s) of the lumbar spine. COMPARISON: No prior imaging of the lumbar spine available at time of interpretation. FINDINGS: ALIGNMENT: Anatomic. VERTEBRAE: Diffuse osteopenia. No radiographic evidence of acutefracture. Vertebral body heights maintained. Spondylosis. DISCS: Multilevel variable loss of intervertebral disc height. SOFT TISSUES: Calcific atherosclerosis of the aorta and branchvasculature. IMPRESSION: Spondylosis and degenerative disc disease of the lumbar spine. THIS IS AN ELECTRONICALLY VERIFIED FINAL REPORT 01/04/2025 9:27 AM - Electronically signed by Gagandeep Gamez M.D. MARLENE T: Report ID: [id number] Reading Location: [id number] [facility] XR PROCEDURES Final Re sult from Last 3 Months Insurance [employer] MEDICARE [facility] MEDICARE Advance Directives For more information, please contact: [phone] Documents on File Type Date Recorded Patient Feed Management Advisor Expl anation ADVANCE DIRECTIVE 09/14/2024 8:45 AM Jigna ro * Full Code (Latest Code Status on File) Date Activated Date Inactivated Comments 02/19/2025 10:57 PM 02/26/2025 6:23 PM * Full Code Date Activated Date Inactivated Comments 09/22/2024 2:45 PM 09/27/2024 9:58 PM Care Teams Driver Relationship Specialty Start Date End Date Tej Sen MD [address] [place] [address] [place] [id number] PCP - General Family Medicine 12/23/19 Vanesa Gomez MD [address] [address] Consulting Physician Critical Care Med 09/06/24
--- OUTSIDE RECORDS SUMMARY | 2025-03-15 18:39 | XMS_ITS | Clinical Summary ---
Author Organization [facility] Address [address] [place] [address] Care Team Providers Care Stamp Presser Name Role Phone Unavailable Primary Care Provider Unavailabl e Source Comments [facility],non-owned Affiliates and Associated Physician Practices is amultiple site organization consisting of ambulatory clinics and hospital sitesin [place], [place], [place] and [place]. This disclosure is being madepursuant to the Care Everywhere program and may not contain all information available regarding this patient. Last updated 17.[facility] Encounters Date Type Department Care Team Description 03/11/2025 Transcribe Orders [facility] - Centralized Scheduling [address] [place] [address] Dede Zarco MD ALS (amyotrophic lateral sclerosis) (HCC) from Last 3 Months Social History Tobacco Use Types Packs/Day Years Used Date Smoking Tobacco: Never Assessed Sex and Gender Information Value Date Recorded Sex Assigned at Not on file Legal Sex Male 5:41 AM CDT Gender Identity Not on file Sexual Orientation Not on file Plan of Treatment Health Maintenance Due Date Last Done Comments HEPATITIS C SCREENING 11/15/1966 DTAP/TDAP/TD VACCINES (1 - Tdap) 11/20/1967 PNEUMOCOCCAL VACCINE 50+ (1 of 1 - PCV) 1998 ZOSTER VACCINE (1 of 2) 1998 Respiratory Syncytial Virus (RSV) Vaccine Pt: or over 60 yrs (1 - 1-dose 75+ series) 11/20/2023 DEPRESSION SCREENING 03/31/2024 MEDICARE AWV CALENDAR YEAR 2024 COVID-19 VACCINE ( - 2024-2 6 season) 2024 INFLUENZA VACCINE (#1) 2024 HEPATITIS B VACCINE Aged Out No longe r eligible based on patient's age to complete this topic HIB VACCINE Aged Out No longer eligi ble based on patient's age to complete this topic HPV VACCINE Aged Out No longer eligi ble based on patient's age to complete this topic MENINGOCOCCAL (Group B) VACC INE SHARED DECISION-MAKING Aged Out No longer eligibl e based on patient's age to complete this topic MENINGOCOCCAL GROUPS A/C/Y/W VACCINE Aged Out No longer eligible b ased on patient's age to complete this topic Insurance [employer] MEDICARE ADV
[2025-03-15 19:50] LABS: Influenza A QL RT-PCR Negative (Negative); Influenza B QL RT-PCR Negative (Negative); RSV RNA, RT-PCR Negative (Negative); SARS-CoV-2 RNA PCR Negative (Negative)
--- NOTE | 2025-03-15 21:05 | ECG_ITS ---
Test Date: 2025-03-15 20:01:58 Measurements Intervals [place] Rate: 80 P: 5 MO: 156 QRS: 55 QRSD: 94 T: 23 QT: 366 QTc: 425 Interpretive Statements SINUS RHYTHM WITH FREQUENT VENTRICULAR PREMATURE COMPLEXES WITH OCCASIONAL SUPRAVENTRICULAR PREMATURE COMPLEXES CANNOT R/O SEPTAL INFARCT, AGE INDETERMINATE BASELINE ARTIFACT- , III, AVR, AVL, AVF, V1-V4 ABNORMAL ECG No previous ECG available for comparison Electronically Signed On 03-15-2025 20:49:27 SCHOOL BUSINESS MANAGER by Gunnar Acevedo D.O.
--- OUTSIDE RECORDS SUMMARY | 2025-05-10 18:00 | XMS_ITS | Clinical Summary ---
Author Organization Unknown Care Team Providers Care Fashion Patternmaker Name Role Phone MARICEL CASTELLANOS Unavailable Unavailable BRENDA PHYSICAL THERAPIST, URIEL Unavailable Unavailable DEV CERTIFIED INDUSTRIAL HYGIENIST, ALSYE Villalba ailable Unavailable RODRIGES OCCUPATIONAL THERAPIST, LAUREN [...] CONSTIPATION , UNSPECIFIED Active 03-31 00:00: 00 [facility] (CURRENT) USE OF ASPIRIN Active 03-31 00:00: 00 SNF (CURRENT) USE OF ORAL HYPOGLYCEMIC DRUGS Active 03-31 00:00: 00 HISTORY OF FALLING Active 03-31 00:00: 00 Allergies, Adverse Reactions, Alerts Allergy Name Allergy Type Status Severity Reaction(s) Onset Date Inactive Date Treating Clinician Comments NO KNOWN ALLERGIES Propensity to adverse reactions Active 2024-03 09:55: 45 Vital Signs Vital Name Observation Time Observation Value Commen ts Temperature 2025-03-14 13:20:00.000 98.2 [degF] Temperature 2025-03-13 10:29:00.000 98.4 [degF] BMI (%) 2025-03-13 10:29:00.000 27 kg/m2 Height 2025-03-13 10:29:00.000 74 [in_us] Pulse 2025-03-14 13:20:00.000 90 /min Pulse 2025-03-13 10:29:00.000 86 /min O2 Saturation (%) 2025-03-14 13:20:00.000 98 % O2 Saturation (%) 2025-03-13 10:29:00.000 98 % Respirations 2025-03-14 13:20:00.000 18 /min Respirations 2025-03-13 10:29:00.000 16 /min Weight (lbs) 2025-03-13 10:29:00.000 215 [lb_av] Systolic Blood Pressure 2025-03-14 13:20:00.000 156 mm [Hg] Systolic Blood Pressure 2025-03-13 10:29:00.000 152 mm [Hg] Diastolic Blood Pressure 2025-03-14 13:20:00.000 [...] TO SUPPORT ELIGIBILITY FOR HOME HEALTH SERVICES.] Goal Patient Goal - T O IMPROVE [...] WILL BE ESTABLISHED THAT MEETS ALL PATIENT'S FPC NEEDS AND COUNTER SIGNED BY PHYSICIAN. Progress Notes Progress Notes <paragraph>[Visit Date: 2024 by QUE LANDEROS REGISTERED NURSE]:</paragraph><paragraph>74 YR MALE LIVES IN NICE CLEAN HOME WITH SHERINE, HAS HAD YEARLONG SYMPTOMS OF INCREASED WEAKNESS WITH AMBULATION, DIZZINESS, FALLS. HE HAD BEEN COMPLETING OUTPATIENT PT TO TRY AND GAIN STRENGHT BUT SYMPTOMS CONTINUED TO GET WORSE. HE THEN HAD A FEW FALLS IN HOME AND WHILE OUT FISHING, AND WAS SEEN AND ADMITTED AT [facility] WHERE HE UNDERWENT MULTIPLE TESTS. HE DISCHARGED TO THE [facility] IN LATE JANUARY AND RETURNED HOME ON 03/08. PATIENT HAS BEEN DIAGNOSED WITH ALS, AND THROUGH THE ALS ASSISTANCE HE HAS A HOSPITAL BED, SONDRA LIFT AND WHEELCHAIR/WALKER IN HOME NOW. PATIENT WILL BE ATTEMTPTING TO GET A BIGGER BED HE IS 6'2 AND IS UNCOMFORTABLE AT TIMES. HE NEEDS FULL CARE FOR THE MOST PART, BUT IS ABLE TO ASSIST WITH POSITIONING IN BED AND TRANSFERRING TO CHAIR. HE IS HOPEFULL PT/OT CAN ALLOW HIM TO TRANSFER INDEPENDENTLY TO WHEELCHAIR SO HE CAN MOVE AROUND THE HOUSE. </paragraph><paragraph>EDUCATION PROVIDED ON MEDICATIONS, SAFETY PRECAUTIONS, INFECTION CONTROL, CARDIAC PRECAUTIONS, FALL PRECAUTIONS, RESPIRATORY PRECAUTIONS, BLEEDING PRECAUTIONS, AGENCY BOOKLET, AND S/S TO REPORT. PATIENT VERBALIZED UNDERSTANDING. DENIES ANY OTHER QUESTIONS/CONCERNS. UPON NURSE DEPARTURE, PATIENT STABLE.</paragraph> Encounters Start Date/Time End Date/Time Encounter Type Admission Type Attending [facility] Care Department Encounter ID Discharge Date Discharge Status Discharge Condition Discharge Reason Percent Goals Met 2025-03-13 00:00:00 2025-05-11 00:00:00 Outpatient NEW ADMISSION QUE LANDEROS [facility] [id number] 81.82
== END 2025-03-15 23:47 | disposition home or self-care (01) ==
PROVIDERS: Emergency Provider Student in an Organized Health Care Education/Training Program; PCP Family Medicine
DX: J06.9 Acute upper respiratory infection, unspecified (principal); G12.21 Amyotrophic lateral sclerosis; Z20.822 Contact with and (suspected) exposure to COVID-19; I10 Essential (primary) hypertension; I27.20 Pulmonary hypertension, unspecified; G47.33 Obstructive sleep apnea (adult) (pediatric); E11.9 Type 2 diabetes mellitus without complications; E78.00 Pure hypercholesterolemia, unspecified; Z87.891 Personal history of nicotine dependence; Z79.899 Other long term (current) drug therapy
CPT/HCPCS: 36415; 71045; 71250; 80053; 84484; 85025; 87637; 93005; 99284

== ENCOUNTER 2025-03-21 09:12 | Emergency (ER) | payer MEDICARE, SELFPAY ==
[2025-03-21] VITALS (12 sets, daily range): BP systolic 108–155; BP diastolic 61–80; PULSE 81–100; RESP 13–33; TEMP 36.6; O2SAT 98–100
--- NOTE | ~2025-03-21 | XR_ITS ---
Examination: XR chest 1V portable Clinical History: SOB Comparison: 03/15/2025 Technique: Portable AP Findings: Heart size normal. As before, left lung volume loss with pleural effusion. Suspect small persistent left apical pneumothorax. Right lung clear. No acute bony abnormality. IMPRESSION: 1. No significant change from one week prior. 2. Left lung volume loss with basilar atelectasis and pleural effusion. 3. Probable persistent small left apical loculated pneumothorax, better seen on CT. Reviewed, dictated and finalized at location R. HICS PRODUCTION SPECIALIST IMPRESSION: 1. No significant change from one week prior. 2. Left lung volume loss with basilar atelectasis and pleural effusion. 3. Probable persistent small left apical loculated pneumothorax, better seen o n CT.
--- NOTE | 2025-03-21 09:13 | ECG_ITS ---
Test Date: 2025-03-21 09:14:51 Measurements Intervals [place] Rate: 90 P: 0 SC: 0 QRS: 16 QRSD: 82 T: -2 QT: 323 QTc: 396 Interpretive Statements SINUS RHYTHM WITH FREQUENT ATRIAL PREMATURE COMPLEXES LOW QRS VOLTAGE IN PRECORDIAL LEADS CONSIDER INFERIOR INFARCT, AGE INDETERMINATE ANTEROSEPTAL INFARCT, AGE INDETERMINATE BASELINE ARTIFACT- I, II, III, AVR, AVL, AVF, V1-V5 ABNORMAL ECG Compared to ECG 03/15/2025 20:01:58 NO SIGNIFICANT CHANGE Electronically Signed On 03-21-2025 09:36:24 DOOR OPERATOR by Gunnar Acevedo D.O.
[2025-03-21 09:21] LABS: Alveolar/Arterial O2 Gradient < 0.0 mmHg; Carboxyhemoglobin 1.0 % THb (0-2.0); Fractional Inspired Oxygen 28 %; HCO3 ABG 28.5 mEq/l (22.0-26.0); Methemoglobin ABG 0.2 %THb (0-1.5); Oxygen Content ABG 19.7 %vol (16.0-22.0); Oxygen Saturation ABG 97.8 % (95.0-100.0); PO2 ABG 123.1 mmHg (80.0-100.0); PO2 FiO2 Ratio Arterial Blood 4.40 %; Reduced Hemoglobin 1.8 %THb (0-5.0)
[2025-03-21] MEDS: ALBUTEROL SULFATE NEB 2.5 MG/3 ML INH 10 MG INHALATION (09:28)
[2025-03-21 09:31] LABS: Hematocrit 45.6 % (42.0-52.0); Hemoglobin 15.0 g/dL (14.0-18.0); Immature Granulocyte Percent A 0.4 % (0-0.5); Lymphocytes Absolute Auto 1.20 K/mm3 (0.9-3.2); Mean Corpuscular HGB Conc 32.9 g/dl (32-36); Mean Corpuscular Hemoglobin 31.4 pg (26-34); Mean Corpuscular Volume 95.4 fl (80-100); Nucleated Red Blood Cells Absolute Auto 0.000 K/mm3 (0.0-0.012); Nucleated Red Blood Cells Perc 0.0 % (0.0-0.2); Platelet Count Result 335 k/mm3 (150-375); Red Blood Count 4.78 M/mm3 (4.6-6.20); White Blood Count 8.9 K/mm3 (4.5-10.0)
[2025-03-21 09:38] LABS: Modified Allen's Test Pass; PCO2 ABG 67.0 mmHg (35.0-45.0); Site Drawn LEFT RADIAL
[2025-03-21 09:39] LABS: Liters per Minute 2.0 LPM
[2025-03-21 09:44] LABS: Alanine Aminotransferase 32 U/L (6-50); Albumin Level 4.2 g/dL (3.5-5.1); Alkaline Phosphatase 128 U/L (38-126); Anion Gap 8 mmol/L (4-12); Aspartate Amino Transferase 49 U/L (17-59); Bilirubin,Total 0.7 mg/dL (0.2-1.3); Blood Urea Nitrogen 24 mg/dL (9-20); Calcium 9.2 mg/dL (8.4-10.2); Carbon Dioxide 31 mmol/L (22-30); Chloride 91 mmol/L (98-107); Estimated CRCL calculation 65 ml/min; Estimated Glomerular Filt Rate > 60; Glucose 308 mg/dL (65-110); Potassium 4.8 mmol/L (3.4-5.0); Sodium 130 mmol/L (137-145); Total Protein 7.9 g/dL (6.3-8.2)
[2025-03-21 09:50] LABS: INR 1.0; Partial Thromboplastin Time 30.9 Seconds (22.3-36.8); Prothrombin Time 13.2 Seconds (11.1-14.7)
[2025-03-21 10:11] LABS: Influenza A QL RT-PCR Negative (Negative); Influenza B QL RT-PCR Negative (Negative); RSV RNA, RT-PCR Negative (Negative); SARS-CoV-2 RNA PCR Negative (Negative)
--- NOTE | 2025-03-21 10:14 | ED_ITS ---
HPI - General Adult General Chief complaint: Shortness of Breath/Dyspnea Stated complaint: SOB History of Present Illness HPI narrative: 74-year-old male with history of ALS presented to the emergency department for evaluation for worsening shortness of breath and hypoxia. Patient is not normally on oxygen. Patient reports over last 3 days he has had worsening shortness of breath. Patient states he has DNI DNR and he and his are wishing to pursue comfort care. Patient has declined intubation if needed. Patient was found to be saturating at approximately 50% on room air by EMS when they picked him up. EMS attempted CPAP patient did not tolerate this. states that the patient has not been able to tolerate his CPAP at home over the last few days. patient and family are preferring comfort care Related Data Home Medications ?Medication ?Instructions ?Recorded ?Confirmed ?Last Taken ?Type cetirizine 5 mg tablet 5 mg PO DAILY PRN Allergic S ymptoms 03/21/20 02/15/25 Unknown History multivitamin 1 tablet PO DAILY 03/21/20 1 04/17/24 Unknown History soluble corn fiber-inulin 2 gram 1 tablet PO DAILY 02/15/25 Unknown History chewable tablet (Benefiber (inulin-corn fiber)) Placedo Probiotic 10 strains 1 cap PO DAILY 10/3002/15/25 Unknown History 10 billion polyethylene glycol 3350 17 17 g PO DAILY 12/20/24 Unknown History gram/dose oral powder (Miralax) magnesium 200 mg tablet 200 mg PO DAILY 02/04/25 Unknown History ibuprofen 200 mg tablet (Addaprin) 200 mg PO TID PRN p ain 02/15/25 02/15/25 Unknown History Allergies Allergy/AdvReac Type Severity Reaction Status Date / Time No Known Allergies Allergy Verified 03/21/25 14:48 Review of Systems 2 Review of Systems: All systems reviewed & are unremarkable except as noted in HPI and below PMFSH Past Medical History Medical History (Updated 03/21/25 @ 15:00 by Raghavendra Triveid MD) ALS (amyotrophic lateral sclerosis) Pleural effusion, left Obstructive sleep apnea (~01/2020) Morbid obesity Right ventricular enlargement Pure hypercholesterolemia, unspecified Diabetes Pulmonary hypertension Hypertension Surgical History Surgical History History of video-assisted thoracoscopic surgery (VATS) 09/22/2024 Social History Social History (Updated 03/21/25 @ 12:54 by Klaus Mike MD) Social History: Resides with his in their home. However she is unable to care for him and they wish for him to be discharged to a facility. He quit smoking in 1988. He does not abuse alcohol or recreational drugs. He is retired. Smoking packs per day: 2 Smoking cigarettes per day: 40.0 Years smoked: 22 Smoking pack-years: 44.00 Smoking status: Former smoker Second hand tobacco smoke exposure: No Alcohol intake: current Alcohol use details: once a month Substance use: never Substance use type: does not use Lack of Transportation: No Lack of Food: Never True Current Housing: I Have Housing Concerned About Future Housing: No Difficulty Paying Gas/Electric Bills: No Difficulty Paying for Meds: No Currently Unemployed: No Education: Bachelor's Degree Difficulty w/ Childcare or Family Care: No Living arrangements: with family Occupation/Education: retired Gender identity (if verbalized by the patient): Male Sexual Orientation (if Verbalized by the Patient): Straight or Heterosexual Spiritual care concerns: No Exam 2 Narrative: APPEARANCE: Uncomfortable appearing HEAD: normocephalic, atraumatic. EYES: PERRLA/EOMI, conjunctivae clear. NOSE: Normal no drainage EARS:TMS clear with good light reflex. THROAT: Pharynx clear, no exudate. NECK: Supple. No adenopathy, no masses. RESPIRATORY: Airway patent, respirations nonlabored. Clear to auscultation bilaterally, no rales, rhonchi, wheezing. CARDIOVASCULAR: Regular rate and rhythm without murmurs rubs or gallops. ABDOMINAL: Soft, nontender, nondistended, normal bowel sounds MUSCULOSKELETAL: Moves all extremities. Strength/ROM intact, No edema, No calf tenderness. NEURO: Alert. Cranial nerves II through XII intact. Good gait. Good coordination SKIN: Warm, dry. Normal Color Course Vital Signs Vital signs: Vital Signs Temperature 97.8 F 03/21/25 09:01 Pulse Rate 100 03/21/25 09:01 Respiratory Rate 13 03/21/25 09:01 Blood Pressure 152/80 H 03/21/25 09:01 Pulse Oximetry 100 03/21/25 09:01 Oxygen Delivery Nasal Cannula 03/21/25 09:01 Oxygen Flow Rate 2 03/21/25 09:01 Temperature 97.8 F 03/21/25 09:01 Pulse Rate 100 03/21/25 13:23 Respiratory Rate 20 03/21/25 13:23 Blood Pressure 108/61 03/21/25 13:23 Pulse Oximetry 98 03/21/25 13:39 Oxygen Delivery Nasal Cannula 03/21/25 13:39 Oxygen Flow Rate 2 03/21/25 13:39 MDM MDM Narrative Medical decision making narrative: 74-year-old male present to the emergency department for evaluation for worsening shortness of breath. Patient was willing to start on BiPAP due to his increased work of breathing. After lengthy discussion patient and family both prefer that the patient be on hospice. Care consult admission call stool was placed and hospice did evaluate the patient. Patient is being transitioned from BiPAP to nasal cannula and will be admitted to the inpatient hospice services. Ultimately patient wishes to be transferred to home. Patient was resting comfortably at time of admission. All questions were addressed. Differential Diagnosis Differential Diagnosis: ALS, pneumonia, pneumothorax, respiratory failure, hypercapnia Lab Data 03/21/25 09:22 03/21/25 09:22 Labs: Lab Results 03/21/25 03/21/25 03/21/25 Range/Units 09:17 09:22 09:27 WBC 8.9 (4.5-10.0) K/mm3 RBC 4.78 (4.6-6.20) M/mm3 Hgb 15.0 (14.0-18.0) g/dL Hct 45.6 (42.0-52.0) % MCV 95.4 (80-100) fl MCH 31.4 (26-34) pg MCHC 32.9 (32-36) g/dl RDW 14.4 (11.5-14.5) % Plt Count 335 (150-375) k/mm3 MPV 8.6 (7.4-10.4) fl Immature Gran % (Auto) 0.4 (0-0.5) % Neut % (Auto) 81.2 H (45.5-73.1) % Lymph % (Auto) 13.5 L (18.3-44.2) % Lawrence % (Auto) 4.5 (2.6-8.5) % Eos % (Auto) 0.1 (0-4.4) % Baso % (Auto) 0.3 (0.2-1.2) % Lymph # (Auto) 1.20 (0.9-3.2) K/mm3 Lawrence # (Auto) 0.4 (0.1-0.6) K/mm3 Eos # (Auto) 0.0 (0-0.3) K/mm3 Baso # (Auto) 0.0 (0.0-0.1) K/mm3 Abs Immat Gran (auto) 0.04 H (0.00-0.031) K/mm3 Absolute Neuts (auto) 7.2 H (1.3-6.7) K/mm3 Absolute Nucleated RBC 0.000 (0.0-0.012) K/mm3 Nucleated RBC % 0.0 (0.0-0.2) % PT 13.2 (11.1-14.7) Seconds INR 1.0 APTT 30.9 (22.3-36.8) Seconds Methemoglobin 0.2 (0-1.5) %THb Sodium 130 L (137-145) mmol/L Potassium 4.8 (3.4-5.0) mmol/L Chloride 91 L (98-107) mmol/L Carbon Dioxide 31 H (22-30) mmol/L Anion Gap 8 (4-12) mmol/L BUN 24 H (9-20) mg/dL Creatinine 0.99 (0.7-1.3) mg/dL Estim Creat Clear Calc 65 ml/min Estimated GFR > 60 (59 - ) Glucose 308 H (65-110) mg/dL Lactic Acid 2.4 H (0.7-2.0) mmol/L Calcium 9.2 (8.4-10.2) mg/dL Total Bilirubin 0.7 (0.2-1.3) mg/dL AST 49 (17-59) U/L ALT 32 (6-50) U/L Alkaline Phosphatase 128 H (38-126) U/L Total Protein 7.9 (6.3-8.2) g/dL Albumin 4.2 (3.5-5.1) g/dL Influenza A (RT-PCR) Negative (Negative) Influenza B (RT-PCR) Negative (Negative) RSV (RT-PCR) Negative (Negative) SARS-CoV-2 RNA (RT-PCR) Negative (Negative) ABG Data ABG results: 03/21/25 09:17 Puncture Site Left radial ABG pH 7.246 L* ABG pCO2 67.0 H* ABG pO2 123.1 H ABG PO2/FiO2 Ratio 4.40 ABG HCO3 28.5 H ABG O2 Saturation 97.8 ABG O2 Content 19.7 ABG Base Excess -0.5 A-a Gradient < 0.0 Oxyhemoglobin 97.0 Carboxyhemoglobin 1.0 Reduced Hemoglobin 1.8 Total Hemoglobin 14.3 O2 Delivery Device Nasal cannula O2 Liters/Min 2.0 FiO2 28 Imaging Data Radiologist's impression: ITS Impressions Chest X-Ray 03/21/25 09:49 IMPRESSION: 1. No significant change from one week prior. 2. Left lung volume loss with basilar atelectasis and pleural effusion. 3. Probable persistent small left apical loculated pneumothorax, better seen on CT. Critical Care Time Critical Care Time Critical Care Time: Yes Time Type: Intermittent Initial evaluation, discuss w/ involved parties, attempting to gather old records: 10 minutes Documenting medical record: 5 minutes Review of results (EKG's, labs, imaging): 5 minutes Serial repeat bedside evaluation: 10 minutes Discussing case with multiple memebers of the care team and consultants: 10 minutes Total Critical Care Time: 40 Discharge Plan Discharge Clinical Impression: Acute dyspnea Patient Disposition: Hospice [facility] Inpatient Condition: Stable Patient Language: Romanian Prescriptions: No Action cetirizine 5 mg tablet 5 mg PO DAILY PRN (Reason: Allergic Symptoms) multivitamin Tablet 1 tablet PO DAILY Benefiber (inulin-corn fiber) 2 gram tablet,chewable 1 tablet PO DAILY polyethylene glycol 3350 [Miralax] 17 gram/dose powder 17 g PO DAILY Placedo Probiotic 10 strains 10 billion capsule 1 cap PO DAILY lisinopril 5 mg tablet 5 mg PO DAILY Qty: 90 1RF magnesium 200 mg tablet 200 mg PO DAILY ibuprofen [Addaprin] 200 mg tablet 200 mg PO TID PRN (Reason: pain) lidocaine [Lidoderm] 5 % Adhesive Patch,Medicated 1 patch transdermal DAILY Qty: 10 0RF fluticasone propionate [Flonase Allergy Relief] 50 mcg/actuation spray,suspension 1 spray intranasal DAILY Qty: 16 0RF Rx Instructions: administer into each nostril pioglitazone 45 mg tablet 45 mg PO DAILY Qty: 90 1RF (DME) blood-glucose meter [OneTouch Ultra2 Meter] Misc See Rx Instructions .Route Qty: 1 0RF Rx Instructions: Use to check blood sugar once a day (DME) OneTouch Ultra Test Strip See Rx Instructions .Route Qty: 100 3RF Rx Instructions: Use to check blood sugar once a day (DME) lancets [Onetouch Delica Safety Lancet] 30 gauge misc See Rx Instructions .Route Qty: 100 3RF Rx Instructions: use to check blood sugar once a day atorvastatin 20 mg tablet 20 mg PO DAILY Qty: 90 1RF Follow-up/Referrals: Tej Sen MD [Primary Care Provider, Family Practice]
--- NOTE | 2025-03-21 10:34 | PC.NURSE ---
care coordination reports [facility] will be out within the hour to evaluate pt
--- OUTSIDE RECORDS SUMMARY | 2025-03-21 11:05 | XMS_ITS | Clinical Summary ---
Author Organization [facility] [address] Address [address] [place] [address] Care Team Providers Care Form Stripper Name Role Phone Tej Sen MD Primary Care Provider [phone] Vanesa Gomez MD Unavailable [phone] Allergies No known active allergies Medications OneTouch [...] mg total) by mouth nightly 12/21/19 Discontinued cetirizine (ZyrTEC) 10 mg tablet Take 1 tablet (10 mg total) by mouth daily Discontinued(St op Taking at Discharge) multivitamin tablet Take 1 tablet by mouth daily Discontinued MAGNESIUM ORAL Take 250 mg by mouth daily Discontinued(St op Taking at Discharge) diphenhydrAMIN E HCL 25 mg tablet,disinte grating Take 1 tablet by mouth nightly Discontinued(St op Taking at Discharge) aspirin 81 mg enteric coated tablet Take 1 tablet (81 mg total) by mouth daily 30 tablet 02/25/20 Discontinued cyanocobalamin (Vitamin B-12) 1,000 mcg tablet Take 1 tablet (1,000 mcg total) by mouth daily 30 tablet 02/25/20 Discontinued atorvastatin (LIPITOR) 20 mg tablet Take 2 tablets (40 mg total) by mouth nightly 60 tablet 02/25/20 Discontinued(St op Taking at Discharge) atorvastatin (LIPITOR) 40 mg tablet Take 1 tablet (40 mg total) by mouth daily 30 tablet 02/25/20 Discontinued oxyCODONE (ROXICODONE) 5 mg immediate release tabletIndicati ons:Pain Take 1 tablet (5 mg total) by mouth every 6 (six) hours as needed for pain for up to 7 days 02/27/20 Active Problems Patient Care Coordination No te Formatting of this note migh t be different from the original. Merline Thomas NP 09/01/2024 [id number] This is a 73-year-old male patient presenting to the clinic today in consultation for a pleural effusion. He was referred to the clinic by Dr. Gmoez. He has a past medical history significant [...] underwent a CT chest on 07/19/2024 at [facility] which reveals: Small to moderate chronic left effusion with thickened pleura lining. Left-sided volume loss with peripheral consolidation of the lingula and left lower lobe, likely representing atelectasis. Correlate clinically for pneumonia. Right lung relatively hyperinflated but clear. He underwent an ultrasound-guided thoracentesis on 08/03/2024 with 250 mL of fluid obtained. He also underwent a chest x-ray status post thoracentesis on 08/03/2024 [facility] which reveals: Blunting at the left costophrenic [...] 02/24/2025 Assessment & Plan (02/26/2025 9:47 AM SENIOR JAVA WEB DEVELOPER): No BM since last Friday. No abdominal pain. KUB ordered to assess stool burden. Resolved with one time mag citrate - Miralax and senna scheduled Assessment & Plan (02/25/2025 10:10 AM SENIOR JAVA WEB DEVELOPER): No BM since last Friday. No abdominal pain. KUB ordered to assess stool burden. Resolved with one time mag citrate - Miralax and senna scheduled Assessment & Plan (02/24/2025 9:38 AM SENIOR JAVA WEB DEVELOPER): No BM since last Friday. No abdominal pain. - KUB ordered to assess stool burden - Miralax and senna scheduled Shortness of breath 02/22/2025 Assessment & Plan (02/26/2025 9:47 AM SENIOR JAVA WEB DEVELOPER): Reports weeks-months SOB on exertion and intermittent [...] CPAP Assessment & Plan (02/25/2025 7:40 AM SENIOR JAVA WEB DEVELOPER): Reports weeks-months SOB on exertion and intermittent [...] CPAP Assessment & Plan (02/24/2025 9:53 AM SENIOR JAVA WEB DEVELOPER): Reports weeks-months SOB on exertion and intermittent [...] CPAP Assessment & Plan (02/23/2025 8:22 AM SENIOR JAVA WEB DEVELOPER): Reports weeks-months SOB on exertion and intermittent [...] CPAP Assessment & Plan (02/22/2025 1:22 PM SENIOR JAVA WEB DEVELOPER): Reports weeks-months SOB on exertion and intermittent [...] CPAP Assessment & Plan (02/22/2025 12:53 AM SENIOR JAVA WEB DEVELOPER): Reports weeks-months SOB on exertion and intermittent [...] 02/22/2025 Assessment & Plan (02/26/2025 9:47 AM SENIOR JAVA WEB DEVELOPER): Reports weeks-months SOB on exertion and intermittent [...] CPAP Assessment & Plan (02/25/2025 7:40 AM SENIOR JAVA WEB DEVELOPER): Reports weeks-months SOB on exertion and intermittent [...] CPAP Assessment & Plan (02/24/2025 9:53 AM SENIOR JAVA WEB DEVELOPER): Reports weeks-months SOB on exertion and intermittent [...] CPAP Assessment & Plan (02/23/2025 8:22 AM SENIOR JAVA WEB DEVELOPER): Reports weeks-months SOB on exertion and intermittent [...] CPAP Assessment & Plan (02/22/2025 1:22 PM SENIOR JAVA WEB DEVELOPER): Reports weeks-months SOB on exertion and intermittent [...] CPAP Assessment & Plan (02/22/2025 12:53 AM SENIOR JAVA WEB DEVELOPER): Reports weeks-months SOB on exertion and intermittent [...] 02/22/2025 Assessment & Plan (02/26/2025 9:47 AM SENIOR JAVA WEB DEVELOPER): Reports weeks-months SOB on exertion and intermittent [...] CPAP Assessment & Plan (02/25/2025 7:40 AM SENIOR JAVA WEB DEVELOPER): Reports weeks-months SOB on exertion and intermittent [...] CPAP Assessment & Plan (02/24/2025 9:53 AM SENIOR JAVA WEB DEVELOPER): Reports weeks-months SOB on exertion and intermittent [...] CPAP Assessment & Plan (02/23/2025 8:22 AM SENIOR JAVA WEB DEVELOPER): Reports weeks-months SOB on exertion and intermittent [...] CPAP Assessment & Plan (02/22/2025 1:22 PM SENIOR JAVA WEB DEVELOPER): Reports weeks-months SOB on exertion and intermittent [...] CPAP Assessment & Plan (02/22/2025 12:53 AM SENIOR JAVA WEB DEVELOPER): Reports weeks-months SOB on exertion and intermittent [...] 02/19/2025 Assessment & Plan (02/26/2025 10:57 AM SENIOR JAVA WEB DEVELOPER): Presented with worsening generalized weakness and severe [...] ESR 31. -TATO 1:320 -SSA, SSB, Bethany-1, BUTTER MAKER negative -ANCA: indeterminate -TSH wnl -B12 200, [...] precaution Assessment & Plan (02/25/2025 7:40 AM SENIOR JAVA WEB DEVELOPER): Presented with worsening generalized weakness and severe [...] ESR 31. -TATO 1:320 -SSA, SSB, Bethany-1, BUTTER MAKER negative -ANCA: indeterminate -TSH wnl -B12 200, [...] further work up/diagnosis). If ALS, consider OP SCIENTIFIC EDITOR for voice banking and ongoing assessment of dysphagia. - f/u rheum - PT/OT: IPR - Resumed statin 02/24 - fall precaution Assessment & Plan (02/24/2025 9:53 AM SENIOR JAVA WEB DEVELOPER): Presented with worsening generalized weakness and severe [...] ESR 31. -TATO 1:320 -SSA, SSB, Bethany-1, BUTTER MAKER negative -ANCA: indeterminate -TSH wnl -B12 200, [...] further work up/diagnosis). If ALS, consider OP SCIENTIFIC EDITOR for voice banking and ongoing assessment of dysphagia. - f/u rheum - PT/OT: IPR - Resumed statin 02/24 - fall precaution Assessment & Plan (02/23/2025 12:36 PM SENIOR JAVA WEB DEVELOPER): Presented with worsening generalized weakness and severe [...] ESR 31. -TATO 1:320 -SSA, SSB, Bethany-1, BUTTER MAKER negative -ANCA: indeterminate -TSH wnl -B12 200, [...] further work up/diagnosis). If ALS, consider OP SCIENTIFIC EDITOR for voice banking and ongoing assessment of dysphagia. - f/u rheum - PT/OT: IPR - Hold atorvastatin - fall precaution Assessment & Plan (02/22/2025 2:07 PM SENIOR JAVA WEB DEVELOPER): Presented with worsening generalized weakness and severe [...] ESR 31. -TATO 1:320 -SSA, SSB, Bethany-1, BUTTER MAKER negative -TSH wnl -B12 200 -C3, C4 [...] precaution Assessment & Plan (02/22/2025 12:53 AM SENIOR JAVA WEB DEVELOPER): Presented with worsening generalized weakness and severe [...] ESR 31. -TATO 1:320 -SSA, SSB, Bethany-1, BUTTER MAKER negative -TSH wnl -B12 200 -C3, C4 [...] precaution Assessment & Plan (02/20/2025 8:58 PM SENIOR JAVA WEB DEVELOPER): Presented with worsening generalized weakness and severe [...] SPEP/UPEP, HIV, Hep C, aldolase, LDH, Ro/SSA, BUTTER MAKER (normal CK, TSH, vitamin D). Does have vitamin B12 mild deficiency. Elevated aldolase and LDH. - Check echo - Hold atorvastatin - fall precaution Assessment & Plan (02/19/2025 11:04 PM SENIOR JAVA WEB DEVELOPER): Presented with worsening generalized weakness and severe [...] SPEP/UPEP, HIV, Hep C, aldolase, LDH, Ro/SSA, BUTTER MAKER, - Check echo - Hold atorvastatin DM2 (diabetes mellitus, type 2) 02/19/2025 Assessment & Plan (02/26/2025 10:57 AM SENIOR JAVA WEB DEVELOPER): History of type 2 diabetes, takes Actos. Sliding scale while inpatient. Assessment & Plan (02/25/2025 7:40 AM SENIOR JAVA WEB DEVELOPER): History of type 2 diabetes, takes Actos. Sliding scale while inpatient. Assessment & Plan (02/24/2025 7:42 AM SENIOR JAVA WEB DEVELOPER): History of type 2 diabetes, takes Actos. Sliding scale while inpatient. Assessment & Plan (02/23/2025 8:22 AM SENIOR JAVA WEB DEVELOPER): History of type 2 diabetes, takes Actos. Sliding scale while inpatient. Assessment & Plan (02/22/2025 8:31 AM SENIOR JAVA WEB DEVELOPER): History of type 2 diabetes, takes Actos. Sliding scale while inpatient. Assessment & Plan (02/22/2025 12:06 AM SENIOR JAVA WEB DEVELOPER): History of type 2 diabetes, takes Actos. Sliding scale while inpatient. Assessment & Plan (02/20/2025 8:58 PM SENIOR JAVA WEB DEVELOPER): History of type 2 diabetes, takes Actos. Sliding scale while inpatient. Assessment & Plan (02/19/2025 11:04 PM SENIOR JAVA WEB DEVELOPER): History of type 2 diabetes, takes Actos. [...] 01/17/2020 Assessment & Plan (02/26/2025 10:57 AM SENIOR JAVA WEB DEVELOPER): History high blood pressure: Continued home lisinopril Assessment & Plan (02/25/2025 7:40 AM SENIOR JAVA WEB DEVELOPER): History high blood pressure: Continue home lisinopril Assessment & Plan (02/24/2025 7:42 AM SENIOR JAVA WEB DEVELOPER): History high blood pressure: Continue home lisinopril Assessment & Plan (02/23/2025 8:22 AM SENIOR JAVA WEB DEVELOPER): History high blood pressure: Continue home lisinopril Assessment & Plan (02/22/2025 8:31 AM SENIOR JAVA WEB DEVELOPER): History high blood pressure: Continue home lisinopril Assessment & Plan (02/22/2025 12:06 AM SENIOR JAVA WEB DEVELOPER): History high blood pressure: Continue home lisinopril Assessment & Plan (02/20/2025 8:58 PM SENIOR JAVA WEB DEVELOPER): History high blood pressure: Continue home lisinopril Assessment & Plan (02/19/2025 11:04 PM SENIOR JAVA WEB DEVELOPER): History high blood pressure: Continue home lisinopril [...] Description 03/07/2025 Orders Only [facility] Interim [phone] Unknown, Notinfile 03/04/2025 Telephone [facility] Medicine Neuro Muscle [address] [place] [address] [place] [address] Fabiola Toussaint DC 02/28/2025 Telephone [facility] Neuro Muscle [address] [place] [address] [place] [address] Ayla Mckeon, MYRON 02/28/2025 Documentation [facility] Medicine Neuro Muscle [address] [place] [address] [place] [address] Fabiola Toussaint DC 02/28/2025 Orders Only [facility] [phone] Unknown, Notinfile 02/22/2025 Documentation [facility] Neuro Muscle [address] [place] [address] [place] [address] Fabiola Toussaint DC 02/21/2025 11:59 PM SENIOR JAVA WEB DEVELOPER Hospital Encounter [facility] Neuromuscle [address] [place] [phone] Discharge Disposition: Discharge to home or self care 02/19/2025 3:08 PM SENIOR JAVA WEB DEVELOPER - 02/26/2025 2:00 PM SENIOR JAVA WEB DEVELOPER Hospital Encounter [address] [address] Rubén Lan MD Morgan, Zachary A., MD Yu, Tong, MD Patel, Saira Prieto MD Generalized weakness (Primary Dx); Right leg weakness; Shortness of breath; S/P video-assisted thoracoscopic surgery (VATS); Pulmonary hypertension (HCC); Myositis of right thigh, unspecified myositis type Discharge Disposition: Discharge to an Rehab facility 02/15/2025 7:15 AM SENIOR JAVA WEB DEVELOPER - 02/15/2025 11:59 PM SENIOR JAVA WEB DEVELOPER [place] [address] Radiculopathy, lumbar region; Other symptoms and signs involving the musculoskeletal system Discharge Disposition: Discharge to home or self care 12/31/2024 1:35 PM CDT - 12/31/2024 11:59 PM [place] [address] Other symptoms and signs involving the musculoskeletal system Discharge Disposition: Discharge to home or self care 12/31/2024 1:34 PM CDT - 12/31/2024 11:59 PM CDT Hospital Encounter [facility] [place] [id number] [place] [address] Dorsalgia, unspecified; Other chronic pain Discharge Disposition: [...] drink = 0.6 oz pur e alcohol) [facility] Utilities Answer Date Recorded In the past 12 months has [employer] electric, gas, oil, or water [employer] threatened to shut off services in your [...] often do you attend chur ch or catholic services? 1 to 4 times per year 09/23/2024 Do you belong to any clubs o r organizations such as voodoo groups, unions, fraternal or athletic groups, or [...] any time in the past 12 m [facility], were you homeless or living in a nursing home (including now)? No 09/23/2024 Personal Safety Answer [...] Comments Blood Pressure 128/60 02/26/2025 1:28 PM SENIOR JAVA WEB DEVELOPER Pulse 82 02/26/2025 1:28 PM SENIOR JAVA WEB DEVELOPER Temperature 36.5 C (97.7 F) 02/26/2025 11:35 AM SENIOR JAVA WEB DEVELOPER Respiratory Rate 18 02/26/2025 1:28 PM SENIOR JAVA WEB DEVELOPER Oxygen Saturation 100% 02/26/2025 1:28 PM SENIOR JAVA WEB DEVELOPER Inhaled Oxygen Concentration - - Weight 99.9 kg (220 lb 3.8 oz) 02/23/2025 5:27 A M SENIOR JAVA WEB DEVELOPER Height 188 cm (6' 2.02) 02/20/2025 12:53 AM SENIOR JAVA WEB DEVELOPER Body Mass Index 28.26 02/20/2025 12:53 AM SENIOR JAVA WEB DEVELOPER Plan of Treatment Health Maintenance Due Date [...] 02/26/2026 02/26/2025, 01/17/20 20 eGFR 03/07/2026 03/07/2025, 03/2024, 02/24/2025, Additional history exists Pneumococcal vaccine 65+ Completed 07/22/2017, 0406/2016 Zoster Vaccine Completed 04/22/2022, 02/25/2022 Influenza Vaccine Completed 12/20/2024, , 01/30/2023, Additional history exists Hepatitis C Screening Completed 02/20/2025 Procedures Procedure Name Priority Date/Time Associated Diagnosis Comments EGFR Routine 03/07/2025 6:40 AM SENIOR JAVA WEB DEVELOPER COMPREHENSIVE METABOLIC PANEL Routine 03/07/2025 6:40 AM SENIOR JAVA WEB DEVELOPER DIFFERENTIAL AUTO Routine 03/07/2025 6:4 0 AM SENIOR JAVA WEB DEVELOPER CBC WITH AUTO DIFFERENTIAL Routine 03/07/2025 6:40 AM SENIOR JAVA WEB DEVELOPER EGFR Routine 02/28/2025 5:10 AM SENIOR JAVA WEB DEVELOPER COMPREHENSIVE METABOLIC PANEL Routine 02/28/2025 5:10 AM SENIOR JAVA WEB DEVELOPER DIFFERENTIAL AUTO Routine 02/28/2025 5:1 0 AM SENIOR JAVA WEB DEVELOPER CBC WITH AUTO DIFFERENTIAL Routine 02/28/2025 5:10 AM SENIOR JAVA WEB DEVELOPER POCT GLUCOSE DEVICE Routine 02/26/2025 11:35 AM SENIOR JAVA WEB DEVELOPER INFECTION PREVENTION JANNET AURIS PCR, SURVEILLANCE Routine 02/26/2025 11:05 AM SENIOR JAVA WEB DEVELOPER POCT GLUCOSE DEVICE Routine 02/26/2025 7 :19 AM SENIOR JAVA WEB DEVELOPER POCT GLUCOSE DEVICE Routine 02/25/2025 8 :43 PM SENIOR JAVA WEB DEVELOPER POCT GLUCOSE DEVICE Routine 02/25/2025 5 :01 PM SENIOR JAVA WEB DEVELOPER POCT GLUCOSE DEVICE Routine 02/25/2025 12:03 PM SENIOR JAVA WEB DEVELOPER POCT GLUCOSE DEVICE Routine 02/25/2025 7 :34 AM SENIOR JAVA WEB DEVELOPER POCT GLUCOSE DEVICE Routine 02/24/2025 8 :10 PM SENIOR JAVA WEB DEVELOPER POCT GLUCOSE DEVICE Routine 02/24/2025 6 :42 PM SENIOR JAVA WEB DEVELOPER POCT GLUCOSE DEVICE Routine 02/24/2025 11:50 AM SENIOR JAVA WEB DEVELOPER XR ABDOMEN AP 1 VIEW ED Urgent/IP Urgent 02/24/2025 9:50 AM SENIOR JAVA WEB DEVELOPER POCT GLUCOSE DEVICE Routine 02/24/2025 7 :46 AM SENIOR JAVA WEB DEVELOPER EGFR Routine 02/24/2025 1:21 AM SENIOR JAVA WEB DEVELOPER DIFFERENTIAL AUTO Routine 02/24/2025 1:2 1 AM SENIOR JAVA WEB DEVELOPER CBC WITH AUTO DIFFERENTIAL Routine 02/24/2025 1:21 AM SENIOR JAVA WEB DEVELOPER BASIC METABOLIC PANEL Routine 02/24/2025 1:21 AM SENIOR JAVA WEB DEVELOPER HEPATIC FUNCTION PANEL Routine 02/24/2025 1:21 AM SENIOR JAVA WEB DEVELOPER COPPER, SERUM Routine 02/24/2025 1:21 AM SENIOR JAVA WEB DEVELOPER ZINC Routine 02/24/2025 1:21 AM SENIOR JAVA WEB DEVELOPER POCT GLUCOSE DEVICE Routine 02/23/2025 9 :23 PM SENIOR JAVA WEB DEVELOPER MRI SPINE CERVICAL THORACIC WO CONTRAST IP Routine 02/23/2025 8:45 PM SENIOR JAVA WEB DEVELOPER POCT GLUCOSE DEVICE Routine 02/23/2025 5 :21 PM SENIOR JAVA WEB DEVELOPER POCT GLUCOSE DEVICE Routine 02/23/2025 12:39 PM SENIOR JAVA WEB DEVELOPER RPR Routine 02/23/2025 9:59 AM SENIOR JAVA WEB DEVELOPER POCT GLUCOSE DEVICE Routine 02/23/2025 7 :44 AM SENIOR JAVA WEB DEVELOPER EGFR Routine 02/22/2025 9:15 PM SENIOR JAVA WEB DEVELOPER DIFFERENTIAL AUTO Routine 02/22/2025 9:1 5 PM SENIOR JAVA WEB DEVELOPER ALDOLASE Routine 02/22/2025 9:15 PM SENIOR JAVA WEB DEVELOPER CREATINE KINASE (CK), TOTAL Routine 02/22/2025 9:15 PM SENIOR JAVA WEB DEVELOPER COPPER, SERUM Routine 02/22/2025 9:15 PM SENIOR JAVA WEB DEVELOPER ZINC Routine 02/22/2025 9:15 PM SENIOR JAVA WEB DEVELOPER VITAMIN E Routine 02/22/2025 9:15 PM SENIOR JAVA WEB DEVELOPER CBC WITH AUTO DIFFERENTIAL Routine 02/22/2025 9:15 PM SENIOR JAVA WEB DEVELOPER BASIC METABOLIC PANEL Routine 02/22/2025 9:15 PM SENIOR JAVA WEB DEVELOPER HEPATIC FUNCTION PANEL Routine 02/22/2025 9:15 PM SENIOR JAVA WEB DEVELOPER POCT GLUCOSE DEVICE Routine 02/22/2025 8 :41 PM SENIOR JAVA WEB DEVELOPER ALDOLASE Routine 02/22/2025 3:19 PM SENIOR JAVA WEB DEVELOPER CREATINE KINASE (CK), TOTAL Routine 02/22/2025 3:19 PM SENIOR JAVA WEB DEVELOPER INSPIRATORY FORCE / LUNG MECHANICS Routine 02/22/2025 2:06 PM SENIOR JAVA WEB DEVELOPER POCT GLUCOSE DEVICE Routine 02/22/2025 2 :04 PM SENIOR JAVA WEB DEVELOPER IMMUNOFIXATION, URINE Timed 02/22/2025 11:45 AM SENIOR JAVA WEB DEVELOPER VOLUME AND PERIOD, URINE, 24 HOUR Timed 02/22/2025 11:45 AM SENIOR JAVA WEB DEVELOPER PROTEIN ELECTROPHORESIS, URINE, 24 HOUR RESULT Timed 02/22/2025 11:45 AM SENIOR JAVA WEB DEVELOPER PROTEIN ELECTROPHORESIS, URINE, 24 HOUR WITH IMMUNOFIXATION Timed 02/22/2025 11:45 AM SENIOR JAVA WEB DEVELOPER SCIENTIFIC EDITOR EVALUATE AND TREAT Routine 02/22/2025 10:50 AM SENIOR JAVA WEB DEVELOPER XR CHEST 1 VIEW Timed 02/22/2025 8:17 AM SENIOR JAVA WEB DEVELOPER POCT GLUCOSE DEVICE Routine 02/22/2025 7 :44 AM SENIOR JAVA WEB DEVELOPER EGFR Routine 02/21/2025 9:01 PM SENIOR JAVA WEB DEVELOPER DIFFERENTIAL AUTO Routine 02/21/2025 9:0 1 PM SENIOR JAVA WEB DEVELOPER CBC WITH AUTO DIFFERENTIAL Routine 02/21/2025 9:01 PM SENIOR JAVA WEB DEVELOPER BASIC METABOLIC PANEL Routine 02/21/2025 9:01 PM SENIOR JAVA WEB DEVELOPER HEPATIC FUNCTION PANEL Routine 02/21/2025 9:01 PM SENIOR JAVA WEB DEVELOPER POCT GLUCOSE DEVICE Routine 02/21/2025 7 :[address] JAVA WEB [address]EL[address] CT CHEST PE W CONTRAST IP Routine 02/21/2025 5:34 PM SENIOR JAVA WEB DEVELOPER TRANSTHORACIC ECHO (TTE) COMPLETE W DOPPLER/CF W CONTRAST Routine 02/21/2025 3:55 PM SENIOR JAVA WEB DEVELOPER POCT GLUCOSE DEVICE Routine 02/21/2025 12:13 PM SENIOR JAVA WEB DEVELOPER PRO B-TYPE NATRIURETIC PEPTIDE Timed 02/21/2025 11:58 AM SENIOR JAVA WEB DEVELOPER EGFR Timed 02/21/2025 11:58 AM SENIOR JAVA WEB DEVELOPER DIFFERENTIAL AUTO Timed 02/21/2025 11:58 AM SENIOR JAVA WEB DEVELOPER COMPREHENSIVE METABOLIC PANEL Timed 02/21/2025 11:58 AM SENIOR JAVA WEB DEVELOPER CBC WITH AUTO DIFFERENTIAL Timed 02/21/2025 11:58 AM SENIOR JAVA WEB DEVELOPER PROTEIN ELECTROPHORESIS, WITH REFLEX, SERUM Timed 02/21/2025 11:58 AM SENIOR JAVA WEB DEVELOPER C4 COMPLEMENT Timed 02/21/2025 11:58 AM SENIOR JAVA WEB DEVELOPER C3 COMPLEMENT Timed 02/21/2025 11:58 AM SENIOR JAVA WEB DEVELOPER NEUROMUSCULAR SPECIMEN TRACKING INPATIENT STAT 02/21/2025 11:58 AM SENIOR JAVA WEB DEVELOPER POCT GLUCOSE DEVICE Routine 02/21/2025 8 :02 AM SENIOR JAVA WEB DEVELOPER POCT GLUCOSE DEVICE Routine 02/20/2025 8 :40 PM SENIOR JAVA WEB DEVELOPER POCT GLUCOSE DEVICE Routine 02/20/2025 4 :39 PM SENIOR JAVA WEB DEVELOPER POCT GLUCOSE DEVICE Routine 02/20/2025 12:25 PM SENIOR JAVA WEB DEVELOPER INFECTION PREVENTION JANNET AURIS PCR, SURVEILLANCE Routine 02/20/2025 11:19 AM SENIOR JAVA WEB DEVELOPER POCT GLUCOSE DEVICE Routine 02/20/2025 7 :31 AM SENIOR JAVA WEB DEVELOPER FOLATE STAT 02/20/2025 6:43 AM SENIOR JAVA WEB DEVELOPER ALDOLASE STAT 02/20/2025 6:43 AM SENIOR JAVA WEB DEVELOPER ALDOLASE STAT 02/20/2025 12:18 AM SENIOR JAVA WEB DEVELOPER FOLATE STAT 02/20/2025 12:18 AM SENIOR JAVA WEB DEVELOPER HEMOGLOBIN A1C STAT 02/20/2025 12:18 AM SENIOR JAVA WEB DEVELOPER LACTATE DEHYDROGENASE STAT 02/20/2025 12:18 AM SENIOR JAVA WEB DEVELOPER LIPID PANEL STAT 02/20/2025 12:18 AM SENIOR JAVA WEB DEVELOPER BUTTER MAKER ANTIBODIES STAT 02/20/2025 12:18 AM SENIOR JAVA WEB DEVELOPER SJOGRENS SYNDROME-A ANTIBODY STAT 02/20/2025 12:18 AM SENIOR JAVA WEB DEVELOPER SJOGRENS SYNDROME-B ANTIBODY STAT 02/20/2025 12:18 AM SENIOR JAVA WEB DEVELOPER TSH STAT 02/20/2025 12:18 AM SENIOR JAVA WEB DEVELOPER VITAMIN B12 STAT 02/20/2025 12:18 AM SENIOR JAVA WEB DEVELOPER VITAMIN D 25 HYDROXY STAT 02/20/2025 12:18 AM SENIOR JAVA WEB DEVELOPER HEPATITIS C ANTIBODY STAT 02/20/2025 12:18 AM SENIOR JAVA WEB DEVELOPER HIV 1/2 ANTIBODY PLUS P24 ANTIGEN STAT 02/20/2025 12:18 AM SENIOR JAVA WEB DEVELOPER NEUROMUSCULAR TESTING STAT 02/20/2025 12:00 AM SENIOR JAVA WEB DEVELOPER POCT GLUCOSE DEVICE Routine 02/19/2025 11:55 PM SENIOR JAVA WEB DEVELOPER TROPONIN I HIGH-SENSITIVITY 2-HOUR Timed 02/19/2025 6:26 PM SENIOR JAVA WEB DEVELOPER URINALYSIS, MICROSCOPIC ONLY STAT 02/19/2025 5:55 PM SENIOR JAVA WEB DEVELOPER URINALYSIS AND REFLEX TO MICROSCOPIC AND CULTURE STAT 02/19/2025 5:55 PM SENIOR JAVA WEB DEVELOPER XR CHEST 1 VIEW ED 02/19/2025 4:20 PM SENIOR JAVA WEB DEVELOPER ECG 12-LEAD Routine 02/19/2025 4:12 PM SENIOR JAVA WEB DEVELOPER MYELOPEROXIDASE ANTIBODY Routine 02/19/2025 4:11 PM SENIOR JAVA WEB DEVELOPER PROTEINASE-3 ANTIBODY Routine 02/19/2025 4:11 PM SENIOR JAVA WEB DEVELOPER ANTI-NEUTROPHILIC CYTOPLASMIC ANTIBODY (ANCA) WITH REFLEX TO MPO AND PR3 ABS Routine 02/19/2025 4:11 PM SENIOR JAVA WEB DEVELOPER BETHANY-1 ANTIBODY STAT 02/19/2025 4:11 PM SENIOR JAVA WEB DEVELOPER TATO QUALITATIVE WITH REFLEX TO TATO QUANTITATIVE STAT 02/19/2025 4:11 PM SENIOR JAVA WEB DEVELOPER EGFR STAT 02/19/2025 3:53 PM SENIOR JAVA WEB DEVELOPER DIFFERENTIAL AUTO STAT 02/19/2025 3:5 3 PM SENIOR JAVA WEB DEVELOPER CRP (ACUTE PHASE) STAT 02/19/2025 3:5 3 PM SENIOR JAVA WEB DEVELOPER ERYTHROCYTE SEDIMENTATION RATE STAT 02/19/2025 3:53 PM SENIOR JAVA WEB DEVELOPER GAMMA GT STAT 02/19/2025 3:53 PM SENIOR JAVA WEB DEVELOPER CREATINE KINASE (CK), TOTAL STAT 02/19/2025 3:53 PM SENIOR JAVA WEB DEVELOPER PRO B-TYPE NATRIURETIC PEPTIDE STAT 02/19/2025 3:53 PM SENIOR JAVA WEB DEVELOPER TROPONIN I HIGH-SENSITIVITY SERIES (BASELINE, 2HR, 4HR, 6HR) STAT 02/19/2025 3:53 PM SENIOR JAVA WEB DEVELOPER PHOSPHORUS STAT 02/19/2025 3:53 PM SENIOR JAVA WEB DEVELOPER MAGNESIUM STAT 02/19/2025 3:53 PM SENIOR JAVA WEB DEVELOPER COMPREHENSIVE METABOLIC PANEL STAT 02/19/2025 3:53 PM SENIOR JAVA WEB DEVELOPER CBC WITH AUTO DIFFERENTIAL STAT 02/19/2025 3:53 PM SENIOR JAVA WEB DEVELOPER MRI LUMBAR SPINE WO CONTRAST Schedule Routine, Read Routine (OP Routine) 02/15/2025 8:10 AM SENIOR JAVA WEB DEVELOPER Radiculopathy, lumbar region Other symptoms and signs [...] Months Results * eGFR (03/07/2025 6:40 AM SENIOR JAVA WEB DEVELOPER) eGFR 89 >=60 mL/min/1. 73 m2 RUFIN[facility] [...] was last reviewed 2021. Testing performed by: [address] [address] Blood 03/07/2025 6:40 AM SENIOR JAVA WEB DEVELOPER 03/07/2025 8:30 AM SENIOR JAVA WEB DEVELOPER us Notinfile Unknown LAB BLOOD ORDERABLES Final Res ult [facility] Department [place] [address] * Differential, auto (03/07/2025 6:40 AM SENIOR JAVA WEB DEVELOPER) Neutrophil abs 3.66 1.50 - 6.50 K/cumm RUFINO Comment:Testing performed by : [address] [address] Imm gran abs 0.02 0.00 - 0.10 K/cumm RUFINO Comment:Testing performed by : [address] [address] Lymphocyte abs 0.90 0.80 - 3.30 K/cumm RUFIN[facility] Comment:Testing performed by : [address] [address] Monocyte abs 0.57 0.20 - 0.80 K/cumm [facility] Comment:Testing performed by : [address] [address] Eosinophil abs 0.11 0.00 - 0.50 K/cumm RUFINO Comment:Testing performed by : [address] [address] Basophil abs 0.03 0.00 - 0.10 K/cumm RUFINO Comment:Testing performed by : [address] [address] Neutrophil pct 69.1 % [facility] Comment: Interpretive Data Percent cell count reference ranges are not reported, since discordance with absolute values may lead to misinterpretation of CBC data. Current Interpretive Data was last revised on 2017. Testing performed by: [address] [address] Imm gran pct 0.4 % [facility] Comment: Interpretive Data Percent cell count reference ranges are not reported, since discordance with absolute values may lead to misinterpretation of CBC data. Current Interpretive Data was last revised on 2017. Testing performed by: [address] [address] Lymphocyte pct 17.0 % [facility] Comment: Interpretive Data Percent cell count reference ranges are not reported, since discordance with absolute values may lead to misinterpretation of CBC data. Current Interpretive Data was last revised on 2017. Testing performed by: [address] [address] Monocyte pct 10.8 % [facility] Comment: Interpretive Data Percent cell count reference ranges are not reported, since discordance with absolute values may lead to misinterpretation of CBC data. Current Interpretive Data was last revised on 2017. Testing performed by: [address] [address] Eosinophil pct 2.1 % [facility] Comment: Interpretive Data Percent cell count reference ranges are not reported, since discordance with absolute values may lead to misinterpretation of CBC data. Current Interpretive Data was last revised on 2017. Testing performed by: [address] [address] Basophil pct 0.6 % [facility] Comment: Interpretive Data Percent cell count reference ranges are not reported, since discordance with absolute values may lead to misinterpretation of CBC data. Current Interpretive Data was last revised on 2017. Testing performed by: [address] [address] Blood 03/07/2025 6:40 AM SENIOR JAVA WEB DEVELOPER 03/07/2025 8:30 AM SENIOR JAVA WEB DEVELOPER us Notinfile Unknown LAB BLOOD ORDERABLES Final Res ult RUFINO [address] [facility] Department [place] [address] * (ABNORMAL) CBC with auto differential (03/07/2025 6:40 AM SENIOR JAVA WEB DEVELOPER) WBC 5.29 3.80 - 9.90 K/cumm RUFINO PEREZ Comment:Testing performed by : [address] [address] Hgb 12.6(L) 13.0 - 17.5 g/dL RUFINO Comment:Testing performed by : [address] [address] Hct 38.5(L) 38.9 - 50.3 % RUFINO Comment:Testing performed by : [address] [address] Plt 307 150 - 400 K/cumm RUFINO Comment:Testing performed by : [address] [address] MPV 9.0(L) 9.1 - 12.3 fL RUFINO Comment:Testing performed by : [address] [address] RBC 4.08(L) 4.30 - 5.80 M/cumm RUFINO PEREZ Comment:Testing performed by : [address] [address] MCV 94.4 81.3 - 96.4 fL RUFINO Comment:Testing performed by : [address] [address] MCH 30.9 27.1 - 33.3 pg RUFINO Comment:Testing performed by : [address] [address] MCHC 32.7 32.3 - 35.7 g/dL RUFINO Comment:Testing performed by : [address] [address] RDW CV 15.1(H) 11.1 - 14.9 % RUFINO Comment:Testing performed by : [address] [address] RDW SD 52.7(H) 35.7 - 48.1 fL RUFINO PEREZ Comment:Testing performed by : [address] [address] NRBC abs 0.00 0.00 - 0.01 K/cumm RUFINO PEREZ Comment:Testing performed by : [address] [address] Blood 03/07/2025 6:40 AM SENIOR JAVA WEB DEVELOPER 03/07/2025 8:30 AM SENIOR JAVA WEB DEVELOPER us Notinfile Unknown LAB BLOOD ORDERABLES Final Res ult RUFINO PEREZ [facility] Department [place] [address] * (ABNORMAL) Comprehensive metabolic panel (03/07/2025 6:40 AM SENIOR JAVA WEB DEVELOPER) Sodium 133(L) 135 - 145 mmol/L RUFINO PEREZ Comment:Testing performed by : [address] [address] Potassium, pl 4.8 3.3 - 4.9 mmol/L RUFINO PEREZ Comment:Testing performed by : [address] [address] Chloride 97 97 - 110 mmol/L RUFINO Comment:Testing performed by : [address] [address] CO2 29 22 - 32 mmol/L RUFINO Comment:Testing performed by : [address] [address] Anion gap 7 2 - 15 mmol/L RUFINO Comment:Testing performed by : [address] [address] BUN 19 6 - 25 mg/dL RUFINO PEREZ Comment:Testing performed by : [address] [address] Creatinine 0.90 0.80 - 1.30 mg/dL RUFINO Comment:Testing performed by : [address] [address] Glucose 142 70 - 199 mg/dL RUFINO Comment: Interpretive [...] was last revised 2022. Testing performed by: [address] [address] Calcium 9.0 8.5 - 10.3 mg/dL RUFINO Comment:Testing performed by : [address] [address] Bilirubin, total 0.3 0.1 - 1.2 mg/dL RUFINO Comment:Testing performed by : [address] [address] Protein, pl 6.1(L) 6.5 - 8.5 g/dL RUFINO Comment:Testing performed by : [address] [address] Albumin 3.4(L) 3.5 - 5.0 g/dL RUFINO Comment:Testing performed by : [address] [address] Alk phos 107 40 - 130 Units/L RUFINO Comment:Testing performed by : [address] [address] ALT 21 7 - 55 Units/L RUFINO Comment:Testing performed by : [address] [address] AST 24 10 - 50 Units/L RUFINO Comment:Testing performed by : [address] [address] Blood 03/07/2025 6:40 AM SENIOR JAVA WEB DEVELOPER 03/07/2025 8:30 AM SENIOR JAVA WEB DEVELOPER us Notinfile Unknown LAB BLOOD ORDERABLES Final Res ult Performing Organization Address [facility]/RUST de Phone Number RUFINO [address] [facility] [place] [address] * eGFR (02/28/2025 5:10 AM SENIOR JAVA WEB DEVELOPER) eGFR 78 >=60 mL/min/1. 73 m2 RUFINO Comment: Interpretive Data Reference Interval Normal >/= [...] was last reviewed 2021. Testing performed by: [address] [address] Blood 02/28/2025 5:10 AM SENIOR JAVA WEB DEVELOPER 02/28/2025 8:18 AM SENIOR JAVA WEB DEVELOPER us Notinfile Unknown LAB BLOOD ORDERABLES Final Res ult Performing Organization Address [facility] Co de Phone Number [place] [address] [facility] [place] [employer] [address] * Differential, auto (02/28/2025 5:10 AM SENIOR JAVA WEB DEVELOPER) Neutrophil abs 4.34 1.50 - 6.50 K/cumm RUFINO Comment:Testing performed by : [address] [address] Imm gran abs 0.01 0.00 - 0.10 K/cumm RUFINO Comment:Testing performed by : [address] [address] Lymphocyte abs 1.14 0.80 - 3.30 K/cumm CERNER Comment:Testing performed by : [address] [address] Monocyte abs 0.67 0.20 - 0.80 K/cumm [facility] Comment:Testing performed by : [address] [address] Eosinophil abs 0.11 0.00 - 0.50 K/cumm [facility] Comment:Testing performed by : [address], [place]., [address] Basophil abs 0.05 0.00 - 0.10 K/cumm [facility] Comment:Testing performed by : [address] [address] Neutrophil pct 68.7 % [facility] Comment: Interpretive Data Percent cell count reference ranges are not reported, since discordance with absolute values may lead to misinterpretation of CBC data. Current Interpretive Data was last revised on 2017. Testing performed by: [address] [address] Imm gran pct 0.2 % [facility] Comment: Interpretive Data Percent cell count reference ranges are not reported, since discordance with absolute values may lead to misinterpretation of CBC data. Current Interpretive Data was last revised on 2017. Testing performed by: [address] [address] Lymphocyte pct 18.0 % [facility] Comment: Interpretive Data Percent cell count reference ranges are not reported, since discordance with absolute values may lead to misinterpretation of CBC data. Current Interpretive Data was last revised on 2017. Testing performed by: [address] [address] Monocyte pct 10.6 % [facility] Comment: Interpretive Data Percent cell count reference ranges are not reported, since discordance with absolute values may lead to misinterpretation of CBC data. Current Interpretive Data was last revised on 2017. Testing performed by: [address] [address] Eosinophil pct 1.7 % [facility] Comment: Interpretive Data Percent cell count reference ranges are not reported, since discordance with absolute values may lead to misinterpretation of CBC data. Current Interpretive Data was last revised on 2017. Testing performed by: [address] [address] Basophil pct 0.8 % RUFINO PEREZ Comment: Interpretive Data Percent cell count reference ranges are not reported, since discordance with absolute values may lead to misinterpretation of CBC data. Current Interpretive Data was last revised on 2017. Testing performed by: [address] [address] Blood 02/28/2025 5:10 AM SENIOR JAVA WEB DEVELOPER 02/28/2025 8:18 AM SENIOR JAVA WEB DEVELOPER us Notinfile Unknown LAB BLOOD ORDERABLES Final Res ult RUFINO [facility] Department [place] [address] * (ABNORMAL) CBC with auto differential (02/28/2025 5:10 AM SENIOR JAVA WEB DEVELOPER) WBC 6.32 3.80 - 9.90 K/cumm RUFINO PEREZ Comment:Testing performed by : [address] [address] Hgb 12.8(L) 13.0 - 17.5 g/dL RUFINO PEREZ Comment:Testing performed by : [address] [address] Hct 38.5(L) 38.9 - 50.3 % RUFINO PEREZ Comment:Testing performed by : [address] [address] Plt 277 150 - 400 K/cumm RUFINO PEREZ Comment:Testing performed by : [address] [address] MPV 9.4 9.1 - 12.3 fL RUFINO PEREZ Comment:Testing performed by : [address] [address] RBC 4.08(L) 4.30 - 5.80 M/cumm RUFINO PEREZ Comment:Testing performed by : [address] [address] MCV 94.4 81.3 - 96.4 fL RUFINO PEREZ Comment:Testing performed by : [address] [address] MCH 31.4 27.1 - 33.3 pg RUFINO PEREZ Comment:Testing performed by : [address] [address] MCHC 33.2 32.3 - 35.7 g/dL RUFINO PEREZ Comment:Testing performed by : [address] [address] RDW CV 15.1(H) 11.1 - 14.9 % RUFINO PEREZ Comment:Testing performed by : [address] [address] RDW SD 52.3(H) 35.7 - 48.1 fL RUFINO PEREZ Comment:Testing performed by : [address] [address] NRBC abs 0.00 0.00 - 0.01 K/cumm RUFINO PEREZ Comment:Testing performed by : [address] [address] Blood 02/28/2025 5:10 AM SENIOR JAVA WEB DEVELOPER 02/28/2025 8:18 AM SENIOR JAVA WEB DEVELOPER us Notinfile Unknown LAB BLOOD ORDERABLES Final Res ult RUFINO PEREZ [address] [facility] Department of Laboratories [place], [place] [id number] * (ABNORMAL) Comprehensive metabolic panel (02/28/2025 5:10 AM SENIOR JAVA WEB DEVELOPER) Sodium 134(L) 135 - 145 mmol/L RUFINO PEREZ Comment:Testing performed by : [address] [address] Potassium, pl 4.8 3.3 - 4.9 mmol/L RUFINO PEREZ Comment:Testing performed by : [address] [address] Chloride 99 97 - 110 mmol/L RUFINO Comment:Testing performed by : [address] [address] CO2 28 22 - 32 mmol/L RUFINO Comment:Testing performed by : [address] [address] Anion gap 7 2 - 15 mmol/L RUFINO Comment:Testing performed by : [address] [address] BUN 25 6 - 25 mg/dL [facility] Comment:Testing performed by : [address] [address] Creatinine 1.00 0.80 - 1.30 mg/dL [facility] Comment:Testing performed by : [address] [address] Glucose 157 70 - 199 mg/dL [facility] Comment: Interpretive Data Fasting glucose >/= 126 [...] was last revised 2022. Testing performed by: [address] [address] Calcium 9.2 8.5 - 10.3 mg/dL [facility] Comment:Testing performed by : [address] [address] Bilirubin, total 0.4 0.1 - 1.2 mg/dL [facility] Comment:Testing performed by : [address] [address] Protein, pl 6.2(L) 6.5 - 8.5 g/dL RUFINO Comment:Testing performed by : [address] [address] Albumin 3.3(L) 3.5 - 5.0 g/dL RUFINO Comment:Testing performed by : [facility], [address] [place] [address]., [address] Alk phos 106 40 - 130 Units/L RUFINO Comment:Testing performed by : [address] [address] ALT 30 7 - 55 Units/L RUFINO Comment:Testing performed by : [address] [address] AST 34 10 - 50 Units/L RUFINO Comment:Testing performed by : [address] [address] Blood 02/28/2025 5:10 AM SENIOR JAVA WEB DEVELOPER 02/28/2025 8:18 AM SENIOR JAVA WEB DEVELOPER us Notinfile Unknown LAB BLOOD ORDERABLES Final Res ult Performing Organization Address City/[facility]/ZIP Co de Phone Number RUFINO [address] [facility] Department [place] [address] * POCT glucose (02/26/2025 11:35 AM SENIOR JAVA WEB DEVELOPER) Glucose, POC 162 70 - 199 mg/dL Blood 02/26/2025 11:3 5 AM SENIOR JAVA WEB DEVELOPER 02/26/2025 11:35 AM SENIOR JAVA WEB DEVELOPER us Saira Robles MD LAB POCT ORDERABLES - DEVICE Final Result Performing Organization Address City/[facility]/ZIP Co de Phone Number [facility] [place] Department [place] [address] * Infection Prevention Jannet auris PCR, surveillance Axilla/Groin (02/26/2025 11:05 AM SENIOR JAVA WEB DEVELOPER) Jannet auris DNA Not Detected Not Detected [facility] Comment: Interpretive Data Testing performed by [facility] using the Arian jt [id number] Jannet auris assay. This assay detects DNA from Jannet auris using Real-Time PCR. This assay is laboratory developed and is not cleared by the [place] Food and Drug Administration. The performance characteristics have been verified by the [facility]. Axilla/Groin 02/26/2025 11:0 5 AM SENIOR JAVA WEB DEVELOPER 02/26/2025 12:26 PM SENIOR JAVA WEB DEVELOPER Narrative [facility] - 02/27/2025 12:48 PM SENIOR JAVA WEB DEVELOPER Order placed by [facility] due to ring surveillance. Instant Order Generic Provider LAB MICROBIOLOGY - GENERAL ORDERABLES Final Result Performing Organization Address [facility] Co de Phone Number [facility] [place] [address] [facility] * POCT glucose (02/26/2025 7:19 AM SENIOR JAVA WEB DEVELOPER) Glucose, POC 132 70 - 199 mg/dL Blood 02/26/2025 7:19 AM SENIOR JAVA WEB DEVELOPER 02/26/2025 7:19 AM SENIOR JAVA WEB DEVELOPER Saira Robles MD LAB POCT ORDERABLES - DEVICE Final Result Performing Organization Address City/[facility] Co de Phone Number [facility] [employer] [address] * POCT glucose (02/25/2025 8:43 PM SENIOR JAVA WEB DEVELOPER) Glucose, POC 159 70 - 199 mg/dL Blood 02/25/2025 8:43 PM SENIOR JAVA WEB DEVELOPER 02/25/2025 8:43 PM SENIOR JAVA WEB DEVELOPER Saira Robles MD LAB POCT ORDERABLES - DEVICE Final Result Performing Organization Address City/[facility] Co de Phone Number [facility] [employer] [address] * (ABNORMAL) POCT glucose (02/25/2025 5:01 PM SENIOR JAVA WEB DEVELOPER) Glucose, POC 201(H) 70 - 199 mg/dL Blood 02/25/2025 5:01 PM SENIOR JAVA WEB DEVELOPER 02/25/2025 5:01 PM SENIOR JAVA WEB DEVELOPER us Saira Robles MD LAB POCT ORDERABLES - DEVICE Final Result Performing Organization Address [facility]/[place]UST de Phone Number [facility] [place] [address] * POCT glucose (02/25/2025 12:03 PM SENIOR JAVA WEB DEVELOPER) Glucose, POC 153 70 - 199 mg/dL Blood 02/25/2025 12:0 3 PM SENIOR JAVA WEB DEVELOPER 02/25/2025 12:03 PM SENIOR JAVA WEB DEVELOPER us Saira Robles MD LAB POCT ORDERABLES - DEVICE Final Result Performing Organization Address [facility] de Phone Number [facility] [place] [address] * POCT glucose (02/25/2025 7:34 AM SENIOR JAVA WEB DEVELOPER) Glucose, POC 145 70 - 199 mg/dL Blood 02/25/2025 7:34 AM SENIOR JAVA WEB DEVELOPER 02/25/2025 7:34 AM SENIOR JAVA WEB DEVELOPER us Saira Robles MD LAB POCT ORDERABLES - DEVICE Final Result Performing Organization Address [facility]UST de Phone Number [facility] [place] [address] * POCT glucose (02/24/2025 8:10 PM SENIOR JAVA WEB DEVELOPER) Glucose, POC 156 70 - 199 mg/dL Blood 02/24/2025 8:10 PM SENIOR JAVA WEB DEVELOPER 02/24/2025 8:10 PM SENIOR JAVA WEB DEVELOPER us Saira Robles MD LAB POCT ORDERABLES - DEVICE Final Result Performing Organization Address [facility]/ZIP Co de Phone Number [facility] [place] [address] * POCT glucose (02/24/2025 6:42 PM SENIOR JAVA WEB DEVELOPER) Glucose, POC 185 70 - 199 mg/dL Blood 02/24/2025 6:42 PM SENIOR JAVA WEB DEVELOPER 02/24/2025 6:42 PM SENIOR JAVA WEB DEVELOPER Saira Robles MD LAB POCT ORDERABLES - DEVICE Final Result Performing Organization Address [facility] [place] [address] * POCT glucose (02/24/2025 11:50 AM SENIOR JAVA WEB DEVELOPER) Glucose, POC 187 70 - 199 mg/dL Blood 02/24/2025 11:5 0 AM SENIOR JAVA WEB DEVELOPER 02/24/2025 11:50 AM SENIOR JAVA WEB DEVELOPER Saira Robles MD LAB POCT ORDERABLES - DEVICE Final Result Performing Organization Address [facility]UST de Phone Number [facility] [employer] [address] * XR Abdomen Ap 1 Vw (02/24/2025 9:50 AM SENIOR JAVA WEB DEVELOPER) Anatomical Region Laterality Modality Body, Abdomen N/A Computed Radiogr aphy 02/25/2025 8:04 AM SENIOR JAVA WEB DEVELOPER Impressions 02/25/2025 8:04 AM SENIOR JAVA WEB DEVELOPER Moderate amount of stool seen within the ascending, transverse and upper descending colon. Normal gas pattern. Some mottling in the right hemiabdomen favored to represent stool. Small left pleural effusion with atelectasis. Electronically signed by: Lachelle Brewer M.D. Narrative 02/25/2025 8:04 AM SENIOR JAVA WEB DEVELOPER EXAMINATION: Abdomen, one view. HISTORY: Constipation COMPARISON: None Procedure Note Lachelle Brewer MD - 02/25/2025 EXAMINATION: Abdomen, one view. HISTORY: Constipation COMPARISON: None IMPRESSION: Moderate amount of stool seen within the ascending, transverse and upper descending colon. Normal gas pattern. Some mottling in the right hemiabdomen favored to represent stool. Small left pleural effusion with atelectasis. Electronically signed by: Lachelle Brewer M.D. us Saira Robles MD IMG XR PROCEDURES Fin al Result * POCT glucose (02/24/2025 7:46 AM SENIOR JAVA WEB DEVELOPER) Glucose, POC 153 70 - 199 mg/dL Blood 02/24/2025 7:46 AM SENIOR JAVA WEB DEVELOPER 02/24/2025 7:46 AM SENIOR JAVA WEB DEVELOPER Saira Robles MD LAB POCT ORDERABLES - DEVICE Final Result [facility] Department [place] [address] * eGFR (02/24/2025 1:21 AM SENIOR JAVA WEB DEVELOPER) eGFR 65 >=60 mL/min/1. 73 m2 Comment: [...] of Race in Diagnosing Kidney Disease, JASN 202). The CKD-EPI equation should not be used for patients with unstable renal function and has not been validated in children and those over 70. Current interpretive data was last reviewed 2021. Blood 02/24/2025 1:21 AM SENIOR JAVA WEB DEVELOPER 02/24/2025 2:33 AM SENIOR JAVA WEB DEVELOPER Dm Matthews MD LAB BLOOD ORDERABLES Final Resul t [facility] Department [place] [address] * Differential, auto (02/24/2025 1:21 AM SENIOR JAVA WEB DEVELOPER) Neutrophil abs 3.37 1.50 - 6.50 K/cumm Imm gran abs 0.03 0.00 - 0.10 K/cumm CERNER [facility] Lymphocyte abs 1.69 0.80 - 3.30 K/cumm [facility] Monocyte abs 0.70 0.20 - 0.80 K/cumm CERNER [facility] Eosinophil abs 0.14 0.00 - 0.50 K/cumm [facility] Basophil abs 0.04 0.00 - 0.10 K/cumm [facility] Neutrophil pct 56.5 % [facility] Comment: Interpretive Data Percent cell count reference ranges are not reported, since discordance with absolute values may lead to misinterpretation of CBC data. Current Interpretive Data was last revised on 2017. Imm gran pct 0.5 % [facility] Comment: Interpretive Data Percent cell count reference ranges are not reported, since discordance with absolute values may lead to misinterpretation of CBC data. Current Interpretive Data was last revised on 2017. Lymphocyte pct 28.3 % [facility] Comment: Interpretive Data Percent cell count reference ranges are not reported, since discordance with absolute values may lead to misinterpretation of CBC data. Current Interpretive Data was last revised on 2017. Monocyte pct 11.7 % [facility] Comment: Interpretive Data Percent cell count reference ranges are not reported, since discordance with absolute values may lead to misinterpretation of CBC data. Current Interpretive Data was last revised on 2017. Eosinophil pct 2.3 % [facility] Comment: Interpretive Data Percent cell count reference ranges are not reported, since discordance with absolute values may lead to misinterpretation of CBC data. Current Interpretive Data was last revised on 2017. Basophil pct 0.7 % [facility] Comment: Interpretive Data Percent cell count reference ranges are not reported, since discordance with absolute values may lead to misinterpretation of CBC data. Current Interpretive Data was last revised on 2017. Blood 02/24/2025 1:21 AM SENIOR JAVA WEB DEVELOPER 02/24/2025 2:33 AM SENIOR JAVA WEB DEVELOPER Dm Matthews MD LAB BLOOD ORDERABLES Final Resul t Performing Organization Address City/[facility] Co de Phone Number [facility] Department [place] [address] * (ABNORMAL) CBC with auto differential (02/24/2025 1:21 AM SENIOR JAVA WEB DEVELOPER) WBC 5.97 3.80 - 9.90 K/cumm Hgb 12.5(L) 13.0 - 17.5 g/dL [facility] Hct 38.0(L) 38.9 - 50.3 % [facility] Plt 295 150 - 400 K/cumm [facility] MPV 9.6 9.1 - 12.3 fL [facility] RBC 4.08(L) 4.30 - 5.80 M/cumm [facility] MCV 93.1 81.3 - 96.4 fL [facility] MCH 30.6 27.1 - 33.3 pg [facility] MCHC 32.9 32.3 - 35.7 g/dL [facility] RDW CV 15.2(H) 11.1 - 14.9 % [facility] RDW SD 51.7(H) 35.7 - 48.1 fL [facility] NRBC abs 0.00 0.00 - 0.01 K/cumm [facility] Blood 02/24/2025 1:21 AM SENIOR JAVA WEB DEVELOPER 02/24/2025 2:33 AM SENIOR JAVA WEB DEVELOPER us Dm Matthews MD LAB BLOOD ORDERABLES Final Resul t Performing Organization Address City/[facility]/ZIP Co de Phone Number RUFINO NICHOLSON [facility] [employer] [address] * Copper, serum (02/24/2025 1:21 AM SENIOR JAVA WEB DEVELOPER) Copper 108 73 - 129 mcg/dL [facility] Comment: ADDITIONAL INFORMATION This test was developed and its performance characteristics determined by [facility] in a manner consistent with CLIA requirements. This test has not been cleared or approved by the U.S. Food and Drug Administration. Test Performed by: [facility] [place] [address] Department Head [employer]: Agustín Sherman Ph.D.; CLIA# [id number] Blood 02/24/2025 1:21 AM SENIOR JAVA WEB DEVELOPER 02/24/2025 2:31 AM SENIOR JAVA WEB DEVELOPER Saira Robles MD LAB BLOOD ORDERABLES Final Result Performing Organization Address [facility] de [place] [address] [facility] * Zinc (02/24/2025 1:21 AM SENIOR JAVA WEB DEVELOPER) Zinc 68 60 - 106 mcg/dL [facility] Comment: ADDITIONAL INFORMATION This test was developed and its performance characteristics determined by [facility] in a manner consistent with CLIA requirements. This test has not been cleared or approved by the U.S. Food and Drug Administration. Test Performed by: [facility] [place] [address] Department Head [employer]: Agustín Sherman Ph.D.; CLIA# [id number] Blood 02/24/2025 1:21 AM SENIOR JAVA WEB DEVELOPER 02/24/2025 2:31 AM SENIOR JAVA WEB DEVELOPER us Saira Robles MD LAB BLOOD ORDERABLES Final Result Performing Organization Address [facility] Co de Phone Number [facility] [place] [address] [facility] ref [facility] * (ABNORMAL) Hepatic function panel (02/24/2025 1:21 AM SENIOR JAVA WEB DEVELOPER) Pathologist [facility] Bilirubin, total 0.4 0.1 - 1.2 mg/dL Bilirubin, direct <0.2 0.1 - 0.3 mg/dL [facility] Protein, pl 6.4(L) 6.5 - 8.5 g/dL [facility] Albumin 3.6 3.5 - 5.0 g/dL [facility] Alk phos 99 40 - 130 Units/L [facility] ALT 28 7 - 55 Units/L [facility] AST 38 10 - 50 Units/L [facility] Blood 02/24/2025 1:21 AM SENIOR JAVA WEB DEVELOPER 02/24/2025 2:33 AM SENIOR JAVA WEB DEVELOPER Dm Matthews MD LAB BLOOD ORDERABLES Final Resul t Performing Organization Address [facility] Co de Phone Number [facility] [place] [address] * Basic metabolic panel (02/24/2025 1:21 AM SENIOR JAVA WEB DEVELOPER) Pathologist [facility] Sodium 138 135 - 145 mmol/L Potassium, pl 3.9 3.3 - 4.9 mmol/L [facility] Chloride 100 97 - 110 mmol/L [facility] CO2 28 22 - 32 mmol/L [facility] Anion gap 10 2 - 15 mmol/L [facility] BUN 20 6 - 25 mg/dL [facility] Creatinine 1.16 0.80 - 1.30 mg/dL [facility] Glucose 133 70 - 199 mg/dL [facility] Comment: Interpretive Data Fasting glucose >/= 126 [...] 2022. Calcium 8.8 8.5 - 10.3 mg/dL [facility] Blood 02/24/2025 1:21 AM SENIOR JAVA WEB DEVELOPER 02/24/2025 2:33 AM SENIOR JAVA WEB DEVELOPER us Dm Matthews MD LAB BLOOD ORDERABLES Final Resul t Performing Organization Address City/[facility]/ZIP Co de Phone Number [facility] [place] [address] * POCT glucose (02/23/2025 9:23 PM SENIOR JAVA WEB DEVELOPER) [facility] Signature Glucose, POC 192 70 - 199 mg/dL Blood 02/23/2025 9:23 PM SENIOR JAVA WEB DEVELOPER 02/23/2025 9:23 PM SENIOR JAVA WEB DEVELOPER us Saira Robles MD LAB POCT ORDERABLES - DEVICE Final Result Performing Organization Address City/[facility] Co de Phone Number [facility] [place] [address] * MRI Spine Cervical and Thoracic WO Contrast (02/23/2025 8:45 PM SENIOR JAVA WEB DEVELOPER) Anatomical Region Laterality Modality Spine N/A Magnetic Resonan ce 02/23/2025 9:25 PM SENIOR JAVA WEB DEVELOPER Impressions 02/23/2025 10:13 PM SENIOR JAVA WEB DEVELOPER 1. Mild degenerative changes in the cervical spine. No high-grade spinal canal or neural foraminal stenosis at any level. Heterogeneous bone marrow signal, which may be due to osteopenia. 2. No definitive cord signal change in the cervical and thoracic spine. 3. Partially imaged left pleural effusion. Dictated by: Julia Panfilo, M.D. The radiology attending physician has personally reviewed this study, and had reviewed and/or edited this written report and agrees with it. Electronically signed by: Hugo Mcgee MD, PhD Narrative 02/23/2025 10:13 PM SENIOR JAVA WEB DEVELOPER EXAMINATION: 1. Magnetic resonance imaging (MRI) of [...] Electronically signed by: Hugo Mcgee MD, PhD Dm Matthews MD [facility] MRI PROCEDURES Final Result * POCT glucose (02/23/2025 5:21 PM SENIOR JAVA WEB DEVELOPER) [facility] Signature Glucose, POC 166 70 - 199 mg/dL Blood 02/23/2025 5:21 PM SENIOR JAVA WEB DEVELOPER 02/23/2025 5:21 PM SENIOR JAVA WEB DEVELOPER us Saira Robles MD LAB POCT ORDERABLES - DEVICE Final Result Performing Organization Address [facility] Co de Phone Number [facility] [employer] [place] [address] * POCT glucose (02/23/2025 12:39 PM SENIOR JAVA WEB DEVELOPER) Glucose, POC 153 70 - 199 mg/dL Blood 02/23/2025 12:3 9 PM SENIOR JAVA WEB DEVELOPER 02/23/2025 12:39 PM SENIOR JAVA WEB DEVELOPER Saira Robles MD LAB POCT ORDERABLES - DEVICE Final Result Performing Organization Address [facility] Co de Phone Number [facility] [employer] [address] * RPR Blood (02/23/2025 9:59 AM SENIOR JAVA WEB DEVELOPER) RPR Nonreactive Nonreactive Blood 02/23/2025 9:59 AM SENIOR JAVA WEB DEVELOPER 02/23/2025 10:38 AM SENIOR JAVA WEB DEVELOPER us Saira Robles MD LAB MICROBIOLOGY - GE NERAL ORDERABLES Final Result Performing Organization Address [facility] Co de Phone Number [facility] [employer] [address] * POCT glucose (02/23/2025 7:44 AM SENIOR JAVA WEB DEVELOPER) Glucose, POC 125 70 - 199 mg/dL Blood 02/23/2025 7:44 AM SENIOR JAVA WEB DEVELOPER 02/23/2025 7:44 AM SENIOR JAVA WEB DEVELOPER us Saira Robles MD LAB POCT ORDERABLES - DEVICE Final Result Performing Organization Address [facility] Co de Phone Number [facility] [place] [address] * eGFR (02/22/2025 9:15 PM SENIOR JAVA WEB DEVELOPER) [facility] eGFR 80 >=60 mL/min/1. 73 m2 Comment: [...] last reviewed 2021. Blood 02/22/2025 9:15 PM SENIOR JAVA WEB DEVELOPER 02/22/2025 9:59 PM SENIOR JAVA WEB DEVELOPER us Dm Matthews MD LAB BLOOD ORDERABLES Final Resul t [facility] Department [place] [address] * Differential, auto (02/22/2025 9:15 PM SENIOR JAVA WEB DEVELOPER) [facility] Neutrophil abs 3.57 1.50 - 6.50 K/cumm Imm gran abs 0.02 0.00 - 0.10 K/cumm [facility] Lymphocyte abs 1.19 0.80 - 3.30 K/cumm [facility] Monocyte abs 0.63 0.20 - 0.80 K/cumm [facility] Eosinophil abs 0.12 0.00 - 0.50 K/cumm [facility] Basophil abs 0.05 0.00 - 0.10 K/cumm [facility] Neutrophil pct 63.9 % [facility] Comment: Interpretive Data Percent cell count reference ranges are not reported, since discordance with absolute values may lead to misinterpretation of CBC data. Current Interpretive Data was last revised on 2017. Imm gran pct 0.4 % [facility] Comment: Interpretive Data Percent cell count reference ranges are not reported, since discordance with absolute values may lead to misinterpretation of CBC data. Current Interpretive Data was last revised on 2017. Lymphocyte pct 21.3 % [facility] Comment: Interpretive Data Percent cell count reference ranges are not reported, since discordance with absolute values may lead to misinterpretation of CBC data. Current Interpretive Data was last revised on 2017. Monocyte pct 11.3 % [facility] Comment: Interpretive Data Percent cell count reference ranges are not reported, since discordance with absolute values may lead to misinterpretation of CBC data. Current Interpretive Data was last revised on 2017. Eosinophil pct 2.2 % [facility] Comment: Interpretive Data Percent cell count reference ranges are not reported, since discordance with absolute values may lead to misinterpretation of CBC data. Current Interpretive Data was last revised on 2017. Basophil pct 0.9 % [facility] Comment: Interpretive Data Percent cell count reference ranges are not reported, since discordance with absolute values may lead to misinterpretation of CBC data. Current Interpretive Data was last revised on 2017. Blood 02/22/2025 9:15 PM SENIOR JAVA WEB DEVELOPER 02/22/2025 9:59 PM SENIOR JAVA WEB DEVELOPER us Dm Matthews MD LAB BLOOD ORDERABLES Final Resul t [facility] Department [place] [address] * (ABNORMAL) CBC with auto differential (02/22/2025 9:15 PM SENIOR JAVA WEB DEVELOPER) WBC 5.58 3.80 - 9.90 K/cumm Hgb 11.3(L) 13.0 - 17.5 g/dL [facility] Hct 34.1(L) 38.9 - 50.3 % [facility] Plt 248 150 - 400 K/cumm [facility] MPV 9.5 9.1 - 12.3 fL [facility] RBC 3.68(L) 4.30 - 5.80 M/cumm [facility] MCV 92.7 81.3 - 96.4 fL [facility] MCH 30.7 27.1 - 33.3 pg [facility] MCHC 33.1 32.3 - 35.7 g/dL [facility] RDW CV 15.0(H) 11.1 - 14.9 % [facility] RDW SD 50.7(H) 35.7 - 48.1 fL [facility] NRBC abs 0.00 0.00 - 0.01 K/cumm [facility] Blood 02/22/2025 9:15 PM SENIOR JAVA WEB DEVELOPER 02/22/2025 9:59 PM SENIOR JAVA WEB DEVELOPER us Dm Matthews MD LAB BLOOD ORDERABLES Final Resul t Performing Organization Address City/[facility] de Phone Number [facility] Department [place] [address] * Copper, serum (02/22/2025 9:15 PM SENIOR JAVA WEB DEVELOPER) [facility] Copper 97 73 - 129 mcg/dL [facility] ref Lab Comment: ADDITIONAL INFORMATION This test was developed and its performance characteristics determined by [facility] in a manner consistent with CLIA requirements. This test has not been cleared or approved by the U.S. Food and Drug Administration. Test Performed by: [facility] Laboratories - [address] [address] Department Head [employer]: Agustín Sherman Ph.D.; CLIA# [id number] Blood 02/22/2025 9:15 PM SENIOR JAVA WEB DEVELOPER 02/22/2025 10:10 PM SENIOR JAVA WEB DEVELOPER us Janice Leon MD LAB BLOOD ORDERABLES Final Result Performing Organization Address City/[facility] Co de Phone Number [facility] [place] [address] Max ref Lab * (ABNORMAL) Zinc (02/22/2025 9:15 PM SENIOR JAVA WEB DEVELOPER) [facility] Zinc 53(L) 60 - 106 mcg/dL [facility] ref Lab Comment: ADDITIONAL INFORMATION This test was developed and its performance characteristics determined by [facility] in a manner consistent with CLIA requirements. This test has not been cleared or approved by the U.S. Food and Drug Administration. Test Performed by: [address] [address] Department Head [employer]: Agustín Sherman Ph.D.; CLIA# [id number] Blood 02/22/2025 9:15 PM SENIOR JAVA WEB DEVELOPER 02/22/2025 10:10 PM SENIOR JAVA WEB DEVELOPER Janice Leon MD LAB BLOOD ORDERABLES Final Result Performing Organization Address [facility] Co de Phone Number [facility] [employer] [address] Max ref Lab * (ABNORMAL) Aldolase (02/22/2025 9:15 PM SENIOR JAVA WEB DEVELOPER) [facility] Aldolase 8.4(H) 0.1 - 8.0 Units/L Comment:Reviewed Blood 02/22/2025 9:15 PM SENIOR JAVA WEB DEVELOPER 02/22/2025 9:59 PM SENIOR JAVA WEB DEVELOPER Janice Leon MD LAB BLOOD ORDERABLES Final Result Performing Organization Address City/[facility] Co de Phone Number [facility] [employer] [address] * Vitamin E (02/22/2025 9:15 PM SENIOR JAVA WEB DEVELOPER) [facility] Tocopherol (Vit E) 8.7 5.5 - 17.0 mg/L [facility] ref Lab Comment: ADDITIONAL INFORMATION This test was developed and its performance characteristics determined by [facility] in a manner consistent with CLIA requirements. This test has not been cleared or approved by the U.S. Food and Drug Administration. Test Performed by: [facility] [address] [place] [address] Department Head [employer]: Agustín Sherman Ph.D.; CLIA# [id number] Blood 02/22/2025 9:15 PM SENIOR JAVA WEB DEVELOPER 02/22/2025 10:15 PM SENIOR JAVA WEB DEVELOPER Janice Leon MD LAB BLOOD ORDERABLES Final Result Performing Organization Address [facility] Co de Phone Number [facility] [place] [employer] [address] Max ref Lab * Creatine kinase (CK), total (02/22/2025 9:15 PM SENIOR JAVA WEB DEVELOPER) Pathologist [facility] CK 235 40 - 300 Units/L Blood 02/22/2025 9:15 PM SENIOR JAVA WEB DEVELOPER 02/22/2025 9:59 PM SENIOR JAVA WEB DEVELOPER Janice Leon MD LAB BLOOD ORDERABLES Final Result Performing Organization Address City/[facility] Co de Phone Number [facility] [employer] [address] * (ABNORMAL) Hepatic function panel (02/22/2025 9:15 PM SENIOR JAVA WEB DEVELOPER) Bilirubin, total 0.4 0.1 - 1.2 mg/dL Bilirubin, direct <0.2 0.1 - 0.3 mg/dL [facility] Protein, pl 6.1(L) 6.5 - 8.5 g/dL [facility] Albumin 3.0(L) 3.5 - 5.0 g/dL [facility] Alk phos 90 40 - 130 Units/L [facility] ALT 25 7 - 55 Units/L [facility] AST 34 10 - 50 Units/L [facility] Blood 02/22/2025 9:15 PM SENIOR JAVA WEB DEVELOPER 02/22/2025 9:59 PM SENIOR JAVA WEB DEVELOPER Dm Matthews MD LAB BLOOD ORDERABLES Final Resul t Performing Organization Address City/[facility] Co de Phone Number [facility] [place] [address] * Basic metabolic panel (02/22/2025 9:15 PM SENIOR JAVA WEB DEVELOPER) Pathologist [facility] Sodium 135 135 - 145 mmol/L Potassium, pl 4.0 3.3 - 4.9 mmol/L [facility] Chloride 101 97 - 110 mmol/L [facility] CO2 26 22 - 32 mmol/L [facility] Anion gap 8 2 - 15 mmol/L [facility] BUN 18 6 - 25 mg/dL [facility] Creatinine 0.98 0.80 - 1.30 mg/dL [facility] Glucose 131 70 - 199 mg/dL [facility] Comment: Interpretive Data Fasting glucose >/= 126 [...] 2022. Calcium 8.7 8.5 - 10.3 mg/dL [facility] Blood 02/22/2025 9:15 PM SENIOR JAVA WEB DEVELOPER 02/22/2025 9:59 PM SENIOR JAVA WEB DEVELOPER Dm Matthews MD LAB BLOOD ORDERABLES Final Resul t Performing Organization Address City/[facility]/ZIP Co de Phone Number [facility] [place] [address] * POCT glucose (02/22/2025 8:41 PM SENIOR JAVA WEB DEVELOPER) Glucose, POC 142 70 - 199 mg/dL Blood 02/22/2025 8:41 PM SENIOR JAVA WEB DEVELOPER 02/22/2025 8:41 PM SENIOR JAVA WEB DEVELOPER Saira Robles MD LAB POCT ORDERABLES - DEVICE Final Result Performing Organization Address City/[facility]/ZIP Co de Phone Number [facility] [place] [address] * Aldolase (02/22/2025 3:19 PM SENIOR JAVA WEB DEVELOPER) Aldolase See Comment 0.1 - 8.0 Units/L Comment: Credited; Hemolyzed Specimen Telephone report made to: ALESHA Meng on 02/22/2025 16:42:56 SENIOR JAVA WEB DEVELOPER by SO . Blood 02/22/2025 3:19 PM SENIOR JAVA WEB DEVELOPER 02/22/2025 4:08 PM SENIOR JAVA WEB DEVELOPER Saira Robles MD LAB BLOOD ORDERABLES Final Result [facility] [employer] [address] * Creatine kinase (CK), total (02/22/2025 3:19 PM SENIOR JAVA WEB DEVELOPER) Pathologist [facility] CK 219 40 - 300 Units/L Blood 02/22/2025 3:19 PM SENIOR JAVA WEB DEVELOPER 02/22/2025 4:08 PM SENIOR JAVA WEB DEVELOPER Saira Robles MD LAB BLOOD ORDERABLES Final Result [facility] [place] [address] * POCT glucose (02/22/2025 2:04 PM SENIOR JAVA WEB DEVELOPER) Glucose, POC 160 70 - 199 mg/dL Blood 02/22/2025 2:04 PM SENIOR JAVA WEB DEVELOPER 02/22/2025 2:04 PM SENIOR JAVA WEB DEVELOPER Saira Robles MD LAB POCT ORDERABLES - DEVICE Final Result Performing Organization Address [facility] de Phone Number [facility] Department [place] [employer] [address] * Volume and period, urine, 24 hour (02/22/2025 11:45 AM SENIOR JAVA WEB DEVELOPER) Volume, ur 1,175 mL Period, Urine Collection 1,440 min [facility] Urine 02/22/2025 11:4 5 AM SENIOR JAVA WEB DEVELOPER 02/22/2025 1:31 PM SENIOR JAVA WEB DEVELOPER Dm Matthews MD LAB URINE ORDERABLES Final Resul t Performing Organization Address [facility] de Phone Number [facility] [place] [address] * Protein electrophoresis, urine, 24 hour (02/22/2025 11:45 AM SENIOR JAVA WEB DEVELOPER) Protein, ur, quant 12.2 mg/dL Comment:No reference range e stablished. Albumin, Ur No Protein Visible % [facility] Comment:No reference range e stablished. Alpha-1 globulin, Ur No Protein Visible % [facility] Comment:No reference range e stablished. Alpha-2 globulin, Ur No Protein Visible % [facility] Comment:No reference range e stablished. Beta globulin, Ur No Protein Visible % [facility] Comment:No reference range e stablished. Gamma globulin, Ur No Protein Visible % [facility] Comment:No reference range e stablished. UPEP interp Please see comment [facility] Comment: No apparent monoclonal peak No protein visible See immunofixation for further information Urine concentrated Reviewed and signed by Rebekah Lopez MD, PhD 02/25/2025 Protein, 24 hr, ur 143 1 - 150 mg/24H [facility] Urine 02/22/2025 11:4 5 AM SENIOR JAVA WEB DEVELOPER 02/22/2025 1:31 PM SENIOR JAVA WEB DEVELOPER us Dm Matthews MD LAB URINE ORDERABLES Final Resul t Performing Organization Address [facility] Co de Phone Number [facility] [place] [address] * Immunofixation, urine with interpretation (02/22/2025 11:45 AM SENIOR JAVA WEB DEVELOPER) Immunofixation, Ur Please see comment Comment:NO PARAPROTEIN DETEC MATT Reviewed and signed by Rebekah Lopez MD, PhD 02/25/2025 Urine 02/22/2025 11:4 5 AM SENIOR JAVA WEB DEVELOPER 02/22/2025 1:31 PM SENIOR JAVA WEB DEVELOPER us Dm Matthews MD LAB URINE ORDERABLES Final Resul t Performing Organization Address [facility] Co de Phone Number [facility] [place] [address] * SCIENTIFIC EDITOR Evaluation and Treatment (02/22/2025 10:50 AM SENIOR JAVA WEB DEVELOPER) Narrative Gem Hartman SLP - 02/22/2025 10:50 AM SENIOR JAVA WEB DEVELOPER Gem Hartman SCIENTIFIC EDITOR 02/22/2025 12:17 PM Speech-Language Pathology: Clinical Bedside [...] regular Baseline Diet: regular General Information Mansoor Middleton 02/22/25 General Observations: present. Pt alert, oriented. [...] aspiration precautions and when to call doctor/get SCIENTIFIC EDITOR referral. They verbalized understanding. Assessment Details & [...] Aspiration Risk: No aspiration risk (170-200) Plan SCIENTIFIC EDITOR Frequency of Services during current admission: One-time visit (Discharge from this service) SCIENTIFIC EDITOR Recommendation (Add'l Services): Other (No further SCIENTIFIC EDITOR at this time. SCIENTIFIC EDITOR at next level of care pending further work up/diagnosis) Further Assessment/Follow up Indicated: Recommendations: Speech at next level of care (pending further work up/diagnosis). If ALS, consider OP SCIENTIFIC EDITOR for voice banking and ongoing assessment of dysphagia. Next Visit Plan:No further ST warranted at this time Additional Referrals: no Please reference care plan for treatment goals, if indicated. Discharge Summary Statement If this is the last swallow therapy visit, this serves as the discharge summary. Dm Matthews MD SCIENTIFIC EDITOR ORDERABLES Final Result * XR Chest 1 View (02/22/2025 8:17 AM SENIOR JAVA WEB DEVELOPER) Anatomical Region Laterality Modality Body, Chest N/A Computed Radiogr aphy 02/22/2025 9:04 AM SENIOR JAVA WEB DEVELOPER Impressions 02/22/2025 9:41 AM SENIOR JAVA WEB DEVELOPER The current study is compared with the prior radiograph dated 02/19/2025. Stable small left pneumothorax. Mild cardiomegaly, similar prior. Basilar atelectasis. Obscuration of the left costophrenic angle. Dictated by: Beth Palacios M.D. The radiology attending physician has personally reviewed this study, and had reviewed and/or edited this written report and agrees with it. Electronically signed by: Padmini Matthews M.D. Narrative 02/22/2025 9:41 AM SENIOR JAVA WEB DEVELOPER EXAMINATION: 1 view chest radiograph Procedure Note [...] Result * POCT glucose (02/22/2025 7:44 AM SENIOR JAVA WEB DEVELOPER) Glucose, POC 118 70 - 199 mg/dL Blood 02/22/2025 7:44 AM SENIOR JAVA WEB DEVELOPER 02/22/2025 7:44 AM SENIOR JAVA WEB DEVELOPER us Saira Robles MD LAB POCT ORDERABLES - DEVICE Final Result Performing Organization Address City/State/[facility] Co nv Phone Number [facility] [place] [address] * eGFR (02/21/2025 9:01 PM SENIOR JAVA WEB DEVELOPER) eGFR 84 >=60 mL/min/1. 73 m2 Comment: [...] last reviewed 2021. Blood 02/21/2025 9:01 PM SENIOR JAVA WEB DEVELOPER 02/21/2025 9:31 PM SENIOR JAVA WEB DEVELOPER Dm Matthews MD LAB BLOOD ORDERABLES Final Resul t [facility] [place] [address] * Differential, auto (02/21/2025 9:01 PM SENIOR JAVA WEB DEVELOPER) Neutrophil abs 3.44 1.50 - 6.50 K/cumm Imm gran abs 0.01 0.00 - 0.10 K/cumm [facility] Lymphocyte abs 1.18 0.80 - 3.30 K/cumm [facility] Monocyte abs 0.61 0.20 - 0.80 K/cumm [facility] Eosinophil abs 0.10 0.00 - 0.50 K/cumm [facility] Basophil abs 0.03 0.00 - 0.10 K/cumm [facility] Neutrophil pct 63.9 % [facility] Comment: Interpretive Data Percent cell count reference ranges are not reported, since discordance with absolute values may lead to misinterpretation of CBC data. Current Interpretive Data was last revised on 2017. Imm gran pct 0.2 % [facility] Comment: Interpretive Data Percent cell count reference ranges are not reported, since discordance with absolute values may lead to misinterpretation of CBC data. Current Interpretive Data was last revised on 2017. Lymphocyte pct 22.0 % [facility] Comment: Interpretive Data Percent cell count reference ranges are not reported, since discordance with absolute values may lead to misinterpretation of CBC data. Current Interpretive Data was last revised on 2017. Monocyte pct 11.4 % [facility] Comment: Interpretive Data Percent cell count reference ranges are not reported, since discordance with absolute values may lead to misinterpretation of CBC data. Current Interpretive Data was last revised on 2017. Eosinophil pct 1.9 % [facility] Comment: Interpretive Data Percent cell count reference ranges are not reported, since discordance with absolute values may lead to misinterpretation of CBC data. Current Interpretive Data was last revised on 2017. Basophil pct 0.6 % [facility] Comment: Interpretive Data Percent cell count reference ranges are not reported, since discordance with absolute values may lead to misinterpretation of CBC data. Current Interpretive Data was last revised on 2017. Blood 02/21/2025 9:01 PM SENIOR JAVA WEB DEVELOPER 02/21/2025 9:31 PM SENIOR JAVA WEB DEVELOPER Dm Matthews MD LAB BLOOD ORDERABLES Final Resul t Performing Organization Address [facility] Co de Phone Number [facility] [place] [employer] [address] * (ABNORMAL) CBC with auto differential (02/21/2025 9:01 PM SENIOR JAVA WEB DEVELOPER) WBC 5.37 3.80 - 9.90 K/cumm Hgb 11.7(L) 13.0 - 17.5 g/dL [facility] Hct 34.0(L) 38.9 - 50.3 % [facility] Plt 262 150 - 400 K/cumm [facility] MPV 9.6 9.1 - 12.3 fL [facility] RBC 3.80(L) 4.30 - 5.80 M/cumm [facility] MCV 89.5 81.3 - 96.4 fL [facility] MCH 30.8 27.1 - 33.3 pg [facility] MCHC 34.4 32.3 - 35.7 g/dL [facility] RDW CV 15.2(H) 11.1 - 14.9 % [facility] RDW SD 49.2(H) 35.7 - 48.1 fL [facility] NRBC abs 0.00 0.00 - 0.01 K/cumm [facility] Blood 02/21/2025 9:01 PM SENIOR JAVA WEB DEVELOPER 02/21/2025 9:31 PM SENIOR JAVA WEB DEVELOPER us Dm Matthews MD LAB BLOOD ORDERABLES Final Resul t Performing Organization Address [facility]/ZIP Co de Phone Number [facility] Department [place] [address] * (ABNORMAL) Hepatic function panel (02/21/2025 9:01 PM SENIOR JAVA WEB DEVELOPER) [facility] Bilirubin, total 0.4 0.1 - 1.2 mg/dL Bilirubin, direct <0.2 0.1 - 0.3 mg/dL [facility] Protein, pl 6.1(L) 6.5 - 8.5 g/dL [facility] Albumin 3.3(L) 3.5 - 5.0 g/dL [facility] Alk phos 83 40 - 130 Units/L [facility] ALT 24 7 - 55 Units/L [facility] AST 40 10 - 50 Units/L [facility] Blood 02/21/2025 9:01 PM SENIOR JAVA WEB DEVELOPER 02/21/2025 9:31 PM SENIOR JAVA WEB DEVELOPER Dm Matthews MD LAB BLOOD ORDERABLES Final Resul t [facility] Department [place] [address] * (ABNORMAL) Basic metabolic panel (02/21/2025 9:01 PM SENIOR JAVA WEB DEVELOPER) [facility] Sodium 135 135 - 145 mmol/L Potassium, pl 4.3 3.3 - 4.9 mmol/L [facility] Chloride 99 97 - 110 mmol/L [facility] CO2 28 22 - 32 mmol/L [facility] Anion gap 8 2 - 15 mmol/L [facility] BUN 18 6 - 25 mg/dL [facility] Creatinine 0.94 0.80 - 1.30 mg/dL [facility] Glucose 168 70 - 199 mg/dL [facility] Comment: Interpretive Data Fasting glucose >/= 126 [...] 2022. Calcium 8.4(L) 8.5 - 10.3 mg/dL [facility] Blood 02/21/2025 9:01 PM SENIOR JAVA WEB DEVELOPER 02/21/2025 9:31 PM SENIOR JAVA WEB DEVELOPER us Dm Matthews MD LAB BLOOD ORDERABLES Final Resul t Performing Organization Address [facility] Co de Phone Number [facility] [place] [address] * POCT glucose (02/21/2025 7:44 PM SENIOR JAVA WEB DEVELOPER) [facility] Signature Glucose, POC 167 70 - 199 mg/dL Blood 02/21/2025 7:44 PM SENIOR JAVA WEB DEVELOPER 02/21/2025 7:44 PM SENIOR JAVA WEB DEVELOPER Dm Matthews MD LAB POCT ORDERABLES - DEVICE Fin al Result Performing Organization Address [facility]/[place] de Phone Number [facility] [place] [address] * CT Chest PE (CTA) W Contrast (02/21/2025 5:34 PM SENIOR JAVA WEB DEVELOPER) Anatomical Region Laterality Modality Body N/A Computed Tomogra phy 02/21/2025 6:36 PM SENIOR JAVA WEB DEVELOPER Impressions 02/21/2025 7:47 PM SENIOR JAVA WEB DEVELOPER 1. No evidence of acute pulmonary embolism. 2. New small left anterior pneumothorax. Dictated by: Rebecca Wilkerson MD The radiology attending physician has personally reviewed this study, and had reviewed and/or edited this written report and agrees with it. Electronically signed by: Bri Fuentes M.D. Narrative 02/21/2025 7:47 PM SENIOR JAVA WEB DEVELOPER EXAMINATION: CT CHEST PE (CTA) W CONTRAST [...] by: Bri Fuentes M.D. Dm Matthews MD [facility] CT PROCEDURES Final Result * TRANSTHORACIC ECHO (TTE) COMPLETE W DOPPLER/CF W CONTRAST (02/21/2025 3:55 PM SENIOR JAVA WEB DEVELOPER) EF Mod BP 60 % CONS SCIMAGE Anatomical Region Laterality Modality Ultrasound 02/21/2025 3:04 PM SENIOR JAVA WEB DEVELOPER Narrative 02/21/2025 4:06 PM SENIOR JAVA WEB DEVELOPER [facility] [place] [address] Transthoracic Echocardiographic Report Patient Name: MANSOOR MIDDLETON R : 1950 (74y 3m) Sex: M Study Date: 02/21/2025 03:04:27 PM Ht(Inch): 74 Wt(Lb): 225.97 BSA: 2.29 Quality Control Engineer: Shea Peterson [facility] Location: [id number] Order Provider: AGUSTIN LOZADA Heart Rate: 69 [...] cm RA Volume 50 ml MV Decel [id number] RA Volume Index 22 ml/m2 MV [...] By: Eloy Hinton MD 02/21/2025 4:06:09 PM SENIOR JAVA WEB DEVELOPER Procedure Note Eloy Hinton MD - 02/21/[address] [facility] [place] [address] Transthoracic Echocardiographic Report Patient Name: MANSOOR MIDDLETON R : 1950 (74y 3m) Sex: M Study Date: 02/21/2025 03:04:27 PM Ht(Inch): 74 Wt(Lb): 225.97 BSA: 2.29 Quality Control Engineer: Shea Peterson [facility] Location: [id number] Order Provider:AGUSTIN LOZADA Heart Rate: 69 BMI: [...] cm RA Volume 50 ml MV Decel [id number] RA Volume Index 22 ml/m2 MV Decel [id number] msec [ 104 - 258 ] AoR [...] By: Eloy Hinton MD 02/21/2025 4:06:09 PM SENIOR JAVA WEB DEVELOPER Agustin Lozada MD CV ECHO PROCEDU RES Final Result * POCT glucose (02/21/2025 12:13 PM SENIOR JAVA WEB DEVELOPER) Pathologist [facility] Glucose, POC 150 70 - 199 mg/dL Blood 02/21/2025 12:1 3 PM SENIOR JAVA WEB DEVELOPER 02/21/2025 12:13 PM SENIOR JAVA WEB DEVELOPER Result [facility] Dm Matthews MD LAB POCT ORDERABLES - DEVICE Fin al Result Performing Organization Address [facility] Co de Phone Number [facility] [place] [employer] [address] * Neuromuscular Specimen Tracking Inpatient Blood (02/21/2025 11:58 AM SENIOR JAVA WEB DEVELOPER) Blood 02/21/2025 11:5 8 AM SENIOR JAVA WEB DEVELOPER 02/21/2025 11:59 AM SENIOR JAVA WEB DEVELOPER Narrative [facility] - 02/21/2025 11:59 AM SENIOR JAVA WEB DEVELOPER Blood draw complete Result [facility] Dm Matthews MD LAB BLOOD ORDERABLES Final Resul t Performing Organization Address [facility]/[place] de Phone Number [facility] [place] [employer] [address] * eGFR (02/21/2025 11:58 AM SENIOR JAVA WEB DEVELOPER) [facility] eGFR 86 >=60 mL/min/1. 73 m2 Comment: [...] reviewed 2021. Blood 02/21/2025 11:5 8 AM SENIOR JAVA WEB DEVELOPER 02/21/2025 12:32 PM SENIOR JAVA WEB DEVELOPER us Dm Matthews MD LAB BLOOD ORDERABLES Final Resul t [facility] Department [place] [address] * Differential, auto (02/21/2025 11:58 AM SENIOR JAVA WEB DEVELOPER) Neutrophil abs 3.54 1.50 - 6.50 K/cumm Imm gran abs 0.01 0.00 - 0.10 K/cumm [facility] Lymphocyte abs 0.86 0.80 - 3.30 K/cumm [facility] Monocyte abs 0.49 0.20 - 0.80 K/cumm [facility] Eosinophil abs 0.04 0.00 - 0.50 K/cumm [facility] Basophil abs 0.04 0.00 - 0.10 K/cumm [facility] Neutrophil pct 71.1 % [facility] Comment: Interpretive Data Percent cell count reference ranges are not reported, since discordance with absolute values may lead to misinterpretation of CBC data. Current Interpretive Data was last revised on 2017. Imm gran pct 0.2 % [facility] Comment: Interpretive Data Percent cell count reference ranges are not reported, since discordance with absolute values may lead to misinterpretation of CBC data. Current Interpretive Data was last revised on 2017. Lymphocyte pct 17.3 % [facility] Comment: Interpretive Data Percent cell count reference ranges are not reported, since discordance with absolute values may lead to misinterpretation of CBC data. Current Interpretive Data was last revised on 2017. Monocyte pct 9.8 % [facility] Comment: Interpretive Data Percent cell count reference ranges are not reported, since discordance with absolute values may lead to misinterpretation of CBC data. Current Interpretive Data was last revised on 2017. Eosinophil pct 0.8 % [facility] Comment: Interpretive Data Percent cell count reference ranges are not reported, since discordance with absolute values may lead to misinterpretation of CBC data. Current Interpretive Data was last revised on 2017. Basophil pct 0.8 % [facility] Comment: Interpretive Data Percent cell count reference ranges are not reported, since discordance with absolute values may lead to misinterpretation of CBC data. Current Interpretive Data was last revised on 2017. Blood 02/21/2025 11:5 8 AM SENIOR JAVA WEB DEVELOPER 02/21/2025 12:33 PM SENIOR JAVA WEB DEVELOPER us Dm Matthews MD LAB BLOOD ORDERABLES Final Resul t Performing Organization Address [facility]/[place] de Phone Number [facility] [employer] [place] [employer] [place] [address] * C4 complement (02/21/2025 11:58 AM SENIOR JAVA WEB DEVELOPER) Pathologist [facility] Complement C4 21.4 10.0 - 40.0 mg/dL Blood 02/21/2025 11:5 8 AM SENIOR JAVA WEB DEVELOPER 02/21/2025 12:32 PM SENIOR JAVA WEB DEVELOPER us Dm Matthews MD LAB BLOOD ORDERABLES Final Resul t Performing Organization Address [facility]/[place] de Phone Number [facility] [place] [employer] [address] * Pro B-type natriuretic peptide (02/21/2025 11:58 AM SENIOR JAVA WEB DEVELOPER) NT-proBNP 69 <=450 pg/mL Comment: Interpretive Comments: [...] Heart J. 2006:27:330-337. 2. Joanne RW, Anders SOLIS. J. [facility]iol: Cardiovasc Imag. 2009;2: 216- 225. Interpretive Data Last Revised Date: 2017. Blood 02/21/2025 11:5 8 AM SENIOR JAVA WEB DEVELOPER 02/21/2025 12:32 PM SENIOR JAVA WEB DEVELOPER us Dm Matthews MD LAB BLOOD ORDERABLES Final Resul t [facility] Department [place] [address] * (ABNORMAL) CBC with auto differential (02/21/2025 11:58 AM SENIOR JAVA WEB DEVELOPER) WBC 4.98 3.80 - 9.90 K/cumm Hgb 12.2(L) 13.0 - 17.5 g/dL [facility] Hct 36.5(L) 38.9 - 50.3 % [facility] Plt 273 150 - 400 K/cumm [facility] MPV 9.5 9.1 - 12.3 fL [facility] RBC 4.04(L) 4.30 - 5.80 M/cumm [facility] MCV 90.3 81.3 - 96.4 fL [facility] MCH 30.2 27.1 - 33.3 pg [facility] MCHC 33.4 32.3 - 35.7 g/dL [facility] RDW CV 14.9 11.1 - 14.9 % [facility] RDW SD 49.4(H) 35.7 - 48.1 fL [facility] NRBC abs 0.00 0.00 - 0.01 K/cumm [facility] Blood 02/21/2025 11:5 8 AM SENIOR JAVA WEB DEVELOPER 02/21/2025 12:33 PM SENIOR JAVA WEB DEVELOPER us Dm Matthews MD LAB BLOOD ORDERABLES Final Resul t Performing Organization Address [facility] Co de Phone Number [facility] [place] [address] * C3 complement (02/21/2025 11:58 AM SENIOR JAVA WEB DEVELOPER) Pathologist [facility] Complement C3 120.0 90.0 - 180.0 mg/dL Blood 02/21/2025 11:5 8 AM SENIOR JAVA WEB DEVELOPER 02/21/2025 12:32 PM SENIOR JAVA WEB DEVELOPER us Dm Matthews MD LAB BLOOD ORDERABLES Final Resul t Performing Organization Address [facility] Co de Phone Number [facility] [place] [address] * (ABNORMAL) Protein electrophoresis with reflex, serum with interpretation (02/21/2025 11:58 AM SENIOR JAVA WEB DEVELOPER) Pathologist [facility] Protein, sr 5.7(L) 6.2 - 8.2 g/dL Albumin 3.1(L) 3.2 - 5.0 g/dL [facility] Alpha-1 globulin 0.3 0.2 - 0.4 g/dL [facility] Alpha-2 globulin 0.7 0.5 - 1.0 g/dL [facility] Beta-1 globulin 0.3 0.3 - 0.6 g/dL [facility] Beta-2 globulin 0.4 0.2 - 0.6 g/dL [facility] Gamma globulin 0.9 0.5 - 1.7 g/dL [facility] SPEP interp Please see comment [facility] Comment: No apparent monoclonal peak Reviewed and signed by Rebekah Lopez MD, PhD 02/22/2025 Blood 02/21/2025 11:5 8 AM SENIOR JAVA WEB DEVELOPER 02/21/2025 12:32 PM SENIOR JAVA WEB DEVELOPER Dm Matthews MD LAB BLOOD ORDERABLES Final Resul t [facility] [place] [address] * (ABNORMAL) Comprehensive metabolic panel (02/21/2025 11:58 AM SENIOR JAVA WEB DEVELOPER) Sodium 136 135 - 145 mmol/L Potassium, pl 3.8 3.3 - 4.9 mmol/L [facility] Chloride 101 97 - 110 mmol/L [facility] CO2 27 22 - 32 mmol/L [facility] Anion gap 8 2 - 15 mmol/L [facility] BUN 20 6 - 25 mg/dL [facility] Creatinine 0.92 0.80 - 1.30 mg/dL [facility] Glucose 188 70 - 199 mg/dL [facility] Comment: Interpretive Data Fasting glucose >/= 126 [...] 2022. Calcium 8.3(L) 8.5 - 10.3 mg/dL [facility] Bilirubin, total 0.4 0.1 - 1.2 mg/dL [facility] Protein, pl 5.9(L) 6.5 - 8.5 g/dL [facility] Albumin 3.3(L) 3.5 - 5.0 g/dL [facility] Alk phos 85 40 - 130 Units/L [facility] ALT 24 7 - 55 Units/L [facility] AST 33 10 - 50 Units/L [facility] Blood 02/21/2025 11:5 8 AM SENIOR JAVA WEB DEVELOPER 02/21/2025 12:32 PM SENIOR JAVA WEB DEVELOPER us Dm Matthews MD LAB BLOOD ORDERABLES Final Resul t Performing Organization Address [facility] Co de Phone Number [facility] [employer] [address] * POCT glucose (02/21/2025 8:02 AM SENIOR JAVA WEB DEVELOPER) Glucose, POC 129 70 - 199 mg/dL Blood 02/21/2025 8:02 AM SENIOR JAVA WEB DEVELOPER 02/21/2025 8:02 AM SENIOR JAVA WEB DEVELOPER Dm Matthews MD LAB POCT ORDERABLES - DEVICE Fin al Result Performing Organization Address [facility]/[place] de Phone Number [facility] [place] [employer] [address] * POCT glucose (02/20/2025 8:40 PM SENIOR JAVA WEB DEVELOPER) Glucose, POC 180 70 - 199 mg/dL Blood 02/20/2025 8:40 PM SENIOR JAVA WEB DEVELOPER 02/20/2025 8:40 PM SENIOR JAVA WEB DEVELOPER us Dm Matthews MD LAB POCT ORDERABLES - DEVICE Fin al Result Performing Organization Address [facility] Co de Phone Number [facility] [employer] [address] * POCT glucose (02/20/2025 4:39 PM SENIOR JAVA WEB DEVELOPER) Glucose, POC 140 70 - 199 mg/dL Blood 02/20/2025 4:39 PM SENIOR JAVA WEB DEVELOPER 02/20/2025 4:39 PM SENIOR JAVA WEB DEVELOPER Dm Matthews MD LAB POCT ORDERABLES - DEVICE Fin al Result [facility] [place] [address] * POCT glucose (02/20/2025 12:25 PM SENIOR JAVA WEB DEVELOPER) Glucose, POC 154 70 - 199 mg/dL Blood 02/20/2025 12:2 5 PM SENIOR JAVA WEB DEVELOPER 02/20/2025 12:25 PM SENIOR JAVA WEB DEVELOPER Dm Matthews MD LAB POCT ORDERABLES - DEVICE Fin al Result Performing Organization Address [facility]/[place] [address] * Infection Prevention Jannet auris PCR, surveillance Axilla/Groin (02/20/2025 11:19 AM SENIOR JAVA WEB DEVELOPER) Jannet auris DNA Not Detected Not Detected [facility] Comment: Interpretive Data Testing performed by [facility] using the Arian [id number] Jannet auris assay. This assay detects DNA from Jannet auris using Real-Time PCR. This assay is laboratory developed and is not cleared by the [facility] Food and Drug Administration. The performance characteristics have been verified by the [facility]. Axilla/Groin 02/20/2025 11:1 9 AM SENIOR JAVA WEB DEVELOPER 02/20/2025 2:18 PM SENIOR JAVA WEB DEVELOPER Narrative [facility] - 02/21/2025 1:00 PM SENIOR JAVA WEB DEVELOPER Order placed by [facility] due to ring surveillance. Instant Order Generic Provider LAB MICROBIOLOGY - GENERAL ORDERABLES Final Result Performing Organization Address [facility] Co de Phone Number [facility] [place] [address] [facility] * POCT glucose (02/20/2025 7:31 AM SENIOR JAVA WEB DEVELOPER) [facility] Glucose, POC 130 70 - 199 mg/dL Blood 02/20/2025 7:31 AM SENIOR JAVA WEB DEVELOPER 02/20/2025 7:31 AM SENIOR JAVA WEB DEVELOPER Dm Matthews MD LAB POCT ORDERABLES - DEVICE Fin al Result Performing Organization Address [facility] Co de Phone Number [facility] [employer] [address] * (ABNORMAL) Aldolase (02/20/2025 6:43 AM SENIOR JAVA WEB DEVELOPER) [facility] Aldolase 10.2(H) 0.1 - 8.0 Units/L Comment:Reviewed Blood 02/20/2025 6:43 AM SENIOR JAVA WEB DEVELOPER 02/20/2025 7:24 AM SENIOR JAVA WEB DEVELOPER Jeremi Vargas MD LAB BLOOD ORDERABLES Final Result Performing Organization Address [facility] de Phone Number [facility] [place] [address] * Folate (02/20/2025 6:43 AM SENIOR JAVA WEB DEVELOPER) [facility] Folic acid >20.0 >=5.0 ng/mL Comment:Repeated and Verifie d Blood 02/20/2025 6:43 AM SENIOR JAVA WEB DEVELOPER 02/20/2025 7:24 AM SENIOR JAVA WEB DEVELOPER Jeremi Vargas MD LAB BLOOD ORDERABLES Final Result Performing Organization Address [facility]/[place] de Phone Number [facility] [place] [address] * BUTTER MAKER abs (02/20/2025 12:18 AM SENIOR JAVA WEB DEVELOPER) [facility] BUTTER MAKER ab <0.2 <=0.9 Ab Index Comment: Interpretive Data Negative: < 1.0 Ab Index Positive: > or = 1.0 Ab Index Current interpretive data was last revised on 2016. Blood 02/20/2025 12:1 8 AM SENIOR JAVA WEB DEVELOPER 02/20/2025 12:49 AM SENIOR JAVA WEB DEVELOPER Jeremi Vargas MD LAB BLOOD ORDERABLES Final Result Performing Organization Address [facility]/[place] de Phone Number [facility] [place] [address] * HIV 1/2 Antibody plus p24 Antigen Blood (02/20/2025 12:18 AM SENIOR JAVA WEB DEVELOPER) HIV 1/2 ab + p24 ag Nonreactive Nonreactive Comment:Nonreactive for HIV- 1 antigen and HIV-1/HIV-2 antibodies. No laboratory evidence of HIV infection. If acute HIV infection is suspected, consider testing for HIV-1 RNA. Current interpretive data was last revised on 21. Blood 02/20/2025 12:1 8 AM SENIOR JAVA WEB DEVELOPER 02/20/2025 12:46 AM SENIOR JAVA WEB DEVELOPER Jeremi Vargas MD LAB MICROBIOLOGY - GENERAL ORDERABLES Final Result Performing Organization Address [facility] [place] [address] * Hepatitis C antibody Blood (02/20/2025 12:18 AM SENIOR JAVA WEB DEVELOPER) Pathologist [facility] Hep C Ab Nonreactive Nonreactive Comment:Antibodies to HCV no t detected. Does NOT exclude the possibility of recent exposure to HCV. Current interpretive data was last revised on 21 Blood 02/20/2025 12:1 8 AM SENIOR JAVA WEB DEVELOPER 02/20/2025 12:46 AM SENIOR JAVA WEB DEVELOPER Jeremi Vargas MD LAB MICROBIOLOGY - GENERAL ORDERABLES Final Result Performing Organization Address [facility] de Phone Number [facility] [place] [address] * Aldolase (02/20/2025 12:18 AM SENIOR JAVA WEB DEVELOPER) Pathologist [facility] Aldolase See Comment 0.1 - 8.0 Units/L Comment:Credited; Hemolyzed Specimen Blood 02/20/2025 12:1 8 AM SENIOR JAVA WEB DEVELOPER 02/20/2025 12:46 AM SENIOR JAVA WEB DEVELOPER Jreemi Vargas MD LAB [place] [address] * Vitamin D 25 hydroxy (02/20/2025 12:18 AM SENIOR JAVA WEB DEVELOPER) Pathologist [facility] Vitamin D 25-OH 35 30 - 80 ng/mL Blood 02/20/2025 12:1 8 AM SENIOR JAVA WEB DEVELOPER 02/20/2025 12:47 AM SENIOR JAVA WEB DEVELOPER Jeremi Vargas MD LAB BLOOD ORDERABLES Final Result Performing Organization Address [facility] [place] [address] * Sjogren's syndrome B ab (02/20/2025 12:18 AM SENIOR JAVA WEB DEVELOPER) Pathologist [facility] Anti-KELLY, SS-B <0.2 <=0.9 Ab Index Comment: Interpretive Data Negative: < 1.0 Ab Index Positive: > or = 1.0 Ab Index Current interpretive data was last revised on 2016. Blood 02/20/2025 12:1 8 AM SENIOR JAVA WEB DEVELOPER 02/20/2025 12:46 AM SENIOR JAVA WEB DEVELOPER us Jeremi Vargas MD LAB BLOOD ORDERABLES Final Result Performing Organization Address City/[facility]/ZIP Co de Phone Number [facility] [employer] [address] * Sjogren's syndrome A ab (02/20/2025 12:18 AM SENIOR JAVA WEB DEVELOPER) Anti-KELLY, SS-A <0.2 <=0.9 Ab Index Comment: Interpretive Data Negative: < 1.0 Ab Index Positive: > or = 1.0 Ab Index Current interpretive data was last revised on 2016. Blood 02/20/2025 12:1 8 AM SENIOR JAVA WEB DEVELOPER 02/20/2025 12:46 AM SENIOR JAVA WEB DEVELOPER Jeremi Vargas MD LAB BLOOD ORDERABLES Final Result Performing Organization Address [facility] Co de Phone Number [facility] [place] [address] * TSH (02/20/2025 12:18 AM SENIOR JAVA WEB DEVELOPER) Pathologist [facility] Thyroid Stimulating Hormone 3.51 0.30 - 4.20 mcIUnit/mL Blood 02/20/2025 12:1 8 AM SENIOR JAVA WEB DEVELOPER 02/20/2025 12:46 AM SENIOR JAVA WEB DEVELOPER Jeremi Vargas MD LAB BLOOD ORDERABLES Final Result Performing Organization Address [facility] Co de Phone Number [facility] [place] [address] * (ABNORMAL) Lactate dehydrogenase (LD) (02/20/2025 12:18 AM SENIOR JAVA WEB DEVELOPER) Pathologist [facility] Lactate dehydrogenase (LDH) 268(H) 100 - 250 Units/L Comment:Hemolyzed; result ma y be falsely elevated Blood 02/20/2025 12:1 8 AM SENIOR JAVA WEB DEVELOPER 02/20/2025 12:46 AM SENIOR JAVA WEB DEVELOPER us Jeremi Vargas MD LAB BLOOD ORDERABLES Final Result Performing Organization Address [facility] Co de Phone Number [facility] [place] [address] * (ABNORMAL) Hemoglobin A1c (02/20/2025 12:18 AM SENIOR JAVA WEB DEVELOPER) Pathologist [facility] Hgb A1C 7.3(H) 4.0 - 5.6 % Estimated Average Glucose 163 mg/dL [facility] Comment: The ADA recommends reporting an estimated Average Glucose (eAG) with all Hemoglobin A1c results using the equation derived from a study of 507 normal and diabetic adults. Minority populations were underrepresented and children were not included. (Diabetes Care 2020; 43(S1): S66-S76). The eAG is not equivalent to a fasting glucose. Blood 02/20/2025 12:1 8 AM SENIOR JAVA WEB DEVELOPER 02/20/2025 12:46 AM SENIOR JAVA WEB DEVELOPER Jeremi Vargas MD LAB BLOOD ORDERABLES Final Result Performing Organization Address [facility] [place] [address] * Folate (02/20/2025 12:18 AM SENIOR JAVA WEB DEVELOPER) [facility] Folic acid See Comment >=5.0 ng/mL Comment:Credited; Hemolyzed Specimen Blood 02/20/2025 12:1 8 AM SENIOR JAVA WEB DEVELOPER 02/20/2025 12:46 AM SENIOR JAVA WEB DEVELOPER Jeremi Vargas MD LAB [place] [address] * (ABNORMAL) Vitamin B12 (02/20/2025 12:18 AM SENIOR JAVA WEB DEVELOPER) [facility] Vitamin B12 200(L) 230 - 1,250 pg/mL Blood 02/20/2025 12:1 8 AM SENIOR JAVA WEB DEVELOPER 02/20/2025 12:47 AM SENIOR JAVA WEB DEVELOPER us Jeremi Vargas MD LAB BLOOD ORDERABLES Final Result [facility] [place] [address] * (ABNORMAL) Lipid panel (02/20/2025 12:18 AM SENIOR JAVA WEB DEVELOPER) Cholesterol 129 30 - 199 mg/dL Comment: [...] revised on 2017. Triglycerides 53 <=149 mg/dL [facility] Comment: Interpretive Data Ages < [...] on 2017. HDL 36(L) >=40 mg/dL [facility] Comment: Interpretive Data Ages < [...] on 2017. LDL, calculated 81 <=129 mg/dL [facility] Comment: Interpretive Data Ages < or = [...] NCEP Expert Panel. Circulation 2004;110:227 3. Tomi Gardner al. LESLY Cardiol. 2019July 29;5(5):540-548. doi: [email or web address] Current Interpretive Data was last revised on 2023. Non-HDL Cholesterol 93 mg/dL [facility] Comment: Interpretive Data Ages < or = [...] last revised on 2017. Chol/HDL ratio 4 [facility] Blood 02/20/2025 12:1 8 AM SENIOR JAVA WEB DEVELOPER 02/20/2025 12:46 AM SENIOR JAVA WEB DEVELOPER us Jeremi Vargas MD LAB BLOOD ORDERABLES Final Result [facility] [place] [address] * Neuromuscular Testing Blood (02/20/2025 12:00 AM SENIOR JAVA WEB DEVELOPER) Blood (Serum) 02/20/2025 02/21/2025 Narrative NEUROMUSCULAR CLINICAL LABORATORY - 03/17/2025 11:39 AM SENIOR JAVA WEB DEVELOPER Please click on the PDF link to view the report containing this result Dm Matthews MD LAB PATHOLOGY ORDERABLES Final R esult Performing Organization Address [facility]/ZIP Co de Phone Number [facility] CL[facility]ICAL [facility] Room [address] [place] [address] * POCT glucose (02/19/2025 11:55 PM SENIOR JAVA WEB DEVELOPER) Glucose, POC 132 70 - 199 mg/dL Blood 02/19/2025 11:5 5 PM SENIOR JAVA WEB DEVELOPER 02/19/2025 11:55 PM SENIOR JAVA WEB DEVELOPER Result [facility] Jeremi Vargas MD LAB POCT ORDERABLES - DEVIC E Final Result Performing Organization Address [facility] de Phone Number [facility] [employer] [place] [employer] [address] * Troponin I high-sensitivity 2-hour (02/19/2025 6:26 PM SENIOR JAVA WEB DEVELOPER) Trop I hs 5 <=35 ng/L Comment: Interpretive Data For further hscTnI resources including the diagnostic algorithm and an aid in interpretation, copy and paste this link: https://bjhlab.testcatalog.org/show/hsTrop-1 Current Interpretive Data last revised 2019. Trop I hs delta 0 ng/L [facility] Trop I hs interp Insignificant [facility] Blood 02/19/2025 6:26 PM SENIOR JAVA WEB DEVELOPER 02/19/2025 6:38 PM SENIOR JAVA WEB DEVELOPER Woodrow Parkinson MD LAB BLOOD ORDERABLES Fi nal Result Performing Organization Address [facility] Co de Phone Number [facility] [employer] [place] [employer] [address] * (ABNORMAL) Urinalysis reflex to microscopic and culture Urine (02/19/2025 5:55 PM SENIOR JAVA WEB DEVELOPER) Color, ur Yellow Yellow Clarity, ur Clear Clear [facility] Specific gravity, ur 1.036(H) 1.003 - 1.030 [facility] pH, urine 6.0 [facility] Comment: Interpretive Data U rine pH is affected by diet, medications, systemic acid-base disturbances, and renal tubular function. pH may affect urinary stone formation. For example, urine pH below 6.0 may help reduce the tendency for calcium phosphate stones and pH greater than 6.0 may reduce the tendency for uric acid stone formation. Source: [facility] [employer] Current Interpretive Data was last revised on 2017 Protein, ur ql 1+(A) Negative [facility] Glucose, ur ql 2+(A) Negative [facility] Ketones, ur 1+(A) Negative [facility] Bilirubin, ur Negative Negative [facility] Blood, ur Negative Negative [facility] Urobilinogen, ur 2.0(A) <2.0 mg/dL [facility] Nitrite, ur Negative Negative [facility] Leukocyte esterase, ur Negative Negative [facility] UA reflex comment Reflex to microscopic UA will be performed. [facility] Urine 02/19/2025 5:55 PM SENIOR JAVA WEB DEVELOPER 02/19/2025 6:02 PM SENIOR JAVA WEB DEVELOPER Woodrow Parkinson MD LAB MICROBIOLOGY - [facility] ORDERABLES Final Result [facility] [place] [address] * (ABNORMAL) Urinalysis, microscopic only (02/19/2025 5:55 PM SENIOR JAVA WEB DEVELOPER) WBC, ur 0-5 0 - 5 /HPF RBC, ur 0-2 0 - 2 /HPF [facility] Epithelial cells, squamous, ur 1-5 0 - 5 /HPF [facility] Mucous, ur Present(A) [facility] Culture Reflex Comment Reflex conditions for urine culture (WBC >10) not met. [facility] Urine 02/19/2025 5:55 PM SENIOR JAVA WEB DEVELOPER 02/19/2025 6:02 PM SENIOR JAVA WEB DEVELOPER us Woodrow Parkinson MD LAB URINE ORDERABLES Fi nal Result [facility] [place] [address] * XR Chest 1 View (02/19/2025 4:20 PM SENIOR JAVA WEB DEVELOPER) Anatomical Region Laterality Modality Body, Chest N/A Computed Radiogr aphy 02/19/2025 4:55 PM SENIOR JAVA WEB DEVELOPER Impressions 02/19/2025 4:58 PM SENIOR JAVA WEB DEVELOPER The current study is compared with the [...] Prince Cordova M.D. Narrative 02/19/2025 4:58 PM SENIOR JAVA WEB DEVELOPER EXAMINATION: 1 view chest radiograph Procedure Note [...] Result * ECG 12-LEAD (02/19/2025 4:12 PM SENIOR JAVA WEB DEVELOPER) Narrative [facility] - 02/19/2025 4:12 PM SENIOR JAVA WEB DEVELOPER Rubén Lan MD 02/19/2025 4:12 PM ECG [...] MD ECG ORDERABLES Edited Result - Final [facility] * (ABNORMAL) TATO ab ql w/rflx to TATO qn (02/19/2025 4:11 PM SENIOR JAVA WEB DEVELOPER) Pathologist [facility] TATO Positive( A) Comment: Interpretive Data Normal range for TATO Qualitative Antibody = Negative. 1. TATO is [...] revised on 2019. TATO, quant 1:320 titer [facility] TATO, interp Homogeneo us(A) [facility] Blood 02/19/2025 4:11 PM SENIOR JAVA WEB DEVELOPER 02/19/2025 4:31 PM SENIOR JAVA WEB DEVELOPER us Woodrow Parkinson MD LAB BLOOD ORDERABLES Fi nal Result Performing Organization Address City/[facility]/ZIP Co de Phone Number [facility] [employer] [place] [employer] [address] * Bethany-1 antibody (02/19/2025 4:11 PM SENIOR JAVA WEB DEVELOPER) Pathologist [facility] Bethany 1 Antibody, IgG <0.2 <=0.9 Ab Index Comment: Interpretive Data Negative: < 1.0 Ab Index Positive: > or = 1.0 Ab Index Current interpretive data was last revised on 2016. Blood 02/19/2025 4:11 PM SENIOR JAVA WEB DEVELOPER 02/19/2025 4:31 PM SENIOR JAVA WEB DEVELOPER Woodrow Parkinson MD LAB BLOOD ORDERABLES Fi nal Result [facility] [employer] [place] [employer] [place] [address] * PR3 - proteinase 3, Ab (02/19/2025 4:11 PM SENIOR JAVA WEB DEVELOPER) Pathologist [facility] Proteinase 3 ab <0.2 <=0.9 Ab Index Comment: Interpretive Data Negative: <1 Ab Index Positive: > or = 1 Ab Index Current interpretive data was last revised on 2016. Blood 02/19/2025 4:1 1 PM SENIOR JAVA WEB DEVELOPER 02/19/2025 4:31 PM SENIOR JAVA WEB DEVELOPER Result [facility] Woodrow Parkinson MD LAB BLOOD ORDERABLES Fi nal Result Performing Organization Address [facility] de Phone Number [facility] [employer] [address] * MPO - myeloperoxidase antibody (02/19/2025 4:11 PM SENIOR JAVA WEB DEVELOPER) Pathologist [facility] Myeloperoxidase ab <0.2 <=0.9 Ab Index Comment: Interpretive Data Negative: <1 Ab Index Positive: > or = 1 Ab Index Current interpretive data was last revised on 2016. Blood 02/19/2025 4:11 PM SENIOR JAVA WEB DEVELOPER 02/19/2025 4:31 PM SENIOR JAVA WEB DEVELOPER Result [facility] Woodrow Parkinson MD LAB BLOOD ORDERABLES Fi nal Result Performing Organization Address [facility] de Phone Number [facility] [employer] [address] * (ABNORMAL) Anti-Neutrophilic Cytoplasmic Antibody (ANCA) with Reflex to MPO and PR3 Abs (54:11 PM SENIOR JAVA WEB DEVELOPER) ANCA Indetermi devyn(A) Negative Comment:Indeterminate for P- ANCA - Results by antigen specific immunoassay (MPO & PR3) to follow. May indicate ulcerative colitis or Crohn's disease. Blood 02/19/2025 4:11 PM SENIOR JAVA WEB DEVELOPER 02/19/2025 4:31 PM SENIOR JAVA WEB DEVELOPER Woodrow Parkinson MD LAB BLOOD ORDERABLES Fi nal Result Performing Organization Address [facility] de Phone Number [facility] [employer] [address] * Troponin I high-sensitivity series (baseline, 2hr, 4hr, 6hr) (02/19/2025 3:53 PM SENIOR JAVA WEB DEVELOPER) Trop I hs 5 <=35 ng/L Comment: Interpretive Data For further hscTnI resources including the diagnostic algorithm and an aid in interpretation, copy and paste this link: https://bjhlab.testcatalog.org/show/hsTrop-[email or web address] Current Interpretive Data last revised 2019. Blood 02/19/2025 3:53 PM SENIOR JAVA WEB DEVELOPER 02/19/2025 4:08 PM SENIOR JAVA WEB DEVELOPER Woodrow Parkinson MD LAB BLOOD ORDERABLES Fi nal Result [facility] [place] [address] * eGFR (02/19/2025 3:53 PM SENIOR JAVA WEB DEVELOPER) Pathologist [facility] eGFR 76 >=60 mL/min/1. 73 m2 Comment: [...] last reviewed 2021. Blood 02/19/2025 3:53 PM SENIOR JAVA WEB DEVELOPER 02/19/2025 4:08 PM SENIOR JAVA WEB DEVELOPER us Woodrow Parkinson MD LAB BLOOD ORDERABLES Fi nal Result [facility] [place] [address] * Differential, auto (02/19/2025 3:53 PM SENIOR JAVA WEB DEVELOPER) Neutrophil abs 4.64 1.50 - 6.50 K/cumm Imm gran abs 0.02 0.00 - 0.10 K/cumm [facility] Lymphocyte abs 0.99 0.80 - 3.30 K/cumm [facility] Monocyte abs 0.70 0.20 - 0.80 K/cumm [facility] Eosinophil abs 0.03 0.00 - 0.50 K/cumm [facility] Basophil abs 0.04 0.00 - 0.10 K/cumm [facility] Neutrophil pct 72.3 % [facility] Comment: Interpretive Data Percent cell count reference ranges are not reported, since discordance with absolute values may lead to misinterpretation of CBC data. Current Interpretive Data was last revised on 2017. Imm gran pct 0.3 % [facility] Comment: Interpretive Data Percent cell count reference ranges are not reported, since discordance with absolute values may lead to misinterpretation of CBC data. Current Interpretive Data was last revised on 2017. Lymphocyte pct 15.4 % [facility] Comment: Interpretive Data Percent cell count reference ranges are not reported, since discordance with absolute values may lead to misinterpretation of CBC data. Current Interpretive Data was last revised on 2017. Monocyte pct 10.9 % [facility] Comment: Interpretive Data Percent cell count reference ranges are not reported, since discordance with absolute values may lead to misinterpretation of CBC data. Current Interpretive Data was last revised on 2017. Eosinophil pct 0.5 % [facility] Comment: Interpretive Data Percent cell count reference ranges are not reported, since discordance with absolute values may lead to misinterpretation of CBC data. Current Interpretive Data was last revised on 2017. Basophil pct 0.6 % [facility] Comment: Interpretive Data Percent cell count reference ranges are not reported, since discordance with absolute values may lead to misinterpretation of CBC data. Current Interpretive Data was last revised on 2017. Blood 02/19/2025 3:53 PM SENIOR JAVA WEB DEVELOPER 02/19/2025 4:08 PM SENIOR JAVA WEB DEVELOPER us Woodrow Parkinson MD LAB BLOOD ORDERABLES Fi nal Result Performing Organization Address City/State/ZIP Co nv Phone Number [facility] [place] [address] * Pro B-type natriuretic peptide (02/19/2025 3:53 PM SENIOR JAVA WEB DEVELOPER) NT-proBNP 102 <=450 pg/mL Comment: Interpretive Comments: [...] Heart J. 2006:27:330-337. 2. Joanne RW, Anders SOLIS. J. [facility] [place] Cardiol: Cardiovasc Imag. 2009;2: 216- 225. Interpretive Data Last Revised Date: 2017. Blood 02/19/2025 3:53 PM SENIOR JAVA WEB DEVELOPER 02/19/2025 4:08 PM SENIOR JAVA WEB DEVELOPER Woodrow Parkinson MD LAB BLOOD ORDERABLES Fi nal Result [facility] [place] [address] * (ABNORMAL) CBC with auto differential (02/19/2025 3:53 PM SENIOR JAVA WEB DEVELOPER) Pathologist [facility] WBC 6.42 3.80 - 9.90 K/cumm Hgb 13.1 13.0 - 17.5 g/dL [facility] Hct 38.9 38.9 - 50.3 % [facility] Plt 274 150 - 400 K/cumm [facility] MPV 9.3 9.1 - 12.3 fL [facility] RBC 4.27(L) 4.30 - 5.80 M/cumm [facility] MCV 91.1 81.3 - 96.4 fL [facility] MCH 30.7 27.1 - 33.3 pg [facility] MCHC 33.7 32.3 - 35.7 g/dL [facility] RDW CV 15.2(H) 11.1 - 14.9 % [facility] RDW SD 50.4(H) 35.7 - 48.1 fL [facility] NRBC abs 0.00 0.00 - 0.01 K/cumm [facility] Blood 02/19/2025 3:53 PM SENIOR JAVA WEB DEVELOPER 02/19/2025 4:08 PM SENIOR JAVA WEB DEVELOPER us Woodrow Parkinson MD LAB BLOOD ORDERABLES Fi nal Result Performing Organization Address City/[facility]/ZIP Co de Phone Number [facility] [place] [address] * (ABNORMAL) Erythrocyte sedimentation rate (02/19/2025 3:53 PM SENIOR JAVA WEB DEVELOPER) Pathologist [facility] Erythrocyte sedimentation rate 31(H) 1 - 20 mm/hr Blood 02/19/2025 3:53 PM SENIOR JAVA WEB DEVELOPER 02/19/2025 4:08 PM SENIOR JAVA WEB DEVELOPER Woodrow Parkinson MD LAB BLOOD ORDERABLES Fi nal Result Performing Organization Address City/[facility] Co de Phone Number [facility] [place] [address] * CRP (acute phase) (02/19/2025 3:53 PM SENIOR JAVA WEB DEVELOPER) CRP 2.7 <=10.0 mg/L Blood 02/19/2025 3:53 PM SENIOR JAVA WEB DEVELOPER 02/19/2025 4:08 PM SENIOR JAVA WEB DEVELOPER Woodrow Parkinson MD LAB BLOOD ORDERABLES Fi nal Result Performing Organization Address [facility] Phone Number [facility] [place] [address] * Phosphorus (02/19/2025 3:53 PM SENIOR JAVA WEB DEVELOPER) Phosphorus, pl 3.0 2.3 - 4.5 mg/dL Blood 02/19/2025 3:53 PM SENIOR JAVA WEB DEVELOPER 02/19/2025 4:08 PM SENIOR JAVA WEB DEVELOPER Result [facility] Woodrow Parkinson MD LAB BLOOD ORDERABLES Fi nal Result Performing Organization Address [facility]/[place] de Phone Number [facility] [place] [address] * Magnesium (02/19/2025 3:53 PM SENIOR JAVA WEB DEVELOPER) Magnesium 1.7 1.4 - 2.5 mg/dL Blood 02/19/2025 3:53 PM SENIOR JAVA WEB DEVELOPER 02/19/2025 4:08 PM SENIOR JAVA WEB DEVELOPER Woodrow Parkinson MD LAB BLOOD ORDERABLES Fi nal Result Performing Organization Address City/[facility]/ZIP Co de Phone Number [facility] [place] [address] * Gamma GT (02/19/2025 3:53 PM SENIOR JAVA WEB DEVELOPER) Pathologist [facility] GGT 16 10 - 50 Units/L Blood 02/19/2025 3:53 PM SENIOR JAVA WEB DEVELOPER 02/19/2025 4:08 PM SENIOR JAVA WEB DEVELOPER Woodrow Parkinson MD LAB BLOOD ORDERABLES Fi nal Result Performing Organization Address City/[facility]/ZIP Co de Phone Number [facility] [place] [address] * Creatine kinase (CK), total (02/19/2025 3:53 PM SENIOR JAVA WEB DEVELOPER) [facility] CK 238 40 - 300 Units/L Blood 02/19/2025 3:53 PM SENIOR JAVA WEB DEVELOPER 02/19/2025 4:08 PM SENIOR JAVA WEB DEVELOPER Woodrow Parkinson MD LAB BLOOD ORDERABLES Fi nal Result Performing Organization Address City/[facility] Co de Phone Number [facility] [place] [address] * (ABNORMAL) Comprehensive metabolic panel (02/19/2025 3:53 PM SENIOR JAVA WEB DEVELOPER) [facility] Sodium 138 135 - 145 mmol/L Potassium, pl 4.2 3.3 - 4.9 mmol/L [facility] Chloride 101 97 - 110 mmol/L [facility] CO2 27 22 - 32 mmol/L [facility] Anion gap 10 2 - 15 mmol/L [facility] BUN 27(H) 6 - 25 mg/dL [facility] Creatinine 1.02 0.80 - 1.30 mg/dL [facility] Glucose 173 70 - 199 mg/dL [facility] Comment: Interpretive Data Fasting glucose >/= 126 [...] 2022. Calcium 8.5 8.5 - 10.3 mg/dL [facility] Bilirubin, total 0.4 0.1 - 1.2 mg/dL [facility] Protein, pl 6.3(L) 6.5 - 8.5 g/dL [facility] Albumin 3.3(L) 3.5 - 5.0 g/dL [facility] Alk phos 96 40 - 130 Units/L [facility] ALT 24 7 - 55 Units/L [facility] AST 41 10 - 50 Units/L [facility] Blood 02/19/2025 3:53 PM SENIOR JAVA WEB DEVELOPER 02/19/2025 4:08 PM SENIOR JAVA WEB DEVELOPER us Woodrow Parkinson MD LAB BLOOD ORDERABLES Fi nal Result [facility] [place] [address] * MRI Lumbar Spine WO Contrast (02/15/2025 8:10 AM SENIOR JAVA WEB DEVELOPER) Anatomical Region Laterality Modality Spine N/A Magnetic Resonan ce 02/15/2025 8:40 AM SENIOR JAVA WEB DEVELOPER Impressions 02/15/2025 8:40 AM SENIOR JAVA WEB DEVELOPER 1. Mild to moderate lumbar degenerative changes [...] Sher Robles D.O. Narrative 02/15/2025 8:40 AM SENIOR JAVA WEB DEVELOPER EXAM DESCRIPTION:MRI LUMBAR SPINE WO CONTRAST REASON [...] and overlying the sacrum. Procedure Note Sher Robles DO - 02/15/2025 EXAM DESCRIPTION:MRI LUMBAR SPINE [...] scenario. Electronically signed by: Sher Robles D.O. us [facility] IM MRI PROCEDURES Final R esult * MRI [...] FLAIR hyperintense signal about the bilateral orbits, jypzd-ghzkcvp-pmnn-left could just reflect incomplete fat saturation. If there is concern for orbital pathology then dedicated contrast-enhanced MRI can be obtained. Left eye cataract surgery. Mucosal thickening in the bilateral ethmoid air cells and maxillary sinus floors, mldn-vhmwifl-yfgx-right. There is trace T2 hyperintense in the bilateral mastoid air cells. IMPRESSION: 1. No acute/recent infarction. 2. Chronic lacunar infarctions, chronic microvascular ischemic type white-matter changes and other findings as above. 3. Previous imaging studies are not available for comparison. THIS IS AN ELECTRONICALLY VERIFIED FINAL REPORT 12/31/2024 4:16 PM - Electronically signed by Sher AGUILAR T: Report ID: [id number] Reading Location: [place] [id number] Procedure Note Sher Robles, DO - 01/01/2025 EXAM DESCRIPTION: MRI BRAIN WO CONTRAST REASON FOR STUDY: other symptoms and signs involving the musculoskeletal system C/o weakness in Left leg and lower back, began in March and has been progressively worsening, has had multiple falls recently TECHNIQUE: Multiplanar imaging includes non-contrasted T1, T2, FLAIR, and diffusion with ADC map sequences. Additional sequence(s) sensitive [email or web address]. Images stored on PACS. COMPARISON: None available. [...] FLAIR hyperintense signal about the bilateral orbits, xpxou-mazhidl-tjdv-left could just reflect incomplete fatsaturation. If there is concern for orbital pathology then dedicated contrast-enhancedMRI can be obtained. Left eye cataract surgery. Mucosal thickening in the bilateral ethmoid air cells and maxillary sinus floors, urce-rvtktuf-gcbc-right. There is trace T2 hyperintense in the bilateral mastoid air cells. IMPRESSION: 1. No acute/recent infarction. 2. Chronic lacunar infarctions, chronic microvascular ischemic type white-matter changes and other findings as above. 3. Previous imaging studies are not available for comparison. THIS IS AN ELECTRONICALLY VERIFIED FINAL REPORT 12/31/2024 4:16 PM - Electronically signed by Sher AGUILAR T: Report ID: [id number] Reading Location: [place] [address] [facility] [place] MRI PROCEDURES Final R [...] 9:27 AM - Electronically signed by Gagandeep ROSARIO T: Report ID: [id number] Reading Location: [id number] Procedure Note Gagandeep Gamez MD - 01/04/2025 [...] 9:27 AM - Electronically signed by Gagandeep ROSARIO T: Report ID: [id number] Reading Location: [place] [address] [facility] IMG XR PROCEDURES Final Re sult from Last 3 Months Insurance [facility] Advance Directives For more information, please contact: [phone] Documents on File Type Date Recorded Patient Production Line Technician Expl anation ADVANCE DIRECTIVE 09/14/2024 8:45 AM Jigna ro * Full Code (Latest Code Status on File) Date Activated Date Inactivated Comments 02/19/2025 10:57 PM 02/26/2025 6:23 PM * Full Code Date Activated Date Inactivated Comments 09/22/2024 2:45 PM 09/27/2024 9:58 PM Care Teams Form Stripper Relationship Specialty Start Date End Date Tej Sen MD [address] [place] [id number] PCP - General Family Medicine 12/23/19 Vanesa Gomez MD [address] [facility] [address] [place], [place] [id number] Consulting Physician Critical Care Med 09/06/24
--- OUTSIDE RECORDS SUMMARY | 2025-03-21 11:05 | XMS_ITS | Clinical Summary ---
Author Organization [facility] Address [address] [place] [address] Care Team Providers Care Girl Friday Name Role Phone Unavailable Primary Care Provider Unavailabl e Source Comments [facility],non-owned Affiliates and Associated Physician Practices is amultiple site organization consisting of ambulatory clinics and hospital sitesin [place], [place], [place] and [place]. This disclosure is being madepursuant to the Care Everywhere program and may not contain all information available regarding this patient. Last updated 17.[facility] Encounters Date Type Department Care Team Description 03/11/2025 Transcribe Orders [facility] - Centralized Scheduling [address] [place] [address] Dede Zarco MD ALS (amyotrophic lateral sclerosis) [...]
--- NOTE | 2025-03-21 13:24 | WPCEDHO ---
ED Hand Off Checklist All vitals saved: yes IV Site documented: yes All med administrations documented: yes Triage Note Triage Note pt to ED from home via [facility] 03/21/25 09:01 for c/o SOB. EMS reports pt was SOB while laying in bed, pt tried moving to his chair and became unresponsive, pt was responsive upon EMS arrival. EMS initially got a pulse ox of 54% on room air , pt put on 15L NRB and went up to 99%. EMS reports unable to tolerate CPAP. pt says the SOB started 3 days ago. pt diaphoretic upon arrival. HX ALS Allergies No Known Allergies Allergy (Verified 03/21/25 09:25) Administered/Completed Medications Discontinued Medications Albuterol (Albuterol Sulfate Neb 2.5 Mg/3 Ml Inh) 10 mg INHALATION ONCE STA Stop: 03/21/25 09:09 Last Admin: 03/21/25 09:28 Dose: 10 mg Documented By: KIN Albuterol (Albuterol Sulfate Neb 2.5 Mg/3 Ml Inh) Confirm Administered Dose 2.5 mg .ROUTE .STK-MED ONE Stop: 03/21/25 09:25 Last Admin: 03/21/25 10:18 Dose: Not Given Documented By: FIDENCIO Non-Admin Reason: Duplicate Dose Notes 03/21/25 10:34 Nurse Note by Erica Kennedy care coordination reports [facility] will be out within the hour to evaluate pt Initialized on 03/21/25 10:34 - END OF NOTE Interventions/Assessments Cardiac Monitoring Start: 03/21/25 08:59 Freq: Status: Active Protocol: Document 03/21/25 09:24 KNW (Rec: 03/21/25 09:25 KNW [id number]) Java Developer Analyst Assessment Java Developer Analyst Yes Applied Pulse Rate (60-100) 94 IV / Saline Lock, Insert Start: 03/21/25 08:59 Freq: Status: Active Protocol: Document 03/21/25 09:23 KNW (Rec: 03/21/25 09:24 KNW [id number]) IV Assessment Peripheral Access Left Antecubital IV Catheter Access Initiated Before Arrival Catheter Gauge 18 IV Site Assessment WNL IV Care and WNL Maintenance Peripheral Access Right Antecubital IV Catheter Access Initiated IV Insertion Date 03/21/25 IV Insertion Time 09:23 Catheter Gauge 18 IV Insertion 1 Attempts Ultrasound Used for No Placement IV Site Assessment WNL IV Care and WNL Maintenance PA: Cardiovascular Assessment Start: 03/21/25 08:59 Freq: Status: Active Protocol: Document 03/21/25 09:48 KNW (Rec: 03/21/25 09:49 KNW [id number]) Cardiovascular Assessment Cardiovascular Dyspnea Symptoms Skin Description Pallor Heart Sounds Normal Jugular Vein None Distention PA: Respiratory Assessment Start: 03/21/25 08:59 Freq: Status: Active Protocol: Document 03/21/25 09:48 KNW (Rec: 03/21/25 09:49 KNW [id number]) Respiratory Assessment Symptoms Shortness of Breath at Rest,Shortness of Breath With Exertion Effort Short of Breath Pattern Gasping Depth Shallow Chest Expansion Symmetrical Anterior Throughout Phase Inspiratory & Expiratory Lung Sounds Diminished Cough Description None Sputum Amount None Oxygen Delivery Oxygen Delivery Nasal Cannula Oxygen Flow Rate 2 Pulse Oximetry (90- 100 100) Last Vital Signs Temperature 97.8 F 03/21/25 09:01 Pulse Rate 100 03/21/25 13:23 Respiratory Rate 20 03/21/25 13:23 Pulse Oximetry 100 03/21/25 13:23 Blood Pressure 108/61 03/21/25 13:23 Blood Pressure Mean 76 03/21/25 13:23 Blood Pressure Position Sitting 03/21/25 13:23 Oxygen Delivery BiPAP 03/21/25 11:24 Oxygen Flow Rate 2 03/21/25 09:48 Weight 98.6 kg 03/21/25 09:01 Last Result - Abnormals Only Neut % (Auto) 81.2 % (45.5-73.1) H 03/21/25 09:22 Lymph % (Auto) 13.5 % (18.3-44.2) L 03/21/25 09:22 Abs Immat Gran (auto) 0.04 K/mm3 (0.00-0.031) H 03/21/25 09:22 Absolute Neuts (auto) 7.2 K/mm3 (1.3-6.7) H 03/21/25 09:22 ABG pH 7.246 (7.350-7.450) L* 03/21/25 09:17 ABG pCO2 67.0 mmHg (35.0-45.0) H* 03/21/25 09:17 ABG pO2 123.1 mmHg (80.0-100.0) H 03/21/25 09:17 ABG HCO3 28.5 mEq/l (22.0-26.0) H 03/21/25 09:17 Sodium 130 mmol/L (137-145) L 03/21/25 09:22 Chloride 91 mmol/L (98-107) L 03/21/25 09:22 Carbon Dioxide 31 mmol/L (22-30) H 03/21/25 09:22 BUN 24 mg/dL (9-20) H 03/21/25 09:22 Glucose 308 mg/dL (65-110) H 03/21/25 09:22 Lactic Acid 2.4 mmol/L (0.7-2.0) H 03/21/25 09:22 Alkaline Phosphatase 128 U/L (38-126) H 03/21/25 09:22 Most Recent Suicide Severity Rating Suicide Severity Rating NO RISK INDICATED 03/21/25 09:01
--- OUTSIDE RECORDS SUMMARY | 2025-05-10 18:00 | XMS_ITS | Clinical Summary ---
Author Organization Unknown Care Team Providers Care Esthetics Instructor Name Role Phone MARICEL CASTELLANOS Unavailable Unavailable BRENDA PHYSICAL THERAPIST, URIEL Unavailable Unavailable DEV CORPORATE DEVELOPMENT MANAGER, ALYSE Villalba ailable Unavailable RODRIGES OCCUPATIONAL THERAPIST, LAUREN Unavailable Unavailable LETI REGISTERED NURSE, QUE Unavailable Unavailable Payers Payer Name Policy Type Policy Number Effective Date Expira tion Date [employer] MEDICARE ADVANTAGE - EPISODIC Problems Condition Name Condition Details Condition Category Status Onset Date Resolution Date Last Treatment Date Treating Clinician Comments MOTOR NEURON DISEASE, UNSPECIFIED Active 2024-03 00:00: 00 HYPERTENSIVE HEART DISEASE WITH HEART FAILURE Active 03-31 00:00: 00 CHRONIC DIASTOLIC (CONGESTIVE) HEART FAILURE Active 03-31 00:00: 00 TYPE 2 DIABETES MELLITUS WITHOUT COMPLICATION S Active 03-31 00:00: 00 HYPERLIPIDEM IA, UNSPECIFIED Active 03-31 00:00: 00 PLEURAL EFFUSION, NOT ELSEWHERE CLASSIFIED Active 03-31 00:00: 00 ANEMIA, UNSPECIFIED Active 03-31 00:00: 00 SPINAL STENOSIS, LUMBAR REGION WITHOUT NEUROGENIC LISET Active 03-31 00:00: 00 VITAMIN B12 DEFICIENCY ANEMIA, UNSPECIFIED Active 03-31 00:00: 00 CONSTIPATION , UNSPECIFIED Active 03-31 00:00: 00 CARE HOME (CURRENT) USE OF ASPIRIN Active 03-31 00:00: 00 CARE HOME (CURRENT) USE OF ORAL HYPOGLYCEMIC DRUGS Active 03-31 00:00: 00 HISTORY OF FALLING Active 03-31 00:00: 00 Allergies, Adverse Reactions, Alerts Allergy Name Allergy Type Status Severity Reaction(s) Onset Date Inactive Date Treating Clinician Comments NO KNOWN ALLERGIES Propensity to adverse reactions Active 2024-03 09:55: 45 Medications Ordered Medication Name Filled Medication Name Start Date Stop Date Current Medication? Ordering Clinician Indication Dosage Frequency Signature (SIG) Comments Components Aspirin Childrens 81 mg chewable tablet 2024-03 00:00: 00 Yes [id number] ASPIRIN THERAPY 1 tablet ONCE DAILY 1 tablet ONCE DAILY (route: oral) Med Classific ation: Hematolog ical Agents atorvastati n 40 mg tablet 2024-03 00:00: 00 Yes [id number] HYPERLIPIDE ARABELLA 1 tablet BEDTIME 1 tablet BEDTIME (route: oral) Med Classific ation: Cardiovas cular Therapy Agents cetirizine 10 mg tablet 2024-03 00:00: 00 Yes [id number] CONGESTION 1 tablet ONCE DAILY 1 tablet ONCE DAILY (route: oral) Med Classific ation: Respirato ry Therapy Agents cyanocobala min (vit B-12) 1,000 mcg tablet 2024-03 00:00: 00 Yes [id number] SUPPLEMENT 1 tablet ONCE DAILY 1 tablet ONCE DAILY (route: oral) Med Classific ation: Electroly te Balance-N utritiona l Products gabapentin 300 mg capsule 2024-03 00:00: 00 Yes [id number] NEUROPATHIC PAIN 1 capsule ONCE DAILY 1 capsule ONCE DAILY (route: oral) Med Classific ation: Central Nervous System Agents Lactobacill us acidophilus 1 billion cell tablet 2024-03 00:00: 00 Yes [id number] SUPPELEMNT 1 tablet ONCE DAILY 1 tablet ONCE DAILY (route: oral) Med Classific ation: Gastroint estinal Therapy Agents Lidocaine Pain Relief 4 % topical patch 2024-03 00:00: 00 Yes [id number] PAIN 1 adhesiv e patch, medicat ed ONCE DAILY 1 adhesive patch, medicated ONCE DAILY (route: topical) Med Classific ation: Dermatolo gical lisinopril 5 mg tablet 2024-03 00:00: 00 Yes [id number] HYPERTENSIO N 1 tablet ONCE DAILY 1 tablet ONCE DAILY (route: oral) Med Classific ation: Cardiovas cular Therapy Agents magnesium oxide 500 mg capsule 2024-03 00:00: 00 Yes [id number] SUPPLEMENT 0.5 capsule ONCE DAILY 0.5 capsule ONCE DAILY (route: oral) Med Classific ation: Electroly te Balance-N utritiona l Products Miralax 17 gram oral powder packet 2024-03 00:00: 00 Yes [id number] CONSTIPATIO N 1 packet ONCE DAILY 1 packet ONCE DAILY (route: oral) Med Classific ation: Gastroint estinal Therapy Agents multivitami n tablet 2024-03 00:00: 00 Yes [id number] SUPPLEMENT 1 tablet ONCE DAILY 1 tablet ONCE DAILY (route: oral) Med Classific ation: Electroly te Balance-N utritiona l Products pioglitazon e 45 mg tablet 2024-03 00:00: 00 Yes [id number] DIABETES 1 tablet ONCE DAILY 1 tablet ONCE DAILY (route: oral) Med Classific ation: Endocrine Senna with Docusate Sodium 8.6 mg-50 mg tablet 2024-03 00:00: 00 Yes [id number] CONSTIPATIO N 1 tablet TWICE DAILY 1 tablet TWICE DAILY (route: oral) Med Classific ation: Gastroint estinal Therapy Agents tramadol 25 mg tablet 2024-03 00:00: 00 Yes [id number] PAIN 1 tablet EVERY 6 HOURS 1 tablet EVERY 6 HOURS (route: oral) Med Classific ation: Analgesic , Anti-infl ammatory or Antipyret ic Vital Signs Vital Name Observation Time Observation Value Commen ts Temperature 2025-03-15 12:54:00.000 98.1 [degF] Temperature 2025-03-14 13:20:00.000 98.2 [degF] Temperature 2025-03-13 10:29:00.000 98.4 [degF] BMI (%) 2025-03-13 10:29:00.000 27 kg/m2 Height 2025-03-13 10:29:00.000 74 [in_us] Pulse 2025-03-15 12:54:00.000 83 /min Pulse 2025-03-14 13:20:00.000 90 /min Pulse 2025-03-13 10:29:00.000 86 /min O2 Saturation (%) 2025-03-15 12:54:00.000 97 % O2 Saturation (%) 2025-03-14 13:20:00.000 98 % O2 Saturation (%) 2025-03-13 10:29:00.000 98 % Respirations 2025-03-15 12:54:00.000 16 /min Respirations 2025-03-14 13:20:00.000 18 /min Respirations 2025-03-13 10:29:00.000 16 /min Weight (lbs) 2025-03-13 10:29:00.000 215 [lb_av] Systolic Blood Pressure 2025-03-15 12:54:00.000 124 mm [Hg] Systolic Blood Pressure 2025-03-14 13:20:00.000 156 mm [Hg] Systolic Blood Pressure 2025-03-13 10:29:00.000 152 mm [Hg] Diastolic Blood Pressure 2025-03-15 12:54:00.000 60 mm [Hg] Diastolic Blood Pressure 2025-03-14 13:20:00.000 54 mm [Hg] Diastolic Blood Pressure 2025-03-13 10:29:00.000 80 mm [Hg] Plan of Treatment Planned Activity Planned Date Details Comments Future Scheduled Test SKILLED NU RSE TO PROVIDE INSTRUCTION ON DEFINITION AND SIGNS/SYMPTOMS TO WATCH FOR RELATED IMPAIRED NEUROLOGICAL STATUS. EDUCATION ON ALS [code = SKILLED NURSE TO PROVIDE INSTRUCTION ON DEFINITION AND SIGNS/SYMPTOMS TO WATCH FOR RELATED IMPAIRED NEUROLOGICAL STATUS. EDUCATION ON ALS] Future Scheduled Test SKILLED NU RSE TO TEACH PATIENT THERAPEUTIC INTERVENTIONS IN ORDER TO MANAGE MENTAL HEALTH SYMPTOMS. ASSESS FOR POTENTIAL NEED FOR REFERRAL TO PROVIDE COUNSELING. [code = SKILLED NURSE TO TEACH PATIENT THERAPEUTIC INTERVENTIONS IN ORDER TO MANAGE MENTAL HEALTH SYMPTOMS. ASSESS FOR POTENTIAL NEED FOR REFERRAL TO PROVIDE COUNSELING.] Future Scheduled Test PHYSICAL T HERAPIST TO EVALUATE AND TREAT [code = PHYSICAL THERAPIST TO EVALUATE AND TREAT] Future Scheduled Test OCCUPATION AL THERAPIST TO EVALUATE AND TREAT [code = OCCUPATIONAL THERAPIST TO EVALUATE AND TREAT] Future Scheduled Test EACH ORDER ED IN-HOME OR TELEHEALTH VISIT, THE SKILLED NURSE WILL CONDUCT A COMPREHENSIVE ASSESSMENT INCLUDING VITAL SIGNS, PAIN, SAFETY, MENTAL/COGNITIVE/PSYCHOSOCIAL STATUS, MED MANAGEMENT, NUTRITION, SKIN INTEGRITY, PRESSURE ULCER PREVENTION, AND PATIENT/CAREGIVER ABILITY TO SUPPORT ORDERED CARE. SKILLED NURSE WILL INSTRUCT ON DISEASE PROCESS, MED MGMT., FALL PREVENTION AND SAFETY, INFECTION CONTROL AND PREVENTION, WARNING SIGNS, ADDRESS RESULTS OUTSIDE OF ORDERED PARAMETERS LISTED ON CARE PLAN, AND COORDINATE DISCHARGE WITH THE TREATING PROVIDER. MAY ACCEPT ORDERS FROM THE FOLLOWING PROVIDER(S) WHO WILL BE CONSULTING ON THE CERTIFIED CARE PLAN: DR. MARICEL CASTELLANOS [code = EACH ORDERED IN-HOME OR TELEHEALTH VISIT, THE SKILLED NURSE WILL CONDUCT A COMPREHENSIVE ASSESSMENT INCLUDING VITAL SIGNS, PAIN, SAFETY, MENTAL/COGNITIVE/PSYCHOSOCIAL STATUS, MED MANAGEMENT, NUTRITION, SKIN INTEGRITY, PRESSURE ULCER PREVENTION, AND PATIENT/CAREGIVER ABILITY TO SUPPORT ORDERED CARE. SKILLED NURSE WILL INSTRUCT ON DISEASE PROCESS, MED MGMT., FALL PREVENTION AND SAFETY, INFECTION CONTROL AND PREVENTION, WARNING SIGNS, ADDRESS RESULTS OUTSIDE OF ORDERED PARAMETERS LISTED ON CARE PLAN, AND COORDINATE DISCHARGE WITH THE TREATING PROVIDER. MAY ACCEPT ORDERS FROM THE FOLLOWING PROVIDER(S) WHO WILL BE CONSULTING ON THE CERTIFIED CARE PLAN: DR. MARICEL CASTELLANOS] Future Scheduled Test THE CER TIFYING PHYSICIAN, ASSOCIATED PHYSICIAN, NPP OR PA WITHIN THE SAME GROUP MAY APPROVE AND SIGN THE ORDER (ON ANY PAGE) ATTESTING THAT THE COMPREHENSIVE OUTCOME ASSESSMENTS, EVALUATIONS, AND HOME HEALTH CERTIFICATION PLANS SUPPORT HOMEBOUND STATUS. HOME HEALTH WEB-PORTAL DOCUMENTATION ACCESSED BY THE PHYSICIAN MUST BE INCORPORATED INTO THE MEDICAL RECORD TO CORROBORATE THE PHYSICIAN, NPP, OR PA S F2F ENCOUNTER TO SUPPORT ELIGIBILITY FOR HOME HEALTH SERVICES. [code = THE CERTIFYING PHYSICIAN, ASSOCIATED PHYSICIAN, NPP OR PA WITHIN THE SAME GROUP MAY APPROVE AND SIGN THE ORDER (ON ANY PAGE) ATTESTING THAT THE COMPREHENSIVE OUTCOME ASSESSMENTS, EVALUATIONS, AND HOME HEALTH CERTIFICATION PLANS SUPPORT HOMEBOUND STATUS. HOME HEALTH WEB-PORTAL DOCUMENTATION ACCESSED BY THE PHYSICIAN MUST BE INCORPORATED INTO THE MEDICAL RECORD TO CORROBORATE THE PHYSICIAN, NPP, OR PA S F2F ENCOUNTER TO SUPPORT ELIGIBILITY FOR HOME HEALTH SERVICES.] Future Scheduled Test HOME HEALT H NURSE WILL ASSESS FOR COMPLICATIONS RELATED ANTIPLATELET USE AND INSTRUCT PATIENT/CAREGIVER ABOUT PRECAUTIONS TO FOLLOW AND SIGNS/SYMPTOMS TO REPORT. [code = HOME HEALTH NURSE WILL ASSESS FOR COMPLICATIONS RELATED ANTIPLATELET USE AND INSTRUCT PATIENT/CAREGIVER ABOUT PRECAUTIONS TO FOLLOW AND SIGNS/SYMPTOMS TO REPORT.] Future Scheduled Test HOME HEALT H NURSE WILL INSTRUCT PATIENT/CAREGIVER ON TYPE 2 DIABETES DISEASE PROCESS, HOW TO CREATE A DIABETIC TOOLKIT TO MANAGE INVENTORY OF SUPPLIES, HOW TO PLAN FOR A SICK-DAY, AND WARNING SIGNS WHEN THE PATIENT EXPERIENCES LOW BLOOD SUGAR. [code = HOME HEALTH NURSE WILL INSTRUCT PATIENT/CAREGIVER ON TYPE 2 DIABETES DISEASE PROCESS, HOW TO CREATE A DIABETIC TOOLKIT TO MANAGE INVENTORY OF SUPPLIES, HOW TO PLAN FOR A SICK-DAY, AND WARNING SIGNS WHEN THE PATIENT EXPERIENCES LOW BLOOD SUGAR.] Goal Patient Goal - T O IMPROVE STRENGHT AND BE ABLE TO TRANSFER FROM BED TO CHAIR Goal Provider Goal - PATIENT/CAREGIVER WILL VERBALIZE DEFINITION AND SIGNS/SYMPTOMS TO WATCH FOR RELATED TO IMPAIRED NEUROLOGICAL STATUS BY END OF EPISODE Goal Provider Goal - PATIENT/CAREGIVER WILL VERBALIZE UNDERSTANDING OF MEASURES TO MANAGE MENTAL HEALTH SYMPTOMS AND IMPROVE USE OF EFFECTIVE COPING STRATEGIES. Goal Provider Goal - Goal Provider Goal - Goal Provider Goal - PATIENT WILL BE FREE OF FALLS AND HOSPITALIZATIONS THROUGHOUT EPISODE OF CARE. PATIENT/CAREGIVER WILL UNDERSTAND AND ADHERE TO ORDERED DIET. PATIENT/CAREGIVER WILL INDEPENDENTLY MANAGE MEDICATIONS, UNDERSTAND ANY CHANGES, SIDE EFFECTS TO REPORT BY EOE. PATIENT WILL BE FREE OF INFECTION AND UNDERSTAND MEASURES OF PREVENTION. PATIENT/CAREGIVER WILL COLLABORATE WITH SKILLED NURSE TO DEVELOP POC AT SOC AND ON AN ONGOING BASIS UPDATES ARE NEEDED. UNDERSTAND PROGRESS MADE/DISCHARGE PLANNING. ADDITIONAL ORDERS WILL BE RECEIVED FROM ALTERNATE PHYSICIANS IN A TIMELY MANNER. Goal Provider Goal - A PLAN OF CARE WILL BE ESTABLISHED THAT MEETS ALL PATIENT'S RESIDENTIAL NEEDS AND COUNTER SIGNED BY PHYSICIAN. Goal Provider Goal - PATIENT/CAREGIVER WILL VERBALIZE UNDERSTANDING OF ANTIPLATELET COMPLICATIONS TO REPORT AND PRECAUTIONS TO FOLLOW BY END OF HOME HEALTH SERVICES. Goal Provider Goal - PATIENT/CAREGIVER WILL VERBALIZE UNDERSTANDING OF TYPE 2 DIABETES AND THE IMPORTANCE OF MANAGING THE BLOOD SUGAR WITHIN THE EXPECTED RANGE. PATIENT/CAREGIVER WILL ESTABLISH A DIABETIC TOOLKIT AND A SICK-DAY PLAN TO PREPARE FOR POTENTIAL CHANGES WITH BLOOD SUGARS RANGES. PATIENT/CAREGIVER WILL VERBALIZE WARNING SIGNS OF LOW BLOOD SUGAR AND WHAT ACTIONS TO TAKE. Encounters Start Date/Time End Date/Time Encounter Type Admission Type Attending [facility] Care Facility Care Department Encounter ID Discharge Date Discharge Status Discharge Condition Discharge Reason Percent Goals Met 2025-03-13 00:00:00 2025-05-11 00:00:00 Outpatient NEW ADMISSION QUE [facility] [id number]
== END 2025-03-21 13:46 | disposition hospice, inpatient (51) ==
PROVIDERS: Emergency Provider Emergency Medicine; PCP Family Medicine
DX: R06.00 Dyspnea, unspecified (principal); Z51.5 Encounter for palliative care; Z20.822 Contact with and (suspected) exposure to COVID-19; G12.21 Amyotrophic lateral sclerosis; I10 Essential (primary) hypertension; I27.20 Pulmonary hypertension, unspecified; E78.00 Pure hypercholesterolemia, unspecified; E11.9 Type 2 diabetes mellitus without complications; G47.33 Obstructive sleep apnea (adult) (pediatric); Z66 Do not resuscitate; Z87.891 Personal history of nicotine dependence; R91.8 Other nonspecific abnormal finding of lung field; Z79.899 Other long term (current) drug therapy
CPT/HCPCS: 36415; 36600; 71045; 80053; 82375; 82805; 83050; 83605; 85018; 85025; 85610; 85730; 87637; 93005; 94002; 94640; 99285; A9270

== ENCOUNTER 2025-03-21 11:58 | HOS | payer OTHER, MEDICARE, SELFPAY ==
--- NOTE | 2025-03-21 12:50 | P.HP_ITS ---
H&P: HPI History of Present Illness Date/Time: 03/21/25 12:50 Chief Complaint: Uncontrolled dyspnea Narrative: 74-year-old male with a history of worsening weakness over the past year to year and half was diagnosed with ALS during the last few months. He had home CPAP was not tolerating it. Over the last few days he has become more short of breath. He was ambulatory with a walker since August but had been falling about 6 times since then. He has been in and out of the hospital. In August he had open left chest surgery at [facility] for pleural effusion. Since then he has become weaker. During the past 3 days he was becoming more short of breath. EMS was summoned and found his oxygen saturation to be 50% on room air. He did not tolerate CPAP. He was brought the emergency department and has a BiPAP mask on but is not tolerating it well. He already has a DNI/DNR in place. He wishes comfort care only at this point and wishes to be off the BiPAP mask. His is at bedside and confirms his wishes. At home he has been able to eat soft foods and has remained continent of bowel and bladder. However he is in bed most of the time with a PPS of 40. Currently his PPS is 30. Review of Systems Review of Systems: All systems reviewed & are unremarkable except as noted in HPI and below PMFSH Past Medical History Medical History (Updated 03/21/25 @ 12:57 by Klaus Mike MD) ALS (amyotrophic lateral sclerosis) Pleural effusion, left Obstructive sleep apnea (~01/2020) Morbid obesity Right ventricular enlargement Pure hypercholesterolemia, unspecified Diabetes Pulmonary hypertension Hypertension Surgical History Surgical History History of video-assisted thoracoscopic surgery (VATS) 09/22/2024 Social History Social History (Updated 03/21/25 @ 12:54 by Klaus Mike MD) Social History: Resides with his in their home. However she is unable to care for him and they wish for him to be discharged to a facility. He quit smoking in 1988. He does not abuse alcohol or recreational drugs. He is retired. Smoking packs per day: 2 Smoking cigarettes per day: 40.0 Years smoked: 22 Smoking pack-years: 44.00 Smoking status: Former smoker Second hand tobacco smoke exposure: No Alcohol intake: current Alcohol use details: once a month Substance use: never Substance use type: does not use Lack of Transportation: No Lack of Food: Never True Current Housing: I Have Housing Concerned About Future Housing: No Difficulty Paying Gas/Electric Bills: No Difficulty Paying for Meds: No Currently Unemployed: No Education: Bachelor's Degree Difficulty w/ Childcare or Family Care: No Living arrangements: with family Occupation/Education: retired Gender identity (if verbalized by the patient): Male Sexual Orientation (if Verbalized by the Patient): Straight or Heterosexual Spiritual care concerns: No Meds Home Medications and Allergies Home Medications ?Medication ?Instructions ?Recorded ?Confirmed ?Type cetirizine 5 mg tablet 5 mg PO DAILY PRN Allergic S ymptoms 03/21/20 02/15/25 History multivitamin 1 tablet PO DAILY 03/21/2004/17/24 History pioglitazone 45 mg tablet 45 mg PO DAILY #90 tabs 12/3002/15/25 Rx blood sugar diagnostic (OneTouch #100 ea 05/26/2401/29 Rx Ultra Test strips) blood-glucose meter (OneTouch #1 ea 05/26/24 02/15/25 Rx Ultra2 Meter) lancets 30 gauge (Onetouch Delica #100 ea 05/26/24 Rx Safety Lancet) atorvastatin 20 mg tablet 20 mg PO DAILY #90 tabs 10/2902/15/25 Rx soluble corn fiber-inulin 2 gram 1 tablet PO DAILY 02/15/25 History chewable tablet (Benefiber (inulin-corn fiber)) [place] Probiotic 10 strains 1 cap PO DAILY 10/3002/15/25 History 10 billion lisinopril 5 mg tablet 5 mg PO DAILY #90 tabs 11/2402/15/25 Rx polyethylene glycol 3350 17 17 g PO DAILY 12/20/24 History gram/dose oral powder (Miralax) magnesium 200 mg tablet 200 mg PO DAILY 02/04/25 History ibuprofen 200 mg tablet (Addaprin) 200 mg PO TID PRN p ain 02/15/25 02/15/25 Hist ory lidocaine 5 % topical patch 1 patch transdermal DAILY #10 ea 02/17/25 Rx (Lidoderm) fluticasone propionate 50 1 spray intranasal DAILY #16 grams 03/15/25 Rx mcg/actuation nasal spray,suspension (Flonase Allergy Relief) Allergies Allergy/AdvReac Type Severity Reaction Status Date / Time No Known Allergies Allergy Verified 03/21/25 09:25 Exam Narrative: HEENT: PERRL, sclerae nonicteric, pharyngeal mucosa pink and intact, BiPAP mask in place NECK: No JVD, no thyromegaly or adenopathy CHEST: Clear to auscultation with decreased breath sounds bilateral lower lobes, normal effort HEART: NL S1/S2, regular, no murmur ABDOMEN: BS+, soft, nontender, no mass, no bruits EXTREMITIES: No cyanosis, edema, or clubbing NEUROLOGIC: CN intact and symmetric to inspection, speech is difficult to discern due to low volume and slurred words, diffuse and symmetric weakness of all 4 extremities, 4/5 arms, 3/5 legs MUSCULOSKELETAL: No deformities to inspection PSYCH: Alert, oriented to person, place, and time Assessment and Plan Assessment and plan (1) Hospice care: Code(s): Z51.5 - Encounter for palliative care Status: Acute Assessment and Plan: * Meets inpatient hospice criteria due to requiring continuous morphine at 0.5 milligrams/hour for control of dyspnea * P.r.n. palliative regimen ordered * 03/21/2025 discussed with and son at bedside that goal is to control his symptoms and when stable discharge to a [facility] facility per their wishes (2) ALS (amyotrophic lateral sclerosis): Code(s): G12.21 - Amyotrophic lateral sclerosis Status: Acute Assessment and Plan: * Progressive symptoms with increasing weakness, respiratory failure, dysarthria (3) Acute respiratory failure with hypoxemia: Code(s): J96.01 - Acute respiratory failure with hypoxia Status: Acute Assessment and Plan: * Secondary to ALS (4) Diabetes: Qualifiers: Diabetes mellitus type: type 2 Diabetes mellitus jail insulin use: without stockroom helper use Diabetes mellitus complication status: without complication Qualified Code(s): E11.9 - Type 2 diabetes mellitus without complications Code(s): E11.9 - Type 2 diabetes mellitus without complications Status: Chronic (5) Chronic low back pain: Code(s): M54.50 - Low back pain, unspecified; G89.29 - Other chronic pain Status: Acute (6) Obstructive sleep apnea: Onset Date: ~01/2020 Code(s): G47.33 - Obstructive sleep apnea (adult) (pediatric) Status: Chronic (7) Hypertension: Qualifiers: Hypertension type: primary hypertension Qualified Code(s): I10 - Essential (primary) hypertension Code(s): I10 - Essential (primary) hypertension Status: Chronic (8) Pulmonary hypertension: Code(s): I27.20 - Pulmonary hypertension, unspecified Status: Acute
[2025-03-21 13:55] VITALS: BP 136/54; PULSE 100; RESP 20; TEMP 36.1; O2SAT 100
--- OUTSIDE RECORDS SUMMARY | 2025-03-21 14:17 | XMS_ITS | Clinical Summary ---
Author Organization [facility] [place] [address] Address [address] [place] [address] Care Team Providers Care Integrity Analyst Name Role Phone Tej Sen MD Primary Care Provider [phone] Vanesa Gomez MD Unavailable [phone] Allergies No known active allergies Medications OneTouch [...] from the original. Merline Thomas NP 09/01/2024 [id number] This is a 73-year-old male patient presenting [...] underwent a CT chest on 07/19/2024 at [facility] which reveals: Small to moderate chronic left effusion with thickened pleura lining. Left-sided volume loss with peripheral consolidation of the lingula and left lower lobe, likely representing atelectasis. Correlate clinically for pneumonia. Right lung relatively hyperinflated but clear. He underwent an ultrasound-guided thoracentesis on 08/03/2024 with 250 mL of fluid obtained. He also underwent a chest x-ray status post thoracentesis on 08/03/2024 [facility] which reveals: Blunting at the left costophrenic [...] 02/24/2025 Assessment & Plan (02/26/2025 9:47 AM HEALTH RECORD TECHNICIAN): No BM since last Friday. No abdominal pain. KUB ordered to assess stool burden. Resolved with one time mag citrate - Miralax and senna scheduled Assessment & Plan (02/25/2025 10:10 AM HEALTH RECORD TECHNICIAN): No BM since last Friday. No abdominal pain. KUB ordered to assess stool burden. Resolved with one time mag citrate - Miralax and senna scheduled Assessment & Plan (02/24/2025 9:38 AM HEALTH RECORD TECHNICIAN): No BM since last Friday. No abdominal pain. - KUB ordered to assess stool burden - Miralax and senna scheduled Shortness of breath 02/22/2025 Assessment & Plan (02/26/2025 9:47 AM HEALTH RECORD TECHNICIAN): Reports weeks-months SOB on exertion and intermittent [...] CPAP Assessment & Plan (02/25/2025 7:40 AM HEALTH RECORD TECHNICIAN): Reports weeks-months SOB on exertion and intermittent [...] CPAP Assessment & Plan (02/24/2025 9:53 AM HEALTH RECORD TECHNICIAN): Reports weeks-months SOB on exertion and intermittent [...] CPAP Assessment & Plan (02/23/2025 8:22 AM HEALTH RECORD TECHNICIAN): Reports weeks-months SOB on exertion and intermittent [...] CPAP Assessment & Plan (02/22/2025 1:22 PM HEALTH RECORD TECHNICIAN): Reports weeks-months SOB on exertion and intermittent [...] CPAP Assessment & Plan (02/22/2025 12:53 AM HEALTH RECORD TECHNICIAN): Reports weeks-months SOB on exertion and intermittent [...] 02/22/2025 Assessment & Plan (02/26/2025 9:47 AM HEALTH RECORD TECHNICIAN): Reports weeks-months SOB on exertion and intermittent [...] CPAP Assessment & Plan (02/25/2025 7:40 AM HEALTH RECORD TECHNICIAN): Reports weeks-months SOB on exertion and intermittent [...] CPAP Assessment & Plan (02/24/2025 9:53 AM HEALTH RECORD TECHNICIAN): Reports weeks-months SOB on exertion and intermittent [...] CPAP Assessment & Plan (02/23/2025 8:22 AM HEALTH RECORD TECHNICIAN): Reports weeks-months SOB on exertion and intermittent [...] CPAP Assessment & Plan (02/22/2025 1:22 PM HEALTH RECORD TECHNICIAN): Reports weeks-months SOB on exertion and intermittent [...] CPAP Assessment & Plan (02/22/2025 12:53 AM HEALTH RECORD TECHNICIAN): Reports weeks-months SOB on exertion and intermittent [...] 02/22/2025 Assessment & Plan (02/26/2025 9:47 AM HEALTH RECORD TECHNICIAN): Reports weeks-months SOB on exertion and intermittent [...] CPAP Assessment & Plan (02/25/2025 7:40 AM HEALTH RECORD TECHNICIAN): Reports weeks-months SOB on exertion and intermittent [...] CPAP Assessment & Plan (02/24/2025 9:53 AM HEALTH RECORD TECHNICIAN): Reports weeks-months SOB on exertion and intermittent [...] CPAP Assessment & Plan (02/23/2025 8:22 AM HEALTH RECORD TECHNICIAN): Reports weeks-months SOB on exertion and intermittent [...] CPAP Assessment & Plan (02/22/2025 1:22 PM HEALTH RECORD TECHNICIAN): Reports weeks-months SOB on exertion and intermittent [...] CPAP Assessment & Plan (02/22/2025 12:53 AM HEALTH RECORD TECHNICIAN): Reports weeks-months SOB on exertion and intermittent [...] 02/19/2025 Assessment & Plan (02/26/2025 10:57 AM HEALTH RECORD TECHNICIAN): Presented with worsening generalized weakness and severe [...] ESR 31. -TATO 1:320 -SSA, SSB, Bethany-1, EQUITY SALES ASSISTANT negative -ANCA: indeterminate -TSH wnl -B12 200, [...] precaution Assessment & Plan (02/25/2025 7:40 AM HEALTH RECORD TECHNICIAN): Presented with worsening generalized weakness and severe [...] ESR 31. -TATO 1:320 -SSA, SSB, Bethany-1, EQUITY SALES ASSISTANT negative -ANCA: indeterminate -TSH wnl -B12 200, [...] further work up/diagnosis). If ALS, consider OP WARNING COORDINATION METEOROLOGIST for voice banking and ongoing assessment of dysphagia. - f/u rheum - PT/OT: IPR - Resumed statin 02/24 - fall precaution Assessment & Plan (02/24/2025 9:53 AM HEALTH RECORD TECHNICIAN): Presented with worsening generalized weakness and severe [...] ESR 31. -TATO 1:320 -SSA, SSB, Bethany-1, EQUITY SALES ASSISTANT negative -ANCA: indeterminate -TSH wnl -B12 200, [...] further work up/diagnosis). If ALS, consider OP WARNING COORDINATION METEOROLOGIST for voice banking and ongoing assessment of dysphagia. - f/u rheum - PT/OT: IPR - Resumed statin 02/24 - fall precaution Assessment & Plan (02/23/2025 12:36 PM HEALTH RECORD TECHNICIAN): Presented with worsening generalized weakness and severe [...] ESR 31. -TATO 1:320 -SSA, SSB, Bethany-1, EQUITY SALES ASSISTANT negative -ANCA: indeterminate -TSH wnl -B12 200, [...] further work up/diagnosis). If ALS, consider OP WARNING COORDINATION METEOROLOGIST for voice banking and ongoing assessment of dysphagia. - f/u rheum - PT/OT: IPR - Hold atorvastatin - fall precaution Assessment & Plan (02/22/2025 2:07 PM HEALTH RECORD TECHNICIAN): Presented with worsening generalized weakness and severe [...] ESR 31. -TATO 1:320 -SSA, SSB, Bethany-1, EQUITY SALES ASSISTANT negative -TSH wnl -B12 200 -C3, C4 [...] precaution Assessment & Plan (02/22/2025 12:53 AM HEALTH RECORD TECHNICIAN): Presented with worsening generalized weakness and severe [...] ESR 31. -TATO 1:320 -SSA, SSB, Bethany-1, EQUITY SALES ASSISTANT negative -TSH wnl -B12 200 -C3, C4 [...] precaution Assessment & Plan (02/20/2025 8:58 PM HEALTH RECORD TECHNICIAN): Presented with worsening generalized weakness and severe [...] SPEP/UPEP, HIV, Hep C, aldolase, LDH, Ro/SSA, EQUITY SALES ASSISTANT (normal CK, TSH, vitamin D). Does have vitamin B12 mild deficiency. Elevated aldolase and LDH. - Check echo - Hold atorvastatin - fall precaution Assessment & Plan (02/19/2025 11:04 PM HEALTH RECORD TECHNICIAN): Presented with worsening generalized weakness and severe [...] SPEP/UPEP, HIV, Hep C, aldolase, LDH, Ro/SSA, EQUITY SALES ASSISTANT, - Check echo - Hold atorvastatin DM2 (diabetes mellitus, type 2) 02/19/2025 Assessment & Plan (02/26/2025 10:57 AM HEALTH RECORD TECHNICIAN): History of type 2 diabetes, takes Actos. Sliding scale while inpatient. Assessment & Plan (02/25/2025 7:40 AM HEALTH RECORD TECHNICIAN): History of type 2 diabetes, takes Actos. Sliding scale while inpatient. Assessment & Plan (02/24/2025 7:42 AM HEALTH RECORD TECHNICIAN): History of type 2 diabetes, takes Actos. Sliding scale while inpatient. Assessment & Plan (02/23/2025 8:22 AM HEALTH RECORD TECHNICIAN): History of type 2 diabetes, takes Actos. Sliding scale while inpatient. Assessment & Plan (02/22/2025 8:31 AM HEALTH RECORD TECHNICIAN): History of type 2 diabetes, takes Actos. Sliding scale while inpatient. Assessment & Plan (02/22/2025 12:06 AM HEALTH RECORD TECHNICIAN): History of type 2 diabetes, takes Actos. Sliding scale while inpatient. Assessment & Plan (02/20/2025 8:58 PM HEALTH RECORD TECHNICIAN): History of type 2 diabetes, takes Actos. Sliding scale while inpatient. Assessment & Plan (02/19/2025 11:04 PM HEALTH RECORD TECHNICIAN): History of type 2 diabetes, takes Actos. [...] 01/17/2020 Assessment & Plan (02/26/2025 10:57 AM HEALTH RECORD TECHNICIAN): History high blood pressure: Continued home lisinopril Assessment & Plan (02/25/2025 7:40 AM HEALTH RECORD TECHNICIAN): History high blood pressure: Continue home lisinopril Assessment & Plan (02/24/2025 7:42 AM HEALTH RECORD TECHNICIAN): History high blood pressure: Continue home lisinopril Assessment & Plan (02/23/2025 8:22 AM HEALTH RECORD TECHNICIAN): History high blood pressure: Continue home lisinopril Assessment & Plan (02/22/2025 8:31 AM HEALTH RECORD TECHNICIAN): History high blood pressure: Continue home lisinopril Assessment & Plan (02/22/2025 12:06 AM HEALTH RECORD TECHNICIAN): History high blood pressure: Continue home lisinopril Assessment & Plan (02/20/2025 8:58 PM HEALTH RECORD TECHNICIAN): History high blood pressure: Continue home lisinopril Assessment & Plan (02/19/2025 11:04 PM HEALTH RECORD TECHNICIAN): History high blood pressure: Continue home lisinopril [...] Description 03/07/2025 Orders Only [facility] [phone] Unknown, Notinfile 03/04/2025 Telephone [facility] Medicine Neuro Muscle [address] [place] [address] [place] [address] Fabiola Toussaint DC 02/28/2025 Telephone [facility] Medicine Neuro Muscle [address] [place] [address] [place] [address] Ayla Mckeon, MYRON 02/28/2025 Documentation [facility] Medicine Neuro Muscle [address] [place] [address] [place] [address] Fabiola Toussaint DC 02/28/2025 Orders Only [facility] [phone] Unknown, Notinfile 02/22/2025 Documentation [facility] [place] [facility] [address] [place] [address] [place] [address] Fabiola Toussaint DC 02/21/2025 11:59 PM HEALTH RECORD TECHNICIAN Hospital Encounter [facility] [place] [facility] [address] [place] [id number] Discharge Disposition: Discharge to home or self care 02/19/2025 3:08 PM HEALTH RECORD TECHNICIAN - 02/26/2025 2:00 PM HEALTH RECORD TECHNICIAN Hospital Encounter [address] [address] Rubén Lan MD Morgan, Zachary A., MD Yu, Tong, MD Patel, Saira Prieto MD Generalized weakness (Primary Dx); Right leg weakness; Shortness of breath; S/P video-assisted thoracoscopic surgery (VATS); Pulmonary hypertension (HCC); Myositis of right thigh, unspecified myositis type Discharge Disposition: Discharge to an Rehab facility 02/15/2025 7:15 AM HEALTH RECORD TECHNICIAN - 02/15/2025 11:59 PM HEALTH RECORD TECHNICIAN [place] [address] Radiculopathy, lumbar region; Other symptoms and signs involving the musculoskeletal system Discharge Disposition: Discharge to home or self care 12/31/2024 1:35 PM CDT - 12/31/2024 11:59 PM [place] [address] Other symptoms and signs involving the musculoskeletal system Discharge Disposition: Discharge to home or self care 12/31/2024 1:34 PM CDT - 12/31/2024 11:59 PM CDT Hospital Encounter [id number] [place] [address] Dorsalgia, unspecified; Other chronic pain Discharge Disposition: [...] drink = 0.6 oz pur e alcohol) [facility] Utilities Answer Date Recorded In the past 12 months has [employer], gas, oil, or water [employer] threatened to shut off services in your [...] often do you attend chur ch or muslim services? 1 to 4 times per year 09/23/2024 Do you belong to any clubs o r organizations such as sabianism groups, unions, fraternal or athletic groups, or [...] any time in the past 12 m [facility], were you homeless or living in a group home (including now)? No 09/23/2024 Personal Safety [...] Comments Blood Pressure 128/60 02/26/2025 1:28 PM HEALTH RECORD TECHNICIAN Pulse 82 02/26/2025 1:28 PM HEALTH RECORD TECHNICIAN Temperature 36.5 C (97.7 F) 02/26/2025 11:35 AM HEALTH RECORD TECHNICIAN Respiratory Rate 18 02/26/2025 1:28 PM HEALTH RECORD TECHNICIAN Oxygen Saturation 100% 02/26/2025 1:28 PM HEALTH RECORD TECHNICIAN Inhaled Oxygen Concentration - - Weight 99.9 kg (220 lb 3.8 oz) 02/23/2025 5:27 A M HEALTH RECORD TECHNICIAN Height 188 cm (6' 2.02) 02/20/2025 12:53 AM HEALTH RECORD TECHNICIAN Body Mass Index 28.26 02/20/2025 12:53 AM HEALTH RECORD TECHNICIAN Plan of Treatment Health Maintenance Due Date [...] Diagnosis Comments EGFR Routine 03/07/2025 6:40 AM HEALTH RECORD TECHNICIAN COMPREHENSIVE METABOLIC PANEL Routine 03/07/2025 6:40 AM HEALTH RECORD TECHNICIAN DIFFERENTIAL AUTO Routine 03/07/2025 6:4 0 AM HEALTH RECORD TECHNICIAN CBC WITH AUTO DIFFERENTIAL Routine 03/07/2025 6:40 AM HEALTH RECORD TECHNICIAN EGFR Routine 02/28/2025 5:10 AM HEALTH RECORD TECHNICIAN COMPREHENSIVE METABOLIC PANEL Routine 02/28/2025 5:10 AM HEALTH RECORD TECHNICIAN DIFFERENTIAL AUTO Routine 02/28/2025 5:1 0 AM HEALTH RECORD TECHNICIAN CBC WITH AUTO DIFFERENTIAL Routine 02/28/2025 5:10 AM HEALTH RECORD TECHNICIAN POCT GLUCOSE DEVICE Routine 02/26/2025 11:35 AM HEALTH RECORD TECHNICIAN INFECTION PREVENTION JANNET AURIS PCR, SURVEILLANCE Routine 02/26/2025 11:05 AM HEALTH RECORD TECHNICIAN POCT GLUCOSE DEVICE Routine 02/26/2025 7 :19 AM HEALTH RECORD TECHNICIAN POCT GLUCOSE DEVICE Routine 02/25/2025 8 :43 PM HEALTH RECORD TECHNICIAN POCT GLUCOSE DEVICE Routine 02/25/2025 5 :01 PM HEALTH RECORD TECHNICIAN POCT GLUCOSE DEVICE Routine 02/25/2025 12:03 PM HEALTH RECORD TECHNICIAN POCT GLUCOSE DEVICE Routine 02/25/2025 7 :34 AM HEALTH RECORD TECHNICIAN POCT GLUCOSE DEVICE Routine 02/24/2025 8 :10 PM HEALTH RECORD TECHNICIAN POCT GLUCOSE DEVICE Routine 02/24/2025 6 :42 PM HEALTH RECORD TECHNICIAN POCT GLUCOSE DEVICE Routine 02/24/2025 11:50 AM HEALTH RECORD TECHNICIAN XR ABDOMEN AP 1 VIEW ED Urgent/IP Urgent 02/24/2025 9:50 AM HEALTH RECORD TECHNICIAN POCT GLUCOSE DEVICE Routine 02/24/2025 7 :46 AM HEALTH RECORD TECHNICIAN EGFR Routine 02/24/2025 1:21 AM HEALTH RECORD TECHNICIAN DIFFERENTIAL AUTO Routine 02/24/2025 1:2 1 AM HEALTH RECORD TECHNICIAN CBC WITH AUTO DIFFERENTIAL Routine 02/24/2025 1:21 AM HEALTH RECORD TECHNICIAN BASIC METABOLIC PANEL Routine 02/24/2025 1:21 AM HEALTH RECORD TECHNICIAN HEPATIC FUNCTION PANEL Routine 02/24/2025 1:21 AM HEALTH RECORD TECHNICIAN COPPER, SERUM Routine 02/24/2025 1:21 AM HEALTH RECORD TECHNICIAN ZINC Routine 02/24/2025 1:21 AM HEALTH RECORD TECHNICIAN POCT GLUCOSE DEVICE Routine 02/23/2025 9 :23 PM HEALTH RECORD TECHNICIAN MRI SPINE CERVICAL THORACIC WO CONTRAST IP Routine 02/23/2025 8:45 PM HEALTH RECORD TECHNICIAN POCT GLUCOSE DEVICE Routine 02/23/2025 5 :21 PM HEALTH RECORD TECHNICIAN POCT GLUCOSE DEVICE Routine 02/23/2025 12:39 PM HEALTH RECORD TECHNICIAN RPR Routine 02/23/2025 9:59 AM HEALTH RECORD TECHNICIAN POCT GLUCOSE DEVICE Routine 02/23/2025 7 :44 AM HEALTH RECORD TECHNICIAN EGFR Routine 02/22/2025 9:15 PM HEALTH RECORD TECHNICIAN DIFFERENTIAL AUTO Routine 02/22/2025 9:1 5 PM HEALTH RECORD TECHNICIAN ALDOLASE Routine 02/22/2025 9:15 PM HEALTH RECORD TECHNICIAN CREATINE KINASE (CK), TOTAL Routine 02/22/2025 9:15 PM HEALTH RECORD TECHNICIAN COPPER, SERUM Routine 02/22/2025 9:15 PM HEALTH RECORD TECHNICIAN ZINC Routine 02/22/2025 9:15 PM HEALTH RECORD TECHNICIAN VITAMIN E Routine 02/22/2025 9:15 PM HEALTH RECORD TECHNICIAN CBC WITH AUTO DIFFERENTIAL Routine 02/22/2025 9:15 PM HEALTH RECORD TECHNICIAN BASIC METABOLIC PANEL Routine 02/22/2025 9:15 PM HEALTH RECORD TECHNICIAN HEPATIC FUNCTION PANEL Routine 02/22/2025 9:15 PM HEALTH RECORD TECHNICIAN POCT GLUCOSE DEVICE Routine 02/22/2025 8 :41 PM HEALTH RECORD TECHNICIAN ALDOLASE Routine 02/22/2025 3:19 PM HEALTH RECORD TECHNICIAN CREATINE KINASE (CK), TOTAL Routine 02/22/2025 3:19 PM HEALTH RECORD TECHNICIAN INSPIRATORY FORCE / LUNG MECHANICS Routine 02/22/2025 2:06 PM HEALTH RECORD TECHNICIAN POCT GLUCOSE DEVICE Routine 02/22/2025 2 :04 PM HEALTH RECORD TECHNICIAN IMMUNOFIXATION, URINE Timed 02/22/2025 11:45 AM HEALTH RECORD TECHNICIAN VOLUME AND PERIOD, URINE, 24 HOUR Timed 02/22/2025 11:45 AM HEALTH RECORD TECHNICIAN PROTEIN ELECTROPHORESIS, URINE, 24 HOUR RESULT Timed 02/22/2025 11:45 AM HEALTH RECORD TECHNICIAN PROTEIN ELECTROPHORESIS, URINE, 24 HOUR WITH IMMUNOFIXATION Timed 02/22/2025 11:45 AM HEALTH RECORD TECHNICIAN WARNING COORDINATION METEOROLOGIST EVALUATE AND TREAT Routine 02/22/2025 10:50 AM HEALTH RECORD TECHNICIAN XR CHEST 1 VIEW Timed 02/22/2025 8:17 AM HEALTH RECORD TECHNICIAN POCT GLUCOSE DEVICE Routine 02/22/2025 7 :44 AM HEALTH RECORD TECHNICIAN EGFR Routine 02/21/2025 9:01 PM HEALTH RECORD TECHNICIAN DIFFERENTIAL AUTO Routine 02/21/2025 9:0 1 PM HEALTH RECORD TECHNICIAN CBC WITH AUTO DIFFERENTIAL Routine 02/21/2025 9:01 PM HEALTH RECORD TECHNICIAN BASIC METABOLIC PANEL Routine 02/21/2025 9:01 PM HEALTH RECORD TECHNICIAN HEPATIC FUNCTION PANEL Routine 02/21/2025 9:01 PM HEALTH RECORD TECHNICIAN POCT GLUCOSE DEVICE Routine 02/21/2025 7 :[address]ORD [address]CH[address]ICIAN [address] CHEST PE W CONTRAST IP Routine 02/21/2025 5:34 PM HEALTH RECORD TECHNICIAN TRANSTHORACIC ECHO (TTE) COMPLETE W DOPPLER/CF W CONTRAST Routine 02/21/2025 3:55 PM HEALTH RECORD TECHNICIAN POCT GLUCOSE DEVICE Routine 02/21/2025 12:13 PM HEALTH RECORD TECHNICIAN PRO B-TYPE NATRIURETIC PEPTIDE Timed 02/21/2025 11:58 AM HEALTH RECORD TECHNICIAN EGFR Timed 02/21/2025 11:58 AM HEALTH RECORD TECHNICIAN DIFFERENTIAL AUTO Timed 02/21/2025 11:58 AM HEALTH RECORD TECHNICIAN COMPREHENSIVE METABOLIC PANEL Timed 02/21/2025 11:58 AM HEALTH RECORD TECHNICIAN CBC WITH AUTO DIFFERENTIAL Timed 02/21/2025 11:58 AM HEALTH RECORD TECHNICIAN PROTEIN ELECTROPHORESIS, WITH REFLEX, SERUM Timed 02/21/2025 11:58 AM HEALTH RECORD TECHNICIAN C4 COMPLEMENT Timed 02/21/2025 11:58 AM HEALTH RECORD TECHNICIAN C3 COMPLEMENT Timed 02/21/2025 11:58 AM HEALTH RECORD TECHNICIAN NEUROMUSCULAR SPECIMEN TRACKING INPATIENT STAT 02/21/2025 11:58 AM HEALTH RECORD TECHNICIAN POCT GLUCOSE DEVICE Routine 02/21/2025 8 :02 AM HEALTH RECORD TECHNICIAN POCT GLUCOSE DEVICE Routine 02/20/2025 8 :40 PM HEALTH RECORD TECHNICIAN POCT GLUCOSE DEVICE Routine 02/20/2025 4 :39 PM HEALTH RECORD TECHNICIAN POCT GLUCOSE DEVICE Routine 02/20/2025 12:25 PM HEALTH RECORD TECHNICIAN INFECTION PREVENTION JANNET AURIS PCR, SURVEILLANCE Routine 02/20/2025 11:19 AM HEALTH RECORD TECHNICIAN POCT GLUCOSE DEVICE Routine 02/20/2025 7 :31 AM HEALTH RECORD TECHNICIAN FOLATE STAT 02/20/2025 6:43 AM HEALTH RECORD TECHNICIAN ALDOLASE STAT 02/20/2025 6:43 AM HEALTH RECORD TECHNICIAN ALDOLASE STAT 02/20/2025 12:18 AM HEALTH RECORD TECHNICIAN FOLATE STAT 02/20/2025 12:18 AM HEALTH RECORD TECHNICIAN HEMOGLOBIN A1C STAT 02/20/2025 12:18 AM HEALTH RECORD TECHNICIAN LACTATE DEHYDROGENASE STAT 02/20/2025 12:18 AM HEALTH RECORD TECHNICIAN LIPID PANEL STAT 02/20/2025 12:18 AM HEALTH RECORD TECHNICIAN EQUITY SALES ASSISTANT ANTIBODIES STAT 02/20/2025 12:18 AM HEALTH RECORD TECHNICIAN SJOGRENS SYNDROME-A ANTIBODY STAT 02/20/2025 12:18 AM HEALTH RECORD TECHNICIAN SJOGRENS SYNDROME-B ANTIBODY STAT 02/20/2025 12:18 AM HEALTH RECORD TECHNICIAN TSH STAT 02/20/2025 12:18 AM HEALTH RECORD TECHNICIAN VITAMIN B12 STAT 02/20/2025 12:18 AM HEALTH RECORD TECHNICIAN VITAMIN D 25 HYDROXY STAT 02/20/2025 12:18 AM HEALTH RECORD TECHNICIAN HEPATITIS C ANTIBODY STAT 02/20/2025 12:18 AM HEALTH RECORD TECHNICIAN HIV 1/2 ANTIBODY PLUS P24 ANTIGEN STAT 02/20/2025 12:18 AM HEALTH RECORD TECHNICIAN NEUROMUSCULAR TESTING STAT 02/20/2025 12:00 AM HEALTH RECORD TECHNICIAN POCT GLUCOSE DEVICE Routine 02/19/2025 11:55 PM HEALTH RECORD TECHNICIAN TROPONIN I HIGH-SENSITIVITY 2-HOUR Timed 02/19/2025 6:26 PM HEALTH RECORD TECHNICIAN URINALYSIS, MICROSCOPIC ONLY STAT 02/19/2025 5:55 PM HEALTH RECORD TECHNICIAN URINALYSIS AND REFLEX TO MICROSCOPIC AND CULTURE STAT 02/19/2025 5:55 PM HEALTH RECORD TECHNICIAN XR CHEST 1 VIEW ED 02/19/2025 4:20 PM HEALTH RECORD TECHNICIAN ECG 12-LEAD Routine 02/19/2025 4:12 PM HEALTH RECORD TECHNICIAN MYELOPEROXIDASE ANTIBODY Routine 02/19/2025 4:11 PM HEALTH RECORD TECHNICIAN PROTEINASE-3 ANTIBODY Routine 02/19/2025 4:11 PM HEALTH RECORD TECHNICIAN ANTI-NEUTROPHILIC CYTOPLASMIC ANTIBODY (ANCA) WITH REFLEX TO MPO AND PR3 ABS Routine 02/19/2025 4:11 PM HEALTH RECORD TECHNICIAN BETHANY-1 ANTIBODY STAT 02/19/2025 4:11 PM HEALTH RECORD TECHNICIAN TATO QUALITATIVE WITH REFLEX TO TATO QUANTITATIVE STAT 02/19/2025 4:11 PM HEALTH RECORD TECHNICIAN EGFR STAT 02/19/2025 3:53 PM HEALTH RECORD TECHNICIAN DIFFERENTIAL AUTO STAT 02/19/2025 3:5 3 PM HEALTH RECORD TECHNICIAN CRP (ACUTE PHASE) STAT 02/19/2025 3:5 3 PM HEALTH RECORD TECHNICIAN ERYTHROCYTE SEDIMENTATION RATE STAT 02/19/2025 3:53 PM HEALTH RECORD TECHNICIAN GAMMA GT STAT 02/19/2025 3:53 PM HEALTH RECORD TECHNICIAN CREATINE KINASE (CK), TOTAL STAT 02/19/2025 3:53 PM HEALTH RECORD TECHNICIAN PRO B-TYPE NATRIURETIC PEPTIDE STAT 02/19/2025 3:53 PM HEALTH RECORD TECHNICIAN TROPONIN I HIGH-SENSITIVITY SERIES (BASELINE, 2HR, 4HR, 6HR) STAT 02/19/2025 3:53 PM HEALTH RECORD TECHNICIAN PHOSPHORUS STAT 02/19/2025 3:53 PM HEALTH RECORD TECHNICIAN MAGNESIUM STAT 02/19/2025 3:53 PM HEALTH RECORD TECHNICIAN COMPREHENSIVE METABOLIC PANEL STAT 02/19/2025 3:53 PM HEALTH RECORD TECHNICIAN CBC WITH AUTO DIFFERENTIAL STAT 02/19/2025 3:53 PM HEALTH RECORD TECHNICIAN MRI LUMBAR SPINE WO CONTRAST Schedule Routine, Read Routine (OP Routine) 02/15/2025 8:10 AM HEALTH RECORD TECHNICIAN Radiculopathy, lumbar region Other symptoms and signs [...] Months Results * eGFR (03/07/2025 6:40 AM HEALTH RECORD TECHNICIAN) eGFR 89 >=60 mL/min/1. 73 m2 RU[facility] [...] was last reviewed 2021. Testing performed by: [address] [id number] Blood 03/07/2025 6:40 AM HEALTH RECORD TECHNICIAN 03/07/2025 8:30 AM HEALTH RECORD TECHNICIAN us Notinfile Unknown LAB BLOOD ORDERABLES Final Res ult [facility] Department [place] [address] * Differential, auto (03/07/2025 6:40 AM HEALTH RECORD TECHNICIAN) Neutrophil abs 3.66 1.50 - 6.50 K/cumm RU[facility]O Comment:Testing performed by : [address] [address] Imm gran abs 0.02 0.00 - 0.10 K/cumm [facility]O Comment:Testing performed by : [address] [address] Lymphocyte abs 0.90 0.80 - 3.30 K/cumm [facility] Comment:Testing performed by : [address] [address] Monocyte abs 0.57 0.20 - 0.80 K/cumm [facility] Comment:Testing performed by : [address] [address] Eosinophil abs 0.11 0.00 - 0.50 K/cumm [facility] Comment:Testing performed by : [address] [address] Basophil abs 0.03 0.00 - 0.10 K/cumm [facility]O Comment:Testing performed by : [address] [address] Neutrophil pct 69.1 % [facility] Comment: Interpretive Data Percent cell count reference ranges are not reported, since discordance with absolute values may lead to misinterpretation of CBC data. Current Interpretive Data was last revised on 2017. Testing performed by: [address] [address] Imm gran pct 0.4 % [facility] Comment: Interpretive Data Percent cell count reference ranges are not reported, since discordance with absolute values may lead to misinterpretation of CBC data. Current Interpretive Data was last revised on 2017. Testing performed by: [address] [address] Lymphocyte pct 17.0 % [facility] Comment: Interpretive Data Percent cell count reference ranges are not reported, since discordance with absolute values may lead to misinterpretation of CBC data. Current Interpretive Data was last revised on 2017. Testing performed by: [address] [address] Monocyte pct 10.8 % [facility] Comment: Interpretive Data Percent cell count reference ranges are not reported, since discordance with absolute values may lead to misinterpretation of CBC data. Current Interpretive Data was last revised on 2017. Testing performed by: [address] [address] Eosinophil pct 2.1 % [facility] Comment: Interpretive Data Percent cell count reference ranges are not reported, since discordance with absolute values may lead to misinterpretation of CBC data. Current Interpretive Data was last revised on 2017. Testing performed by: [address] [address] Basophil pct 0.6 % [facility] Comment: Interpretive Data Percent cell count reference ranges are not reported, since discordance with absolute values may lead to misinterpretation of CBC data. Current Interpretive Data was last revised on 2017. Testing performed by: [address] [address] Blood 03/07/2025 6:40 AM HEALTH RECORD TECHNICIAN 03/07/2025 8:30 AM HEALTH RECORD TECHNICIAN us Notinfile Unknown LAB BLOOD ORDERABLES Final Res ult RUFINO [address] [facility] Department [place] [address] * (ABNORMAL) CBC with auto differential (03/07/2025 6:40 AM HEALTH RECORD TECHNICIAN) WBC 5.29 3.80 - 9.90 K/cumm RUFNIO PEREZ Comment:Testing performed by : [address] [address] Hgb 12.6(L) 13.0 - 17.5 g/dL RUFINO Comment:Testing performed by : [address] [address] Hct 38.5(L) 38.9 - 50.3 % RUFINO Comment:Testing performed by : [address] [address] Plt 307 150 - 400 K/cumm RUFINO Comment:Testing performed by : [address] [address] MPV 9.0(L) 9.1 - 12.3 fL RUFINO Comment:Testing performed by : [address] [address] RBC 4.08(L) 4.30 - 5.80 M/cumm RUFINO PEREZ Comment:Testing performed by : [address] [address] MCV 94.4 81.3 - 96.4 fL RUFINO Comment:Testing performed by : [address] [address] MCH 30.9 27.1 - 33.3 pg RUFINO Comment:Testing performed by : [address] [address] MCHC 32.7 32.3 - 35.7 g/dL RUFINO Comment:Testing performed by : [address] [address] RDW CV 15.1(H) 11.1 - 14.9 % RUFINO Comment:Testing performed by : [address] [address] RDW SD 52.7(H) 35.7 - 48.1 fL RUFINO PEREZ Comment:Testing performed by : [address] [address] NRBC abs 0.00 0.00 - 0.01 K/cumm RUFINO PEREZ Comment:Testing performed by : [address] [address] Blood 03/07/2025 6:40 AM HEALTH RECORD TECHNICIAN 03/07/2025 8:30 AM HEALTH RECORD TECHNICIAN us Notinfile Unknown LAB BLOOD ORDERABLES Final Res ult RUFINO PEREZ [facility]0 [facility] Department [place] [address] * (ABNORMAL) Comprehensive metabolic panel (03/07/2025 6:40 AM HEALTH RECORD TECHNICIAN) Sodium 133(L) 135 - 145 mmol/L RUFINO PEREZ Comment:Testing performed by : [address] [address] Potassium, pl 4.8 3.3 - 4.9 mmol/L RUFINO PEREZ Comment:Testing performed by : [address] [address] Chloride 97 97 - 110 mmol/L RUFINO Comment:Testing performed by : [address] [address] CO2 29 22 - 32 mmol/L RUFINO Comment:Testing performed by : [address] [address] Anion gap 7 2 - 15 mmol/L RUFINO Comment:Testing performed by : [address] [address] BUN 19 6 - 25 mg/dL RUFINO PEREZ Comment:Testing performed by : [address] [address] Creatinine 0.90 0.80 - 1.30 mg/dL RUFINO Comment:Testing performed by : [address] [address] Glucose 142 70 - 199 mg/dL RUFINO [...] was last revised 2022. Testing performed by: [address] [address] Calcium 9.0 8.5 - 10.3 mg/dL RUFINO Comment:Testing performed by : [address] [address] Bilirubin, total 0.3 0.1 - 1.2 mg/dL RUFINO Comment:Testing performed by : [address] [address] Protein, pl 6.1(L) 6.5 - 8.5 g/dL RUFINO Comment:Testing performed by : [address] [address] Albumin 3.4(L) 3.5 - 5.0 g/dL RUFINO Comment:Testing performed by : [address] [address] Alk phos 107 40 - 130 Units/L RUFINO Comment:Testing performed by : [address] [address] ALT 21 7 - 55 Units/L RUFINO Comment:Testing performed by : [address] [address] AST 24 10 - 50 Units/L RUFINO Comment:Testing performed by : [address] [address] Blood 03/07/2025 6:40 AM HEALTH RECORD TECHNICIAN 03/07/2025 8:30 AM HEALTH RECORD TECHNICIAN us Notinfile Unknown LAB BLOOD ORDERABLES Final Res ult Performing Organization Address [facility] de Phone Number RUFINO [address] [facility] [place] [address] * eGFR (02/28/2025 5:10 AM HEALTH RECORD TECHNICIAN) eGFR 78 >=60 mL/min/1. 73 m2 RUFINO [...] was last reviewed 2021. Testing performed by: [address] [address] Blood 02/28/2025 5:10 AM HEALTH RECORD TECHNICIAN 02/28/2025 8:18 AM HEALTH RECORD TECHNICIAN us Notinfile Unknown LAB BLOOD ORDERABLES Final Res ult Performing Organization Address [facility] Co de Phone Number [place] [phone] [facility] [place] [address] * Differential, auto (02/28/2025 5:10 AM HEALTH RECORD TECHNICIAN) Neutrophil abs 4.34 1.50 - 6.50 K/cumm RUFINO Comment:Testing performed by : [address] [address] Imm gran abs 0.01 0.00 - 0.10 K/cumm RUFINO Comment:Testing performed by : [address] [address] Lymphocyte abs 1.14 0.80 - 3.30 K/cumm CERNER Comment:Testing performed by : [address] [address] Monocyte abs 0.67 0.20 - 0.80 K/cumm [facility] Comment:Testing performed by : [address] [address] Eosinophil abs 0.11 0.00 - 0.50 K/cumm [facility] Comment:Testing performed by : [address], [place]., [address] Basophil abs 0.05 0.00 - 0.10 K/cumm [facility] Comment:Testing performed by : [address] [address] Neutrophil pct 68.7 % [facility] Comment: Interpretive Data Percent cell count reference ranges are not reported, since discordance with absolute values may lead to misinterpretation of CBC data. Current Interpretive Data was last revised on 2017. Testing performed by: [address] [address] Imm gran pct 0.2 % [facility] Comment: Interpretive Data Percent cell count reference ranges are not reported, since discordance with absolute values may lead to misinterpretation of CBC data. Current Interpretive Data was last revised on 2017. Testing performed by: [address] [address] Lymphocyte pct 18.0 % [facility] Comment: Interpretive Data Percent cell count reference ranges are not reported, since discordance with absolute values may lead to misinterpretation of CBC data. Current Interpretive Data was last revised on 2017. Testing performed by: [address] [address] Monocyte pct 10.6 % [facility] Comment: Interpretive Data Percent cell count reference ranges are not reported, since discordance with absolute values may lead to misinterpretation of CBC data. Current Interpretive Data was last revised on 2017. Testing performed by: [address] [address] Eosinophil pct 1.7 % [facility] Comment: Interpretive Data Percent cell count reference ranges are not reported, since discordance with absolute values may lead to misinterpretation of CBC data. Current Interpretive Data was last revised on 2017. Testing performed by: [address] [address] Basophil pct 0.8 % RUFINO PEREZ Comment: Interpretive Data Percent cell count reference ranges are not reported, since discordance with absolute values may lead to misinterpretation of CBC data. Current Interpretive Data was last revised on 2017. Testing performed by: [address] [address] Blood 02/28/2025 5:10 AM HEALTH RECORD TECHNICIAN 02/28/2025 8:18 AM HEALTH RECORD TECHNICIAN us Notinfile Unknown LAB BLOOD ORDERABLES Final Res ult RUFINO [facility] Department [place] [address] * (ABNORMAL) CBC with auto differential (02/28/2025 5:10 AM HEALTH RECORD TECHNICIAN) WBC 6.32 3.80 - 9.90 K/cumm RUFINO PEREZ Comment:Testing performed by : [address] [address] Hgb 12.8(L) 13.0 - 17.5 g/dL RUFINO PEREZ Comment:Testing performed by : [address] [address] Hct 38.5(L) 38.9 - 50.3 % RUFINO PEREZ Comment:Testing performed by : [address] [address] Plt 277 150 - 400 K/cumm RUFINO PEREZ Comment:Testing performed by : [address] [address] MPV 9.4 9.1 - 12.3 fL RUFINO PEREZ Comment:Testing performed by : [address] [address] RBC 4.08(L) 4.30 - 5.80 M/cumm RUFINO PEREZ Comment:Testing performed by : [address] [address] MCV 94.4 81.3 - 96.4 fL RUFINO PEREZ Comment:Testing performed by : [address] [address] MCH 31.4 27.1 - 33.3 pg RUFINO PEREZ Comment:Testing performed by : [address] [address] MCHC 33.2 32.3 - 35.7 g/dL RUFINO PEREZ Comment:Testing performed by : [address] [address] RDW CV 15.1(H) 11.1 - 14.9 % RUFINO PEREZ Comment:Testing performed by : [address] [address] RDW SD 52.3(H) 35.7 - 48.1 fL RUFINO PEREZ Comment:Testing performed by : [address] [address] NRBC abs 0.00 0.00 - 0.01 K/cumm RUFINO PEREZ Comment:Testing performed by : [address] [address] Blood 02/28/2025 5:10 AM HEALTH RECORD TECHNICIAN 02/28/2025 8:18 AM HEALTH RECORD TECHNICIAN us Notinfile Unknown LAB BLOOD ORDERABLES Final Res ult RUFINO PEREZ [address] [facility] Department of Laboratories [place], [place] [id number] * (ABNORMAL) Comprehensive metabolic panel (02/28/2025 5:10 AM HEALTH RECORD TECHNICIAN) Sodium 134(L) 135 - 145 mmol/L RUFINO PEREZ Comment:Testing performed by : [address] [address] Potassium, pl 4.8 3.3 - 4.9 mmol/L RUFINO PEREZ Comment:Testing performed by : [address] [address] Chloride 99 97 - 110 mmol/L RUFINO Comment:Testing performed by : [address] [address] CO2 28 22 - 32 mmol/L RUFINO Comment:Testing performed by : [address] [address] Anion gap 7 2 - 15 mmol/L RUFINO Comment:Testing performed by : [address] [address] BUN 25 6 - 25 mg/dL [facility] Comment:Testing performed by : [address] [address] Creatinine 1.00 0.80 - 1.30 mg/dL [facility] Comment:Testing performed by : [address] [address] Glucose 157 70 - 199 mg/dL [facility] Comment: Interpretive Data Fasting glucose >/= [...] was last revised 2022. Testing performed by: [address] [address] Calcium 9.2 8.5 - 10.3 mg/dL [facility] Comment:Testing performed by : [address] [address] Bilirubin, total 0.4 0.1 - 1.2 mg/dL [facility] Comment:Testing performed by : [address] [address] Protein, pl 6.2(L) 6.5 - 8.5 g/dL RUFINO Comment:Testing performed by : [address] [address] Albumin 3.3(L) 3.5 - 5.0 g/dL RUFINO Comment:Testing performed by : [facility], [address] [place] [address]., [address] Alk phos 106 40 - 130 Units/L RUFINO Comment:Testing performed by : [address] [address] ALT 30 7 - 55 Units/L RUFINO Comment:Testing performed by : [address] [address] AST 34 10 - 50 Units/L RUFINO Comment:Testing performed by : [address] [address] Blood 02/28/2025 5:10 AM HEALTH RECORD TECHNICIAN 02/28/2025 8:18 AM HEALTH RECORD TECHNICIAN us Notinfile Unknown LAB BLOOD ORDERABLES Final Res ult Performing Organization Address City/[facility]/ZIP Co de Phone Number RUFINO [address] [facility] Department [place] [address] * POCT glucose (02/26/2025 11:35 AM HEALTH RECORD TECHNICIAN) Glucose, POC 162 70 - 199 mg/dL Blood 02/26/2025 11:3 5 AM HEALTH RECORD TECHNICIAN 02/26/2025 11:35 AM HEALTH RECORD TECHNICIAN us Saira Robles MD LAB POCT ORDERABLES - DEVICE Final Result Performing Organization Address City/[facility] [address]/ZIP Co de Phone Number [facility] [place] [address] * Infection Prevention Jannet auris PCR, surveillance Axilla/Groin (02/26/2025 11:05 AM HEALTH RECORD TECHNICIAN) Jannet auris DNA Not Detected Not Detected [facility] Comment: Interpretive Data Testing performed by [facility] Infect[facility] Disease [facility] using the Arian jt [id number] Jannet auris assay. This assay detects DNA from Jannet auris using Real-Time PCR. This assay is laboratory developed and is not cleared by the [place] Food and Drug Administration. The performance characteristics have been verified by the [facility]. Axilla/Groin 02/26/2025 11:0 5 AM HEALTH RECORD TECHNICIAN 02/26/2025 12:26 PM HEALTH RECORD TECHNICIAN Narrative [facility] - 02/27/2025 12:48 PM HEALTH RECORD TECHNICIAN Order placed by [facility] due to ring surveillance. Instant Order Generic Provider LAB MICROBIOLOGY - GENERAL ORDERABLES Final Result Performing Organization Address [facility] Co de Phone Number [facility] [place] [address] [facility] * POCT glucose (02/26/2025 7:19 AM HEALTH RECORD TECHNICIAN) Glucose, POC 132 70 - 199 mg/dL Blood 02/26/2025 7:19 AM HEALTH RECORD TECHNICIAN 02/26/2025 7:19 AM HEALTH RECORD TECHNICIAN Saira Robles MD LAB POCT ORDERABLES - DEVICE Final Result Performing Organization Address City/[facility] [address]/[facility] Co de Phone Number [facility] [place] [employer] [place] [address] * POCT glucose (02/25/2025 8:43 PM HEALTH RECORD TECHNICIAN) Glucose, POC 159 70 - 199 mg/dL Blood 02/25/2025 8:43 PM HEALTH RECORD TECHNICIAN 02/25/2025 8:43 PM HEALTH RECORD TECHNICIAN Saira Robles MD LAB POCT ORDERABLES - DEVICE Final Result Performing Organization Address City/[facility] Co de Phone Number [facility] [place] [place] [address] * (ABNORMAL) POCT glucose (02/25/2025 5:01 PM HEALTH RECORD TECHNICIAN) Glucose, POC 201(H) 70 - 199 mg/dL Blood 02/25/2025 5:01 PM HEALTH RECORD TECHNICIAN 02/25/2025 5:01 PM HEALTH RECORD TECHNICIAN us Saira Robles MD LAB POCT ORDERABLES - DEVICE Final Result Performing Organization Address [facility] de Phone Number [facility] [place] [address] * POCT glucose (02/25/2025 12:03 PM HEALTH RECORD TECHNICIAN) Glucose, POC 153 70 - 199 mg/dL Blood 02/25/2025 12:0 3 PM HEALTH RECORD TECHNICIAN 02/25/2025 12:03 PM HEALTH RECORD TECHNICIAN us Saira Robles MD LAB POCT ORDERABLES - DEVICE Final Result Performing Organization Address [facility] de Phone Number [facility] [place] [address] * POCT glucose (02/25/2025 7:34 AM HEALTH RECORD TECHNICIAN) Glucose, POC 145 70 - 199 mg/dL Blood 02/25/2025 7:34 AM HEALTH RECORD TECHNICIAN 02/25/2025 7:34 AM HEALTH RECORD TECHNICIAN us Saira Robles MD LAB POCT ORDERABLES - DEVICE Final Result Performing Organization Address [facility] de Phone Number [facility] [place] [address] * POCT glucose (02/24/2025 8:10 PM HEALTH RECORD TECHNICIAN) Glucose, POC 156 70 - 199 mg/dL Blood 02/24/2025 8:10 PM HEALTH RECORD TECHNICIAN 02/24/2025 8:10 PM HEALTH RECORD TECHNICIAN us Saira Robles MD LAB POCT ORDERABLES - DEVICE Final Result Performing Organization Address [facility]/ZIP Co de Phone Number [facility] [place] [address] * POCT glucose (02/24/2025 6:42 PM HEALTH RECORD TECHNICIAN) Glucose, POC 185 70 - 199 mg/dL Blood 02/24/2025 6:42 PM HEALTH RECORD TECHNICIAN 02/24/2025 6:42 PM HEALTH RECORD TECHNICIAN Saira Robles MD LAB POCT ORDERABLES - DEVICE Final Result Performing Organization Address [facility] [place] [address] * POCT glucose (02/24/2025 11:50 AM HEALTH RECORD TECHNICIAN) Glucose, POC 187 70 - 199 mg/dL Blood 02/24/2025 11:5 0 AM HEALTH RECORD TECHNICIAN 02/24/2025 11:50 AM HEALTH RECORD TECHNICIAN Saira Robles MD LAB POCT ORDERABLES - DEVICE Final Result Performing Organization Address [facility] de Phone Number [facility] [place] [place] [address] * XR Abdomen Ap 1 Vw (02/24/2025 9:50 AM HEALTH RECORD TECHNICIAN) Anatomical Region Laterality Modality Body, Abdomen N/A Computed Radiogr aphy 02/25/2025 8:04 AM HEALTH RECORD TECHNICIAN Impressions 02/25/2025 8:04 AM HEALTH RECORD TECHNICIAN Moderate amount of stool seen within the ascending, transverse and upper descending colon. Normal gas pattern. Some mottling in the right hemiabdomen favored to represent stool. Small left pleural effusion with atelectasis. Electronically signed by: Lachelle Brewer M.D. Narrative 02/25/2025 8:04 AM HEALTH RECORD TECHNICIAN EXAMINATION: Abdomen, one view. HISTORY: Constipation COMPARISON: [...] Result * POCT glucose (02/24/2025 7:46 AM HEALTH RECORD TECHNICIAN) Glucose, POC 153 70 - 199 mg/dL Blood 02/24/2025 7:46 AM HEALTH RECORD TECHNICIAN 02/24/2025 7:46 AM HEALTH RECORD TECHNICIAN Saira Robles MD LAB POCT ORDERABLES - DEVICE Final Result [facility] [place] [address] * eGFR (02/24/2025 1:21 AM HEALTH RECORD TECHNICIAN) eGFR 65 >=60 mL/min/1. 73 m2 Comment: [...] last reviewed 2021. Blood 02/24/2025 1:21 AM HEALTH RECORD TECHNICIAN 02/24/2025 2:33 AM HEALTH RECORD TECHNICIAN Dm Matthews MD LAB BLOOD ORDERABLES Final Resul t [facility] [place] [address] * Differential, auto (02/24/2025 1:21 AM HEALTH RECORD TECHNICIAN) Neutrophil abs 3.37 1.50 - 6.50 K/cumm Imm gran abs 0.03 0.00 - 0.10 K/cumm CERNER [facility] Lymphocyte abs 1.69 0.80 - 3.30 K/cumm [facility] Monocyte abs 0.70 0.20 - 0.80 K/cumm CERNER [facility] Eosinophil abs 0.14 0.00 - 0.50 K/cumm [facility] Basophil abs 0.04 0.00 - 0.10 K/cumm [facility] Neutrophil pct 56.5 % [facility] Comment: Interpretive Data Percent cell count reference ranges are not reported, since discordance with absolute values may lead to misinterpretation of CBC data. Current Interpretive Data was last revised on 2017. Imm gran pct 0.5 % [facility] Comment: Interpretive Data Percent cell count reference ranges are not reported, since discordance with absolute values may lead to misinterpretation of CBC data. Current Interpretive Data was last revised on 2017. Lymphocyte pct 28.3 % [facility] Comment: Interpretive Data Percent cell count reference ranges are not reported, since discordance with absolute values may lead to misinterpretation of CBC data. Current Interpretive Data was last revised on 2017. Monocyte pct 11.7 % [facility] Comment: Interpretive Data Percent cell count reference ranges are not reported, since discordance with absolute values may lead to misinterpretation of CBC data. Current Interpretive Data was last revised on 2017. Eosinophil pct 2.3 % [facility] Comment: Interpretive Data Percent cell count reference ranges are not reported, since discordance with absolute values may lead to misinterpretation of CBC data. Current Interpretive Data was last revised on 2017. Basophil pct 0.7 % [facility] Comment: Interpretive Data Percent cell count reference ranges are not reported, since discordance with absolute values may lead to misinterpretation of CBC data. Current Interpretive Data was last revised on 2017. Blood 02/24/2025 1:21 AM HEALTH RECORD TECHNICIAN 02/24/2025 2:33 AM HEALTH RECORD TECHNICIAN Dm Matthews MD LAB BLOOD ORDERABLES Final Resul t Performing Organization Address City/[facility] Co de Phone Number [facility] [place] [address] * (ABNORMAL) CBC with auto differential (02/24/2025 1:21 AM HEALTH RECORD TECHNICIAN) WBC 5.97 3.80 - 9.90 K/cumm Hgb 12.5(L) 13.0 - 17.5 g/dL [facility] Hct 38.0(L) 38.9 - 50.3 % [facility] Plt 295 150 - 400 K/cumm [facility] MPV 9.6 9.1 - 12.3 fL [facility] RBC 4.08(L) 4.30 - 5.80 M/cumm [facility] MCV 93.1 81.3 - 96.4 fL [facility] MCH 30.6 27.1 - 33.3 pg [facility] MCHC 32.9 32.3 - 35.7 g/dL [facility] RDW CV 15.2(H) 11.1 - 14.9 % [facility] RDW SD 51.7(H) 35.7 - 48.1 fL [facility] NRBC abs 0.00 0.00 - 0.01 K/cumm [facility] Blood 02/24/2025 1:21 AM HEALTH RECORD TECHNICIAN 02/24/2025 2:33 AM HEALTH RECORD TECHNICIAN us Dm Matthews MD LAB BLOOD ORDERABLES Final Resul t Performing Organization Address City/[facility] [address]/ZIP Co de Phone Number RUFINO NICHOLSON [facility] [place] [address] * Copper, serum (02/24/2025 1:21 AM HEALTH RECORD TECHNICIAN) Copper 108 73 - 129 mcg/dL [facility] Comment: ADDITIONAL INFORMATION This test was developed and its performance characteristics determined by [facility] in a manner consistent with CLIA requirements. This test has not been cleared or approved by the [place] Food and Drug Administration. Test Performed by: [facility] [place] [address] Otolaryngology Surgeon: Agustín Sherman Ph.D.; CLIA# [id number] Blood 02/24/2025 1:21 AM HEALTH RECORD TECHNICIAN 02/24/2025 2:31 AM HEALTH RECORD TECHNICIAN Saira Robles MD LAB BLOOD ORDERABLES Final Result Performing Organization Address [facility] de [place] [address] [facility] * Zinc (02/24/2025 1:21 AM HEALTH RECORD TECHNICIAN) Zinc 68 60 - 106 mcg/dL [facility] Comment: ADDITIONAL INFORMATION This test was developed and its performance characteristics determined by [facility] in a manner consistent with CLIA requirements. This test has not been cleared or approved by the [place].S. Food and Drug Administration. Test Performed by: [facility] [place] [address] Otolaryngology Surgeon: Agustín Sherman Ph.D.; CLIA# [id number] Blood 02/24/2025 1:21 AM HEALTH RECORD TECHNICIAN 02/24/2025 2:31 AM HEALTH RECORD TECHNICIAN us Saira Robles MD LAB BLOOD ORDERABLES Final Result Performing Organization Address [facility] Co de Phone Number [facility] [place] [address] [facility] * (ABNORMAL) Hepatic function panel (02/24/2025 1:21 AM HEALTH RECORD TECHNICIAN) Pathologist [facility] Bilirubin, total 0.4 0.1 - 1.2 mg/dL Bilirubin, direct <0.2 0.1 - 0.3 mg/dL [facility] Protein, pl 6.4(L) 6.5 - 8.5 g/dL [facility] Albumin 3.6 3.5 - 5.0 g/dL [facility] Alk phos 99 40 - 130 Units/L [facility] ALT 28 7 - 55 Units/L [facility] AST 38 10 - 50 Units/L [facility] Blood 02/24/2025 1:21 AM HEALTH RECORD TECHNICIAN 02/24/2025 2:33 AM HEALTH RECORD TECHNICIAN Dm Matthews MD LAB BLOOD ORDERABLES Final Resul t Performing Organization Address [facility] Co de Phone Number [facility] [place] [address] * Basic metabolic panel (02/24/2025 1:21 AM HEALTH RECORD TECHNICIAN) Pathologist [facility] Sodium 138 135 - 145 mmol/L Potassium, pl 3.9 3.3 - 4.9 mmol/L [facility] Chloride 100 97 - 110 mmol/L [facility] CO2 28 22 - 32 mmol/L [facility] Anion gap 10 2 - 15 mmol/L [facility] BUN 20 6 - 25 mg/dL [facility] Creatinine 1.16 0.80 - 1.30 mg/dL [facility] Glucose 133 70 - 199 mg/dL [facility] Comment: Interpretive Data Fasting glucose [...] 2022. Calcium 8.8 8.5 - 10.3 mg/dL [facility] Blood 02/24/2025 1:21 AM HEALTH RECORD TECHNICIAN 02/24/2025 2:33 AM HEALTH RECORD TECHNICIAN us Dm Matthews MD LAB BLOOD ORDERABLES Final Resul t Performing Organization Address City/[facility] [address]/ZIP Co de Phone Number [facility] [place] [address] * POCT glucose (02/23/2025 9:23 PM HEALTH RECORD TECHNICIAN) [facility] Signature Glucose, POC 192 70 - 199 mg/dL Blood 02/23/2025 9:23 PM HEALTH RECORD TECHNICIAN 02/23/2025 9:23 PM HEALTH RECORD TECHNICIAN us Saira Robles MD LAB POCT ORDERABLES - DEVICE Final Result Performing Organization Address City/[facility] [address]/[facility] Co de Phone Number [facility] [place] [address] * MRI Spine Cervical and Thoracic WO Contrast (02/23/2025 8:45 PM HEALTH RECORD TECHNICIAN) Anatomical Region Laterality Modality Spine N/A Magnetic Resonan ce 02/23/2025 9:25 PM HEALTH RECORD TECHNICIAN Impressions 02/23/2025 10:13 PM HEALTH RECORD TECHNICIAN 1. Mild degenerative changes in the cervical [...] Mcgee MD, PhD Narrative 02/23/2025 10:13 PM HEALTH RECORD TECHNICIAN EXAMINATION: 1. Magnetic resonance imaging (MRI) of [...] Hugo Mcgee MD, PhD Dm Matthews MD [facility] MRI PROCEDURES Final Result * POCT glucose (02/23/2025 5:21 PM HEALTH RECORD TECHNICIAN) [facility] Signature Glucose, POC 166 70 - 199 mg/dL Blood 02/23/2025 5:21 PM HEALTH RECORD TECHNICIAN 02/23/2025 5:21 PM HEALTH RECORD TECHNICIAN us Saira Robles MD LAB POCT ORDERABLES - DEVICE Final Result Performing Organization Address [facility] [address]/[facility] Co de Phone Number [facility] [place] [place] [address] * POCT glucose (02/23/2025 12:39 PM HEALTH RECORD TECHNICIAN) Glucose, POC 153 70 - 199 mg/dL Blood 02/23/2025 12:3 9 PM HEALTH RECORD TECHNICIAN 02/23/2025 12:39 PM HEALTH RECORD TECHNICIAN Saira Robles MD LAB POCT ORDERABLES - DEVICE Final Result Performing Organization Address [facility] [address] [facility] Co de Phone Number [facility] [place] [address] * RPR Blood (02/23/2025 9:59 AM HEALTH RECORD TECHNICIAN) RPR Nonreactive Nonreactive Blood 02/23/2025 9:59 AM HEALTH RECORD TECHNICIAN 02/23/2025 10:38 AM HEALTH RECORD TECHNICIAN us Saira Robles MD LAB MICROBIOLOGY - GE NERAL ORDERABLES Final Result Performing Organization Address [facility] [address]/[facility] Co de Phone Number [facility] [place] [address] * POCT glucose (02/23/2025 7:44 AM HEALTH RECORD TECHNICIAN) Glucose, POC 125 70 - 199 mg/dL Blood 02/23/2025 7:44 AM HEALTH RECORD TECHNICIAN 02/23/2025 7:44 AM HEALTH RECORD TECHNICIAN us Saira Robles MD LAB POCT ORDERABLES - DEVICE Final Result Performing Organization Address [facility] [address]/[facility] Co de Phone Number [facility] [place] [address] * eGFR (02/22/2025 9:15 PM HEALTH RECORD TECHNICIAN) [facility] eGFR 80 >=60 mL/min/1. 73 m2 Comment: [...] last reviewed 2021. Blood 02/22/2025 9:15 PM HEALTH RECORD TECHNICIAN 02/22/2025 9:59 PM HEALTH RECORD TECHNICIAN us Dm Matthews MD LAB BLOOD ORDERABLES Final Resul t [facility] [place] [address] * Differential, auto (02/22/2025 9:15 PM HEALTH RECORD TECHNICIAN) [facility] Neutrophil abs 3.57 1.50 - 6.50 K/cumm Imm gran abs 0.02 0.00 - 0.10 K/cumm [facility] Lymphocyte abs 1.19 0.80 - 3.30 K/cumm [facility] Monocyte abs 0.63 0.20 - 0.80 K/cumm [facility] Eosinophil abs 0.12 0.00 - 0.50 K/cumm [facility] Basophil abs 0.05 0.00 - 0.10 K/cumm [facility] Neutrophil pct 63.9 % [facility] Comment: Interpretive Data Percent cell count reference ranges are not reported, since discordance with absolute values may lead to misinterpretation of CBC data. Current Interpretive Data was last revised on 2017. Imm gran pct 0.4 % [facility] Comment: Interpretive Data Percent cell count reference ranges are not reported, since discordance with absolute values may lead to misinterpretation of CBC data. Current Interpretive Data was last revised on 2017. Lymphocyte pct 21.3 % [facility] Comment: Interpretive Data Percent cell count reference ranges are not reported, since discordance with absolute values may lead to misinterpretation of CBC data. Current Interpretive Data was last revised on 2017. Monocyte pct 11.3 % [facility] Comment: Interpretive Data Percent cell count reference ranges are not reported, since discordance with absolute values may lead to misinterpretation of CBC data. Current Interpretive Data was last revised on 2017. Eosinophil pct 2.2 % [facility] Comment: Interpretive Data Percent cell count reference ranges are not reported, since discordance with absolute values may lead to misinterpretation of CBC data. Current Interpretive Data was last revised on 2017. Basophil pct 0.9 % [facility] Comment: Interpretive Data Percent cell count reference ranges are not reported, since discordance with absolute values may lead to misinterpretation of CBC data. Current Interpretive Data was last revised on 2017. Blood 02/22/2025 9:15 PM HEALTH RECORD TECHNICIAN 02/22/2025 9:59 PM HEALTH RECORD TECHNICIAN us Dm Matthews MD LAB BLOOD ORDERABLES Final Resul t [facility] [place] [address] * (ABNORMAL) CBC with auto differential (02/22/2025 9:15 PM HEALTH RECORD TECHNICIAN) WBC 5.58 3.80 - 9.90 K/cumm Hgb 11.3(L) 13.0 - 17.5 g/dL [facility] Hct 34.1(L) 38.9 - 50.3 % [facility] Plt 248 150 - 400 K/cumm [facility] MPV 9.5 9.1 - 12.3 fL [facility] RBC 3.68(L) 4.30 - 5.80 M/cumm [facility] MCV 92.7 81.3 - 96.4 fL [facility] MCH 30.7 27.1 - 33.3 pg [facility] MCHC 33.1 32.3 - 35.7 g/dL [facility] RDW CV 15.0(H) 11.1 - 14.9 % [facility] RDW SD 50.7(H) 35.7 - 48.1 fL [facility] NRBC abs 0.00 0.00 - 0.01 K/cumm [facility] Blood 02/22/2025 9:15 PM HEALTH RECORD TECHNICIAN 02/22/2025 9:59 PM HEALTH RECORD TECHNICIAN us Dm Matthews MD LAB BLOOD ORDERABLES Final Resul t Performing Organization Address City/[facility] [address]/[facility] de Phone Number [facility] [place] [address] * Copper, serum (02/22/2025 9:15 PM HEALTH RECORD TECHNICIAN) [facility] Copper 97 73 - 129 mcg/dL [facility] Comment: ADDITIONAL INFORMATION This test was developed and its performance characteristics determined by [facility] in a manner consistent with CLIA requirements. This test has not been cleared or approved by the U.S. Food and Drug Administration. Test Performed by: [facility] - [address] [address] Otolaryngology Surgeon: Agustín Sherman Ph.D.; CLIA# [id number] Blood 02/22/2025 9:15 PM HEALTH RECORD TECHNICIAN 02/22/2025 10:10 PM HEALTH RECORD TECHNICIAN us Janice Leon MD LAB BLOOD ORDERABLES Final Result Performing Organization Address City/[facility] [address]/[facility] Co de Phone Number [facility] [place] [address] [facility] * (ABNORMAL) Zinc (02/22/2025 9:15 PM HEALTH RECORD TECHNICIAN) [facility] Zinc 53(L) 60 - 106 mcg/dL [facility] Comment: ADDITIONAL INFORMATION This test was developed and its performance characteristics determined by [facility] in a manner consistent with CLIA requirements. This test has not been cleared or approved by the U.S. Food and Drug Administration. Test Performed by: [address] [address] Otolaryngology Surgeon: Agustín Sherman Ph.D.; CLIA# [id number] Blood 02/22/2025 9:15 PM HEALTH RECORD TECHNICIAN 02/22/2025 10:10 PM HEALTH RECORD TECHNICIAN Janice Leon MD LAB BLOOD ORDERABLES Final Result Performing Organization Address [facility] [address]/[facility] Co de Phone Number [facility] [place] [address] [facility] * (ABNORMAL) Aldolase (02/22/2025 9:15 PM HEALTH RECORD TECHNICIAN) [facility] Aldolase 8.4(H) 0.1 - 8.0 Units/L Comment:Reviewed Blood 02/22/2025 9:15 PM HEALTH RECORD TECHNICIAN 02/22/2025 9:59 PM HEALTH RECORD TECHNICIAN Janice Leon MD LAB BLOOD ORDERABLES Final Result Performing Organization Address City/[facility] [address]/[facility] Co de Phone Number [facility] [place] [address] * Vitamin E (02/22/2025 9:15 PM HEALTH RECORD TECHNICIAN) [facility] Tocopherol (Vit E) 8.7 5.5 - 17.0 mg/L [facility] Comment: ADDITIONAL INFORMATION This test was developed and its performance characteristics determined by [facility] in a manner consistent with CLIA requirements. This test has not been cleared or approved by the U.S. Food and Drug Administration. Test Performed by: [facility] [address] [place] [address] Otolaryngology Surgeon: Agustín Sherman Ph.D.; CLIA# [id number] Blood 02/22/2025 9:15 PM HEALTH RECORD TECHNICIAN 02/22/2025 10:15 PM HEALTH RECORD TECHNICIAN Janice Leon MD LAB BLOOD ORDERABLES Final Result Performing Organization Address [facility] [address]/[facility] Co de Phone Number [facility] [place] [employer] [place] [place] [address] [facility] * Creatine kinase (CK), total (02/22/2025 9:15 PM HEALTH RECORD TECHNICIAN) Pathologist [facility] CK 235 40 - 300 Units/L Blood 02/22/2025 9:15 PM HEALTH RECORD TECHNICIAN 02/22/2025 9:59 PM HEALTH RECORD TECHNICIAN Janice Leon MD LAB BLOOD ORDERABLES Final Result Performing Organization Address City/[facility] [address]/[facility] Co de Phone Number [facility] [place] [address] * (ABNORMAL) Hepatic function panel (02/22/2025 9:15 PM HEALTH RECORD TECHNICIAN) Bilirubin, total 0.4 0.1 - 1.2 mg/dL Bilirubin, direct <0.2 0.1 - 0.3 mg/dL [facility] Protein, pl 6.1(L) 6.5 - 8.5 g/dL [facility] Albumin 3.0(L) 3.5 - 5.0 g/dL [facility] Alk phos 90 40 - 130 Units/L [facility] ALT 25 7 - 55 Units/L [facility] AST 34 10 - 50 Units/L [facility] Blood 02/22/2025 9:15 PM HEALTH RECORD TECHNICIAN 02/22/2025 9:59 PM HEALTH RECORD TECHNICIAN mD Matthews MD LAB BLOOD ORDERABLES Final Resul t Performing Organization Address City/[facility] [address]/[facility] Co de Phone Number [facility] [place] [address] * Basic metabolic panel (02/22/2025 9:15 PM HEALTH RECORD TECHNICIAN) Pathologist [facility] Sodium 135 135 - 145 mmol/L Potassium, pl 4.0 3.3 - 4.9 mmol/L [facility] Chloride 101 97 - 110 mmol/L [facility] CO2 26 22 - 32 mmol/L [facility] Anion gap 8 2 - 15 mmol/L [facility] BUN 18 6 - 25 mg/dL [facility] Creatinine 0.98 0.80 - 1.30 mg/dL [facility] Glucose 131 70 - 199 mg/dL [facility] Comment: Interpretive Data Fasting glucose [...] 2022. Calcium 8.7 8.5 - 10.3 mg/dL [facility] Blood 02/22/2025 9:15 PM HEALTH RECORD TECHNICIAN 02/22/2025 9:59 PM HEALTH RECORD TECHNICIAN Dm Matthews MD LAB BLOOD ORDERABLES Final Resul t Performing Organization Address City/[facility] [address]/ZIP Co de Phone Number [facility] [place] [address] * POCT glucose (02/22/2025 8:41 PM HEALTH RECORD TECHNICIAN) Glucose, POC 142 70 - 199 mg/dL Blood 02/22/2025 8:41 PM HEALTH RECORD TECHNICIAN 02/22/2025 8:41 PM HEALTH RECORD TECHNICIAN Saira Robles MD LAB POCT ORDERABLES - DEVICE Final Result Performing Organization Address City/[facility] [address]/ZIP Co de Phone Number [facility] [place] [address] * Aldolase (02/22/2025 3:19 PM HEALTH RECORD TECHNICIAN) Aldolase See Comment 0.1 - 8.0 Units/L Comment: Credited; Hemolyzed Specimen Telephone report made to: ALESHA Meng on 02/22/2025 16:42:56 HEALTH RECORD TECHNICIAN by SO . Blood 02/22/2025 3:19 PM HEALTH RECORD TECHNICIAN 02/22/2025 4:08 PM HEALTH RECORD TECHNICIAN Saira Robles MD LAB BLOOD ORDERABLES Final Result [facility] [place] [address] * Creatine kinase (CK), total (02/22/2025 3:19 PM HEALTH RECORD TECHNICIAN) Pathologist [facility] CK 219 40 - 300 Units/L Blood 02/22/2025 3:19 PM HEALTH RECORD TECHNICIAN 02/22/2025 4:08 PM HEALTH RECORD TECHNICIAN Saira Robles MD LAB BLOOD ORDERABLES Final Result [facility] [place] [address] * POCT glucose (02/22/2025 2:04 PM HEALTH RECORD TECHNICIAN) Glucose, POC 160 70 - 199 mg/dL Blood 02/22/2025 2:04 PM HEALTH RECORD TECHNICIAN 02/22/2025 2:04 PM HEALTH RECORD TECHNICIAN Saira Robles MD LAB POCT ORDERABLES - DEVICE Final Result Performing Organization Address [facility] [address]/[facility] de Phone Number [facility] Department [place] [place] [address] * Volume and period, urine, 24 hour (02/22/2025 11:45 AM HEALTH RECORD TECHNICIAN) Volume, ur 1,175 mL Period, Urine Collection 1,440 min [facility] Urine 02/22/2025 11:4 5 AM HEALTH RECORD TECHNICIAN 02/22/2025 1:31 PM HEALTH RECORD TECHNICIAN Dm Matthews MD LAB URINE ORDERABLES Final Resul t Performing Organization Address [facility] [address]/[facility] de Phone Number [facility] [place] [address] * Protein electrophoresis, urine, 24 hour (02/22/2025 11:45 AM HEALTH RECORD TECHNICIAN) Protein, ur, quant 12.2 mg/dL Comment:No reference range e stablished. Albumin, Ur No Protein Visible % [facility] Comment:No reference range e stablished. Alpha-1 globulin, Ur No Protein Visible % [facility] Comment:No reference range e stablished. Alpha-2 globulin, Ur No Protein Visible % [facility] Comment:No reference range e stablished. Beta globulin, Ur No Protein Visible % [facility] Comment:No reference range e stablished. Gamma globulin, Ur No Protein Visible % [facility] Comment:No reference range e stablished. UPEP interp Please see comment [facility] Comment: No apparent monoclonal peak No protein visible See immunofixation for further information Urine concentrated Reviewed and signed by Rebekah Lopez MD, PhD 02/25/2025 Protein, 24 hr, ur 143 1 - 150 mg/24H [facility] Urine 02/22/2025 11:4 5 AM HEALTH RECORD TECHNICIAN 02/22/2025 1:31 PM HEALTH RECORD TECHNICIAN us Dm Matthews MD LAB URINE ORDERABLES Final Resul t Performing Organization Address [facility] [address]/[facility] Co de Phone Number [facility] [place] [address] * Immunofixation, urine with interpretation (02/22/2025 11:45 AM HEALTH RECORD TECHNICIAN) Immunofixation, Ur Please see comment Comment:NO PARAPROTEIN DETEC MATT Reviewed and signed by Rebekah Lopez MD, PhD 02/25/2025 Urine 02/22/2025 11:4 5 AM HEALTH RECORD TECHNICIAN 02/22/2025 1:31 PM HEALTH RECORD TECHNICIAN us Dm Matthews MD LAB URINE ORDERABLES Final Resul t Performing Organization Address [facility] [address]/[facility] Co de Phone Number [facility] [place] [address] * WARNING COORDINATION METEOROLOGIST Evaluation and Treatment (02/22/2025 10:50 AM HEALTH RECORD TECHNICIAN) Narrative Gem Hartman SLP - 02/22/2025 10:50 AM HEALTH RECORD TECHNICIAN Gem Hartman WARNING COORDINATION METEOROLOGIST 02/22/2025 12:17 PM Speech-Language Pathology: Clinical Bedside [...] aspiration precautions and when to call doctor/get WARNING COORDINATION METEOROLOGIST referral. They verbalized understanding. Assessment Details & [...] Aspiration Risk: No aspiration risk (170-200) Plan WARNING COORDINATION METEOROLOGIST Frequency of Services during current admission: One-time visit (Discharge from this service) WARNING COORDINATION METEOROLOGIST Recommendation (Add'l Services): Other (No further WARNING COORDINATION METEOROLOGIST at this time. WARNING COORDINATION METEOROLOGIST at next level of care pending further work up/diagnosis) Further Assessment/Follow up Indicated: Recommendations: Speech at next level of care (pending further work up/diagnosis). If ALS, consider OP WARNING COORDINATION METEOROLOGIST for voice banking and ongoing assessment of dysphagia. Next Visit Plan:No further ST warranted at this time Additional Referrals: no Please reference care plan for treatment goals, if indicated. Discharge Summary Statement If this is the last swallow therapy visit, this serves as the discharge summary. Dm Matthews MD WARNING COORDINATION METEOROLOGIST ORDERABLES Final Result * XR Chest 1 View (02/22/2025 8:17 AM HEALTH RECORD TECHNICIAN) Anatomical Region Laterality Modality Body, Chest N/A Computed Radiogr aphy 02/22/2025 9:04 AM HEALTH RECORD TECHNICIAN Impressions 02/22/2025 9:41 AM HEALTH RECORD TECHNICIAN The current study is compared with the prior radiograph dated 02/19/2025. Stable small left pneumothorax. Mild cardiomegaly, similar prior. Basilar atelectasis. Obscuration of the left costophrenic angle. Dictated by: Beth Palacios M.D. The radiology attending physician has personally reviewed this study, and had reviewed and/or edited this written report and agrees with it. Electronically signed by: Padmini Matthews M.D. Narrative 02/22/2025 9:41 AM HEALTH RECORD TECHNICIAN EXAMINATION: 1 view chest radiograph Procedure Note [...] Result * POCT glucose (02/22/2025 7:44 AM HEALTH RECORD TECHNICIAN) Glucose, POC 118 70 - 199 mg/dL Blood 02/22/2025 7:44 AM HEALTH RECORD TECHNICIAN 02/22/2025 7:44 AM HEALTH RECORD TECHNICIAN us Saira Robles MD LAB POCT ORDERABLES - DEVICE Final Result Performing Organization Address City/State/[facility] Co pr Phone Number [facility] [place] [address] * eGFR (02/21/2025 9:01 PM HEALTH RECORD TECHNICIAN) eGFR 84 >=60 mL/min/1. 73 m2 Comment: [...] last reviewed 2021. Blood 02/21/2025 9:01 PM HEALTH RECORD TECHNICIAN 02/21/2025 9:31 PM HEALTH RECORD TECHNICIAN Dm Matthews MD LAB BLOOD ORDERABLES Final Resul t [facility] [place] [address] * Differential, auto (02/21/2025 9:01 PM HEALTH RECORD TECHNICIAN) Neutrophil abs 3.44 1.50 - 6.50 K/cumm Imm gran abs 0.01 0.00 - 0.10 K/cumm [facility] Lymphocyte abs 1.18 0.80 - 3.30 K/cumm [facility] Monocyte abs 0.61 0.20 - 0.80 K/cumm [facility] Eosinophil abs 0.10 0.00 - 0.50 K/cumm [facility] Basophil abs 0.03 0.00 - 0.10 K/cumm [facility] Neutrophil pct 63.9 % [facility] Comment: Interpretive Data Percent cell count reference ranges are not reported, since discordance with absolute values may lead to misinterpretation of CBC data. Current Interpretive Data was last revised on 2017. Imm gran pct 0.2 % [facility] Comment: Interpretive Data Percent cell count reference ranges are not reported, since discordance with absolute values may lead to misinterpretation of CBC data. Current Interpretive Data was last revised on 2017. Lymphocyte pct 22.0 % [facility] Comment: Interpretive Data Percent cell count reference ranges are not reported, since discordance with absolute values may lead to misinterpretation of CBC data. Current Interpretive Data was last revised on 2017. Monocyte pct 11.4 % [facility] Comment: Interpretive Data Percent cell count reference ranges are not reported, since discordance with absolute values may lead to misinterpretation of CBC data. Current Interpretive Data was last revised on 2017. Eosinophil pct 1.9 % [facility] Comment: Interpretive Data Percent cell count reference ranges are not reported, since discordance with absolute values may lead to misinterpretation of CBC data. Current Interpretive Data was last revised on 2017. Basophil pct 0.6 % [facility] Comment: Interpretive Data Percent cell count reference ranges are not reported, since discordance with absolute values may lead to misinterpretation of CBC data. Current Interpretive Data was last revised on 2017. Blood 02/21/2025 9:01 PM HEALTH RECORD TECHNICIAN 02/21/2025 9:31 PM HEALTH RECORD TECHNICIAN Dm Matthews MD LAB BLOOD ORDERABLES Final Resul t Performing Organization Address [facility] Co de Phone Number [facility] [place] [employer] [place] [address] * (ABNORMAL) CBC with auto differential (02/21/2025 9:01 PM HEALTH RECORD TECHNICIAN) WBC 5.37 3.80 - 9.90 K/cumm Hgb 11.7(L) 13.0 - 17.5 g/dL [facility] Hct 34.0(L) 38.9 - 50.3 % [facility] Plt 262 150 - 400 K/cumm [facility] MPV 9.6 9.1 - 12.3 fL [facility] RBC 3.80(L) 4.30 - 5.80 M/cumm [facility] MCV 89.5 81.3 - 96.4 fL [facility] MCH 30.8 27.1 - 33.3 pg [facility] MCHC 34.4 32.3 - 35.7 g/dL [facility] RDW CV 15.2(H) 11.1 - 14.9 % [facility] RDW SD 49.2(H) 35.7 - 48.1 fL [facility] NRBC abs 0.00 0.00 - 0.01 K/cumm [facility] Blood 02/21/2025 9:01 PM HEALTH RECORD TECHNICIAN 02/21/2025 9:31 PM HEALTH RECORD TECHNICIAN us Dm Matthews MD LAB BLOOD ORDERABLES Final Resul t Performing Organization Address [facility] [address]/ZIP Co de Phone Number [facility] [place] [address] * (ABNORMAL) Hepatic function panel (02/21/2025 9:01 PM HEALTH RECORD TECHNICIAN) [facility] Bilirubin, total 0.4 0.1 - 1.2 mg/dL Bilirubin, direct <0.2 0.1 - 0.3 mg/dL [facility] Protein, pl 6.1(L) 6.5 - 8.5 g/dL [facility] Albumin 3.3(L) 3.5 - 5.0 g/dL [facility] Alk phos 83 40 - 130 Units/L [facility] ALT 24 7 - 55 Units/L [facility] AST 40 10 - 50 Units/L [facility] Blood 02/21/2025 9:01 PM HEALTH RECORD TECHNICIAN 02/21/2025 9:31 PM HEALTH RECORD TECHNICIAN Dm Matthews MD LAB BLOOD ORDERABLES Final Resul t [facility] [place] [address] * (ABNORMAL) Basic metabolic panel (02/21/2025 9:01 PM HEALTH RECORD TECHNICIAN) [facility] Sodium 135 135 - 145 mmol/L Potassium, pl 4.3 3.3 - 4.9 mmol/L [facility] Chloride 99 97 - 110 mmol/L [facility] CO2 28 22 - 32 mmol/L [facility] Anion gap 8 2 - 15 mmol/L [facility] BUN 18 6 - 25 mg/dL [facility] Creatinine 0.94 0.80 - 1.30 mg/dL [facility] Glucose 168 70 - 199 mg/dL [facility] Comment: Interpretive Data Fasting glucose [...] 2022. Calcium 8.4(L) 8.5 - 10.3 mg/dL [facility] Blood 02/21/2025 9:01 PM HEALTH RECORD TECHNICIAN 02/21/2025 9:31 PM HEALTH RECORD TECHNICIAN us Dm Matthews MD LAB BLOOD ORDERABLES Final Resul t Performing Organization Address [facility] Co de Phone Number [facility] Department [place] [address] * POCT glucose (02/21/2025 7:44 PM HEALTH RECORD TECHNICIAN) [facility] Signature Glucose, POC 167 70 - 199 mg/dL Blood 02/21/2025 7:44 PM HEALTH RECORD TECHNICIAN 02/21/2025 7:44 PM HEALTH RECORD TECHNICIAN Dm Matthews MD LAB POCT ORDERABLES - DEVICE Fin al Result Performing Organization Address [facility] de Phone Number [facility] [place] [address] * CT Chest PE (CTA) W Contrast (02/21/2025 5:34 PM HEALTH RECORD TECHNICIAN) Anatomical Region Laterality Modality Body N/A Computed Tomogra phy 02/21/2025 6:36 PM HEALTH RECORD TECHNICIAN Impressions 02/21/2025 7:47 PM HEALTH RECORD TECHNICIAN 1. No evidence of acute pulmonary embolism. 2. New small left anterior pneumothorax. Dictated by: Rebecca Wilkerson MD The radiology attending physician has personally reviewed this study, and had reviewed and/or edited this written report and agrees with it. Electronically signed by: Bri Fuentes M.D. Narrative 02/21/2025 7:47 PM HEALTH RECORD TECHNICIAN EXAMINATION: CT CHEST PE (CTA) W CONTRAST [...] by: Bri Fuentes M.D. Dm Matthews MD [facility] PROCEDURES Final Result * TRANSTHORACIC ECHO (TTE) COMPLETE W DOPPLER/CF W CONTRAST (02/21/2025 3:55 PM HEALTH RECORD TECHNICIAN) EF Mod BP 60 % CONS SCIMAGE Anatomical Region Laterality Modality Ultrasound 02/21/2025 3:04 PM HEALTH RECORD TECHNICIAN Narrative 02/21/2025 4:06 PM HEALTH RECORD TECHNICIAN [facility] [place] [address] Transthoracic Echocardiographic Report Patient Name: MANSOOR MIDDLETON R : 1950 (74y 3m) Sex: M Study Date: 02/21/2025 03:04:27 PM Ht(Inch): 74 Wt(Lb): 225.97 BSA: 2.29 National Sales Representative: Shea Peterson [facility] Location: [id number] Order Provider: AGUSTIN LOZADA Heart Rate: 69 [...] cm RA Volume 50 ml MV Decel [place] 246 RA Volume Index 22 ml/m2 MV [...] By: Eloy Hinton MD 02/21/2025 4:06:09 PM HEALTH RECORD TECHNICIAN Procedure Note Eloy Hinton MD - 02/21/2025 [facility] [place] [address] Transthoracic Echocardiographic Report Patient Name: MANSOOR MIDDLETON R : 1950 (74y 3m) Sex: M Study Date: 02/21/2025 03:04:27 PM Ht(Inch): 74 Wt(Lb): 225.97 BSA: 2.29 National Sales Representative: Shea Peterson [facility] Location: [id number] Order Provider:AGUSTIN LOZADA Heart Rate: 69 BMI: [...] cm RA Volume 50 ml MV Decel [id number] RA Volume Index 22 ml/m2 MV Decel [id number] msec [ 104 - 258 ] AoR [...] By: Eloy Hinton MD 02/21/2025 4:06:09 PM HEALTH RECORD TECHNICIAN Agustin Lozada MD CV ECHO PROCEDU RES Final Result * POCT glucose (02/21/2025 12:13 PM HEALTH RECORD TECHNICIAN) Pathologist [facility] Glucose, POC 150 70 - 199 mg/dL Blood 02/21/2025 12:1 3 PM HEALTH RECORD TECHNICIAN 02/21/2025 12:13 PM HEALTH RECORD TECHNICIAN Result [facility] Dm Matthews MD LAB POCT ORDERABLES - DEVICE Fin al Result Performing Organization Address [facility] Co de Phone Number [facility] [place] [address] * Neuromuscular Specimen Tracking Inpatient Blood (02/21/2025 11:58 AM HEALTH RECORD TECHNICIAN) Blood 02/21/2025 11:5 8 AM HEALTH RECORD TECHNICIAN 02/21/2025 11:59 AM HEALTH RECORD TECHNICIAN Narrative [facility] - 02/21/2025 11:59 AM HEALTH RECORD TECHNICIAN Blood draw complete Result [facility] Dm Matthews MD LAB BLOOD ORDERABLES Final Resul t Performing Organization Address [facility] de Phone Number [facility] [place] [address] * eGFR (02/21/2025 11:58 AM HEALTH RECORD TECHNICIAN) [facility] eGFR 86 >=60 mL/min/1. 73 m2 Comment: [...] reviewed 2021. Blood 02/21/2025 11:5 8 AM HEALTH RECORD TECHNICIAN 02/21/2025 12:32 PM HEALTH RECORD TECHNICIAN us Dm Matthews MD LAB BLOOD ORDERABLES Final Resul t [facility] Department [place] [address] * Differential, auto (02/21/2025 11:58 AM HEALTH RECORD TECHNICIAN) Neutrophil abs 3.54 1.50 - 6.50 K/cumm Imm gran abs 0.01 0.00 - 0.10 K/cumm [facility] Lymphocyte abs 0.86 0.80 - 3.30 K/cumm [facility] Monocyte abs 0.49 0.20 - 0.80 K/cumm [facility] Eosinophil abs 0.04 0.00 - 0.50 K/cumm [facility] Basophil abs 0.04 0.00 - 0.10 K/cumm [facility] Neutrophil pct 71.1 % [facility] Comment: Interpretive Data Percent cell count reference ranges are not reported, since discordance with absolute values may lead to misinterpretation of CBC data. Current Interpretive Data was last revised on 2017. Imm gran pct 0.2 % [facility] Comment: Interpretive Data Percent cell count reference ranges are not reported, since discordance with absolute values may lead to misinterpretation of CBC data. Current Interpretive Data was last revised on 2017. Lymphocyte pct 17.3 % [facility] Comment: Interpretive Data Percent cell count reference ranges are not reported, since discordance with absolute values may lead to misinterpretation of CBC data. Current Interpretive Data was last revised on 2017. Monocyte pct 9.8 % [facility] Comment: Interpretive Data Percent cell count reference ranges are not reported, since discordance with absolute values may lead to misinterpretation of CBC data. Current Interpretive Data was last revised on 2017. Eosinophil pct 0.8 % [facility] Comment: Interpretive Data Percent cell count reference ranges are not reported, since discordance with absolute values may lead to misinterpretation of CBC data. Current Interpretive Data was last revised on 2017. Basophil pct 0.8 % [facility] Comment: Interpretive Data Percent cell count reference ranges are not reported, since discordance with absolute values may lead to misinterpretation of CBC data. Current Interpretive Data was last revised on 2017. Blood 02/21/2025 11:5 8 AM HEALTH RECORD TECHNICIAN 02/21/2025 12:33 PM HEALTH RECORD TECHNICIAN us Dm Matthews MD LAB BLOOD ORDERABLES Final Resul t Performing Organization Address [facility] de Phone Number [facility] Department [place] [address] * C4 complement (02/21/2025 11:58 AM HEALTH RECORD TECHNICIAN) Pathologist [facility] Complement C4 21.4 10.0 - 40.0 mg/dL Blood 02/21/2025 11:5 8 AM HEALTH RECORD TECHNICIAN 02/21/2025 12:32 PM HEALTH RECORD TECHNICIAN us Dm Matthews MD LAB BLOOD ORDERABLES Final Resul t Performing Organization Address [facility] de Phone Number [facility] [place] [address] * Pro B-type natriuretic peptide (02/21/2025 11:58 AM HEALTH RECORD TECHNICIAN) NT-proBNP 69 <=450 pg/mL Comment: Interpretive Comments: [...] Date: 2017. Blood 02/21/2025 11:5 8 AM HEALTH RECORD TECHNICIAN 02/21/2025 12:32 PM HEALTH RECORD TECHNICIAN us Dm Matthews MD LAB BLOOD ORDERABLES Final Resul t [facility] [place] [address] * (ABNORMAL) CBC with auto differential (02/21/2025 11:58 AM HEALTH RECORD TECHNICIAN) WBC 4.98 3.80 - 9.90 K/cumm Hgb 12.2(L) 13.0 - 17.5 g/dL [facility] Hct 36.5(L) 38.9 - 50.3 % [facility] Plt 273 150 - 400 K/cumm [facility] MPV 9.5 9.1 - 12.3 fL [facility] RBC 4.04(L) 4.30 - 5.80 M/cumm [facility] MCV 90.3 81.3 - 96.4 fL [facility] MCH 30.2 27.1 - 33.3 pg [facility] MCHC 33.4 32.3 - 35.7 g/dL [facility] RDW CV 14.9 11.1 - 14.9 % [facility] RDW SD 49.4(H) 35.7 - 48.1 fL [facility] NRBC abs 0.00 0.00 - 0.01 K/cumm [facility] Blood 02/21/2025 11:5 8 AM HEALTH RECORD TECHNICIAN 02/21/2025 12:33 PM HEALTH RECORD TECHNICIAN us Dm Matthews MD LAB BLOOD ORDERABLES Final Resul t Performing Organization Address City/[facility] Co de Phone Number [facility] [place] [address] * C3 complement (02/21/2025 11:58 AM HEALTH RECORD TECHNICIAN) Pathologist [facility] Complement C3 120.0 90.0 - 180.0 mg/dL Blood 02/21/2025 11:5 8 AM HEALTH RECORD TECHNICIAN 02/21/2025 12:32 PM HEALTH RECORD TECHNICIAN us Dm Matthews MD LAB BLOOD ORDERABLES Final Resul t Performing Organization Address City/[facility] Co de Phone Number [facility] [place] [address] * (ABNORMAL) Protein electrophoresis with reflex, serum with interpretation (02/21/2025 11:58 AM HEALTH RECORD TECHNICIAN) Pathologist [facility] Protein, sr 5.7(L) 6.2 - 8.2 g/dL Albumin 3.1(L) 3.2 - 5.0 g/dL [facility] Alpha-1 globulin 0.3 0.2 - 0.4 g/dL [facility] Alpha-2 globulin 0.7 0.5 - 1.0 g/dL [facility] Beta-1 globulin 0.3 0.3 - 0.6 g/dL [facility] Beta-2 globulin 0.4 0.2 - 0.6 g/dL [facility] Gamma globulin 0.9 0.5 - 1.7 g/dL [facility] SPEP interp Please see comment [facility] Comment: No apparent monoclonal peak Reviewed and signed by Rebekah Lopez MD, PhD 02/22/2025 Blood 02/21/2025 11:5 8 AM HEALTH RECORD TECHNICIAN 02/21/2025 12:32 PM HEALTH RECORD TECHNICIAN Dm Matthews MD LAB BLOOD ORDERABLES Final Resul t [facility] [place] [address] * (ABNORMAL) Comprehensive metabolic panel (02/21/2025 11:58 AM HEALTH RECORD TECHNICIAN) Sodium 136 135 - 145 mmol/L Potassium, pl 3.8 3.3 - 4.9 mmol/L [facility] Chloride 101 97 - 110 mmol/L [facility] CO2 27 22 - 32 mmol/L [facility] Anion gap 8 2 - 15 mmol/L [facility] BUN 20 6 - 25 mg/dL [facility] Creatinine 0.92 0.80 - 1.30 mg/dL [facility] Glucose 188 70 - 199 mg/dL [facility] Comment: Interpretive Data Fasting glucose [...] 2022. Calcium 8.3(L) 8.5 - 10.3 mg/dL [facility] Bilirubin, total 0.4 0.1 - 1.2 mg/dL [facility] Protein, pl 5.9(L) 6.5 - 8.5 g/dL [facility] Albumin 3.3(L) 3.5 - 5.0 g/dL [facility] Alk phos 85 40 - 130 Units/L [facility] ALT 24 7 - 55 Units/L [facility] AST 33 10 - 50 Units/L [facility] Blood 02/21/2025 11:5 8 AM HEALTH RECORD TECHNICIAN 02/21/2025 12:32 PM HEALTH RECORD TECHNICIAN us Dm Matthews MD LAB BLOOD ORDERABLES Final Resul t Performing Organization Address [facility] Co de Phone Number [facility] [place] [address] * POCT glucose (02/21/2025 8:02 AM HEALTH RECORD TECHNICIAN) Glucose, POC 129 70 - 199 mg/dL Blood 02/21/2025 8:02 AM HEALTH RECORD TECHNICIAN 02/21/2025 8:02 AM HEALTH RECORD TECHNICIAN Dm Matthews MD LAB POCT ORDERABLES - DEVICE Fin al Result Performing Organization Address [facility] de Phone Number [facility] [place] [address] * POCT glucose (02/20/2025 8:40 PM HEALTH RECORD TECHNICIAN) Glucose, POC 180 70 - 199 mg/dL Blood 02/20/2025 8:40 PM HEALTH RECORD TECHNICIAN 02/20/2025 8:40 PM HEALTH RECORD TECHNICIAN us Dm Matthews MD LAB POCT ORDERABLES - DEVICE Fin al Result Performing Organization Address [facility] Co de Phone Number [facility] [place] [address] * POCT glucose (02/20/2025 4:39 PM HEALTH RECORD TECHNICIAN) Glucose, POC 140 70 - 199 mg/dL Blood 02/20/2025 4:39 PM HEALTH RECORD TECHNICIAN 02/20/2025 4:39 PM HEALTH RECORD TECHNICIAN Dm Matthews MD LAB POCT ORDERABLES - DEVICE Fin al Result [facility] [place] [address] * POCT glucose (02/20/2025 12:25 PM HEALTH RECORD TECHNICIAN) Glucose, POC 154 70 - 199 mg/dL Blood 02/20/2025 12:2 5 PM HEALTH RECORD TECHNICIAN 02/20/2025 12:25 PM HEALTH RECORD TECHNICIAN Dm Matthews MD LAB POCT ORDERABLES - DEVICE Fin al Result Performing Organization Address [facility] [place] [address] * Infection Prevention Jannet auris PCR, surveillance Axilla/Groin (02/20/2025 11:19 AM HEALTH RECORD TECHNICIAN) Jannet auris DNA Not Detected Not Detected [facility] Comment: Interpretive Data Testing performed by [facility] Molecular Infectious Disease Laboratory using the Arian [id number] Jannet auris assay. This assay detects DNA from Jannet auris using Real-Time PCR. This assay is laboratory developed and is not cleared by the [facility] Food and Drug Administration. The performance characteristics have been verified by the [facility] Infectious Disease Laboratory. Axilla/Groin 02/20/2025 11:1 9 AM HEALTH RECORD TECHNICIAN 02/20/2025 2:18 PM HEALTH RECORD TECHNICIAN Narrative [facility] - 02/21/2025 1:00 PM HEALTH RECORD TECHNICIAN Order placed by [facility] due to ring surveillance. Instant Order Generic Provider LAB MICROBIOLOGY - GENERAL ORDERABLES Final Result Performing Organization Address [facility] [address] [facility] Co de Phone Number [facility] [place] [address] [facility] * POCT glucose (02/20/2025 7:31 AM HEALTH RECORD TECHNICIAN) [facility] Glucose, POC 130 70 - 199 mg/dL Blood 02/20/2025 7:31 AM HEALTH RECORD TECHNICIAN 02/20/2025 7:31 AM HEALTH RECORD TECHNICIAN Dm Matthews MD LAB POCT ORDERABLES - DEVICE Fin al Result Performing Organization Address [facility] [address]/[facility] Co de Phone Number [facility] [place] [address] * (ABNORMAL) Aldolase (02/20/2025 6:43 AM HEALTH RECORD TECHNICIAN) [facility] Aldolase 10.2(H) 0.1 - 8.0 Units/L Comment:Reviewed Blood 02/20/2025 6:43 AM HEALTH RECORD TECHNICIAN 02/20/2025 7:24 AM HEALTH RECORD TECHNICIAN Jeremi Vargas MD LAB BLOOD ORDERABLES Final Result Performing Organization Address [facility] de Phone Number [facility] [place] [address] * Folate (02/20/2025 6:43 AM HEALTH RECORD TECHNICIAN) [facility] Folic acid >20.0 >=5.0 ng/mL Comment:Repeated and Verifie d Blood 02/20/2025 6:43 AM HEALTH RECORD TECHNICIAN 02/20/2025 7:24 AM HEALTH RECORD TECHNICIAN Jeremi Vargas MD LAB BLOOD ORDERABLES Final Result Performing Organization Address [facility] de Phone Number [facility] [place] [address] * EQUITY SALES ASSISTANT abs (02/20/2025 12:18 AM HEALTH RECORD TECHNICIAN) [facility] EQUITY SALES ASSISTANT ab <0.2 <=0.9 Ab Index Comment: Interpretive Data Negative: < 1.0 Ab Index Positive: > or = 1.0 Ab Index Current interpretive data was last revised on 2016. Blood 02/20/2025 12:1 8 AM HEALTH RECORD TECHNICIAN 02/20/2025 12:49 AM HEALTH RECORD TECHNICIAN Jeremi Vargas MD LAB BLOOD ORDERABLES Final Result Performing Organization Address [facility] [address] [facility] de Phone Number [facility] [place] [address] * HIV 1/2 Antibody plus p24 Antigen Blood (02/20/2025 12:18 AM HEALTH RECORD TECHNICIAN) HIV 1/2 ab + p24 ag Nonreactive Nonreactive Comment:Nonreactive for HIV- 1 antigen and HIV-1/HIV-2 antibodies. No laboratory evidence of HIV infection. If acute HIV infection is suspected, consider testing for HIV-1 RNA. Current interpretive data was last revised on 21. Blood 02/20/2025 12:1 8 AM HEALTH RECORD TECHNICIAN 02/20/2025 12:46 AM HEALTH RECORD TECHNICIAN Jeremi Vargas MD LAB MICROBIOLOGY - GENERAL ORDERABLES Final Result Performing Organization Address [facility] [place] [address] * Hepatitis C antibody Blood (02/20/2025 12:18 AM HEALTH RECORD TECHNICIAN) Pathologist [facility] Hep C Ab Nonreactive Nonreactive Comment:Antibodies to HCV no t detected. Does NOT exclude the possibility of recent exposure to HCV. Current interpretive data was last revised on 21 Blood 02/20/2025 12:1 8 AM HEALTH RECORD TECHNICIAN 02/20/2025 12:46 AM HEALTH RECORD TECHNICIAN Jeremi Vargas MD LAB MICROBIOLOGY - GENERAL ORDERABLES Final Result Performing Organization Address [facility] de Phone Number [facility] [place] [address] * Aldolase (02/20/2025 12:18 AM HEALTH RECORD TECHNICIAN) Pathologist [facility] Aldolase See Comment 0.1 - 8.0 Units/L Comment:Credited; Hemolyzed Specimen Blood 02/20/2025 12:1 8 AM HEALTH RECORD TECHNICIAN 02/20/2025 12:46 AM HEALTH RECORD TECHNICIAN Jeremi Vargas MD LAB BLOOD [place]AB[place] [address] * Vitamin D 25 hydroxy (02/20/2025 12:18 AM HEALTH RECORD TECHNICIAN) Pathologist [facility] Vitamin D 25-OH 35 30 - 80 ng/mL Blood 02/20/2025 12:1 8 AM HEALTH RECORD TECHNICIAN 02/20/2025 12:47 AM HEALTH RECORD TECHNICIAN Jeremi Vargas MD LAB BLOOD ORDERABLES Final Result Performing Organization Address [facility] [place] [address] * Sjogren's syndrome B ab (02/20/2025 12:18 AM HEALTH RECORD TECHNICIAN) Pathologist [facility] Anti-KELLY, SS-B <0.2 <=0.9 Ab Index Comment: Interpretive Data Negative: < 1.0 Ab Index Positive: > or = 1.0 Ab Index Current interpretive data was last revised on 2016. Blood 02/20/2025 12:1 8 AM HEALTH RECORD TECHNICIAN 02/20/2025 12:46 AM HEALTH RECORD TECHNICIAN us Jeremi Vargas MD LAB BLOOD ORDERABLES Final Result Performing Organization Address City/[facility] [address]/ZIP Co de Phone Number [facility] [place] [address] * Sjogren's syndrome A ab (02/20/2025 12:18 AM HEALTH RECORD TECHNICIAN) Anti-KELLY, SS-A <0.2 <=0.9 Ab Index Comment: Interpretive Data Negative: < 1.0 Ab Index Positive: > or = 1.0 Ab Index Current interpretive data was last revised on 2016. Blood 02/20/2025 12:1 8 AM HEALTH RECORD TECHNICIAN 02/20/2025 12:46 AM HEALTH RECORD TECHNICIAN Jeremi Vargas MD LAB BLOOD ORDERABLES Final Result Performing Organization Address [facility] [address]/[facility] Co de Phone Number [facility] [place] [address] * TSH (02/20/2025 12:18 AM HEALTH RECORD TECHNICIAN) Pathologist [facility] Thyroid Stimulating Hormone 3.51 0.30 - 4.20 mcIUnit/mL Blood 02/20/2025 12:1 8 AM HEALTH RECORD TECHNICIAN 02/20/2025 12:46 AM HEALTH RECORD TECHNICIAN Jeremi Vargas MD LAB BLOOD ORDERABLES Final Result Performing Organization Address [facility] Co de Phone Number [facility] [place] [address] * (ABNORMAL) Lactate dehydrogenase (LD) (02/20/2025 12:18 AM HEALTH RECORD TECHNICIAN) Pathologist [facility] Lactate dehydrogenase (LDH) 268(H) 100 - 250 Units/L Comment:Hemolyzed; result ma y be falsely elevated Blood 02/20/2025 12:1 8 AM HEALTH RECORD TECHNICIAN 02/20/2025 12:46 AM HEALTH RECORD TECHNICIAN us Jeremi Vargas MD LAB BLOOD ORDERABLES Final Result Performing Organization Address [facility] Co de Phone Number [facility] [place] [address] * (ABNORMAL) Hemoglobin A1c (02/20/2025 12:18 AM HEALTH RECORD TECHNICIAN) Pathologist [facility] Hgb A1C 7.3(H) 4.0 - 5.6 % Estimated Average Glucose 163 mg/dL [facility] Comment: The ADA recommends reporting an estimated Average Glucose (eAG) with all Hemoglobin A1c results using the equation derived from a study of 507 normal and diabetic adults. Minority populations were underrepresented and children were not included. (Diabetes Care 2020; 43(S1): S66-S76). The eAG is not equivalent to a fasting glucose. Blood 02/20/2025 12:1 8 AM HEALTH RECORD TECHNICIAN 02/20/2025 12:46 AM HEALTH RECORD TECHNICIAN Jeremi Vargas MD LAB BLOOD ORDERABLES Final Result Performing Organization Address [facility] [place] [address] * Folate (02/20/2025 12:18 AM HEALTH RECORD TECHNICIAN) [facility] Folic acid See Comment >=5.0 ng/mL Comment:Credited; Hemolyzed Specimen Blood 02/20/2025 12:1 8 AM HEALTH RECORD TECHNICIAN 02/20/2025 12:46 AM HEALTH RECORD TECHNICIAN Jeremi Vargas MD LAB BLOOD [place] [address] * (ABNORMAL) Vitamin B12 (02/20/2025 12:18 AM HEALTH RECORD TECHNICIAN) [facility] Vitamin B12 200(L) 230 - 1,250 pg/mL Blood 02/20/2025 12:1 8 AM HEALTH RECORD TECHNICIAN 02/20/2025 12:47 AM HEALTH RECORD TECHNICIAN us Jeremi Vargas MD LAB BLOOD ORDERABLES Final Result [facility] [place] [address] * (ABNORMAL) Lipid panel (02/20/2025 12:18 AM HEALTH RECORD TECHNICIAN) Cholesterol 129 30 - 199 mg/dL Comment: [...] on 2017. Triglycerides 53 <=149 mg/dL [facility] Comment: Interpretive Data Ages < or [...] on 2017. HDL 36(L) >=40 mg/dL [facility] Comment: Interpretive Data Ages < or [...] on 2017. LDL, calculated 81 <=129 mg/dL [facility] Comment: Interpretive Data Ages < or [...] revised on 2023. Non-HDL Cholesterol 93 mg/dL [facility] Comment: Interpretive Data Ages < or [...] last revised on 2017. Chol/HDL ratio 4 [facility] Blood 02/20/2025 12:1 8 AM HEALTH RECORD TECHNICIAN 02/20/2025 12:46 AM HEALTH RECORD TECHNICIAN us Jeremi Vargas MD LAB BLOOD ORDERABLES Final Result [facility] [place] [address] * Neuromuscular Testing Blood (02/20/2025 12:00 AM HEALTH RECORD TECHNICIAN) Blood (Serum) 02/20/2025 02/21/2025 Narrative NEUROMUSCULAR CLINICAL LABORATORY - 03/17/2025 11:39 AM HEALTH RECORD TECHNICIAN Please click on the PDF link to view the report containing this result Dm Matthews MD LAB PATHOLOGY ORDERABLES Final R esult Performing Organization Address [facility]/ZIP Co de Phone Number [facility] Room [address] [place] [id number] * POCT glucose (02/19/2025 11:55 PM HEALTH RECORD TECHNICIAN) Glucose, POC 132 70 - 199 mg/dL Blood 02/19/2025 11:5 5 PM HEALTH RECORD TECHNICIAN 02/19/2025 11:55 PM HEALTH RECORD TECHNICIAN Result [facility] Jeremi Vargas MD LAB POCT ORDERABLES - DEVIC E Final Result Performing Organization Address [facility] de Phone Number [facility] Department [place] [employer] [place] [place] [address] * Troponin I high-sensitivity 2-hour (02/19/2025 6:26 PM HEALTH RECORD TECHNICIAN) Trop I hs 5 <=35 ng/L Comment: Interpretive Data For further hscTnI resources including the diagnostic algorithm and an aid in interpretation, copy and paste this link: https://bjhlab.testcatalog.org/show/hsTrop-1 Current Interpretive Data last revised 2019. Trop I hs delta 0 ng/L [facility] Trop I hs interp Insignificant [facility] Blood 02/19/2025 6:26 PM HEALTH RECORD TECHNICIAN 02/19/2025 6:38 PM HEALTH RECORD TECHNICIAN Woodrow Parkinson MD LAB BLOOD ORDERABLES Fi nal Result Performing Organization Address [facility] [address] [facility] Co de Phone Number [facility] [place] [place] [address] * (ABNORMAL) Urinalysis reflex to microscopic and culture Urine (02/19/2025 5:55 PM HEALTH RECORD TECHNICIAN) Color, ur Yellow Yellow Clarity, ur Clear Clear [facility] Specific gravity, ur 1.036(H) 1.003 - 1.030 [facility] pH, urine 6.0 [facility] Comment: Interpretive Data U rine pH is affected by diet, medications, systemic acid-base disturbances, and renal tubular function. pH may affect urinary stone formation. For example, urine pH below 6.0 may help reduce the tendency for calcium phosphate stones and pH greater than 6.0 may reduce the tendency for uric acid stone formation. Source: [facility] [employer] Current Interpretive Data was last revised on 2017 Protein, ur ql 1+(A) Negative [facility] Glucose, ur ql 2+(A) Negative [facility] Ketones, ur 1+(A) Negative [facility] Bilirubin, ur Negative Negative [facility] Blood, ur Negative Negative [facility] Urobilinogen, ur 2.0(A) <2.0 mg/dL [facility] Nitrite, ur Negative Negative [facility] Leukocyte esterase, ur Negative Negative [facility] UA reflex comment Reflex to microscopic UA will be performed. [facility] Urine 02/19/2025 5:55 PM HEALTH RECORD TECHNICIAN 02/19/2025 6:02 PM HEALTH RECORD TECHNICIAN Woodrow Parkinson MD LAB MICROBIOLOGY - [facility] ORDERABLES Final Result [facility] [place] [address] * (ABNORMAL) Urinalysis, microscopic only (02/19/2025 5:55 PM HEALTH RECORD TECHNICIAN) WBC, ur 0-5 0 - 5 /HPF RBC, ur 0-2 0 - 2 /HPF [facility] Epithelial cells, squamous, ur 1-5 0 - 5 /HPF [facility] Mucous, ur Present(A) [facility] Culture Reflex Comment Reflex conditions for urine culture (WBC >10) not met. [facility] Urine 02/19/2025 5:55 PM HEALTH RECORD TECHNICIAN 02/19/2025 6:02 PM HEALTH RECORD TECHNICIAN us Woodrow Parkinson MD LAB URINE ORDERABLES Fi nal Result [facility] [place] [address] * XR Chest 1 View (02/19/2025 4:20 PM HEALTH RECORD TECHNICIAN) Anatomical Region Laterality Modality Body, Chest N/A Computed Radiogr aphy 02/19/2025 4:55 PM HEALTH RECORD TECHNICIAN Impressions 02/19/2025 4:58 PM HEALTH RECORD TECHNICIAN The current study is compared with the [...] Prince Cordova M.D. Narrative 02/19/2025 4:58 PM HEALTH RECORD TECHNICIAN EXAMINATION: 1 view chest radiograph Procedure Note [...] Result * ECG 12-LEAD (02/19/2025 4:12 PM HEALTH RECORD TECHNICIAN) Narrative [facility] - 02/19/2025 4:12 PM HEALTH RECORD TECHNICIAN Rubén Lan MD 02/19/2025 4:12 PM ECG [...] MD ECG ORDERABLES Edited Result - Final [facility] * (ABNORMAL) TATO ab ql w/rflx to TATO qn (02/19/2025 4:11 PM HEALTH RECORD TECHNICIAN) Pathologist [facility] TATO Positive( A) Comment: Interpretive Data Normal [...] revised on 2019. TATO, quant 1:320 titer [facility] TATO, interp Homogeneo us(A) [facility] Blood 02/19/2025 4:11 PM HEALTH RECORD TECHNICIAN 02/19/2025 4:31 PM HEALTH RECORD TECHNICIAN us Woodrow Parkinson MD LAB BLOOD ORDERABLES Fi nal Result Performing Organization Address City/[facility] [address]/ZIP Co de Phone Number [facility] [place] [place] [address] * Bethany-1 antibody (02/19/2025 4:11 PM HEALTH RECORD TECHNICIAN) Pathologist [facility] Bethany 1 Antibody, IgG <0.2 <=0.9 Ab Index Comment: Interpretive Data Negative: < 1.0 Ab Index Positive: > or = 1.0 Ab Index Current interpretive data was last revised on 2016. Blood 02/19/2025 4:11 PM HEALTH RECORD TECHNICIAN 02/19/2025 4:31 PM HEALTH RECORD TECHNICIAN Woodrow Parkinson MD LAB BLOOD ORDERABLES Fi nal Result [facility] [place] [place] [address] * PR3 - proteinase 3, Ab (02/19/2025 4:11 PM HEALTH RECORD TECHNICIAN) Pathologist [facility] Proteinase 3 ab <0.2 <=0.9 Ab Index Comment: Interpretive Data Negative: <1 Ab Index Positive: > or = 1 Ab Index Current interpretive data was last revised on 2016. Blood 02/19/2025 4:1 1 PM HEALTH RECORD TECHNICIAN 02/19/2025 4:31 PM HEALTH RECORD TECHNICIAN Result [facility] Woodrow Parkinson MD LAB BLOOD ORDERABLES Fi nal Result Performing Organization Address [facility] de Phone Number [facility] [place] [place] [address] * MPO - myeloperoxidase antibody (02/19/2025 4:11 PM HEALTH RECORD TECHNICIAN) Pathologist [facility] Myeloperoxidase ab <0.2 <=0.9 Ab Index Comment: Interpretive Data Negative: <1 Ab Index Positive: > or = 1 Ab Index Current interpretive data was last revised on 2016. Blood 02/19/2025 4:11 PM HEALTH RECORD TECHNICIAN 02/19/2025 4:31 PM HEALTH RECORD TECHNICIAN Result [facility] Woodrow Parkinson MD LAB BLOOD ORDERABLES Fi nal Result Performing Organization Address [facility] de Phone Number [facility] [place] [place] [address] * (ABNORMAL) Anti-Neutrophilic Cytoplasmic Antibody (ANCA) with Reflex to MPO and PR3 Abs (54:11 PM HEALTH RECORD TECHNICIAN) ANCA Indetermi devyn(A) Negative Comment:Indeterminate for P- ANCA - Results by antigen specific immunoassay (MPO & PR3) to follow. May indicate ulcerative colitis or Crohn's disease. Blood 02/19/2025 4:11 PM HEALTH RECORD TECHNICIAN 02/19/2025 4:31 PM HEALTH RECORD TECHNICIAN Woodrow Parkinson MD LAB BLOOD ORDERABLES Fi nal Result Performing Organization Address [facility] de Phone Number [facility] [place] [address] * Troponin I high-sensitivity series (baseline, 2hr, 4hr, 6hr) (02/19/2025 3:53 PM HEALTH RECORD TECHNICIAN) Trop I hs 5 <=35 ng/L Comment: Interpretive Data For further hscTnI resources including the diagnostic algorithm and an aid in interpretation, copy and paste this link: https://bjhlab.testcatalog.org/show/hsTrop-1 Current Interpretive Data last revised 2019. Blood 02/19/2025 3:53 PM HEALTH RECORD TECHNICIAN 02/19/2025 4:08 PM HEALTH RECORD TECHNICIAN Woodrow Parkinson MD LAB BLOOD ORDERABLES Fi nal Result [facility] [place] [address] * eGFR (02/19/2025 3:53 PM HEALTH RECORD TECHNICIAN) Pathologist [facility] eGFR 76 >=60 mL/min/1. 73 m2 Comment: [...] last reviewed 2021. Blood 02/19/2025 3:53 PM HEALTH RECORD TECHNICIAN 02/19/2025 4:08 PM HEALTH RECORD TECHNICIAN us Woodrow Parkinson MD LAB BLOOD ORDERABLES Fi nal Result [facility] [place] [address] * Differential, auto (02/19/2025 3:53 PM HEALTH RECORD TECHNICIAN) Neutrophil abs 4.64 1.50 - 6.50 K/cumm Imm gran abs 0.02 0.00 - 0.10 K/cumm [facility] Lymphocyte abs 0.99 0.80 - 3.30 K/cumm [facility] Monocyte abs 0.70 0.20 - 0.80 K/cumm [facility] Eosinophil abs 0.03 0.00 - 0.50 K/cumm [facility] Basophil abs 0.04 0.00 - 0.10 K/cumm [facility] Neutrophil pct 72.3 % [facility] Comment: Interpretive Data Percent cell count reference ranges are not reported, since discordance with absolute values may lead to misinterpretation of CBC data. Current Interpretive Data was last revised on 2017. Imm gran pct 0.3 % [facility] Comment: Interpretive Data Percent cell count reference ranges are not reported, since discordance with absolute values may lead to misinterpretation of CBC data. Current Interpretive Data was last revised on 2017. Lymphocyte pct 15.4 % [facility] Comment: Interpretive Data Percent cell count reference ranges are not reported, since discordance with absolute values may lead to misinterpretation of CBC data. Current Interpretive Data was last revised on 2017. Monocyte pct 10.9 % [facility] Comment: Interpretive Data Percent cell count reference ranges are not reported, since discordance with absolute values may lead to misinterpretation of CBC data. Current Interpretive Data was last revised on 2017. Eosinophil pct 0.5 % [facility] Comment: Interpretive Data Percent cell count reference ranges are not reported, since discordance with absolute values may lead to misinterpretation of CBC data. Current Interpretive Data was last revised on 2017. Basophil pct 0.6 % [facility] Comment: Interpretive Data Percent cell count reference ranges are not reported, since discordance with absolute values may lead to misinterpretation of CBC data. Current Interpretive Data was last revised on 2017. Blood 02/19/2025 3:53 PM HEALTH RECORD TECHNICIAN 02/19/2025 4:08 PM HEALTH RECORD TECHNICIAN us Woodrow Parkinson MD LAB BLOOD ORDERABLES Fi nal Result Performing Organization Address City/State/ZIP Co pr Phone Number [facility] [place] [address] * Pro B-type natriuretic peptide (02/19/2025 3:53 PM HEALTH RECORD TECHNICIAN) NT-proBNP 102 <=450 pg/mL Comment: Interpretive Comments: [...] Revised Date: 2017. Blood 02/19/2025 3:53 PM HEALTH RECORD TECHNICIAN 02/19/2025 4:08 PM HEALTH RECORD TECHNICIAN Woodrow Parkinson MD LAB BLOOD ORDERABLES Fi nal Result [facility] [place] [address] * (ABNORMAL) CBC with auto differential (02/19/2025 3:53 PM HEALTH RECORD TECHNICIAN) Pathologist [facility] WBC 6.42 3.80 - 9.90 K/cumm Hgb 13.1 13.0 - 17.5 g/dL [facility] Hct 38.9 38.9 - 50.3 % [facility] Plt 274 150 - 400 K/cumm [facility] MPV 9.3 9.1 - 12.3 fL [facility] RBC 4.27(L) 4.30 - 5.80 M/cumm [facility] MCV 91.1 81.3 - 96.4 fL [facility] MCH 30.7 27.1 - 33.3 pg [facility] MCHC 33.7 32.3 - 35.7 g/dL [facility] RDW CV 15.2(H) 11.1 - 14.9 % [facility] RDW SD 50.4(H) 35.7 - 48.1 fL [facility] NRBC abs 0.00 0.00 - 0.01 K/cumm [facility] Blood 02/19/2025 3:53 PM HEALTH RECORD TECHNICIAN 02/19/2025 4:08 PM HEALTH RECORD TECHNICIAN us Woodrow Parkinson MD LAB BLOOD ORDERABLES Fi nal Result Performing Organization Address City/[facility] [address]/ZIP Co de Phone Number [facility] [place] [address] * (ABNORMAL) Erythrocyte sedimentation rate (02/19/2025 3:53 PM HEALTH RECORD TECHNICIAN) Pathologist [facility] Erythrocyte sedimentation rate 31(H) 1 - 20 mm/hr Blood 02/19/2025 3:53 PM HEALTH RECORD TECHNICIAN 02/19/2025 4:08 PM HEALTH RECORD TECHNICIAN Woodrow Parkinson MD LAB BLOOD ORDERABLES Fi nal Result Performing Organization Address City/[facility] [address]/[facility] Co de Phone Number [facility] [place] [address] * CRP (acute phase) (02/19/2025 3:53 PM HEALTH RECORD TECHNICIAN) CRP 2.7 <=10.0 mg/L Blood 02/19/2025 3:53 PM HEALTH RECORD TECHNICIAN 02/19/2025 4:08 PM HEALTH RECORD TECHNICIAN Woodrow Parkinson MD LAB BLOOD ORDERABLES Fi nal Result Performing Organization Address [facility] Phone Number [facility] [place] [address] * Phosphorus (02/19/2025 3:53 PM HEALTH RECORD TECHNICIAN) Phosphorus, pl 3.0 2.3 - 4.5 mg/dL Blood 02/19/2025 3:53 PM HEALTH RECORD TECHNICIAN 02/19/2025 4:08 PM HEALTH RECORD TECHNICIAN Result [facility] Woodrow Parkinson MD LAB BLOOD ORDERABLES Fi nal Result Performing Organization Address [facility] [address]/[facility] de Phone Number [facility] [place] [address] * Magnesium (02/19/2025 3:53 PM HEALTH RECORD TECHNICIAN) Magnesium 1.7 1.4 - 2.5 mg/dL Blood 02/19/2025 3:53 PM HEALTH RECORD TECHNICIAN 02/19/2025 4:08 PM HEALTH RECORD TECHNICIAN Woodrow Parkinson MD LAB BLOOD ORDERABLES Fi nal Result Performing Organization Address City/[facility] [address]/ZIP Co de Phone Number [facility] [place] [address] * Gamma GT (02/19/2025 3:53 PM HEALTH RECORD TECHNICIAN) Pathologist [facility] GGT 16 10 - 50 Units/L Blood 02/19/2025 3:53 PM HEALTH RECORD TECHNICIAN 02/19/2025 4:08 PM HEALTH RECORD TECHNICIAN Woodrow Parkinson MD LAB BLOOD ORDERABLES Fi nal Result Performing Organization Address City/[facility] [address]/ZIP Co de Phone Number [facility] [place] [address] * Creatine kinase (CK), total (02/19/2025 3:53 PM HEALTH RECORD TECHNICIAN) [facility] CK 238 40 - 300 Units/L Blood 02/19/2025 3:53 PM HEALTH RECORD TECHNICIAN 02/19/2025 4:08 PM HEALTH RECORD TECHNICIAN Woodrow Parkinson MD LAB BLOOD ORDERABLES Fi nal Result Performing Organization Address City/[facility] [address]/[facility] Co de Phone Number [facility] [place] [address] * (ABNORMAL) Comprehensive metabolic panel (02/19/2025 3:53 PM HEALTH RECORD TECHNICIAN) [facility] Sodium 138 135 - 145 mmol/L Potassium, pl 4.2 3.3 - 4.9 mmol/L [facility] Chloride 101 97 - 110 mmol/L [facility] CO2 27 22 - 32 mmol/L [facility] Anion gap 10 2 - 15 mmol/L [facility] BUN 27(H) 6 - 25 mg/dL [facility] Creatinine 1.02 0.80 - 1.30 mg/dL [facility] Glucose 173 70 - 199 mg/dL [facility] Comment: Interpretive Data Fasting glucose [...] Calcium 8.5 8.5 - 10.3 mg/dL [facility] Bilirubin, total 0.4 0.1 - 1.2 mg/dL [facility] Protein, pl 6.3(L) 6.5 - 8.5 g/dL [facility] Albumin 3.3(L) 3.5 - 5.0 g/dL [facility] Alk phos 96 40 - 130 Units/L [facility] ALT 24 7 - 55 Units/L [facility] AST 41 10 - 50 Units/L [facility] Blood 02/19/2025 3:53 PM HEALTH RECORD TECHNICIAN 02/19/2025 4:08 PM HEALTH RECORD TECHNICIAN us Woodrow Parkinson MD LAB BLOOD ORDERABLES Fi nal Result [facility] [place] [address] * MRI Lumbar Spine WO Contrast (02/15/2025 8:10 AM HEALTH RECORD TECHNICIAN) Anatomical Region Laterality Modality Spine N/A Magnetic Resonan ce 02/15/2025 8:40 AM HEALTH RECORD TECHNICIAN Impressions 02/15/2025 8:40 AM HEALTH RECORD TECHNICIAN 1. Mild to moderate lumbar degenerative changes [...] Sher Robles D.O. Narrative 02/15/2025 8:40 AM HEALTH RECORD TECHNICIAN EXAM DESCRIPTION:MRI LUMBAR SPINE WO CONTRAST REASON [...] FLAIR hyperintense signal about the bilateral orbits, sxomm-wvdbauc-jwem-left could just reflect incomplete fat saturation. If there is concern for orbital pathology then dedicated contrast-enhanced MRI can be obtained. Left eye cataract surgery. Mucosal thickening in the bilateral ethmoid air cells and maxillary sinus floors, ymqu-vcajslw-vsfi-right. There is trace T2 hyperintense in the bilateral mastoid air cells. IMPRESSION: 1. No acute/recent infarction. 2. Chronic lacunar infarctions, chronic microvascular ischemic type white-matter changes and other findings as above. 3. Previous imaging studies are not available for comparison. THIS IS AN ELECTRONICALLY VERIFIED FINAL REPORT 12/31/2024 4:16 PM - Electronically signed by Sher AGUILAR T: Report ID: [id number] Reading Location: [place] [address] Procedure Note Sher Robles, DO - 01/01/2025 EXAM DESCRIPTION: MRI BRAIN WO CONTRAST REASON FOR STUDY: other symptoms and signs involving the musculoskeletal system C/o weakness in Left leg and lower back, began in March and has been progressively worsening, has had multiple falls recently TECHNIQUE: Multiplanar imaging includes non-contrasted T1, T2, FLAIR, and diffusion with ADC map sequences. Additional sequence(s) sensitive [employer]. Images stored on PACS. COMPARISON: None available. [...] FLAIR hyperintense signal about the bilateral orbits, toxyo-kabkvvr-fiao-left could just reflect incomplete fatsaturation. If there is concern for orbital pathology then dedicated contrast-enhancedMRI can be obtained. Left eye cataract surgery. Mucosal thickening in the bilateral ethmoid air cells and maxillary sinus floors, tbvm-mytbhpw-ogzg-right. There is trace T2 hyperintense in the bilateral mastoid air cells. IMPRESSION: 1. No acute/recent infarction. 2. Chronic lacunar infarctions, chronic microvascular ischemic type white-matter changes and other findings as above. 3. Previous imaging studies are not available for comparison. THIS IS AN ELECTRONICALLY VERIFIED FINAL REPORT 12/31/2024 4:16 PM - Electronically signed by Sher AGUILAR T: Report ID: [id number] Reading Location: [place] [address] [facility] [place] PROCEDURES Final R esult * XR [...] signed by Gagandeep ROSARIO T: Report ID: [id number] Reading Location: [id number] Procedure Note Gagandeep Gamez MD - 01/04/2025 [...] signed by Gagandeep ROSARIO T: Report ID: [id number] Reading Location: [place] [address] Josiane US IMG XR PROCEDURES Final Re sult from Last 3 Months Insurance [facility] MEDICARE [facility] MEDICARE Advance Directives For more information, please contact: [phone] Documents on File 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
--- OUTSIDE RECORDS SUMMARY | 2025-03-21 14:18 | XMS_ITS | Clinical Summary ---
Author Organization [facility] Address [address] [place] [address] Care Team Providers Care Sharepoint Trainer Name Role Phone Unavailable Primary Care Provider Unavailabl e Source Comments [facility],non-owned Affiliates and Associated Physician Practices is amultiple site organization consisting of ambulatory clinics and hospital sitesin [place], [place], [place] and [place]. This disclosure is being madepursuant to the Care Everywhere program and may not contain all information available regarding this patient. Last updated 17.[facility] Encounters Date Type Department Care Team Description 03/11/2025 Transcribe Orders [facility] - Centralized Scheduling [address] [place] [address] Dede Zarco MD ALS (amyotrophic lateral sclerosis) [...]
[2025-03-21 14:43] VITALS: RESP 28
[2025-03-21 14:44] VITALS: O2SAT 100; BMI 27.0
[2025-03-21] MEDS: MORPHINE SULFATE INJ (*CRX) 50 MG in SODIUM CHLORIDE 0.9% IV 95 ML IV CONT (16:42)
--- NOTE | 2025-03-21 17:14 | PCCCNOTE ---
03/21/25@ 1000-I was called down to ER 10 to speak with pt and spouse regarding Hospice care. Discussed Hospice options and they chose [facility] from list. I called and made referral to [facility] and faxed req Info and they will be sending a hospice nurse out to talk with pt and family. Pts and spouse feel spouse is unable to care for pt at home at this time and is hoping pt can become IP hospice here. Hospice will be here shortly to evaluate pt . CR
--- NOTE | 2025-03-21 17:19 | PCCCNOTE ---
03/21/25@ 1130[facility] hospice R here discussing options for care at this time. district representative spoke to her medical MD and it was decided that pt will quailify for IP hospice at this point. Pt , Spouse and MD aware and agree with this plan. CR
[2025-03-21 20:00] VITALS: BP 110/81; PULSE 86; PULSE 98; RESP 18; RESP 20; TEMP 36.4; O2SAT 99
[2025-03-21 21:12] VITALS: PULSE 98; RESP 31
[2025-03-22 01:45] VITALS: RESP 20
--- NOTE | 2025-03-22 07:46 | P.PNIM_ITS ---
Assessment and Plan Assessment and Plan (1) Hospice care: Code(s): Z51.5 - Encounter for palliative care Status: Acute Assessment and Plan: * Meets inpatient hospice criteria due to requiring continuous morphine at 0.5 milligrams/hour for control of dyspnea * P.r.n. palliative regimen ordered * 03/21/2025 discussed with and son at bedside that goal is to control his symptoms and when stable discharge to a [facility] facility per their wishes * 03/22/2025 patient now desires BiPAP as he is less short of breath with it, has CPAP at home, has discomfort secondary to the BiPAP and needs padding across nose, awaiting placement, will transition to p.o. meds (2) ALS (amyotrophic lateral sclerosis): Code(s): G12.21 - Amyotrophic lateral sclerosis Status: Acute Assessment and Plan: * Progressive symptoms with increasing weakness, respiratory failure, dysarthria (3) Acute respiratory failure with hypoxemia: Code(s): J96.01 - Acute respiratory failure with hypoxia Status: Acute Assessment and Plan: * Secondary to ALS (4) Diabetes: Qualifiers: Diabetes mellitus complication status: without complication Diabetes mellitus assisted insulin use: without long term care pharmacist use Diabetes mellitus type: type 2 Qualified Code(s): E11.9 - Type 2 diabetes mellitus without complications Code(s): E11.9 - Type 2 diabetes mellitus without complications Status: Chronic (5) Chronic low back pain: Code(s): M54.50 - Low back pain, unspecified; G89.29 - Other chronic pain Status: Acute (6) Obstructive sleep apnea: Onset Date: ~01/2020 Code(s): G47.33 - Obstructive sleep apnea (adult) (pediatric) Status: Chronic (7) Hypertension: Qualifiers: Hypertension type: primary hypertension Qualified Code(s): I10 - Essential (primary) hypertension Code(s): I10 - Essential (primary) hypertension Status: Chronic (8) Pulmonary hypertension: Code(s): I27.20 - Pulmonary hypertension, unspecified Status: Acute Subjective Date/time seen: 03/22/25 07:46 Interval history: Only pain is across bridge of nose were BiPAP has rubbed to the skin raw. Tole rating oral intake. Short of breath without BiPAP. Review of Systems Review of Systems: All systems reviewed & are unremarkable except as noted in HPI and below Exam Narrative: HEENT: PERRL, sclerae nonicteric, pharyngeal mucosa pink and intact, erythema of skin over bridge of nose NECK: No JVD CHEST: Clear to auscultation with decreased breath sounds bilateral lower lobes, normal effort, thoracotomy scar noted left lower chest HEART: NL S1/S2, regular, no murmur ABDOMEN: BS+, soft, nontender, no mass, no bruits EXTREMITIES: No cyanosis, edema, or clubbing NEUROLOGIC: CN intact and symmetric to inspection, speech is difficult to discern due to low volume and slurred words, diffuse and symmetric weakness of all 4 extremities, 4/5 arms, 3/5 left leg and 2/5 right leg MUSCULOSKELETAL: No deformities to inspection PSYCH: Alert, oriented to person, place, and time Objective Data Vital Signs Vital Signs: Vital Signs - 24 hr 03/21/25 13:55 03/21/25 14:43 03/21/25 14:44 Temperature 97 F L Pulse Rate 100 Respiratory Rate 20 28 H Blood Pressure 136/54 L Pulse Oximetry 100 100 Oxygen Delivery BiPAP BiPAP Oxygen Flow Rate 2 03/21/25 20:00 03/21/25 20:00 03/21/25 21:12 Temperature 97.6 F Pulse Rate 86 98 98 Respiratory Rate 18 20 31 H Blood Pressure 110/81 Pulse Oximetry 99 99 Oxygen Delivery BiPAP BiPAP Oxygen Flow Rate 03/22/25 01:45 Temperature Pulse Rate Respiratory Rate 20 Blood Pressure Pulse Oximetry Oxygen Delivery BiPAP Oxygen Flow Rate Intake/Output Intake/Output: Intake & Output 03/19/25 03/20/25 03/21/25 12/23/25 23:59 23:59 23:59 23:59 Intake Total 120 Balance 120 Meds/Results Medications: Active Medications Generic Name Dose Route Start Last Admin Trade Name Freq PRN Reason Stop Dose Admin Acetaminophen 650 mg 03/21/25 15:48 Acetaminophen 650 Mg Suppository RECTAL Q6H PRN Fever Artificial Tears 1 drop 03/21/25 15:49 Artificial Tears Ophth Soln 15 Ml Bottle EACH EYE Q4H PRN Dry Eye(s) Bisacodyl 10 mg 03/21/25 15:50 Bisacodyl 10 Mg Suppository RECTAL DAILY PRN Constipation Glycopyrrolate 0.1 mg 03/21/25 15:48 Glycopyrrolate Inj (*Sp) 0.2 Mg/Ml Vial IV PUSH Q4H PRN secretions Morphine Sulfate 50 mg/ Sodium 100 mls @ 1 mls/hr 03/21/25 15:50 03/21/25 16:42 Chloride IV CONT 0.5 mg/hr .Q24H STEPHEN 1 mls/hr 0.5 MG/HR Administration Lorazepam 0.5 mg 03/21/25 15:51 Lorazepam Inj (*Crx) 2 Mg/Ml Vial IV PUSH Q4H PRN ANXIETY/RESTLESSNESS Morphine Sulfate 1 mg 03/21/25 15:43 Morphine Sulfate (*Crx) 2 Mg/Ml Inj IV PUSH Q2H PRN Pain/DYSPNEA Prochlorperazine Edisylate 10 mg 03/21/25 15:51 Prochlorperazine Edisylate 10 Mg/2 Ml Vial IV PUSH Q6H PRN Nausea And Vomiting
[2025-03-22 12:41] VITALS: BP 122/55; PULSE 75; RESP 16; TEMP 36.6; O2SAT 100
[2025-03-22] MEDS: methADONE HCL (*CRX) 5 MG TABLET PO ×2 (12:53→21:02)
[2025-03-22] MEDS: LORazepam INJ (*CRX) 2 MG/ML VIAL 0.5 MG IV PUSH ×2 (12:56→17:13)
[2025-03-22 14:00] VITALS: PULSE 82; RESP 28; O2SAT 100
[2025-03-22 17:57] VITALS: PULSE 86; RESP 26; O2SAT 98
[2025-03-22 20:00] VITALS: BP 123/64; PULSE 74; RESP 18; TEMP 36.1; O2SAT 100; O2SAT 94
[2025-03-23 02:25] VITALS: PULSE 85; RESP 24; O2SAT 98
[2025-03-23 08:00] VITALS: BP 135/63; PULSE 90; RESP 16; TEMP 36.5; O2SAT 100
[2025-03-23] MEDS: LORazepam INJ (*CRX) 2 MG/ML VIAL 0.5 MG IV PUSH ×3 (08:08→20:04)
[2025-03-23] MEDS: methADONE HCL (*CRX) 5 MG TABLET PO ×2 (08:10→20:03)
[2025-03-23 09:47] VITALS: PULSE 73; RESP 25; O2SAT 100
--- NOTE | 2025-03-23 11:59 | P.PNIM_ITS ---
Assessment and Plan Assessment and Plan (1) Hospice care: Code(s): Z51.5 - Encounter for palliative care Status: Acute Assessment and Plan: * Meets inpatient hospice criteria due to requiring continuous morphine at 0.5 milligrams/hour for control of dyspnea * P.r.n. palliative regimen ordered * 03/21/2025 discussed with and son at bedside that goal is to control his symptoms and when stable discharge to a [place] [facility] facility per their wishes * 03/22/2025 patient now desires BiPAP as he is less short of breath with it, has CPAP at home, has discomfort secondary to the BiPAP and needs padding across nose, awaiting placement, will transition to p.o. meds * 03/23/2025 received prn lorazepam overnight, constipated so scheduled laxatives ordered, awaiting acceptance by Jelena Foss, discussed with patient and spouse at bedside (2) ALS (amyotrophic lateral sclerosis): Code(s): G12.21 - Amyotrophic lateral sclerosis Status: Acute Assessment and Plan: * Progressive symptoms with increasing weakness, respiratory failure, dysarthria (3) Acute respiratory failure with hypoxemia: Code(s): J96.01 - Acute respiratory failure with hypoxia Status: Acute Assessment and Plan: * Secondary to ALS (4) Diabetes: Qualifiers: Diabetes mellitus type: type 2 Diabetes mellitus detention insulin use: without detention use Diabetes mellitus complication status: without complication Qualified Code(s): E11.9 - Type 2 diabetes mellitus without complications Code(s): E11.9 - Type 2 diabetes mellitus without complications Status: Chronic (5) Chronic low back pain: Code(s): M54.50 - Low back pain, unspecified; G89.29 - Other chronic pain Status: Acute (6) Obstructive sleep apnea: Onset Date: ~01/2020 Code(s): G47.33 - Obstructive sleep apnea (adult) (pediatric) Status: Chronic (7) Hypertension: Qualifiers: Hypertension type: primary hypertension Qualified Code(s): I10 - Essential (primary) hypertension Code(s): I10 - Essential (primary) hypertension Status: Chronic (8) Pulmonary hypertension: Code(s): I27.20 - Pulmonary hypertension, unspecified Status: Acute Subjective Date/time seen: 03/23/25 11:59 Interval history: Received two PRN doses of lorazepam due to insomnia overnight. No pain issues. No BM for 2 days. Review of Systems Review of Systems: All systems reviewed & are unremarkable except as noted in HPI and below Exam Narrative: HEENT: PERRL, sclerae nonicteric, pharyngeal mucosa pink and intact, erythema of skin over bridge of nose NECK: No JVD CHEST: Clear to auscultation with decreased breath sounds bilateral lower lobes, normal effort, thoracotomy scar noted left lower chest HEART: NL S1/S2, regular, no murmur ABDOMEN: BS+, soft, nontender, no mass, no bruits EXTREMITIES: No cyanosis, edema, or clubbing NEUROLOGIC: CN intact and symmetric to inspection, speech is difficult to discern due to low volume and slurred words, diffuse and symmetric weakness of all 4 extremities, 4/5 arms, 3/5 left leg and 2/5 right leg MUSCULOSKELETAL: No deformities to inspection PSYCH: Alert, oriented to person, place, and time Objective Data Vital Signs Vital Signs: Vital Signs - 24 hr 03/22/25 12:41 03/22/25 14:00 03/22/25 17:18 Temperature 97.9 F Pulse Rate 75 82 Respiratory Rate 16 28 H Blood Pressure 122/55 L Pulse Oximetry 100 100 Oxygen Delivery BiPAP Room Air Oxygen Flow Rate 03/22/25 17:57 03/22/25 18:30 03/22/25 20:00 Temperature 97.0 F L Pulse Rate 86 74 Respiratory Rate 26 H 18 Blood Pressure 123/64 Pulse Oximetry 98 100 Oxygen Delivery BiPAP BiPAP Oxygen Flow Rate 03/22/25 20:00 03/23/25 02:25 03/23/25 08:00 Temperature 97.7 F Pulse Rate 85 90 Respiratory Rate 24 H 16 Blood Pressure 135/63 Pulse Oximetry 94 98 100 Oxygen Delivery Nasal Cannula BiPAP Oxygen Flow Rate 4 03/23/25 09:47 Temperature Pulse Rate 73 Respiratory Rate 25 H Blood Pressure Pulse Oximetry 100 Oxygen Delivery BiPAP Oxygen Flow Rate Intake/Output Intake/Output: Intake & Output 03/20/25 03/21/25 03/22/25 03/23/25 23:59 23:59 23:59 23:59 Intake Total 120 320 240 Balance 120 320 240 Meds/Results Medications: Active Medications Generic Name Dose Route Start Last Admin Trade Name Freq PRN Reason Stop Dose Admin Acetaminophen 650 mg 03/21/25 15:48 Acetaminophen 650 Mg Suppository RECTAL Q6H PRN Fever Artificial Tears 1 drop 03/21/25 15:49 Artificial Tears Ophth Soln 15 Ml Bottle EACH EYE Q4H PRN Dry Eye(s) Bisacodyl 10 mg 03/21/25 15:50 Bisacodyl 10 Mg Suppository RECTAL DAILY PRN Constipation Glycopyrrolate 0.1 mg 03/21/25 15:48 Glycopyrrolate Inj (*Sp) 0.2 Mg/Ml Vial IV PUSH Q4H PRN secretions Lorazepam 0.5 mg 03/21/25 15:51 03/23/25 08:08 Lorazepam Inj (*Crx) 2 Mg/Ml Vial IV PUSH 0.5 mg Q4H PRN Administration ANXIETY/RESTLESSNESS Methadone HCl 5 mg 03/22/25 09:00 03/23/25 08:10 Methadone Hcl (*Crx) 5 Mg Tablet PO 5 mg Q12HR STEPHEN Administration Morphine Sulfate 1 mg 03/21/25 15:43 Morphine Sulfate (*Crx) 2 Mg/Ml Inj IV PUSH Q2H PRN Pain/DYSPNEA Prochlorperazine Edisylate 10 mg 03/21/25 15:51 Prochlorperazine Edisylate 10 Mg/2 Ml Vial IV PUSH Q6H PRN Nausea And Vomiting
[2025-03-23 13:52] VITALS: PULSE 87; RESP 4; O2SAT 100
[2025-03-23 20:13] VITALS: BP 135/61; PULSE 78; RESP 16; TEMP 36.9; O2SAT 100
[2025-03-23 21:20] VITALS: PULSE 88; RESP 25; O2SAT 100
[2025-03-24 02:22] VITALS: PULSE 89; RESP 23; O2SAT 100
[2025-03-24 06:19] VITALS: BP 135/59; PULSE 76; RESP 16; TEMP 36.4; O2SAT 98
[2025-03-24 08:00] VITALS: BP 127/67; PULSE 77; RESP 17; TEMP 36.1; O2SAT 100
[2025-03-24] MEDS: methADONE HCL (*CRX) 5 MG TABLET PO ×2 (08:45→20:47)
[2025-03-24] MEDS: BISACODYL 10 MG SUPPOSITORY RECTAL (08:46)
--- NOTE | 2025-03-24 18:47 | P.PNIM_ITS ---
Assessment and Plan Assessment and Plan (1) Hospice care: Code(s): Z51.5 - Encounter for palliative care Status: Acute Assessment and Plan: * Meets inpatient hospice criteria due to requiring continuous morphine at 0.5 milligrams/hour for control of dyspnea * P.r.n. palliative regimen ordered * 03/21/2025 discussed with and son at bedside that goal is to control his symptoms and when stable discharge to a care home facility per their wishes * 03/22/2025 patient now desires BiPAP as he is less short of breath with it, has CPAP at home, has discomfort secondary to the BiPAP and needs padding across nose, awaiting placement, will transition to p.o. meds * 03/23/2025 received prn lorazepam overnight, constipated so scheduled laxatives ordered, awaiting acceptance by Jelena Fsos, discussed with patient and spouse at bedside * 03/24/2025 no prn's given, accepted at [facility] for 03/25, continue current regimen (2) ALS (amyotrophic lateral sclerosis): Code(s): G12.21 - Amyotrophic lateral sclerosis Status: Acute Assessment and Plan: * Progressive symptoms with increasing weakness, respiratory failure, dysarthria (3) Acute respiratory failure with hypoxemia: Code(s): J96.01 - Acute respiratory failure with hypoxia Status: Acute Assessment and Plan: * Secondary to ALS (4) Diabetes: Qualifiers: Diabetes mellitus type: type 2 Diabetes mellitus senior care insulin use: without water service dispatcher use Diabetes mellitus complication status: without complication Qualified Code(s): E11.9 - Type 2 diabetes mellitus without complications Code(s): E11.9 - Type 2 diabetes mellitus without complications Status: Chronic (5) Chronic low back pain: Code(s): M54.50 - Low back pain, unspecified; G89.29 - Other chronic pain Status: Acute (6) Obstructive sleep apnea: Onset Date: ~01/2020 Code(s): G47.33 - Obstructive sleep apnea (adult) (pediatric) Status: Chronic (7) Hypertension: Qualifiers: Hypertension type: primary hypertension Qualified Code(s): I10 - Essential (primary) hypertension Code(s): I10 - Essential (primary) hypertension Status: Chronic (8) Pulmonary hypertension: Code(s): I27.20 - Pulmonary hypertension, unspecified Status: Acute Subjective Date/time seen: 03/24/25 18:47 Interval history: Tired. Several visitors. SOB w/o bipap. No prn's given. Oral intake fair to poor. Denied pain. Review of Systems Review of Systems: All systems reviewed & are unremarkable except as noted in HPI and below Exam Narrative: HEENT: PERRL, sclerae nonicteric, pharyngeal mucosa pink and intact, erythema of skin over bridge of nose NECK: No JVD CHEST: Clear to auscultation with decreased breath sounds bilateral lower lobes, normal effort, thoracotomy scar noted left lower chest HEART: NL S1/S2, regular, no murmur ABDOMEN: BS+, soft, nontender, no mass, no bruits EXTREMITIES: No cyanosis, edema, or clubbing NEUROLOGIC: CN intact and symmetric to inspection, speech is difficult to discern due to low volume and slurred words, diffuse and symmetric weakness of all 4 extremities, 4/5 arms, 3/5 left leg and 2/5 right leg MUSCULOSKELETAL: No deformities to inspection PSYCH: Alert, oriented to person, place, and time Objective Data Vital Signs Vital Signs: Vital Signs - 24 hr 03/23/25 20:00 03/23/25 20:13 03/23/25 21:20 Temperature 98.4 F Pulse Rate 78 88 Respiratory Rate 16 25 H Blood Pressure 135/61 Pulse Oximetry 100 100 Oxygen Delivery BiPAP BiPAP 03/24/25 02:22 03/24/25 06:19 03/24/25 08:00 Temperature 97.6 F 97.0 F L Pulse Rate 89 76 77 Respiratory Rate 23 H 16 17 Blood Pressure 135/59 L 127/67 Pulse Oximetry 100 98 100 Oxygen Delivery BiPAP Intake/Output Intake/Output: Intake & Output 03/21/25 03/22/25 03/23/25 03/24/25 23:59 23:59 23:59 23:59 Intake Total 120 320 720 220 Balance 120 320 720 220 Meds/Results Medications: Active Medications Generic Name Dose Route Start Last Admin Trade Name Freq PRN Reason Stop Dose Admin Acetaminophen 650 mg 03/21/25 15:48 Acetaminophen 650 Mg Suppository RECTAL Q6H PRN Fever Artificial Tears 1 drop 03/21/25 15:49 Artificial Tears Ophth Soln 15 Ml Bottle EACH EYE Q4H PRN Dry Eye(s) Bisacodyl 10 mg 03/21/25 15:50 03/24/25 08:46 Bisacodyl 10 Mg Suppository RECTAL 10 mg DAILY PRN Administration Constipation Glycopyrrolate 0.1 mg 03/21/25 15:48 Glycopyrrolate Inj (*Sp) 0.2 Mg/Ml Vial IV PUSH Q4H PRN secretions Lorazepam 0.5 mg 03/21/25 15:51 03/23/25 20:04 Lorazepam Inj (*Crx) 2 Mg/Ml Vial IV PUSH 0.5 mg Q4H PRN Administration ANXIETY/RESTLESSNESS Methadone HCl 5 mg 03/22/25 09:00 03/24/25 08:45 Methadone Hcl (*Crx) 5 Mg Tablet PO 5 mg Q12HR STEPHEN Administration Morphine Sulfate 1 mg 03/21/25 15:43 Morphine Sulfate (*Crx) 2 Mg/Ml Inj IV PUSH Q2H PRN Pain/DYSPNEA Polyethylene Glycol 17 gm 03/23/25 12:10 03/24/25 08:45 Polyethylene Glycol 3350 17 Gm Powd.Pack PO 17 gm QAM STEPHEN Administration Prochlorperazine Edisylate 10 mg 03/21/25 15:51 Prochlorperazine Edisylate 10 Mg/2 Ml Vial IV PUSH Q6H PRN Nausea And Vomiting Senna 17.2 mg 03/23/25 21:00 03/23/25 20:05 Sennosides 8.6 Mg Tablet PO Not Given HS STEPHEN
--- NOTE | 2025-03-24 18:56 | P.DS_ITS ---
DS: Admitting Diagnosis Discharge Date 03/25/2025 Admitting Diagnosis Uncontrolled dyspnea due to respiratory failure due to ALS DS: Discharge Diagnosis Discharge Diagnosis (1) Hospice care: Code(s): Z51.5 - Encounter for palliative care Status: Acute Assessment and Plan: * Meets inpatient hospice criteria due to requiring continuous morphine at 0.5 milligrams/hour for control of dyspnea * P.r.n. palliative regimen ordered * 03/21/2025 discussed with and son at bedside that goal is to control his symptoms and when stable discharge to a [facility] facility per their wishes * 03/22/2025 patient now desires BiPAP as he is less short of breath with it, has CPAP at home, has discomfort secondary to the BiPAP and needs padding across nose, awaiting placement, will transition to p.o. meds * 03/23/2025 received prn lorazepam overnight, constipated so scheduled laxatives ordered, awaiting acceptance by Jelena Foss, discussed with patient and spouse at bedside * 03/24/2025 no prn's given, accepted at [facility] for 03/25, continue current regimen (2) ALS (amyotrophic lateral sclerosis): Code(s): G12.21 - Amyotrophic lateral sclerosis Status: Acute Assessment and Plan: * Progressive symptoms with increasing weakness, respiratory failure, dysarthria (3) Acute respiratory failure with hypoxemia: Code(s): J96.01 - Acute respiratory failure with hypoxia Status: Acute Assessment and Plan: * Secondary to ALS (4) Diabetes: Qualifiers: Diabetes mellitus complication status: without complication Diabetes mellitus terminologist insulin use: without half-way use Diabetes mellitus type: type 2 Qualified Code(s): E11.9 - Type 2 diabetes mellitus without complications Code(s): E11.9 - Type 2 diabetes mellitus without complications Status: Chronic (5) Chronic low back pain: Code(s): M54.50 - Low back pain, unspecified; G89.29 - Other chronic pain Status: Acute (6) Obstructive sleep apnea: Onset Date: ~01/2020 Code(s): G47.33 - Obstructive sleep apnea (adult) (pediatric) Status: Chronic (7) Hypertension: Qualifiers: Hypertension type: primary hypertension Qualified Code(s): I10 - Essential (primary) hypertension Code(s): I10 - Essential (primary) hypertension Status: Chronic (8) Pulmonary hypertension: Code(s): I27.20 - Pulmonary hypertension, unspecified Status: Acute DS: Summary Hospital Course Hospital Course: 74-year-old gentleman with progressive ALS was admitted to inpatient hospice service due to increasing shortness of breath requiring BiPAP. He initially wanted to wean off BiPAP but once medications were in place he found the BiPAP tolerable and wished to continue it. He remained alert and oriented to person place and time. He was tolerating oral intake. Appetite was fair to poor. Pain control was good. Constipation was addressed. Dyspnea was controlled with methadone and oxygen and BiPAP. He tolerated transitioned to oral medications well. He was discharged on March 25 to [facility] for ongoing hospice care. Time Spent with Patient Time attestation: Total time spent providing and/or coordinating discharge services: Exam Narrative: HEENT: PERRL, sclerae nonicteric, pharyngeal mucosa pink and intact, erythema of skin over bridge of nose NECK: No JVD CHEST: Clear to auscultation with decreased breath sounds bilateral lower lobes, normal effort, thoracotomy scar noted left lower chest HEART: NL S1/S2, regular, no murmur ABDOMEN: BS+, soft, nontender, no mass, no bruits EXTREMITIES: No cyanosis, edema, or clubbing NEUROLOGIC: CN intact and symmetric to inspection, speech is difficult to discern due to low volume and slurred words, diffuse and symmetric weakness of all 4 extremities, 4/5 arms, 3/5 left leg and 2/5 right leg MUSCULOSKELETAL: No deformities to inspection PSYCH: Alert, oriented to person, place, and time Discharge Plan Discharge Consulting providers: Emiliano Chiang; David De La Garza Discharging Clinician: Klaus Mike Patient Disposition: Hospice - Medical Facility Activity: other - see discharge instructions Diet: as tolerated Discharge Instructions: May be up in wheelchair as tolerated. BiPAP with iPAP 12, ePAP 6, rate 4, FIO2 30%. Oxygen at 2 LPM while not earing BiPAP. Patient Language: Venezuelan Stand Alone Forms: General Discharge Information, [facility]dc Discharge Discharge Medications: New sennosides [Senokot] 8.6 mg Tablet 17.2 mg PO HS Qty: 14 0RF lorazepam [Ativan] 1 mg tablet 1 mg PO Q6H PRN (Reason: anxiety) Qty: 10 0RF prochlorperazine maleate [Compazine] 10 mg tablet 10 mg PO Q6H PRN (Reason: nausea and vomiting) Qty: 4 0RF bisacodyl [Dulcolax (bisacodyl)] 10 mg suppository 10 mg RECTAL DAILY PRN (Reason: constipation) Qty: 2 0RF methadone 5 mg Tablet 5 mg PO Q12HR Qty: 14 0RF Artificial Tears([id number]) 1-0.2-0.2 % Drops 1 drp EACH EYE Q4H PRN (Reason: Dry Eye(S)) Qty: 3 0RF morphine concentrate 100 mg/5 mL (20 mg/mL) solution 5 mg PO Q4H Qty: 15 0RF Continued polyethylene glycol 3350 [Miralax] 17 gram/dose powder 17 g PO DAILY Qty: 7 0RF Changed ibuprofen [Addaprin] 200 mg tablet 400 mg PO TID PRN (Reason: pain) Qty: 10 0RF Discontinued cetirizine 5 mg tablet 5 mg PO DAILY PRN (Reason: Allergic Symptoms) multivitamin Tablet 1 tablet PO DAILY Benefiber (inulin-corn fiber) 2 gram tablet,chewable 1 tablet PO DAILY Lowry Probiotic 10 strains 10 billion capsule 1 cap PO DAILY lisinopril 5 mg tablet 5 mg PO DAILY Qty: 90 1RF magnesium 200 mg tablet 200 mg PO DAILY lidocaine [Lidoderm] 5 % Adhesive Patch,Medicated 1 patch transdermal DAILY Qty: 10 0RF fluticasone propionate [Flonase Allergy Relief] 50 mcg/actuation spray,suspension 1 spray intranasal DAILY Qty: 16 0RF Rx Instructions: administer into each nostril pioglitazone 45 mg tablet 45 mg PO DAILY Qty: 90 1RF (DME) blood-glucose meter [OneTouch Ultra2 Meter] [facility] See Rx Instructions .Route Qty: 1 0RF Rx Instructions: Use to check blood sugar once a day (DME) OneTouch Ultra Test Strip See Rx Instructions .Route Qty: 100 3RF Rx Instructions: Use to check blood sugar once a day (DME) lancets [Onetouch Delica Safety Lancet] [facility] See Rx Instructions .Route Qty: 100 3RF Rx Instructions: use to check blood sugar once a day atorvastatin 20 mg tablet 20 mg PO DAILY Qty: 90 1RF Date of admission: 03/21/25 11:58 Primary Care Provider: Tej Sen Admitting Provider: Klaus Mike Interventions: Discharge Disposition Last Done: 03/28/25 14:23 Attending physician on admission: Klaus Mike Condition: Terminal
[2025-03-24 20:00] VITALS: BP 117/68; PULSE 81; RESP 30; TEMP 35.8; O2SAT 100
[2025-03-24 20:29] VITALS: PULSE 84; RESP 30; O2SAT 98
[2025-03-24] MEDS: MORPHINE SULFATE (*CRX) 2 MG/ML INJ 1 MG IV PUSH (20:45)
[2025-03-24] MEDS: LORazepam INJ (*CRX) 2 MG/ML VIAL 0.5 MG IV PUSH (20:47)
[2025-03-25 02:16] VITALS: PULSE 88; RESP 17; O2SAT 100
[2025-03-25] MEDS: SENNOSIDES 8.6 MG TABLET 17.2 MG PO ×2 (06:54→21:42)
[2025-03-25 08:00] VITALS: BP 144/64; PULSE 89; RESP 17; TEMP 36.3; O2SAT 100
[2025-03-25 08:40] VITALS: PULSE 89; RESP 17; O2SAT 100
[2025-03-25] MEDS: methADONE HCL (*CRX) 5 MG TABLET PO ×2 (09:10→21:42)
[2025-03-25] MEDS: LORazepam INJ (*CRX) 2 MG/ML VIAL 0.5 MG IV PUSH (15:25)
[2025-03-25 15:34] LABS: SARS-CoV-2 RNA PCR Negative (Negative)
--- NOTE | 2025-03-25 15:41 | PC.NURSE ---
Left message with Dr. Nate Chiang to update of patient not being able to dc to [facility] due to Bipap needed to be reordered, left message> The plan is to dc on friday when Bibpap at facility.
--- NOTE | 2025-03-25 17:29 | P.PN_ITS ---
Progress Note: A&P Assessment and Plan Plan Plan to continue support respirations with BiPap as needed and maintain comfort until BiPap arranged at hospital Time Spent With Patient Time: 10 minues Time with patient: less than 15 minutes Subjective Date/time seen: 03/25/25 17:29 Interval history: 74 y/o male on service for ALS. Patient scheduled to transfer to LTCF facility today on BiPap PRN. Facility unable to arrange BiPap. Patient will remain at hospital with PRN Bipap thorugh the weekend until BiPap can be arranged. Patient has no new complaints at this time. Comfort controlled. Exam Const: General: comfortable and no acute distress HENMT: Face/Nose/Sinus: Normal nares present Mouth: Yes moist mucous membranes Eyes: General: appearance normal, both eyes and all related structures Sclera: sclerae normal Resp: Auscultation: clear to auscultation bilaterally Cardio: Rate: regular rate Rhythm: regular rhythm Heart sounds: Gallop heart sound present Skin: Wounds: no wounds Psych: Mental Status: mental status grossly normal Objective Data Vital Signs Vital Signs: Vital Signs - 24 hr 03/24/25 20:00 03/24/25 20:29 03/24/25 20:50 Temperature 96.5 F L Pulse Rate 81 84 Respiratory Rate 30 H 30 H Blood Pressure 117/68 Pulse Oximetry 100 98 Oxygen Delivery BiPAP BiPAP 03/25/25 02:16 03/25/25 08:00 03/25/25 08:40 Temperature 97.4 F L Pulse Rate 88 89 89 Respiratory Rate 17 17 17 Blood Pressure 144/64 H Pulse Oximetry 100 100 100 Oxygen Delivery BiPAP BiPAP Intake/Output Intake/Output: Intake & Output 03/22/25 03/23/25 03/24/25 03/25/25 23:59 23:59 23:59 23:59 Intake Total 320 720 220 702 Output Total 1000 Balance 320 720 220 -298 Meds/Results Medications: Active Medications Generic Name Dose Route Start Last Admin Trade Name Freq PRN Reason Stop Dose Admin Acetaminophen 650 mg 03/21/25 15:48 Acetaminophen 650 Mg Suppository RECTAL Q6H PRN Fever Artificial Tears 1 drop 03/21/25 15:49 Artificial Tears Ophth Soln 15 Ml Bottle EACH EYE Q4H PRN Dry Eye(s) Bisacodyl 10 mg 03/21/25 15:50 03/24/25 08:46 Bisacodyl 10 Mg Suppository RECTAL 10 mg DAILY PRN Administration Constipation Glycopyrrolate 0.1 mg 03/21/25 15:48 Glycopyrrolate Inj (*Sp) 0.2 Mg/Ml Vial IV PUSH Q4H PRN secretions Lorazepam 0.5 mg 03/21/25 15:51 03/25/25 15:25 Lorazepam Inj (*Crx) 2 Mg/Ml Vial IV PUSH 0.5 mg Q4H PRN Administration ANXIETY/RESTLESSNESS Methadone HCl 5 mg 03/22/25 09:00 03/25/25 09:10 Methadone Hcl (*Crx) 5 Mg Tablet PO 5 mg Q12HR STEPHEN Administration Morphine Sulfate 1 mg 03/21/25 15:43 03/24/25 20:45 Morphine Sulfate (*Crx) 2 Mg/Ml Inj IV PUSH 1 mg Q2H PRN Administration Pain/DYSPNEA Polyethylene Glycol 17 gm 03/23/25 12:10 03/25/25 09:14 Polyethylene Glycol 3350 17 Gm Powd.Pack PO Not Given QAM [facility] Prochlorperazine Edisylate 10 mg 03/21/25 15:51 Prochlorperazine Edisylate 10 Mg/2 Ml Vial IV PUSH Q6H PRN Nausea And Vomiting Senna 17.2 mg 03/23/25 21:00 03/25/25 06:54 Sennosides 8.6 Mg Tablet PO 17.2 mg HS STEPHEN Administration Labs Labs: Laboratory Results - last 24 hr 03/25/25 14:51 SARS-CoV-2 RNA (RT-PCR) Negative
[2025-03-25 20:00] VITALS: BP 136/68; PULSE 78; PULSE 84; RESP 19; RESP 22; TEMP 36.4; O2SAT 100
[2025-03-25 23:25] VITALS: PULSE 84; RESP 19; O2SAT 100
[2025-03-26] MEDS: LORazepam INJ (*CRX) 2 MG/ML VIAL 0.5 MG IV PUSH ×4 (03:16→21:13)
[2025-03-26 03:25] VITALS: PULSE 80; RESP 18; O2SAT 100
[2025-03-26 08:00] VITALS: BP 126/65; PULSE 73; RESP 18; TEMP 36.1; O2SAT 100
[2025-03-26] MEDS: methADONE HCL (*CRX) 5 MG TABLET PO ×2 (09:17→21:13)
--- NOTE | 2025-03-26 18:14 | WPDPN ---
Progress Note: A&P Assessment and Plan Plan Awaiting transfer to LTCF. Patient to be discharved on Friday once BiPap equipment is available. Will continue to offer comfort cafe and respirafoy supporf with BiPap Time Spent With Patient Time: 20 Time with patient: 15 - 25 minutes Subjective Date/time seen: 03/26/25 18:14 Interval history: 74 y/o male on Hospice GIP status with ALS and acute on Chronic respiratory failure. Patient on continous O2 via NC and intermittent and PRN Bipap during the day and BiPap at night. On arrival to bedside today, patient resting comforrably but becomes dyspneic with minimal converstion. Otherwise he has no new complaints and denies any pain. He has no other complaints and the ROS is otherwise negative Exam Const: Other: Moderate respiratory distress at rest but tolerating well. HENMT: Face/Nose/Sinus: Normal nares present Mouth: Yes moist mucous membranes Eyes: General: appearance normal, both eyes and all related structures Pupils: Equal, round and reactive pupils present Resp: Auscultation: clear to auscultation bilaterally Other: tachypneic with a respiratory rate of 30 Cardio: Rate: regular rate Rhythm: regular rhythm Other: no murmurs, gallops, or rubs GI: Other: no distention Skin: General skin exam: normal color Neuro: Speech: normal speech Other: no new focal deficits Extrem: General: normal to inspection Psych: Mental Status: mental status grossly normal Objective Data Vital Signs Vital Signs: Vital Signs - 24 hr 03/25/25 20:00 03/25/25 20:00 03/25/25 23:25 Temperature 97.5 F L Pulse Rate 78 84 84 Respiratory Rate 22 H 19 19 Blood Pressure 136/68 Pulse Oximetry 100 100 100 Oxygen Delivery BiPAP BiPAP Oxygen Flow Rate 03/26/25 03:25 03/26/25 08:00 03/26/25 08:00 Temperature 97.0 F L Pulse Rate 80 73 Respiratory Rate 18 18 Blood Pressure 126/65 Pulse Oximetry 100 100 100 Oxygen Delivery BiPAP BiPAP Oxygen Flow Rate 5 Intake/Output Intake/Output: Intake & Output 03/23/25 03/24/25 03/25/25 03/26/25 23:59 23:59 23:59 23:59 Intake Total 720 220 924 236 Output Total 1125 300 Balance 720 220 -201 -64 Meds/Results Medications: Active Medications Generic Name Dose Route Start Last Admin Trade Name Freq PRN Reason Stop Dose Admin Acetaminophen 650 mg 03/21/25 15:48 Acetaminophen 650 Mg Suppository RECTAL Q6H PRN Fever Artificial Tears 1 drop 03/21/25 15:49 Artificial Tears Ophth Soln 15 Ml Bottle EACH EYE Q4H PRN Dry Eye(s) Bisacodyl 10 mg 03/21/25 15:50 03/24/25 08:46 Bisacodyl 10 Mg Suppository RECTAL 10 mg DAILY PRN Administration Constipation Glycopyrrolate 0.1 mg 03/21/25 15:48 Glycopyrrolate Inj (*Sp) 0.2 Mg/Ml Vial IV PUSH Q4H PRN secretions Lorazepam 0.5 mg 03/21/25 15:51 03/26/25 16:12 Lorazepam Inj (*Crx) 2 Mg/Ml Vial IV PUSH 0.5 mg Q4H PRN Administration ANXIETY/RESTLESSNESS Methadone HCl 5 mg 03/22/25 09:00 03/26/25 09:17 Methadone Hcl (*Crx) 5 Mg Tablet PO 5 mg Q12HR STEPHEN Administration Morphine Sulfate 1 mg 03/21/25 15:43 03/24/25 20:45 Morphine Sulfate (*Crx) 2 Mg/Ml Inj IV PUSH 1 mg Q2H PRN Administration Pain/DYSPNEA Polyethylene Glycol 17 gm 03/23/25 12:10 03/26/25 09:17 Polyethylene Glycol 3350 17 Gm Powd.Pack PO 17 gm QAM STEPHEN Administration Prochlorperazine Edisylate 10 mg 03/21/25 15:51 Prochlorperazine Edisylate 10 Mg/2 Ml Vial IV PUSH Q6H PRN Nausea And Vomiting Senna 17.2 mg 03/23/25 21:00 03/25/25 21:42 Sennosides 8.6 Mg Tablet PO 17.2 mg HS STEPHEN Administration
[2025-03-26 20:00] VITALS: BP 130/55; PULSE 79; PULSE 86; RESP 18; TEMP 36.4; O2SAT 100
[2025-03-26 20:38] VITALS: PULSE 86; RESP 18; O2SAT 100
[2025-03-26] MEDS: SENNOSIDES 8.6 MG TABLET 17.2 MG PO (21:12)
[2025-03-27 07:56] VITALS: BP 136/61; PULSE 71; RESP 20; TEMP 36.3; O2SAT 100
[2025-03-27 08:00] VITALS: O2SAT 95
[2025-03-27] MEDS: methADONE HCL (*CRX) 5 MG TABLET PO ×2 (08:18→21:50)
[2025-03-27] MEDS: LORazepam INJ (*CRX) 2 MG/ML VIAL 0.5 MG IV PUSH ×2 (08:35→13:38)
--- NOTE | 2025-03-27 08:53 | WPDPN ---
Progress Note: A&P Assessment and Plan (1) ALS (amyotrophic lateral sclerosis): Code(s): G12.21 - Amyotrophic lateral sclerosis Status: Acute Assessment and Plan: Pt to be dcd to LTCF after delivery of bipap to continue routine hospice care. Time Spent With Patient Time with patient: 15 - 25 minutes Subjective Date/time seen: 03/27/25 08:53 Interval history: Pt is a 74 yo male admitted to hospice with dx of ALS. Pt is resting in bed with no acute signs of distress. On oxygen continuously via NC. Some mild/mod SOB with conversation. Relieved with 5-10 minutes of bipap. Pt to be moving to LTCF tomorrow. Waiting for bipap to be delivered. Pt comfortable on current med regimen. Denied any questions or concerns. Review of Systems Review of Systems: All systems reviewed & are unremarkable except as noted in HPI and below Constitutional: Constitutional: Reports as per HPI Cardiovascular: Cardiovascular: Reports as per HPI Respiratory: Respiratory: Reports as per HPI Gastrointestinal: Gastrointestinal: Reports as per HPI Musculoskeletal: Musculoskeletal: Reports as per HPI Exam Const: General: comfortable and no acute distress Resp: Auscultation: clear to auscultation bilaterally Other: Mild tachypnea. Denies SOB at rest, but noticeable inc in RR with conversation. Cardio: Rate: regular rate Rhythm: regular rhythm GI: GI Palp: Yes Soft to palpation Skin: General skin exam: normal color Neuro: Speech: normal speech Extrem: General: normal to inspection Psych: Mental Status: mental status grossly normal Objective Data Vital Signs Vital Signs: Vital Signs - 24 hr 03/26/25 20:00 03/26/25 20:00 03/26/25 20:38 Temperature 36.4 C Pulse Rate 79 86 86 Respiratory Rate 18 18 18 Blood Pressure 130/55 L Pulse Oximetry 100 100 100 Oxygen Delivery BiPAP BiPAP 03/27/25 07:56 Temperature 36.3 C L Pulse Rate 71 Respiratory Rate 20 Blood Pressure 136/61 Pulse Oximetry 100 Oxygen Delivery Intake/Output Intake/Output: Intake & Output 03/24/25 03/25/25 03/26/25 03/27/25 23:59 23:59 23:59 23:59 Intake Total 220 924 576 Output Total 1125 300 400 Balance 220 -201 276 -400 Meds/Results Medications: Active Medications Generic Name Dose Route Start Last Admin Trade Name Freq PRN Reason Stop Dose Admin Acetaminophen 650 mg 03/21/25 15:48 Acetaminophen 650 Mg Suppository RECTAL Q6H PRN Fever Artificial Tears 1 drop 03/21/25 15:49 Artificial Tears Ophth Soln 15 Ml Bottle EACH EYE Q4H PRN Dry Eye(s) Bisacodyl 10 mg 03/21/25 15:50 03/24/25 08:46 Bisacodyl 10 Mg Suppository RECTAL 10 mg DAILY PRN Administration Constipation Glycopyrrolate 0.1 mg 03/21/25 15:48 Glycopyrrolate Inj (*Sp) 0.2 Mg/Ml Vial IV PUSH Q4H PRN secretions Lorazepam 0.5 mg 03/21/25 15:51 03/27/25 08:35 Lorazepam Inj (*Crx) 2 Mg/Ml Vial IV PUSH 0.5 mg Q4H PRN Administration ANXIETY/RESTLESSNESS Methadone HCl 5 mg 03/22/25 09:00 03/27/25 08:18 Methadone Hcl (*Crx) 5 Mg Tablet PO 5 mg Q12HR STEPHEN Administration Morphine Sulfate 1 mg 03/21/25 15:43 03/24/25 20:45 Morphine Sulfate (*Crx) 2 Mg/Ml Inj IV PUSH 1 mg Q2H PRN Administration Pain/DYSPNEA Polyethylene Glycol 17 gm 03/23/25 12:10 03/27/25 08:18 Polyethylene Glycol 3350 17 Gm Powd.Pack PO 17 gm QAM STEPHEN Administration Prochlorperazine Edisylate 10 mg 03/21/25 15:51 Prochlorperazine Edisylate 10 Mg/2 Ml Vial IV PUSH Q6H PRN Nausea And Vomiting Senna 17.2 mg 03/23/25 21:00 03/26/25 21:12 Sennosides 8.6 Mg Tablet PO 17.2 mg HS STEPHEN Administration
[2025-03-27 14:52] VITALS: O2SAT 95
[2025-03-27 20:00] VITALS: BP 139/59; PULSE 75; RESP 20; TEMP 36.1; O2SAT 100
[2025-03-27] MEDS: SENNOSIDES 8.6 MG TABLET 17.2 MG PO (21:49)
[2025-03-27 22:59] VITALS: PULSE 85; RESP 23; O2SAT 100
[2025-03-28 03:54] VITALS: RESP 22
[2025-03-28 08:00] VITALS: BP 138/68; PULSE 83; RESP 18; TEMP 36.6; O2SAT 100; O2SAT 95
[2025-03-28] MEDS: methADONE HCL (*CRX) 5 MG TABLET PO (08:22)
[2025-03-28] MEDS: LORazepam INJ (*CRX) 2 MG/ML VIAL 0.5 MG IV PUSH (08:23)
[2025-03-28 11:53] LABS: SARS-CoV-2 RNA PCR Negative (Negative)
--- OUTSIDE RECORDS SUMMARY | 2025-05-10 18:00 | XMS_ITS | Clinical Summary ---
Author Organization Unknown Care Team Providers Care Melter Operator Name Role Phone MARICEL CASTELLANOS Unavailable Unavailable BRENDA PHYSICAL THERAPIST, URIEL Unavailable Unavailable DEV DANCE HALL HOST/HOSTESS, ALYSE Villalba ailable Unavailable RODRIGES OCCUPATIONAL THERAPIST, [...] CONSTIPATION , UNSPECIFIED Active 03-31 00:00: 00 [facility] (CURRENT) USE OF ASPIRIN Active 03-31 00:00: 00 [facility] (CURRENT) USE OF ORAL HYPOGLYCEMIC DRUGS Active [...] mg chewable tablet 2024-03 00:00: 00 Yes [id number] ASPIRIN THERAPY 1 tablet ONCE DAILY 1 tablet ONCE DAILY (route: oral) Med Classific ation: Hematolog ical Agents atorvastati n 40 mg tablet 2024-03 00:00: 00 Yes [id number] HYPERLIPIDE ARABELLA 1 tablet BEDTIME 1 tablet BEDTIME (route: oral) Med Classific ation: Cardiovas cular Therapy Agents cetirizine 10 mg tablet 2024-03 00:00: 00 Yes [id number] CONGESTION 1 tablet ONCE DAILY 1 tablet ONCE DAILY (route: oral) Med Classific ation: Respirato ry Therapy Agents cyanocobala min (vit B-12) 1,000 mcg tablet 2024-03 00:00: 00 Yes [id number] SUPPLEMENT 1 tablet ONCE DAILY 1 tablet ONCE DAILY (route: oral) Med Classific ation: Electroly te Balance-N utritiona l Products gabapentin 300 mg capsule 2024-03 00:00: 00 Yes [id number] NEUROPATHIC PAIN 1 capsule ONCE DAILY 1 capsule ONCE DAILY (route: oral) Med Classific ation: Central Nervous System Agents Lactobacill us acidophilus 1 billion cell tablet 2024-03 00:00: 00 Yes [id number] SUPPELEMNT 1 tablet ONCE DAILY 1 tablet ONCE DAILY (route: oral) Med Classific ation: Gastroint estinal Therapy Agents Lidocaine Pain Relief 4 % topical patch 2024-03 00:00: 00 Yes [id number] PAIN 1 adhesiv e patch, medicat ed ONCE DAILY 1 adhesive patch, medicated ONCE DAILY (route: topical) Med Classific ation: Dermatolo gical lisinopril 5 mg tablet 2024-03 00:00: 00 Yes [id number] HYPERTENSIO N 1 tablet ONCE DAILY 1 tablet ONCE DAILY (route: oral) Med Classific ation: Cardiovas cular Therapy Agents magnesium oxide 500 mg capsule 2024-03 00:00: 00 Yes [id number] SUPPLEMENT 0.5 capsule ONCE DAILY 0.5 capsule ONCE DAILY (route: oral) Med Classific ation: Electroly te Balance-N utritiona l Products Miralax 17 gram oral powder packet 2024-03 00:00: 00 Yes [id number] CONSTIPATIO N 1 packet ONCE DAILY 1 packet ONCE DAILY (route: oral) Med Classific ation: Gastroint estinal Therapy Agents multivitami n tablet 2024-03 00:00: 00 Yes [id number] SUPPLEMENT 1 tablet ONCE DAILY 1 tablet ONCE DAILY (route: oral) Med Classific ation: Electroly te Balance-N utritiona l Products pioglitazon e 45 mg tablet 2024-03 00:00: 00 Yes [id number] DIABETES 1 tablet ONCE DAILY 1 tablet ONCE DAILY (route: oral) Med Classific ation: Endocrine Senna with Docusate Sodium 8.6 mg-50 mg tablet 2024-03 00:00: 00 Yes [id number] CONSTIPATIO N 1 tablet TWICE DAILY 1 tablet TWICE DAILY (route: oral) Med Classific ation: Gastroint estinal Therapy Agents tramadol 25 mg tablet 2024-03 00:00: 00 Yes [id number] PAIN 1 tablet EVERY 6 HOURS 1 [...] WILL BE ESTABLISHED THAT MEETS ALL PATIENT'S MCC NEEDS AND COUNTER SIGNED BY PHYSICIAN. Goal [...] End Date/Time Encounter Type Admission Type Attending [facility] Care Facility Care Department Encounter ID Discharge Date Discharge Status Discharge Condition Discharge Reason Percent Goals Met 2025-03-13 00:00:00 2025-05-11 00:00:00 Outpatient NEW ADMISSION QUE LANDEROS [facility] [id number] 84.62
--- OUTSIDE RECORDS SUMMARY | 2025-05-10 18:00 | XMS_ITS | Clinical Summary ---
Author Organization Unknown Care Team Providers Care Academic Support Coordinator Name Role Phone MARICEL CASTELLANOS Unavailable Unavailable BRENDA PHYSICAL THERAPIST, URIEL Unavailable Unavailable DEV SOLUTION SPECIALIST, ALYSE Villalba ailable Unavailable RODRIGES OCCUPATIONAL THERAPIST, [...] mg chewable tablet 2024-03 00:00: 00 Yes [id number] ASPIRIN THERAPY 1 tablet ONCE DAILY 1 tablet ONCE DAILY (route: oral) Med Classific ation: Hematolog ical Agents atorvastati n 40 mg tablet 2024-03 00:00: 00 Yes [id number] HYPERLIPIDE ARABELLA 1 tablet BEDTIME 1 tablet BEDTIME (route: oral) Med Classific ation: Cardiovas cular Therapy Agents cetirizine 10 mg tablet 2024-03 00:00: 00 Yes [id number] CONGESTION 1 tablet ONCE DAILY 1 tablet ONCE DAILY (route: oral) Med Classific ation: Respirato ry Therapy Agents cyanocobala min (vit B-12) 1,000 mcg tablet 2024-03 00:00: 00 Yes [id number] SUPPLEMENT 1 tablet ONCE DAILY 1 tablet ONCE DAILY (route: oral) Med Classific ation: Electroly te Balance-N utritiona l Products gabapentin 300 mg capsule 2024-03 00:00: 00 Yes [id number] NEUROPATHIC PAIN 1 capsule ONCE DAILY 1 capsule ONCE DAILY (route: oral) Med Classific ation: Central Nervous System Agents Lactobacill us acidophilus 1 billion cell tablet 2024-03 00:00: 00 Yes [id number] SUPPELEMNT 1 tablet ONCE DAILY 1 tablet ONCE DAILY (route: oral) Med Classific ation: Gastroint estinal Therapy Agents Lidocaine Pain Relief 4 % topical patch 2024-03 00:00: 00 Yes [id number] PAIN 1 adhesiv e patch, medicat ed ONCE DAILY 1 adhesive patch, medicated ONCE DAILY (route: topical) Med Classific ation: Dermatolo gical lisinopril 5 mg tablet 2024-03 00:00: 00 Yes [id number] HYPERTENSIO N 1 tablet ONCE DAILY 1 tablet ONCE DAILY (route: oral) Med Classific ation: Cardiovas cular Therapy Agents magnesium oxide 500 mg capsule 2024-03 00:00: 00 Yes [id number] SUPPLEMENT 0.5 capsule ONCE DAILY 0.5 capsule ONCE DAILY (route: oral) Med Classific ation: Electroly te Balance-N utritiona l Products Miralax 17 gram oral powder packet 2024-03 00:00: 00 Yes [id number] CONSTIPATIO N 1 packet ONCE DAILY 1 packet ONCE DAILY (route: oral) Med Classific ation: Gastroint estinal Therapy Agents multivitami n tablet 2024-03 00:00: 00 Yes [id number] SUPPLEMENT 1 tablet ONCE DAILY 1 tablet ONCE DAILY (route: oral) Med Classific ation: Electroly te Balance-N utritiona l Products pioglitazon e 45 mg tablet 2024-03 00:00: 00 Yes [id number] DIABETES 1 tablet ONCE DAILY 1 tablet ONCE DAILY (route: oral) Med Classific ation: Endocrine Senna with Docusate Sodium 8.6 mg-50 mg tablet 2024-03 00:00: 00 Yes [id number] CONSTIPATIO N 1 tablet TWICE DAILY 1 tablet TWICE DAILY (route: oral) Med Classific ation: Gastroint estinal Therapy Agents tramadol 25 mg tablet 2024-03 00:00: 00 Yes [id number] PAIN 1 tablet EVERY 6 HOURS 1 [...] ON THE CERTIFIED CARE PLAN: DR. MARICEL CATSELLANOS] Future Scheduled Test THE CER TIFYING PHYSICIAN, [...] WILL BE ESTABLISHED THAT MEETS ALL PATIENT'S JAIL NEEDS AND COUNTER SIGNED BY PHYSICIAN. Goal [...] End Date/Time Encounter Type Admission Type Attending [facility] Care Facility Care Department Encounter ID Discharge Date Discharge Status Discharge Condition Discharge Reason Percent Goals Met 2025-03-13 00:00:00 2025-05-11 00:00:00 Outpatient NEW ADMISSION [facility] [id number] 84.62
== END 2025-03-28 14:23 | disposition hospice, inpatient (51) | DRG 951 ==
PROVIDERS: Admitting Provider Internal Medicine; PCP Family Medicine; Visit Provider Internal Medicine
DX: Z51.5 Encounter for palliative care (principal); J96.21 Acute and chronic respiratory failure with hypoxia; G12.21 Amyotrophic lateral sclerosis; E11.9 Type 2 diabetes mellitus without complications; G47.33 Obstructive sleep apnea (adult) (pediatric); M54.50 Low back pain, unspecified; G89.29 Other chronic pain; I10 Essential (primary) hypertension; I27.20 Pulmonary hypertension, unspecified
CPT/HCPCS: 87635; 94002; 94003; A9270; J2060; J2270